=== PATIENT | male | born 1975 | race Caucasian/White ===

== ENCOUNTER → 2017-10-10 20:00 | Outpatient (CLI) | payer BC, SELFPAY | PROVIDERS: Family Provider Nurse Practitioner; PCP Nurse Practitioner; Visit Provider Nurse Practitioner Acute Care | DX: G47.33 Obstructive sleep apnea (adult) (pediatric) (principal); R06.83 Snoring | CPT/HCPCS: 95811 ==

== ENCOUNTER → 2017-11-22 09:47 | Outpatient (CLI) | payer BC, SELFPAY ==
[2017-11-22 11:47] LABS: AST(SGOT) 54 U/L (15-37); Alanine Aminotransfer ALT/SGPT 99 U/L (16-61); Albumin, Serum 3.9 g/dL (3.2-5.0); Alkaline Phosphatase 90 U/L (45-117); Bilirubin, Direct 0.14 mg/dL (0.00-0.30); Cholesterol 147 mg/dL (200); High Density Lipoprotein 35 mg/dL; Protein, Total 6.9 g/dL (6.4-8.2); Triglycerides 174 mg/dL; Very Low Density Lipoprotein 35 mg/dL (5-40)
== END ==
PROVIDERS: Family Provider Nurse Practitioner; PCP Nurse Practitioner; Visit Provider Internal Medicine Cardiovascular Disease
DX: E78.5 Hyperlipidemia, unspecified (principal); I25.10 Atherosclerotic heart disease of native coronary artery without angina pectoris
CPT/HCPCS: 36415; 80061; 80076

== ENCOUNTER → 2018-05-02 07:05 | Outpatient (CLI) | payer BC, SELFPAY ==
--- NOTE | 2018-05-02 07:07 | MRI_ITS ---
STUDY: MRI LEFT SHOULDER REASON FOR EXAM: Male, 43 years old. Left shoulder pain. TECHNIQUE: Standardized fat and water weighted pulse sequences were obtained in all 3 orthogonal planes. COMPARISON: None. FINDINGS: There is focal full-thickness incomplete tearing of the supraspinatus tendon anteriorly. There is intermediate grade partial articular surface tearing of the infraspinatus tendon. Normal subscapularis tendon. Normal teres minor tendon. Normal supraspinatus muscle. Normal infraspinatus muscle. Normal subscapularis muscle. Normal teres minor muscle. Normal glenohumeral articulation. Normal humeral head and visualized proximal humerus. Normal biceps labral complex. There is poor visualization of the intracapsular portion of the biceps tendon, possibly torn. There is tearing of the anterior and posterior superior glenoid labrum. Normal capsulo- ligamentous complex. Normal rotator interval. There is mild acromioclavicular arthrosis and mild stenosis of the subacromial space. There is no subacromial-subdeltoid bursal fluid. Normal visualized coracohumeral and coracoacromial ligaments. Normal quadrilateral space. Normal axillary space. Normal deltoid muscle. Normal trapezius muscle. MRI/Upper Ext Joint Only(Routine) IMPRESSION: Focal full-thickness incomplete tearing of the supraspinatus tendon. Intermediate grade partial articular surface tearing of the infraspinatus tendon. Tearing of the anterior and posterior superior glenoid labrum. Tearing of the intracapsular portion of the biceps tendon. Electronically Signed: Nolberto Knapp, at 11:57 EST Tel , Service support ,
--- OUTSIDE RECORDS SUMMARY | 2018-08-05 08:22 | XMS RPT_ITS ---
:1975 Author Organization [place] Care Team Providers Name Role Phone Neto Hoffman Attending Unavailable Neto Hoffman Referring Unavailable Erin Mason DUMP MOTORMAN-C Primary Care Unavailable Neto Hoffman Attending Unavailable Mason, Erin DUMP MOTORMAN-C Referring Unavailable Tania Mckenna DUMP MOTORMAN-C Attending Unavailable Mason, Erin DUMP MOTORMAN-C Primary Care Unavailable Nolberto Dubois Attending Unavailable Mason, Erin DUMP MOTORMAN-C Referring Unavailable Nolberto Dubois Attending Unavailable Nolberto Dubois Referring Unavailable Mason, Erin DUMP MOTORMAN-C Primary Care Unavailable Mason, Erin Attending Unavailable Neto Hoffman Attending Unavailable Nolberto Dubois Attending Unavailable Mason, Erin DUMP MOTORMAN-C Referring Unavailable Mason, Erin Attending Unavailable Mason, Erin Attending Unavailable PROBLEMS PROBLEMS DATE TYPE CONDITION / CODE ATTENDING STATUS SOURCE 06/02/2018 Unknown M75.42 - Impingement Neto Hoffman Active [facility] syndrome of left [facility] shoulder / Hospital M75.42(ICD-10) Repository 04/15/2018 Unknown M75.102 - Unspecified Neto Hoffman Active [facility] rotator cuff tear or Community rupture of left Hospital shoulder, not Repository specified as traumatic / M75.102(ICD-10) 04/15/2018 Unknown M25.512 - Pain in Neto Hoffman Active [facility] left shoulder / Community M25.512(ICD-10) Hospital Repository 04/15/2018 Unknown M67.912 - Unspecified Neto Hoffman Active [facility] disorder of [place] Community and tendon, left Hospital shoulder / Repository M67.912(ICD-10) 11/22/2017 Unknown I25.10 - Nolberto Dubois Active [facility] Atherosclerotic heart Community disease of [facility] coronary artery Repository without angina pectoris / I25.10(ICD-10) 11/22/2017 Unknown E78.5 - Nolberto Dubois Active [place] Hyperlipidemia, Community unspecified / Hospital E78.5(ICD-10) Repository PROCEDURES PROCEDURES No Procedure Records FoundRESULTS RESULTS ORTHOPEDIC VISIT Observed: 06/03/2018 Status: F Source: [facility] REPORT 8:06 AM [facility] REPOSITORY [facility] Orthopaedics AND Sports Medicine [address] [place] [id number] OFFICE VISIT Date of Service: 06/02/18 MR#: [id number] Acct: [id number] Name: HARRIET RIDDLE Rep #: [id number] : 1975 Provider: PA Neto Wayt Age/Sex: 43/M Location: [facility] Status: Signed Intake Intake Visit Reasons: LEFT SHOULDER Is patient in pain?: Yes Pain scale (1-10): 4 Allergies atorvastatin Adverse Reaction (Severe, Verified 05/22/18 12:21) muscle and joint pain kenolog Allergy (Intermediate, Uncoded 04/15/18 14:18) Rash Medications Albuterol Aerosols [Ventolin Aerosols] 2.5 mg INHALATION Q6H PRN PRN 10/04/14 [History Confirmed 11/20/17] traZODone [Desyrel] 50 mg PO QHS 10/04/14 [History Confirmed 11/20/17] canagliflozin 150 mg-metformin 1,000 mg tablet 1 tab PO BID 05/29/17 [History Confirmed 11/20/17] omega-3 fatty acids 1,000 mg capsule 1,000 mg PO QDAY 05/29/17 [History Confirmed 11/20/17] tramadol 50 mg tablet 50 mg PO Q6H 05/29/17 [History Confirmed 11/20/17] clopidogrel 75 mg tablet 75 mg PO QDAY 30 Days #30 tab 11/20/17 [Rx Confirmed 11/20/17] ezetimibe 10 mg tablet 10 mg PO QDAY #30 tab 11/20/17 [Rx Confirmed 11/20/17] furosemide 40 mg tablet 40 mg PO QDAY #30 tab 11/20/17 [Rx Confirmed 11/20/17] isosorbide mononitrate ER 30 mg tablet,extended release 24 hr 30 mg PO DAILY #30 tab 11/20/17 [Rx Confirmed 11/20/17] acetaminophen 80 mg chewable tablet PO 12/18/17 [History Confirmed 12/25/17] clopidogrel 75 mg tablet 75 mg PO QDAY 12/18/17 [History Confirmed 12/25/17] ezetimibe 10 mg tablet 10 mg PO QDAY 12/18/17 [History Confirmed 12/25/17] furosemide 40 mg tablet 40 mg PO QDAY 12/18/17 [History Confirmed 12/25/17] isosorbide mononitrate ER 30 mg tablet,extended release 24 hr 30 mg PO QAM 12/18/17 [History Confirmed 12/25/17] tramadol 50 mg tablet 50 mg PO Q6H #60 tab 12/25/17 [Rx Confirmed 12/25/17] trazodone 50 mg tablet 100 mg PO QDAY #60 tab 12/25/17 [Rx Confirmed 12/25/17] albuterol sulfate HFA 90 mcg/actuation aerosol inhaler 2 puff INHALATION Q4H PRN 30 Days #8 g 02/11/18 [Rx Confirmed 02/11/18] canagliflozin 150 mg-metformin 1,000 mg tablet 1 tab PO BID #60 tab 03/24/18 [Rx Confirmed 03/24/18] PFSH Medical History Atherosclerosis of coronary artery of three affiliated heart without angina pectoris (Acute) Abnormal liver enzymes (Chronic) Obesity (BMI 30.0-34.9) (Chronic) Type 2 diabetes mellitus without complications (Chronic) COPD (chronic obstructive pulmonary disease) (Chronic) Hypertension (Chronic) Hyperlipidemia (Chronic) Obstructive sleep apnea (Chronic) Abnormal liver enzymes (Acute) Anxiety disorder (Acute) Asthma (Acute) Central sleep apnea (Acute) Diverticulitis (Acute) Fatty liver (Acute) Fusion of lumbar spine (Acute) Hyperlipidemia associated with type 2 diabetes mellitus (Acute) Lipoma (Acute) Recurrent UTI (urinary tract infection) (Acute) Surgical History History of coronary artery stent placement (Acute 10/27/14) History of tonsillectomy (Acute) History of tonsillectomy (Chronic) Family History Sister Diabetes Grandfather CAD (coronary artery disease) Other Asthma CVA (cerebral vascular accident) Cancer Chronic inflammatory demyelinating polyneuropathy Family history of high cholesterol Heart disease Hypertension Leukemia Osteoporosis Thyroid disorder Social History Smoking Status: Never smoker HPI LEFT SHOULDER: Details: HARRIET RIDDLE is a 43 year old M here today for MRI f/u of the left shoulder. He continues to have pain with abduction and flexion and anything overhead. Denies numbness, tingling or other associated symptoms. He states that he has a general achiness most of the time. Ortho Exam Left Shoulder Contralateral Normal: Yes Testing: Yes Hawkin's, Yes Neer's, Yes Speed's, Yes TTP Biceps, No TTP AC Joint, Yes AROM-Forward Elevation 0-180, Yes AROM-External Rotation at side 0-60, No translation, No Apprehension Test, No empty can Internal Rotation: T12 SHOULDER: Patient has no evident abnormalities on inspection of the shoulder. He has no localized or generalized swelling of the shoulder. There are no other skin changes noted. Patient does have full range of motion at the same time takes the left foot he has a little discomfort but again he can get full range of motion. Strength is minimally disc increased at this time. He has no translation or evidence of subluxation Office Procedures Kenalog 40 mg/mL suspension for injection (triamcinolone acetonide) 80 mg Intrabursal ONCE Injections Yes Subacromial Injection Left Office Meds Nico Performing Provider: NEIL Duncan Administered by: NEIL Duncan on 06/02/18 15:09 Dose Route Admin Location Lot Number Expiration Date [place] [employer] Pcb Designer 80 mg Intrabursal left [id number] 07/18/19 [id number] [facility] joint QUIBB Assessment AND Plan Problems 1. Impingement syndrome, shoulder, left M75.42 2. Disorder of left rotator cuff M67.912 Plan Today in office we did go over his MRI which did show couple things that could be contributing to his pain and discomfort. He does have a lot of anterior shoulder pain and tenderness over the biceps which does correlate with a partial tear intracapsular. There is suggestion of a full-thickness but incomplete tear of the supraspinatus as well as labral tears. I did review the actual images with the surgeon in our office looking specifically at the findings suggested. It was felt that these findings although noted appeared relatively minor. We did discuss that he has no instability he has never had any subluxation or dislocations of the shoulder and therefore at his age not a priority to repair the labrum. After discussion of all these findings and with his range of motion patient would like to go ahead with an injection into the left subacromial space. I did explain that this may not improve the biceps component at the same time would like him to return to physical therapy to receive ultrasound on the anterior shoulder and continue with exercises. If there is no improvement at this time we did discuss that surgery is an option but could be more for a biceps tenotomy and shoulder arthroscopy cleanouts more than repair. Patient will return to the office for 6 weeks or sooner if he has increased or worsening pains. All of patient's questions were answered at this time. This note was generated with [employer] software. It may contain incorrect words, spelling, and punctuation that were not noted in checking the note before signing. Orders Orders: Medications Discontinued: Kenalog (triamcinolone acetonide) Disco80 mg (2 mL) Intrabursal ONCE 2 mL 0RF NS M75.42 ntinued Reason: Office Medication has bee n Documented as given Plan Detail Follow Up 6 Weeks Coding Level of Care Code Off vis,est,level 3 Diagnoses Impingement syndrome, shoulder, left M75.42 Disorder of left rotator cuff M67.912 Additional Codes lactation coordinator.sub ([id number]) 06/03/18 0806 <Electronically signed by Neto TREJO> Date Neto TREJO Cosigner Signature: Date (if applicable) CC: UPPER EXT JOINT Observed: 05/02/2018 Status: F Source: [place] ONLY(ROUTINE) 7:07 AM [facility] REPOSITORY [facility] Imaging Services [address] [place] [address] Upper Ext Joint Only(Routine) MR#: [id number] Acct: [id number] Name: HARRIET RIDDLE Rep #: [id number] : 1975 M 43 From: Nolberto Knapp MD PCP: Erin Mason NP Status: REG CLI Study: Upper Ext Joint Only(Routine) Date of Exam: 05/02/18 Exam# [id number] Ordering Dr: Neto Hoffman ADDENDUM by Franco Grant MD on 05/26/18 at 1131 ADDENDUM COMPARISON: Shoulder radiographs dated April 29, 2017. Electronically Signed: Franco Grant MD at 11:31 EST , Service support , 05/26/18 1131 Date cc: DELFINO Mason; NEIL Hoffman * Signed ADDENDUM by Franco Grant MD on 05/26/18 at 1131 MRI/Upper Ext Joint Only(Routine) 05/26/18 1136 Date cc: DELFINO Mason; NEIL Hoffman * Signed STUDY: MRI LEFT SHOULDER REASON FOR EXAM: Male, 43 years old. Left shoulder pain. TECHNIQUE: Standardized fat and water weighted pulse sequences were obtained in all 3 orthogonal planes. COMPARISON: None. FINDINGS: There is focal full-thickness incomplete tearing of the supraspinatus tendon anteriorly. There is intermediate grade partial articular surface tearing of the infraspinatus tendon. Normal subscapularis tendon. Normal teres minor tendon. Normal supraspinatus muscle. Normal infraspinatus muscle. Normal subscapularis muscle. Normal teres minor muscle. Normal glenohumeral articulation. Normal humeral head and visualized proximal humerus. Normal biceps labral complex. There is poor visualization of the intracapsular portion of the biceps tendon, possibly torn. There is tearing of the anterior and posterior superior glenoid labrum. Normal capsulo- ligamentous complex. Normal rotator interval. There is mild acromioclavicular arthrosis and mild stenosis of the subacromial space. There is no subacromial-subdeltoid bursal fluid. Normal visualized coracohumeral and coracoacromial ligaments. Normal quadrilateral space. Normal axillary space. Normal deltoid muscle. Normal trapezius muscle. MRI/Upper Ext Joint Only(Routine) IMPRESSION: Focal full-thickness incomplete tearing of the supraspinatus tendon. Intermediate grade partial articular surface tearing of the infraspinatus tendon. Tearing of the anterior and posterior superior glenoid labrum. Tearing of the intracapsular portion of the biceps tendon. Electronically Signed: Nolberto Knapp, at 11:57 EST Tel , Service support , CC: DELFINO Mason; NEIL Hoffman Financial Systems Analyst: Signed ORTHOPEDIC VISIT Observed: 04/06/2018 Status: F Source: [place] REPORT 2:52 PM [facility] REPOSITORY [facility] Orthopa[facility] AND Sports Medicine [address] [place] [address] OFFICE VISIT Date of Service: 04/06/18 MR#: [id number] Acct: [id number] Name: HARRIET RIDDLE Rep #: [id number] : 1975 Provider: NEIL Hoffman Age/Sex: 43/M Location: [facility] Status: Signed Intake Intake Visit Reasons: LEFT SHOULDER Is patient in pain?: Yes Pain scale (1-10): 3 Allergies atorvastatin Adverse Reaction (Severe, Verified 04/06/18 13:37) muscle and joint pain kenolog Allergy (Intermediate, Uncoded 12/18/17 16:23) Rash Medications acetaminophen 80 mg chewable tablet PO 12/18/17 [History Confirmed 12/25/17] clopidogrel 75 mg tablet 75 mg PO QDAY 12/18/17 [History Confirmed 12/25/17] ezetimibe 10 mg tablet 10 mg PO QDAY 12/18/17 [History Confirmed 12/25/17] furosemide 40 mg tablet 40 mg PO QDAY 12/18/17 [History Confirmed 12/25/17] isosorbide mononitrate ER 30 mg tablet,extended release 24 hr 30 mg PO QAM 12/18/17 [History Confirmed 12/25/17] tramadol 50 mg tablet 50 mg PO Q6H #60 tab 12/25/17 [Rx Confirmed 12/25/17] trazodone 50 mg tablet 100 mg PO QDAY #60 tab 12/25/17 [Rx Confirmed 12/25/17] canagliflozin 150 mg-metformin 1,000 mg tablet 1 tab PO BID #60 tab 03/24/18 [Rx Confirmed 03/24/18] [facility] Medical History Abnormal liver enzymes (Acute) Anxiety disorder (Acute) Asthma (Acute) Central sleep apnea (Acute) Diverticulitis (Acute) Fatty liver (Acute) Fusion of lumbar spine (Acute) Hyperlipidemia associated with type 2 diabetes mellitus (Acute) Lipoma (Acute) Recurrent UTI (urinary tract infection) (Acute) Surgical History History of tonsillectomy (Acute) Family History Other Asthma CVA (cerebral vascular accident) Cancer Chronic inflammatory demyelinating polyneuropathy Diabetes Family history of high cholesterol Heart disease Hypertension Leukemia Osteoporosis Thyroid disorder Social History Smoking Status: Never smoker HPI LEFT SHOULDER: Details: HARRIET RIDDLE is a 43 year old M here today for left shoulder pain. He states that he has had left shoulder pain for many months with no known injury. Patient is left hand dominant. 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 He complains of pain into his anterior shoulder. He also has pain in his trap and posterior shoulder. He has decreased shoulder range of motion and weakness. Patient has completed 6 weeks of physical therapy which was temporary helpful. Patient denies any MRI or injections. He had xrays which are here for review. ROS Const Reports system reviewed and no additional complaints, except as docu Eyes Reports system reviewed and no additional complaints, except as docu ENT Reports system reviewed and no additional complaints, except as docu Card Reports system reviewed and no additional complaints, except as docu Resp Reports system reviewed and no additional complaints, except as docu GI Reports system reviewed and no additional complaints, except as docu Reports system reviewed and no additional complaints, except as docu Musc Reports joint pain, Reports muscle weakness, Reports limited joint movement Skin/Breast Reports system reviewed and no additional complaints, except as docu Neuro Yes system reviewed and no additional complaints, except as docu Psych Reports system reviewed and no additional complaints, except as docu Endo Reports system reviewed and no additional complaints, except as docu Ortho Exam Left Shoulder Testing: Yes Hawkin's, Yes Neer's, Yes Speed's, Yes TTP Biceps, No AROM-Forward Elevation 0-180 (170), Yes PROM-Forward Elevation 0-180, Yes AROM-External Rotation at side 0-60, No Apprehension Test, No translation, Yes empty can Internal Rotation: T12 SHOULDER: Today in the office patient essentially has full range of motion. For flexion he is about 170 and he probably can get to 180 with some strain. Abduction causes a little more discomfort earlier in his ROM but he can get to around 170 but the last 10 degrees is more of a struggle. he has normal external rotation with some decreased internal rotation. he has evident impingment signs with some weakness noted as well. He does have positive O'briens test today. Assessment AND Plan Problems 1. Acute pain of left shoulder M25.512 2. Disorder of left rotator cuff M67.912 3. Impingement syndrome, shoulder, left M75.42 Plan Patient has had pains and problems with the left shoulder for about a year now. We reviewed his x-rays from almost a year ago which did not show any bony abnormalities. Today in the office there are no abnormalities noted on inspection of the shoulder. He actually has pretty decent range of motion that is almost full range of motion and can actually get him full range of motion passively. He does have some decreased strength in the shoulder as well as very evident impingement signs. He has been doing physical therapy which he states does help but only very temporary. So at this time he has failed anti-inflammatories, ice as well as physical therapy and therefore we are going to proceed with an MRI of the left shoulder. I think more than likely he has tendinitis may be with some partial-thickness tearing as well as biceps involvement. We will look to make sure there is no SLAP lesion or a larger tear. There is no full-thickness tear then we will likely proceed with injection of the subacromial space as well as continued physical therapy. I did recommend that he talk to the physical therapist about ultrasound on the biceps tendon anterior shoulder. Patient will follow-up in the office after the MRI to go over the results. He can ice and take anti-inflammatory in the meantime. Orders Orders: Coding Level of Care Code Off vis,new,level 3 Diagnoses Acute pain of left shoulder M25.512 Chronicity: acute Disorder of left rotator cuff M67.912 Impingement syndrome, shoulder, left M75.42 04/06/18 0212 <Electronically signed by Neto TREJO> Date Neto Guzman Signature: Date (if applicable) CC: OFFICE VISIT Observed: 03/25/2018 Status: F Source: [place] 11:52 AM [facility] REPOSITORY [facility] [address] [place] [address] OFFICE VISIT Date of Service: 03/24/18 MR#: [id number] Acct: [id number] Name: AAKASHFRIEDA Inna Rep #: [id number] : 1975 Provider: DELFINO Mason Age/Sex: 43/M Location: [facility] Status: Signed Intake Vital Signs03/24/18 Height 5 ft 9 in 03/24/18 Weight: 277 lb Intake Visit Reasons: RX REFILL, Still having L shoulder problems Accompanied by: Is patient in pain?: Yes Allergies atorvastatin Adverse Reaction (Severe, Verified 12/18/17 16:23) muscle and joint pain kenolog Allergy (Intermediate, Uncoded 12/18/17 16:23) Rash Medications acetaminophen 80 mg chewable tablet PO 12/18/17 [History Confirmed 12/25/17] clopidogrel 75 mg tablet 75 mg PO QDAY 12/18/17 [History Confirmed 12/25/17] ezetimibe 10 mg tablet 10 mg PO QDAY 12/18/17 [History Confirmed 12/25/17] furosemide 40 mg tablet 40 mg PO QDAY 12/18/17 [History Confirmed 12/25/17] isosorbide mononitrate ER 30 mg tablet,extended release 24 hr 30 mg PO QAM 12/18/17 [History Confirmed 12/25/17] tramadol 50 mg tablet 50 mg PO Q6H #60 tab 12/25/17 [Rx Confirmed 12/25/17] trazodone 50 mg tablet 100 mg PO QDAY #60 tab 12/25/17 [Rx Confirmed 12/25/17] canagliflozin 150 mg-metformin 1,000 mg tablet 1 tab PO BID #60 tab 03/24/18 [Rx Confirmed 03/24/18] PFSH Medical History Abnormal liver enzymes (Acute) Anxiety disorder (Acute) Asthma (Acute) Central sleep apnea (Acute) Diverticulitis (Acute) Fatty liver (Acute) Fusion of lumbar spine (Acute) Hyperlipidemia associated with type 2 diabetes mellitus (Acute) Lipoma (Acute) Recurrent UTI (urinary tract infection) (Acute) Surgical History History of tonsillectomy (Acute) Family History Other Asthma CVA (cerebral vascular accident) Cancer Chronic inflammatory demyelinating polyneuropathy Diabetes Family history of high cholesterol Heart disease Hypertension Leukemia Osteoporosis Thyroid disorder Social History Smoking Status: Never smoker HPI HPI (General) HPI HPI: FRIEDA RIDDLE, is a 43 M who presents to the office today for refill of his Invokamet also has been going to PT and they want a MRI of the shoulder and states has no strength in the L arm after 8 weeks of therapy. Unable to lay on the L side only his back or R side sometimes gets tingling down the L arm and has no strength in the L arm . The PT thinks its the trapezius muscles because when he worked on then he got relief ,but only temporarily. STill not watching what he eats and eats fast foods but not as much .Still suggested packing and exercising. Will have him evaluated by ortho for the shoulder pain ROS Musc Musculoskeletal: Positive for joint pain (L shoulder pain) Exam Const Constitutional: Yes cooperative, Yes healthy appearing Orientation: Yes alert, awake and oriented x3 HENMT Head: Yes normocephalic Ear: Yes hearing grossly normal bilaterally Neck Neck: normal visual inspection Thyroid: thyroid normal Eyes General: Yes appearance normal, both eyes and all related structures Chest Chest palpation AND inspection: Yes normal inspection of the chest Resp Effort AND Inspection: Yes normal respiratory effort Auscultation: Yes clear to auscultation bilaterally Cardio Palpitation: Yes normal PMI Rate: Yes regular rate Rhythm: Yes regular rhythm GI Inspection: Yes normal to inspection Auscultation: Yes normal bowel sounds Musc Cervical Spine: Yes cervical ROM normal Thoracic/Lumbar Spine: Yes thoracic and lumbar spine normal to inspection Skin General: no rashes or lesions noted Lesions: Yes no lesions Extrem General: Yes normal to inspection Neuro General: Yes alert and oriented x3 Psych Appearance: Positive grossly normal Mood: Positive congruent mood Affect: Positive normal affect Results POC A1C POC A1C 6.3 % Last Edit by BRAYAN Mccauley on 03/24/18 16:59 Assessment AND Plan Problems 1. Uncontrolled type 2 diabetes mellitus with hyperglycemia E11.65 2. Acute pain of left shoulder M25.512 Patient Instructions Will refer to Dr Urbano for the shoulder pain. Stop the PT continue medcations as prescribed Orders Orders: Medications New: Coding Level of Care Code Off vis,est,level 3 Diagnoses Uncontrolled type 2 diabetes mellitus with hyperglycemia E11.65 Glycemic state: with hyperglycemia Acute pain of left shoulder M25.512 Chronicity: acute 03/25/18 1152 <Electronically signed by Erin SCHMIDT> Date Erin SCHMIDT CC: OFFICE VISIT Observed: 02/12/2018 Status: F Source: [place] 12:54 PM [facility] REPOSITORY [facility] [address] [place] [address] OFFICE VISIT Date of Service: 02/11/18 MR#: [id number] Acct: [id number] Name: HARRIET RIDDLE Rep #: [id number] : 1975 Provider: DELFINO Mason Age/Sex: 42/M Location: [facility] Status: Signed Intake Vital Signs02/11/18 Height 5 ft 9.5 in 02/11/18 Weight: 270 lb Intake Visit Reasons: cold sore, needs inhaler (albuterol) Allergies No Known Allergies Allergy (Verified 05/29/17 15:56) Medications Albuterol Aerosols [Ventolin Aerosols] 2.5 mg INHALATION Q6H PRN PRN 10/04/14 [History Confirmed 11/20/17] traZODone [Desyrel] 50 mg PO QHS 10/04/14 [History Confirmed 11/20/17] canagliflozin 150 mg-metformin 1,000 mg tablet 1 tab PO BID 05/29/17 [History Confirmed 11/20/17] omega-3 fatty acids 1,000 mg capsule 1,000 mg PO QDAY 05/29/17 [History Confirmed 11/20/17] tramadol 50 mg tablet 50 mg PO Q6H 05/29/17 [History Confirmed 11/20/17] clopidogrel 75 mg tablet 75 mg PO QDAY 30 Days #30 tab 11/20/17 [Rx Confirmed 11/20/17] ezetimibe 10 mg tablet 10 mg PO QDAY #30 tab 11/20/17 [Rx Confirmed 11/20/17] furosemide 40 mg tablet 40 mg PO QDAY #30 tab 11/20/17 [Rx Confirmed 11/20/17] isosorbide mononitrate ER 30 mg tablet,extended release 24 hr 30 mg PO DAILY #30 tab 11/20/17 [Rx Confirmed 11/20/17] albuterol sulfate HFA 90 mcg/actuation aerosol inhaler 2 puff INHALATION Q4H PRN 30 Days #8 g 02/11/18 [Rx Confirmed 02/11/18] azithromycin 250 mg tablet 250 mg PO QDAY 5 Days #6 tab 02/11/18 [Rx Confirmed 02/11/18] PFSH Medical History Atherosclerosis of coronary artery of three affiliated heart without angina pectoris (Acute) Abnormal liver enzymes (Chronic) Obesity (BMI 30.0-34.9) (Chronic) Type 2 diabetes mellitus without complications (Chronic) COPD (chronic obstructive pulmonary disease) (Chronic) Hypertension (Chronic) Hyperlipidemia (Chronic) Obstructive sleep apnea (Chronic) Surgical History History of coronary artery stent placement (Acute 10/27/14) History of tonsillectomy (Chronic) Family History Sister Diabetes Grandfather CAD (coronary artery disease) Social History Smoking Status: Former smoker HPI HPI (General) HPI HPI: HARRIET RIDDLE, is a 42 M who presents to the office today for tightness with cough and SOB .Wants his inhaler refilled . Has been using quite a bit lately more than 2 x a week Gave him a trial of Symbicort 80 to see if helps and he felt immediate relief. ROS Const Constitutional: Positive for fever(s) Eyes Eyes: Positive for discharge ENT ENT: Positive for dizziness/vertigo, nasal congestion, sinus pain, facial pain, sinus pressure and hoarseness Resp Respiratory: Positive for cough (yellow) Cough: Yes productive, shortness of breath and wheezing Aller/Imm Allergy/Immunologic: Positive for wheezing Exam Const Constitutional: Yes cooperative, Yes healthy appearing Orientation: Yes alert, awake and oriented x3 HENMT Head: Yes normocephalic Ear: Yes hearing grossly normal bilaterally Neck Neck: normal visual inspection Thyroid: thyroid normal Eyes General: Yes appearance normal, both eyes and all related structures Chest Chest palpation AND inspection: Yes normal inspection of the chest Resp Effort AND Inspection: Yes decreased respiratory effort Auscultation: Yes diminished lung sounds and clear to auscultation bilaterally Cardio Palpitation: Yes normal PMI Rate: Yes regular rate Rhythm: Yes regular rhythm GI Inspection: Yes normal to inspection Auscultation: Yes normal bowel sounds Musc Cervical Spine: Yes cervical ROM normal Thoracic/Lumbar Spine: Yes thoracic and lumbar spine normal to inspection Skin General: no rashes or lesions noted Lesions: Yes no lesions Extrem General: Yes normal to inspection Neuro General: Yes alert and oriented x3 Psych Appearance: Positive grossly normal Mood: Positive congruent mood Affect: Positive normal affect Assessment AND Plan Problems 1. Moderate persistent asthmatic bronchitis without complication J45.40 2. Recurrent acute serous otitis media of right ear H65.04 Patient Instructions Take the antibiotics till gone with food or after eating push the fluids .Continue using the Ventolin inhaler as needed and may try the steroid inhaler once a day in the AM .2 puffs once a day rinse the mouth out well with water Medications New: albuterol sulfate HFA 90 mcg/actuation (V2 puffs Inhalation Q4H 1 month PRN 8 graJ45.909 entolin HFA) ms 12RF asthma Coding Level of Care Code Off vis,est,level 3 Diagnoses Moderate persistent asthmatic bronchitis without complication J45.40 Asthma complication type: uncomplicated Asthma persistence: persistent Asthma severity: moderate Recurrent acute serous otitis media of right ear H65.04 Chronicity: acute Otitis media type: serous Recurrence: recurrent 02/12/18 1254 <Electronically signed by Erin SCHMIDT> Date Erin SCHMIDT CC: OFFICE VISIT Observed: 12/26/2017 Status: F Source: [facility] 2:23 PM [facility] REPOSITORY After Hours Family [facility] [address] [place] [address] OFFICE VISIT Date of Service: 12/25/17 MR#: [id number] Acct: [id number] Name: FRIEDA RIDDLE Rep #: [id number] : 1975 Provider: DELFINO Mason Age/Sex: 42/M Location: [facility] Status: Signed Intake Vital Signs12/25/17 Height 5 ft 9 in 12/25/17 Weight: 272 lb 12/25/17 Body Mass Index (BMI) 40.1 12/25/17 Blood Pressure Location Rt popliteal 12/25/17 Blood Pressure Position Sitting 12/25/17 Respiratory Rate 18 Intake Visit Reasons: BACK AND SHOULDERS Chief Complaint: back and sholder pain and would like ears looked at Accompanied by: self Is patient in pain?: Yes Allergies atorvastatin Adverse Reaction (Severe, Verified 12/18/17 16:23) muscle and joint pain kenolog Allergy (Intermediate, Uncoded 12/18/17 16:23) Rash Medications acetaminophen 80 mg chewable tablet PO 12/18/17 [History Confirmed 12/25/17] canagliflozin 150 mg-metformin 1,000 mg tablet 1 tab PO BID 12/18/17 [History Confirmed 12/25/17] clopidogrel 75 mg tablet 75 mg PO QDAY 12/18/17 [History Confirmed 12/25/17] ezetimibe 10 mg tablet 10 mg PO QDAY 12/18/17 [History Confirmed 12/25/17] furosemide 40 mg tablet 40 mg PO QDAY 12/18/17 [History Confirmed 12/25/17] isosorbide mononitrate ER 30 mg tablet,extended release 24 hr 30 mg PO QAM 12/18/17 [History Confirmed 12/25/17] tramadol 50 mg tablet 50 mg PO Q6H #60 tab 12/25/17 [Rx Confirmed 12/25/17] trazodone 50 mg tablet 100 mg PO QDAY #60 tab 12/25/17 [Rx Confirmed 12/25/17] PFSH Medical History Abnormal liver enzymes (Acute) Anxiety disorder (Acute) Asthma (Acute) Central sleep apnea (Acute) Diverticulitis (Acute) Fatty liver (Acute) Fusion of lumbar spine (Acute) Hyperlipidemia associated with type 2 diabetes mellitus (Acute) Lipoma (Acute) Recurrent UTI (urinary tract infection) (Acute) Surgical History History of tonsillectomy (Acute) Family History Other Asthma CVA (cerebral vascular accident) Cancer Chronic inflammatory demyelinating polyneuropathy Diabetes Family history of high cholesterol Heart disease Hypertension Leukemia Osteoporosis Thyroid disorder Social History Smoking Status: Never smoker HPI HPI (General) HPI Chief Complaint: back and sholder pain and would like ears looked at HPI: FRIEDA RIDDLE, is a 42 M who presents to the office today for continued pain in the L shoulder at the AC joint worse with certain movements like lifting straight out to the side and swinging arm backwards. hurts to lay on the opposite side in bed and feels better to lay on the affected side with minimal pain .Reaching behind self with extended arm is very painful no palpable pain on exam no redness or swelling noted ROS ENT ENT: Positive for neck pain and ear pain Musc Musculoskeletal: Positive for joint pain (L shoulder pain), back pain, limited range of motion, muscle weakness and neck pain Exam Const Constitutional: Yes cooperative Orientation: Yes oriented x3 and alert HENMT TM-Right: normal TM-Left: normal Neck Neck: normal visual inspection Eyes General: Yes appearance normal, both eyes and all related structures Chest Chest palpation AND inspection: Yes normal inspection of the chest Resp Effort AND Inspection: Yes normal respiratory effort Auscultation: Yes clear to auscultation bilaterally Cardio Palpitation: Yes normal PMI Rate: Yes regular rate Rhythm: Yes regular rhythm GI Palpation: Yes soft and no hepatosplenomegaly Musc Thoracic/Lumbar Spine: Yes thoracic and lumbar spine normal to inspection, lumbar spinal tenderness and paraspinal tenderness Skin General: no rashes or lesions noted Extrem General: Yes normal to inspection and other (l arm limited PROM and ROM especilly trying to reach behind with his arm) Neuro General: Yes oriented x3 and alert Psych Appearance: Positive grossly normal Affect: Positive normal affect Assessment AND Plan Problems 1. Left arm pain M79.602 2. Left shoulder pain M25.512 Plan refer for for PT continue the use of ibuprofen 600 mg or 800 mg every 6-8 hrs as needed Use the tramadol for the severe pain Patient Instructions I will get the results of the x-rays done in last March Will refer to [facility] for therapy of the L shoulder Try using ibuprofen 200 mg 3 every 6 hr or 4 every 8 hr OR Aleve 220 take 2 2 x a day take the Meds as prescribed the tramadol for pain and the trazodone for sleep Medications New: Discontinued: 12/26/17 1423 <Electronically signed by Erin SCHMIDT> Date Erin SCHMIDT CC: OFFICE VISIT Observed: 12/18/2017 Status: F Source: [facility] 5:11 PM [facility] REPOSITORY [facility] [address] [place] [address] OFFICE VISIT Date of Service: 12/18/17 MR#: [id number] Acct: [id number] Name: FRIEDA RIDDLE Rep #: [id number] : 1975 Provider: DELFINO Mason Age/Sex: 42/M Location: [facility] Status: Signed Intake Vital Signs12/18/17 Height 5 ft 9 in 12/18/17 Weight: 271 lb Intake Visit Reasons: EAR INFECTION, blood pouring out of ear last night Chief Complaint: ear ache for 1 week then last night blood pouring out of L ear Accompanied by: Self Is patient in pain?: Yes Allergies atorvastatin Adverse Reaction (Severe, Verified 12/18/17 16:23) muscle and joint pain kenolog Allergy (Intermediate, Uncoded 12/18/17 16:23) Rash Medications acetaminophen 80 mg chewable tablet PO 12/18/17 [History Confirmed 12/18/17] amoxicillin 875 mg tablet 875 mg PO BID #20 tab 12/18/17 [Rx Confirmed 12/18/17] canagliflozin 150 mg-metformin 1,000 mg tablet 1 tab PO BID 12/18/17 [History Confirmed 12/18/17] clopidogrel 75 mg tablet 75 mg PO QDAY 12/18/17 [History Confirmed 12/18/17] ezetimibe 10 mg tablet 10 mg PO QDAY 12/18/17 [History Confirmed 12/18/17] furosemide 40 mg tablet 40 mg PO QDAY 12/18/17 [History Confirmed 12/18/17] isosorbide mononitrate ER 30 mg tablet,extended release 24 hr 30 mg PO QAM 12/18/17 [History Confirmed 12/18/17] trazodone 50 mg tablet 100 mg PO QDAY tab 12/18/17 [History Confirmed 12/18/17] [facility] Medical History Abnormal liver enzymes (Acute) Anxiety disorder (Acute) Asthma (Acute) Central sleep apnea (Acute) Diverticulitis (Acute) Fatty liver (Acute) Fusion of lumbar spine (Acute) Hyperlipidemia associated with type 2 diabetes mellitus (Acute) Lipoma (Acute) Recurrent UTI (urinary tract infection) (Acute) Surgical History History of tonsillectomy (Acute) Family History Other Asthma CVA (cerebral vascular accident) Cancer Chronic inflammatory demyelinating polyneuropathy Diabetes Family history of high cholesterol Heart disease Hypertension Leukemia Osteoporosis Thyroid disorder Social History Smoking Status: Never smoker HPI HPI (General) HPI Chief Complaint: ear ache for 1 week then last night blood pouring out of L ear HPI: * FRIEDA RIDDLE, is a 42 M who presents to the office today for blood pouring out of the L ear ROS Const Constitutional: No anorexia, body ache, chills, excessive sweating, fatigue, fever(s), frequent falls, headache(s), decreased energy, malaise, night sweats, snoring, weakness, weight change, sleep problems, abnormal sleep pattern, change in appetite or other Eyes Eyes: No blurry vision, change in vision, double vision, discharge, dry eyes, bulging eyes, floaters, visual disturbances, eye pain, light sensitivity, spots in vision, tunnel vision or other ENT ENT: Positive for ear discharge (bloody L ear); no headache(s), difficulty swallowing, neck pain or abnormal hearing Resp Respiratory: No snoring, cough, change in phlegm color, chest congestion, excessive phlegm production, hemoptysis, pain on inspiration, shortness of breath, pain with cough, stridor, wheezing or other Cardio Cardiology: No excessive sweating, chest pain at rest, chest pain with exertion, leg pain with exertion, shortness of breath, dyspnea on exertion, generalized swelling, irregular heart rhythm, lightheadedness, orthopnea, radiating jaw, neck or arm pain, fast heart rate, slow heart rate, palpitations or other Gastro GI: No other, No abdominal pain, No belching, No bloating, No change in bowel habits, No change in stool character, No coffee ground emesis, No constipation, No cramping, No diarrhea, No heartburn, No Difficulty Swallowing, No feeling full early, No excessive flatus, No incontinent of stools, No Vomiting blood/hematemesis, No Blood in stool, No loose stools, No Black,tarry stools, No nausea/dyspepsia, No pain with swallowing, No vomiting, No hemorrhoids, No rectal pain Musc Musculoskeletal: No abnormal walking, joint pain, back pain, deformity, joint swelling, limited range of motion, loss of height, muscle cramps, muscle weakness, decreased muscle mass, body aches, neck pain, numbness, radiating pain into limb, stiffness, tingling or other Skin Skin: No acne, hair loss, change in hair, nail changes, boil, change in skin color, dry skin, redness, excessive hair growth, yellowing of the skin, lesions, itching, rash, skin pain, skin ulcer, sores, skin swelling, wounds or other Breast Breast: No other Neuro Neurology: No frequent falls, headache(s), weakness, visual disturbances, abnormal walking, numbness, tingling, abnormal hearing, abnormal movements, abnormal speech, behavioral changes, confusion, unsteady gait/balance, dizziness, lack of coordination, loss of vision, memory loss, restless legs, fainting, tremor(s) or other Psych Psychiatric: No abnormal sleep pattern, No change in appetite, No behavioral changes, No confusion, No memory loss, No lack of enjoyment, No anxiety, No depression, No difficulty concentrating, No hopelessness, No irritability, No mood swings, No panic attacks, No paranoia, No Thoughts of harming yourself/Others, No hallucinations, No other Endo Endo: No excessive sweating, No fatigue Aller/Imm Allergy/Immunologic: No wheezing or itchy eyes Exam Const Constitutional: Yes cooperative Orientation: Yes alert, awake and oriented x3 HENMT Head: Yes normocephalic Ear: Yes hearing grossly normal bilaterally TM-Right: red TM-Left: red, ruptured (dried blood in the canal bright red) Pinna-Right: within normal limits Pinna-Left: within normal limits Face: Yes normal facial exam Nose: Yes external nose normal Mouth: Yes oral mucosae normal Teeth and Gingiva: Yes dentition normal Throat: Yes posterior oropharynx normal Neck Neck: normal visual inspection Eyes General: Yes appearance normal, both eyes and all related structures Chest Chest palpation AND inspection: Yes normal inspection of the chest Resp Effort AND Inspection: No stridor Auscultation: Yes clear to auscultation bilaterally Cardio Palpitation: Yes normal PMI Rate: Yes regular rate Rhythm: Yes regular rhythm GI Inspection: Yes normal to inspection Auscultation: Yes normal bowel sounds Rectal Exam: No hemorrhoids Musc Cervical Spine: Yes cervical ROM normal Thoracic/Lumbar Spine: Yes thoracic and lumbar spine normal to inspection Skin General: no rashes or lesions noted Lesions: Yes no lesions Extrem General: Yes normal to inspection Neuro General: Yes alert and oriented x3 Motor: No weakness Psych Appearance: Positive grossly normal Mood: Positive congruent mood Affect: Positive normal affect Assessment AND Plan Problems 1. Left otitis media with spontaneous rupture of eardrum H66.92; H72.92 2. Right otitis media H66.91 Patient Instructions Take the antibiotics till gone no water in the L ear especially when showering follow up if not improving in 7 days Medications New: 12/18/17 1711 <Electronically signed by Erin SCHMIDT> Date Erin SCHMIDT CC: LIVER PROFILE Collected: 11/22/2017 Status: F Source: [facility] 9:52 AM [facility] REPOSITORY TYPE CODE TESTS RESULT OUT OF RANGE REFERENCE UNITS LAB L501.1500 6.4-8.2 g/dL Normal T PROT 6.9 LAB L501.1800 3.2-5.0 g/dL Normal ALB 3.9 LAB L501.1950 2.2-4.2 g/dL Normal GLOB 3.0 LAB L501.4100 15-37 U/L High AST 54 LAB L501.4305 45-117 U/L Normal ALK P 90 LAB L501.4405 16-61 U/L High ALT 99 LAB L501.4600 0.20-1.00 mg/dL Normal T BILI 0.80 LAB L501.4700 0.00-0.30 mg/dL Normal D BILI 0.14 Performed By: #### L500.3400, L500.4100 #### [facility] [address] [place], [address] LIPID PROFILE Collected: 11/22/2017 Status: F Source: [facility] 9:52 AM [facility] REPOSITORY TYPE CODE TESTS RESULT OUT OF RANGE REFERENCE UNITS LAB L501.4900 200 mg/dL Normal CHOL 147 Result Comment: <200 mg/dL Desirable 200-240 mg/dL Borderline >240 mg/dL High Risk LAB L501.5000 mg/dL Normal TRIG 174 Result Comment: The drugs N-Acetylcysteine and Metamizole may falsely depress this assay. Serum Triglycerides Reference Interval Normal <150 mg/dL Borderline high 150 - 199 mg/dL High 200 - 499 mg/dL Very High > or = 500 mg/dL LAB L501.6400 mg/dL Low HDL 35 Result Comment: The drugs N-Acetylcysteine and Metamizole may falsely depress this assay. Reference Range HDL <40 mg/dL Low HDL Cholesterol HDL >or= 60 mg/dL High HDL Cholesterol LAB L501.6500 0-130 mg/dL Normal LDL 77 LAB L501.6600 5-40 mg/dL Normal VLDL 35 Performed By: #### L500.3400, L500.4100 #### [facility] [address] [place], [address] CARDIOLOGY VISIT Observed: 11/20/2017 Status: F Source: [facility] REPORT 3:58 PM [facility] REPOSITORY [facility] [address] [place] [address] OFFICE VISIT Date of Service: 11/20/17 MR#: [id number] Acct: [id number] Name: HARRIET RIDDLE Rep #: [id number] : 1975 Provider: Nolberto Dubois MD Age/Sex: 42/M [place] [facility] Status: Signed HPI HPI Chief Complaint: Routine f/u Details: Mr. Riddle is a very pleasant 42-year-old morbidly obese nondiabetic gentleman who I saw in consultation as a referral from Dr. Abdias Madrid in the hospital on 10/06/14. Patient had been admitted for shortness of breath of unclear etiology which had been going on for approximately 1 month's time. Patient has known obstructive sleep apnea and is compliant with his BiPAP machine. Patient had been on Cardizem and lisinopril, and complained of worsening lower extremity edema as well as a dry hacking cough. His cardiac workup included a 2-D echo with Doppler which demonstrated an of 65%, no significant valvular disease, but were unable to assess his RVSP. He had undergone a CTA of his chest at [facility] which was negative for pulmonary embolism. He underwent a treadmill/echocardiogram in which he got stage III, had a hypertensive blood pressure response to exercise, but had no evidence of ischemia. The patient returned for follow up, and had been compliant with his medications. He was switched to Imdur and HCTZ, and his lower extremity edema has completely resolved. However, he still complained of substernal chest pressure with profound exertion, as well as dyspnea on exertion although this appears to be improved as well. Because of his exertional chest pressure, he underwent a left heart catheterization on 10/19/14. This demonstrated a significant distal RCA lesion. He received a 3.5X 24 Promus stent to the distal RCA with an excellent result. He is now here for follow-up. He has completed cardiac rehab without difficulty. Reports that his shortness of breath has completely resolved, he denies any exertional symptoms patient has completed cardiac rehab is doing fairly well. Prior to our previous visit, he developed bilateral shoulder myalgias, and his Lipitor was held by his PCP. These have completely resolved. He is currently on Zetia for cholesterol management. His blood pressure is much improved. Patient is now here in follow-up, and is tolerating his BiPAP rather well. He continues on his diabetic therapy and has absolutely no edema. 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 He denies any symptoms of chest pressure, angina, shortness of breath, dyspnea on exertion, presyncope or syncope. Patient recently underwent a repeat sleep study as he has had challenges with tiredness in the morning with his existing CPAP system. He is awaiting the results In our office today his blood pressure is 100/60 and his pulse is 76 and regular. His physical exam demonstrates a very thick neck,small oropharyngeal airway clear lungs bilaterally, regular rate and rhythm, normal S1/S2, no edema. Lipids as of 09/30 showed HDL of 34 and LDL of 118. Repeat lipids are pending. Intake Vital Signs11/20/17 Height 5 ft 9.5 in 11/20/17 Weight: 264 lb 11/20/17 Body Mass Index (BMI) 38.4 11/20/17 Blood Pressure 100/60 Intake Visit Reasons: 6 M FU Allergies No Known Allergies Allergy (Verified 05/29/17 15:56) Medications Albuterol Aerosols [Ventolin Aerosols] 2.5 mg INHALATION Q6H PRN PRN 10/04/14 [History Confirmed 11/20/17] traZODone [Desyrel] 50 mg PO QHS 10/04/14 [History Confirmed 11/20/17] canagliflozin 150 mg-metformin 1,000 mg tablet 1 tab PO BID 05/29/17 [History Confirmed 11/20/17] omega-3 fatty acids 1,000 mg capsule 1,000 mg PO QDAY 05/29/17 [History Confirmed 11/20/17] tramadol 50 mg tablet 50 mg PO Q6H 05/29/17 [History Confirmed 11/20/17] clopidogrel 75 mg tablet 75 mg PO QDAY 30 Days #30 tab 11/20/17 [Rx Confirmed 11/20/17] ezetimibe 10 mg tablet 10 mg PO QDAY #30 tab 11/20/17 [Rx Confirmed 11/20/17] furosemide 40 mg tablet 40 mg PO QDAY #30 tab 11/20/17 [Rx Confirmed 11/20/17] isosorbide mononitrate ER 30 mg tablet,extended release 24 hr 30 mg PO DAILY #30 tab 11/20/17 [Rx Confirmed 11/20/17] [facility] Medical History Atherosclerosis of coronary artery of three affiliated heart without angina pectoris (Acute) Abnormal liver enzymes (Chronic) Obesity (BMI 30.0-34.9) (Chronic) Type 2 diabetes mellitus without complications (Chronic) COPD (chronic obstructive pulmonary disease) (Chronic) Hypertension (Chronic) Hyperlipidemia (Chronic) Obstructive sleep apnea (Chronic) Surgical History History of coronary artery stent placement (Acute 10/27/14) History of tonsillectomy (Chronic) Family History Sister Diabetes Grandfather CAD (coronary artery disease) Social History Smoking Status: Former smoker ROS Const Const: Negative for fatigue, weakness, body ache, fever(s), headache(s), chills, frequent falls, night sweats, daytime sleepiness, difficulty sleeping, excessive sweating, weight gain, weight loss, increased appetite, poor appetite, anorexia or other Eyes Eyes: Negative for blind spots, loss of peripheral vision, transient loss of vision, blurry vision, change in vision, double vision, floaters, tunnel vision or other ENT ENT: Negative for headache(s), dizziness, hearing loss, tinnitus, Nosebleed/epistaxis, balance problems, post nasal drip, lip swelling, tongue swelling, bleeding gums, hoarseness, neck pain, dry mouth or other Cardio Chest Pain: No Palpitations: No Edema: None Muscle aches with walking: None Resp Respiratory: Positive for other (Had another sleep study Dr. Madrid); negative for SOB with activity, SOB at rest, SOB orthopnea\SOB lying down, Coughing up blood/hemoptysis, chest congestion, pain on inspiration, snoring, stridor, wheezing, crackles or paroxysmal nocturnal dyspnea GI GI: Negative nausea, vomiting, heartburn, constipation, belching, bloating, cramping, vomiting blood/hematemesis, bright, red blood in stools, black,tarry stools, loose stools, Difficulty Swallowing or other : Negative for hematuria, frequent nighttime urination/ nocturia, erectile dysfunction or abnormal vaginal bleeding Musc Musc: Negative for balance problems, muscle aches/ myalgia, muscle weakness or joint pain Skin Skin: Negative redness, non-healing lesions, rash, unusual bruising, skin ulcer, wounds, jaundice or other Neuro Neuro: Negative for weakness, headache(s), frequent falls, blurry vision, double vision, dizziness, lightheadedness, near syncope, syncope, orthostatic symptoms, confusion, memory loss, restless legs, vertigo, seizures, lack of coordination or other Max Hematologic/Lymphatic: Negative for easy bleeding, easy bruising, enlarged lymph nodes or other Endo Endo: Negative for fatigue, excessive sweating, cold intolerance, heat intolerance, flushing, increased thirst/drinking, increased hunger, hair loss, hair growth or other Psych Psych: Negative for anxiety, depression, thoughts of harming anyone, thoughts of harming yourself, visual hallucinations, panic attacks or audible hallucinations Allergy Allergy/Immunology: Negative for lip swelling, Negative for tongue swelling, Negative for rash, Negative for throat swelling, Negative for hives Cardiology Exam Const Appearance: cooperative, healthy appearing and no acute distress Nutritional Appearance: well nourished Orientation: alert, oriented x3 and oriented to person Head Head: normal to inspection, atraumatic and normocephalic Nose: external nose normal Face and Sinus: face symmetric Mouth: oral mucosae normal Eyes General: appearance normal, both eyes and all related structures Eyelids: eyelids normal Conjunctivae: conjunctivae normal Pupils: PERRL and normal by confrontation EOM: EOM intact bilaterally Neck Neck: normal visual inspection and full ROM Carotids: normal carotid upstroke Chest Chest inspection: normal inspection of the chest Auscultation: Bilateral: Clear to Auscultation Cardio Palpation: normal PMI Rate: regular rate Rhythm: regular rhythm Heart sounds: S1 normal and S2 normal GI GI: normal to inspection, no hepatosplenomegaly and bowel sounds present Neuro General: alert, oriented x3, awake, CN's II-XI intact bilaterally and moves all extremities Skin Skin: no rashes or lesions noted Extremities Pulses: Normal: Right Femoral Pulse, Left Femoral Pulse, Right Dorsalis Pedis Pulse, Left Dorsalis Pedis Pulse, Right Posterior Tibial Pulse, Left Posterior Tibial Pulse, Right Radial Pulse, Left Radial Pulse Lower Extremity Edema: None: Bilateral Psych Psychological: normal affect Assessment AND Plan 1. Atherosclerosis of coronary artery of three affiliated heart without angina pectoris I25.10 Plan 1. Coronary artery disease: No exertional anginal symptoms at this time. No indication for any additional testing I recommend he continue his current anti-hypertensive medications, Plavix, Lasix, and Imdur. I have encouraged him to begin exercising to facilitate weight loss as well as good cardiac health. Patient has agreed to do so. Orders Orders: 2. Hyperlipidemia E78.5 Plan 2. Hyperlipidemia: We will repeat his lipid profile. He is intolerant to statins. Continue Zetia going forward as well as omega-3 fatty acids. 3. Return office in 6 months. This note was generated using a voice recognition system and there may be incorrect words, spelling or punctuation that were not noted when reviewing the office note prior to saving. Orders Orders: Plan Detail Other Medications Refilled: Follow Up +6M (Silvino) Coding Level of Care Code Off vis,est,level 3 Diagnoses Atherosclerosis of coronary artery of three affiliated heart without angina pectoris I25.10 Hyperlipidemia E78.5 Coding Level of Care Code Off vis,est,level 3 Diagnoses Atherosclerosis of coronary artery of three affiliated heart without angina pectoris I25.10 Hyperlipidemia E78.5 11/20/17 1558 <Electronically signed by Nolberto Dubois MD> Date Nolberto Dubois MD Cosigner Signature: Date (if applicable) CC: DELFINO Mason ALLERGIES ALLERGIES DATE TYPE / CODE NAME / CODE REACTION SEVERITY SOURCE 05/22/2018 Drug atorvastatin/ muscle and SV Sathish Allergy/[id number](S [id number](RX joint pain [facility] NOMED CT) NORM) Hospital Repository 04/15/2018 Miscellaneous kenolog Rash [place] Sathish Allergy/651732902(S [facility] NOMED CT) Hospital Repository 05/29/2017 Drug No Known Unknown [facility]ath[id number][id number] Repository ENCOUNTERS ENCOUNTERS ADMIT/DISCHARGE ACCOUNT ADMITTING ENCOUNTER LOCATION SOURCE NUMBER CLASS 06/02/2018/ [id number] Ambulatory BMSBuilding:B Sathish 9 7 [facility] Repository 05/28/2018 [id number] Ambulatory BMSBuilding:B Sath[place] 2 MS.[facility] Repository 05/02/2018 [id number] [place] 1 [facility] Hospital ing:MRI Repository 04/06/2018/ [id number] Ambulatory BMSBuilding:B Sath[place] 8 7 [facility] Repository 03/24/2018 [id number] Ambulatory AHFBuilding:A Sathish 0 [facility] [place] [place] Repository 12/25/2017 [id number] Ambulatory AHFBuilding:A Sathish 1 [facility] [place] [place] Repository 12/18/2017 [id number] Ambulatory AHFBuilding:A Sathish 8 HF [facility] Repository 11/22/2017 [id number] Ambulatory Sathish Sathish 1 [facility] ing:LAB Repository 11/20/2017/ [id number] Ambulatory BMSBuilding:B [place] [address] [facility] Repository 10/10/2017 [id number] Ambulatory [place] 7 [facility] ing: Repository PAYERS PAYERS ENCOUNTER GUARANTOR PAYER SUBSCRIBER SOURCE 06/02/2018 CHRISTOPHER S Primary CHRISTOPHER S [place] [id number] PINE Insurance:ANTHEMPolic DRAKEDOB: [facility] Number: [id number] Hospital [address]Tsz: (330 [id number] Repository [phone] () e Date:1597-48-31[address], [place] [address]QK: 06/02/2018 Secondary NOT GIVENUNK Sathish Insurance:SELF PAY [facility] Number: Effective Repository Date:2018-06-01 05/28/2018 CHRISTOPHER S Primary CHRISTOPHER [place] [id number] PINE Insurance:ANTHEMPolic DRAKEDOB: [facility] Number: [id number] Hospital [address]Sjd: (330 [id number] Repository [phone] () e Date:3429-26-15QT [address] [address]EG: 05/28/2018 Secondary NOT GIVENUNK [place] Insurance:SELF PAY [facility] Number: Effective Repository Date:2017-11-20 05/02/2018 CHRISTOPHER S Primary CHRISTOPHER S [place] [id number] PINE Insurance:ANTHEMPolic DRAKEDOB: [facility] Number: [id number] Hospital [address]Tgq: (330 [id number] Repository [phone] () e Date:0122-31-73SZ [address], [place] [address]NO: 05/02/2018 Secondary NOT GIVENUNK [place] Insurance:SELF PAY [facility] Number: Effective Repository Date:2018-04-27 04/06/2018 CHRISTOPHER S Primary CHRISTOPHER S [place] [id number] PINE Insurance:ANTHEMPolic [place]KEDOB: [place] Number: [id number] Hospital [address]Kwm: (330 [id number] Repository [phone] () e Date:6166-95-30PH [address] [place] [address]VT: 04/06/2018 Secondary NOT GIVENUNK [place] Insurance:SELF PAY [facility] Number: Effective Repository Date:2018-04-06 11/22/2017 CHRISTOPHER Primary CHRISTOPHER [place] [id number] [place] Insurance:ANTHEMPolic [place]KEDOB: [place] Number: [id number] Hospital [address]Mte: (330) [id number] Repository [phone] () e Date:[id number] [address]JY: 11/22/2017 Secondary NOT GIVENUNK [place] Insurance:SELF PAY [facility] Number: Effective Repository Date:2017-11-22 11/20/2017 CHRISTOPHER Primary CHRISTOPHER [place] [id number] [place] Insurance:ANTHEMPolic DRAKEDOB: [place] Number: [id number] Hospital [address]Eow: (330) [id number] Repository [phone] () e Date:[id number] [address]RE: 11/20/2017 Secondary NOT GIVENUNK Sathish Insurance:SELF PAY [facility] Number: Effective Repository Date:2017-11-20 10/10/2017 CHRISTOPHER Primary CHRISTOPHER [place] [id number] [place] Insurance:ANTHEMPolic DRAKEDOB: [place] Number: [id number] Hospital [address]Sxy: (330) [id number] Repository [phone] () e Date:6205-86-13[address], [place] [address]BU: 10/10/2017 Secondary NOT GIVENUNK Sathish Insurance:SELF PAY [facility] Number: Effective Repository Date:2017-09-17
== END ==
PROVIDERS: Family Provider Nurse Practitioner; PCP Nurse Practitioner; Referring Provider Physician Assistant; Visit Provider Physician Assistant
DX: M75.102 Unspecified rotator cuff tear or rupture of left shoulder, not specified as traumatic (principal)
CPT/HCPCS: 73221

== ENCOUNTER → 2018-06-16 08:09 | Outpatient (CLI) | payer BC, SELFPAY ==
[2018-03-24 16:36] VITALS: BMI 40.8
[2018-06-16 08:57] LABS: AST(SGOT) 51 U/L (15-37); Alanine Aminotransfer ALT/SGPT 91 U/L (16-61); Albumin, Serum 3.9 g/dL (3.2-5.0); Alkaline Phosphatase 89 U/L (45-117); Bilirubin, Direct 0.28 mg/dL (0.00-0.30); Cholesterol 149 mg/dL (200); High Density Lipoprotein 37 mg/dL; Protein, Total 6.9 g/dL (6.4-8.2); Triglycerides 176 mg/dL; Very Low Density Lipoprotein 35 mg/dL (5-40)
== END ==
PROVIDERS: Family Provider Nurse Practitioner; PCP Nurse Practitioner; Referring Provider Internal Medicine Cardiovascular Disease; Visit Provider Internal Medicine Cardiovascular Disease
DX: E78.5 Hyperlipidemia, unspecified (principal)
CPT/HCPCS: 36415; 80061; 80076

== ENCOUNTER 2018-08-04 16:15 | Outpatient (RCR) | payer BC, SELFPAY ==
[2018-07-09 14:58] VITALS: BMI 39.2
[2018-07-29 16:02] VITALS: BMI 38.9
== END 2018-08-16 23:59 ==
LOC: DC 16:15
PROVIDERS: Family Provider Nurse Practitioner; PCP Nurse Practitioner; Visit Provider Internal Medicine Cardiovascular Disease
DX: E11.65 Type 2 diabetes mellitus with hyperglycemia (principal); E78.5 Hyperlipidemia, unspecified; Z95.5 Presence of coronary angioplasty implant and graft; Z71.3 Dietary counseling and surveillance
CPT/HCPCS: 97802; G0108

== ENCOUNTER 2018-08-25 15:58 | Outpatient (RCR) | payer BC, SELFPAY ==
[2018-07-29 16:02] VITALS: BMI 38.9
== END 2018-09-15 23:59 ==
LOC: DC 15:58
PROVIDERS: Family Provider Nurse Practitioner; PCP Nurse Practitioner; Visit Provider Internal Medicine Cardiovascular Disease
DX: E11.65 Type 2 diabetes mellitus with hyperglycemia (principal); Z95.5 Presence of coronary angioplasty implant and graft; Z71.3 Dietary counseling and surveillance
CPT/HCPCS: 97803

== ENCOUNTER → 2018-10-02 | Outpatient (CLI) | payer BC, SELFPAY ==
[2018-07-29 16:02] VITALS: BMI 38.9
[2018-10-02 17:33] LABS: Hematocrit 45.7 % (40-54); Hemoglobin 15.4 g/dl (13.0-16.5); Mean Corp Hgb Conc 33.7 g/gl (32-36); Mean Corpuscular Hgb 30.2 pg (27.0-32.0); Mean Corpuscular Volume 89.6 fL (80-94); Platelet Count 172 K/mm3 (150-450); RBC Distribution Width CV 12.9 % (11.6-14.6); RBC Distribution Width SD 41.3 fl (35.1-43.9); White Blood Count 6.5 K/mm3 (4.4-11.0)
[2018-10-02 17:43] LABS: Scan Indicated on CBC? Y/N NO
[2018-10-02 17:53] LABS: AST(SGOT) 32 U/L (15-37); Alanine Aminotransfer ALT/SGPT 60 U/L (16-61); Albumin, Serum 3.9 g/dL (3.2-5.0); Alkaline Phosphatase 81 U/L (45-117); Bilirubin, Direct 0.26 mg/dL (0.00-0.30); Globulin 3.2 g/dL (2.2-4.2); Protein, Total 7.1 g/dL (6.4-8.2)
== END | disposition home or self-care (01) ==
LOC: LAB 17:08
PROVIDERS: Family Provider Nurse Practitioner; PCP Nurse Practitioner; Referring Provider Internal Medicine Gastroenterology; Visit Provider Internal Medicine Gastroenterology
DX: R74.8 Abnormal levels of other serum enzymes (principal)
CPT/HCPCS: 36415; 80076; 85027

== ENCOUNTER 2018-10-06 17:12 | Outpatient (RCR) | payer BC, SELFPAY ==
[2018-07-29 16:02] VITALS: BMI 38.9
== END 2018-10-06 23:59 | disposition home or self-care (01) ==
LOC: DC 17:12
PROVIDERS: Family Provider Nurse Practitioner; PCP Nurse Practitioner; Visit Provider Internal Medicine Cardiovascular Disease
DX: E11.65 Type 2 diabetes mellitus with hyperglycemia (principal); Z95.5 Presence of coronary angioplasty implant and graft; Z71.3 Dietary counseling and surveillance
CPT/HCPCS: 97803

== ENCOUNTER → 2019-01-12 | Outpatient (CLI) | payer BC, SELFPAY ==
[2018-07-29 16:02] VITALS: BMI 38.9
[2019-01-12 07:44] LABS: AST(SGOT) 31 U/L (15-37); Alanine Aminotransfer ALT/SGPT 57 U/L (16-61); Albumin, Serum 3.8 g/dL (3.2-5.0); Alkaline Phosphatase 87 U/L (45-117); Bilirubin, Direct 0.21 mg/dL (0.00-0.30); Cholesterol 155 mg/dL (200); Globulin 3.3 g/dL (2.2-4.2); High Density Lipoprotein 35 mg/dL; Protein, Total 7.1 g/dL (6.4-8.2); Triglycerides 290 mg/dL; Very Low Density Lipoprotein 58 mg/dL (5-40)
== END | disposition home or self-care (01) ==
PROVIDERS: Family Provider Nurse Practitioner; PCP Nurse Practitioner; Referring Provider Nurse Practitioner Family; Visit Provider Nurse Practitioner Family
DX: E78.5 Hyperlipidemia, unspecified (principal)
CPT/HCPCS: 36415; 80061; 80076

== ENCOUNTER → 2019-02-03 | Outpatient (CLI) | payer BC, SELFPAY ==
[2019-01-12 15:43] VITALS: BMI 37.5
[2019-01-23 12:26] VITALS: BMI 37.3
--- NOTE | 2019-02-03 14:46 | ECHOCS_ITS ---
Reason For Study: CAD/ASHD Procedure This was a 2D Doppler, Color Flow transthoracic echocardiogram. The study was technically difficult. Due to body habitus. Contrast injection was performed. Exam performed in department. Left Ventricle Mild concentric left ventricular hypertrophy. The estimated ejection fraction is 65 %. Normal diastology for age. No regional wall motion abnormalities noted. Right Ventricle Normal size and thickness. Normal systolic function. Atria Normal left atrium. Normal right atrium. Normal atrial septum. Mitral Valve The mitral valve is structurally normal. No prolapse or stenosis seen. Tricuspid Valve Normal tricuspid valve. Trivial tricuspid valve insufficiency. Right ventricular systolic pressure estimated to be 21 mmHg. Aortic Valve Normal aortic valve. Trisinus/trileaflet aortic valve. Pulmonic Valve The pulmonic valve is not well visualized. Great Vessels Normal aortic root. Normal arch. Normal inferior vena cava. Inferior vena cava collapse with sniff. Pericardium/Pleural No pericardial effusion. Medication 22 gauge I.V. with prn adaptor inserted into right arm. Diluted definity 5.0ml given slow IV push to enhance endocardial definition. MMode/2D Measurements & Calculations LVIDd: 4.6 cm IVSd: 1.4 cm Ao root diam: 3.6 cm LVIDs: 3.3 cm LVPWd: 1.3 cm RVDd: 3.5 cm FS: 27.8 % LAV(MOD-bp): 50.0 ml LA A4 area: 17.5 cm2 LA dimension(2D): 3.9 cm LAV(MOD-bp) Indexed: 21.3 ml/m2 LAV(MOD-sp2): 50.6 ml LAV(MOD-sp4): 51.2 ml Time Measurements MV dec time: 0.19 sec Doppler Measurements & Calculations MV E max dino: 98.2 cm/sec Lat Peak E' Dino: 11.6 cm/sec Med Peak E' Dino: 7.6 cm/sec MV A max dino: 88.0 cm/sec E/E' lat: 8.4 E/E' med: 12.9 MV E/A: 1.1 Ao V2 max: 138.4 cm/sec LV V1 max: 132.6 cm/sec PA V2 max: 104.3 cm/sec Ao max P.7 mmHg LV V1 max P.0 mmHg TR max dino: 202.6 cm/sec TR max P.4 mmHg Interpretation Summary Mild concentric left ventricular hypertrophy. The estimated ejection fraction is 65 %. Normal diastology for age. Trivial tricuspid valve insufficiency. Right ventricular systolic pressure estimated to be 21 mmHg. Compared to echo report dated 12/23/2014, no appreciable changes noted. The study was technically difficult. Contrast injection was performed. Ordering Physician: Nolberto Dubois Referring Physician: Erin Mason Performed By: Josephine Casarez RDCS, RVT
== END | disposition home or self-care (01) ==
PROVIDERS: Family Provider Nurse Practitioner; PCP Nurse Practitioner; Referring Provider Internal Medicine Cardiovascular Disease; Visit Provider Internal Medicine Cardiovascular Disease
DX: I25.10 Atherosclerotic heart disease of native coronary artery without angina pectoris (principal); I10 Essential (primary) hypertension; E78.5 Hyperlipidemia, unspecified; G47.33 Obstructive sleep apnea (adult) (pediatric); Z95.5 Presence of coronary angioplasty implant and graft
CPT/HCPCS: 93306; Q9957; A4216; C8929

== ENCOUNTER → 2019-02-10 | Outpatient (CLI) | payer BC, SELFPAY ==
[2019-01-12 15:43] VITALS: BMI 37.5
[2019-01-23 12:26] VITALS: BMI 37.3
--- NOTE | 2019-02-10 12:33 | STEWCON_ITS ---
Reason For Study: CAD; BARKER Stress Results Protocol: Abdias Protocol Maximum Predicted HR: 175 bpm Target HR: 149 bpm % Maximum Predicted HR: 86 % DurationHeart Rate Stage (mm:ss) (bpm) BP Comment Baseline 81 136/82No Chest Pain; 4ML Diluted Definity Given Abdias Protocol Stage I 3:00 109 146/86No Chest Pain Abdias Protocol Stage II 3:00 127 168/74No Chest Pain; Mild Dyspnea Abdias Protocol Stage III 3:00 150 190/80No Chest Pain; Mild to Moderate Dyspnea Recovery 97 126/70No Chest Pain Stress Duration: 9:00 mm:ss Maximum Stress HR: 150 bpm METS: 10 Baseline Echocardiogram Findings The estimated ejection fraction is 65 %. Stress Echo Wall motion Data Resting WM Intermediate WM Stress WM Resting Wall Motion Wall Motion Stress No regional wall motion No regional wall motion abnormalities noted. abnormalities noted. EKG Data The baseline ECG displays normal sinus rhythm. The patient exercised according to the regular Abdias protocol for a total duration of 9:00. The maximum heart rate attained was 155 beats per minute. This was 88% of maximum predicted heart rate. The patient exercised into stage 4 of the Abdias protocol. During stress, there were no ST or T wave changes noted to suggest ischemia. No arrhythmias noted. No clinical angina was noted. Interpretation Summary The estimated ejection fraction is 65 %. Normal, adequate, treadmill echocardiogram. Negative for ischemia by EKG and echocardiographic criteria. No anginal symptoms noted. No arrhythmias noted. Test terminated due to dyspnea and attainment of target HR. Below average exercise capacity for age. Hypertensive BP response to exercise. Final LVEF of 65%. Decreased sensitivity due to poor echo windows requiring Definity agent. No complications. The study was technically difficult. Contrast injection was performed. Ordering Physician: Nolberto Dubois Referring Physician: Erin Mason Performed By: Nelly Driver RDCS
== END | disposition home or self-care (01) ==
LOC: CVS 12:32
PROVIDERS: Family Provider Nurse Practitioner; PCP Nurse Practitioner; Referring Provider Internal Medicine Cardiovascular Disease; Visit Provider Internal Medicine Cardiovascular Disease
DX: Z01.810 Encounter for preprocedural cardiovascular examination (principal); I25.10 Atherosclerotic heart disease of native coronary artery without angina pectoris; E78.5 Hyperlipidemia, unspecified; Z95.5 Presence of coronary angioplasty implant and graft
CPT/HCPCS: 93017; 93350; Q9957; A4216; C8928

== ENCOUNTER → 2019-04-27 18:27 | Outpatient (CLI) | payer BC, SELFPAY ==
[2019-04-27 17:21] VITALS: BMI 38.5
--- NOTE | 2019-04-27 18:35 | RAD_ITS ---
STUDY: X-RAY - ABDOMEN/PELVIS REASON FOR EXAM: Male, 44 years old. Pain TECHNIQUE: AP supine and upright views of the abdomen and pelvis. COMPARISON: None. FINDINGS: Normal visualized lung bases. Constipation pattern is present. Nonobstructive bowel gas pattern. There is no demonstrated free abdominal air. The visualized liver, spleen and kidneys are grossly normal in size and morphology. Normal soft tissue structures. Normal visualized osseous structures. RAD/Abd Inc Decub and/or Erect IMPRESSION: Constipation pattern is present. Nonobstructive bowel gas pattern. Electronically Signed: Bradford Herrera MD at 19:50 EST Tel , Service support ,
[2019-04-27 21:51] LABS: ALB/GLOB Ratio 1.3 RATIO (0.9-2.4); AST(SGOT) 18 U/L (15-37); Alanine Aminotransfer ALT/SGPT 41 U/L (16-61); Albumin, Serum 4.3 g/dL (3.2-5.0); Alkaline Phosphatase 99 U/L (45-117); Anion Gap 6 (5-15); BUN 17 mg/dL (7-18); Calcium,Total 8.6 mg/dL (8.5-10.1); Chloride 104 mmol/L (98-107); Creatinine, Serum 1.13 mg/dL (0.70-1.30); EST Glomerular Filtration Rate 74 mL/min (>60); Est Glom Filt Rate - Afr Amer 90 mL/min (>60); Globulin 3.4 g/dL (2.2-4.2); Glucose 99 mg/dL (74-106); Potassium 3.9 mmol/L (3.5-5.1); Protein, Total 7.7 g/dL (6.4-8.2); Sodium Level 138 mmol/L (136-145)
[2019-04-27 22:24] LABS: Absolute Lymphocyte Count 2.12 X10^3/uL (0.83-4.51); Absolute Neutrophil Count 4.1 X10^3/uL (2.0-7.7); Basophil# 0.02 X10^3/uL; Basophil% 0.3 % (0-1); Eosinophil# 0.23 X10^3/uL; Eosinophils% 3.1 % (0-5); Hemoglobin 16.2 g/dL (13.0-16.5); Lymphocyte # 2.12 X10^3/ul (4.0); Lymphocyte % 28.7 % (19-41); Mean Corp Hgb Conc 33.1 g/dL (32-36); Mean Corpuscular Hgb 30.5 pg (27.0-32.0); Mean Corpuscular Volume 92.1 fL (80-94); Mean Platelet Vol. 11.5 fl (6.2-12.0); Monocyte# 0.92 X10^3/uL; Monocyte% 12.5 % (0-10); NRBC Flagged by Analyzer 0 % (0-5); Neutrophil # 4.07 X10^3/uL (2.7-7.7); Neutrophil % 55.1 % (47-70); Platelet Count 194 K/mm3 (150-450); RBC Distribution Width CV 12.3 % (11.6-14.6); RBC Distribution Width SD 41.6 fl (35.1-43.9); Red Blood Count 5.32 M/mm3 (4.6-6.2); White Blood Count 7.4 K/mm3 (4.4-11.0)
[2019-04-27 22:46] LABS: Hemoglobin A1c 6.2 % (4.2-6.3)
== END ==
PROVIDERS: Family Provider Nurse Practitioner; PCP Nurse Practitioner; Referring Provider Nurse Practitioner; Visit Provider Nurse Practitioner
DX: R10.9 Unspecified abdominal pain (principal); E11.65 Type 2 diabetes mellitus with hyperglycemia
CPT/HCPCS: 74019; 80053; 83036; 85025; 87086

== ENCOUNTER → 2019-07-17 | Outpatient (CLI) | payer BC, SELFPAY ==
[2019-06-18 19:38] VITALS: BMI 39.0
[2019-07-17 10:04] LABS: AST(SGOT) 31 U/L (15-37); Alanine Aminotransfer ALT/SGPT 51 U/L (16-61); Albumin, Serum 3.9 g/dL (3.2-5.0); Alkaline Phosphatase 78 U/L (45-117); Bilirubin, Direct 0.33 mg/dL (0.00-0.30); Cholesterol 104 mg/dL (200); High Density Lipoprotein 30 mg/dL; Protein, Total 6.9 g/dL (6.4-8.2); Triglycerides 199 mg/dL; Very Low Density Lipoprotein 40 mg/dL (5-40)
== END | disposition home or self-care (01) ==
LOC: LAB 08:33
PROVIDERS: PCP Nurse Practitioner; Referring Provider Internal Medicine Cardiovascular Disease; Visit Provider Internal Medicine Cardiovascular Disease
DX: E78.00 Pure hypercholesterolemia, unspecified (principal)
CPT/HCPCS: 36415; 80061; 80076

== ENCOUNTER → 2020-02-08 | Outpatient (CLI) | payer BC, SELFPAY ==
[2019-09-10 16:29] VITALS: BMI 39.0
[2020-02-08 07:34] LABS: AST(SGOT) 38 U/L (15-37); Alanine Aminotransfer ALT/SGPT 53 U/L (16-61); Albumin, Serum 3.7 g/dL (3.2-5.0); Alkaline Phosphatase 92 U/L (45-117); Bilirubin, Direct 0.29 mg/dL (0.00-0.30); Cholesterol 128 mg/dL (200); Globulin 3.1 g/dL (2.2-4.2); High Density Lipoprotein 33 mg/dL; Protein, Total 6.8 g/dL (6.4-8.2); Triglycerides 228 mg/dL; Very Low Density Lipoprotein 46 mg/dL (5-40)
== END | disposition home or self-care (01) ==
LOC: LAB 06:23
PROVIDERS: Internal Medicine Cardiovascular Disease; PCP Nurse Practitioner; Referring Provider Nurse Practitioner Family; Visit Provider Nurse Practitioner Family
DX: E78.00 Pure hypercholesterolemia, unspecified (principal); E78.5 Hyperlipidemia, unspecified
CPT/HCPCS: 36415; 80061; 80076

== ENCOUNTER → 2020-07-07 06:22 | Outpatient (CLI) | payer BC, SELFPAY ==
[2020-03-14 17:59] VITALS: BMI 38.7
[2020-07-07 07:32] LABS: Hematocrit 48.6 % (40-54); Hemoglobin 16.1 g/dL (13.0-16.5); Mean Corp Hgb Conc 33.1 g/dL (32-36); Mean Corpuscular Hgb 29.5 pg (27.0-32.0); Mean Corpuscular Volume 89.2 fL (80-94); Mean Platelet Vol. 11.8 fl (6.2-12.0); Platelet Count 151 K/mm3 (150-450); RBC Distribution Width CV 12.8 % (11.6-14.6); RBC Distribution Width SD 41.3 fl (35.1-43.9); Red Blood Count 5.45 M/mm3 (4.6-6.2); White Blood Count 5.2 K/mm3 (4.4-11.0)
[2020-07-07 08:08] LABS: AST(SGOT) 38 U/L (15-37); Alanine Aminotransfer ALT/SGPT 63 U/L (16-61); Albumin, Serum 3.7 g/dL (3.2-5.0); Alkaline Phosphatase 106 U/L (45-117); Bilirubin, Direct 0.24 mg/dL (0.00-0.30); Cholesterol 102 mg/dL (200); Globulin 3.1 g/dL (2.2-4.2); High Density Lipoprotein 34 mg/dL; Protein, Total 6.8 g/dL (6.4-8.2); Triglycerides 156 mg/dL; Very Low Density Lipoprotein 31 mg/dL (5-40)
== END ==
PROVIDERS: Nurse Practitioner Family; PCP Nurse Practitioner
DX: E78.00 Pure hypercholesterolemia, unspecified (principal); E78.5 Hyperlipidemia, unspecified; R74.8 Abnormal levels of other serum enzymes
CPT/HCPCS: 36415; 80061; 80076; 85027

== ENCOUNTER → 2021-04-16 06:00 | Outpatient (CLI) | payer BC, SELFPAY ==
[2021-04-16 07:30] LABS: AST(SGOT) 36 U/L (15-37); Alanine Aminotransfer ALT/SGPT 64 U/L (16-61); Albumin, Serum 3.4 g/dL (3.2-5.0); Alkaline Phosphatase 116 U/L (45-117); Bilirubin, Direct 0.23 mg/dL (0.00-0.30); Cholesterol 118 mg/dL (200); Globulin 3.5 g/dL (2.2-4.2); High Density Lipoprotein 27 mg/dL; Protein, Total 6.9 g/dL (6.4-8.2); Triglycerides 602 mg/dL
== END ==
PROVIDERS: PCP Nurse Practitioner
DX: R74.8 Abnormal levels of other serum enzymes (principal)
CPT/HCPCS: 36415; 80061; 80076

== ENCOUNTER → 2021-10-08 | Outpatient (CLI) | payer BC, SELFPAY ==
[2021-10-08 07:35] LABS: AST(SGOT) 44 U/L (15-37); Alanine Aminotransfer ALT/SGPT 71 U/L (16-61); Albumin, Serum 3.4 g/dL (3.2-5.0); Alkaline Phosphatase 92 U/L (45-117); Bilirubin, Direct 0.23 mg/dL (0.00-0.30); Cholesterol 65 mg/dL (200); Globulin 2.7 g/dL (2.2-4.2); High Density Lipoprotein 19 mg/dL; Protein, Total 6.1 g/dL (6.4-8.2); Triglycerides 127 mg/dL; Very Low Density Lipoprotein 25 mg/dL (5-40)
== END | disposition home or self-care (01) ==
LOC: LAB 05:50
PROVIDERS: Nurse Practitioner Family; PCP Nurse Practitioner
DX: E78.5 Hyperlipidemia, unspecified (principal); R74.8 Abnormal levels of other serum enzymes
CPT/HCPCS: 36415; 80061; 80076

== ENCOUNTER → 2022-02-27 | Outpatient (CLI) | payer BC, SELFPAY ==
[2022-02-27 22:04] LABS: Absolute Lymphocyte Count 1.66 X10^3/uL (0.83-4.51); Absolute Neutrophil Count 3.2 X10^3/uL (2.0-7.7); Basophil# 0.02 X10^3/uL; Basophil% 0.4 % (0-1); Eosinophil# 0.18 X10^3/uL; Eosinophils% 3.2 % (0-5); Hemoglobin 15.8 g/dL (13.0-16.5); Lymphocyte # 1.66 X10^3/ul (0.83-4.51); Lymphocyte % 29.9 % (19-41); Mean Corp Hgb Conc 34.3 g/dL (32-36); Mean Corpuscular Hgb 31.2 pg (27.0-32.0); Mean Corpuscular Volume 90.7 fL (80-94); Mean Platelet Vol. 12.2 fl (6.2-12.0); Monocyte# 0.48 X10^3/uL; Monocyte% 8.6 % (0-10); NRBC Flagged by Analyzer 0 % (0-5); Neutrophil % 57.5 % (47-70); Platelet Count 139 K/mm3 (150-450); RBC Distribution Width CV 13.1 % (11.6-14.6); RBC Distribution Width SD 43.5 fl (35.1-43.9); Red Blood Count 5.07 M/mm3 (4.6-6.2); White Blood Count 5.6 K/mm3 (4.4-11.0)
[2022-02-27 22:39] LABS: ALB/GLOB Ratio 1.2 RATIO (0.9-2.4); AST(SGOT) 55 U/L (15-37); Alanine Aminotransfer ALT/SGPT 95 U/L (16-61); Albumin, Serum 3.8 g/dL (3.2-5.0); Alkaline Phosphatase 151 U/L (45-117); Anion Gap 8 (5-15); BUN 14 mg/dL (7-18); BUN/Creat Ratio 15.1 RATIO (10-20); Calcium,Total 9.1 mg/dL (8.5-10.1); Chloride 105 mmol/L (98-107); Cholesterol 102 mg/dL (200); Creatinine, Serum 0.93 mg/dL (0.70-1.30); EST Glomerular Filtration Rate 92 mL/min (>60); Est Glom Filt Rate - Afr Amer 111 mL/min (>60); Globulin 3.3 g/dL (2.2-4.2); Glucose 264 mg/dL (74-106); High Density Lipoprotein 27 mg/dL; PSA,Total - Annual Screen 0.25 ng/mL (0.00-4.00); Potassium 3.7 mmol/L (3.5-5.1); Protein, Total 7.1 g/dL (6.4-8.2); Sodium Level 137 mmol/L (136-145); Triglycerides 409 mg/dL
== END | disposition home or self-care (01) ==
PROVIDERS: PCP Nurse Practitioner; Visit Provider Nurse Practitioner
DX: I10 Essential (primary) hypertension (principal); E11.9 Type 2 diabetes mellitus without complications; E78.2 Mixed hyperlipidemia; R35.0 Frequency of micturition
CPT/HCPCS: 80053; 80061; 83036; 84153; 85025; G0103

== ENCOUNTER 2022-04-19 09:25 | Day surgery (SDC) | payer BC, SELFPAY ==
[2022-04-19] VITALS (8 sets, daily range): BP systolic 96–137; BP diastolic 61–89; PULSE 82–100; RESP 14–18; TEMP 36.7–37; O2SAT 91–96; BMI 40.9
--- NOTE | 2022-04-19 | MASS_PTH ---
PATIENT: HARRIET FINN [place] [facility] [place][id number] AGE/SX: 47/M ROOM: RE04/19/[address]: Dr. Haresh Jeronimo MD : 1975 BED: DIS: 04/19/2022 SPEC #: [id number] RECD: 04/19/22 12:55 STATUS: GASPER REHuber #: [id number] GEOVANNY: 04/19/22 00:[address]: Haresh Jeronimo DEPT: SURGICAL PATHOLOGY RECD BY: Monroe Cortez ENTERED: 04/22/22 10:02 SP TYPE: Mass OTHR DR: Erin Mason, DELFINO-Maricruz Tissues: Temporal region Procedures: Surgery Specimen Level III HEADER OPERATION: Excision temporal mass PRE-OP DIAGNOSIS: Right temporal subcutaneous mass TISSUE SUBMITTED: Right temporal subcutaneous mass MICROSCOPIC DIAGNOSIS Right temporal subcutaneous mass, excision: Mature adipose tissue consistent with lipoma. RENETTA:ryan 04/23/2022 MICROSCOPIC DESCRIPTION Slides are reviewed. GROSS DESCRIPTION Received in fixative is one container labeled with the patient's name and designated right temporal subcutaneous mass. The specimen consists of an ellipse of light hawk excised skin measuring 3.7 x 1.1 cm. Attached to this is yellow, fatty tissue measuring 2.6 x 2 x 1.2 cm. Serial sections reveal homogenous yellow cut surfaces without areas of cyst formation, necrosis or hemorrhage. Watch Technician sections are submitted in one cassette. / AM:ryan 04/22/2022 TC:1 [facility]: [id number]
[2022-04-19] MEDS: Lactated Ringers 1,000 ML 15 ML IV (10:09)
--- NOTE | 2022-04-19 10:44 | PCM.HP.BLA ---
History and Physical Date of Admission: 04/19/22 Visit Reasons:?R HEAD BENIGN LIPOMATOUS NEOPLASM Chief Complaint: Bump right temperol area Commercial Service Technician Required: No Is patient in pain?: No Allergies amoxicillin [From Augmentin] Adverse Reaction (Intermediate, Verified 03/19/22 14:35) Diarrheaclavulanic acid [From Augmentin] Adverse Reaction (Intermediate, Verified 03/19/22 14:35) Diarrhea Medications omega-3 fatty acids 1,000 mg capsule (Fish Oil Concentrate) 1,000 mg PO QDAY 05/29/17 [History Confirmed 03/19/22] milk thistle 150 mg capsule 150 mg PO BID 01/12/19 [History Confirmed 03/19/22] aspirin 81 mg tablet,delayed release (Adult Aspirin Regimen) 81 mg PO DAILY #30 tabs 08/21/20 [Rx Confirmed 03/19/22] trazodone 50 mg tablet 50 mg PO QDAY PRN insomnia #90 tabs 03/02/21 [Rx Confirmed 03/19/22] albuterol sulfate 2.5 mg/3 mL (0.083 %) solution for nebulization 2.5 mg (3 mL) inhalation Q6H #75 mL 08/02/21 [Rx Confirmed 03/19/22] promethazine 12.5 mg tablet 12.5 mg PO TID PRN nausea and vomiting #45 tabs 08/02/21 [Rx Confirmed 03/19/22] albuterol sulfate 90 mcg/actuation aerosol inhaler (Ventolin HFA) 2 puff inhalation Q4H PRN asthma 3 months #18 grams 11/06/21 [Rx Confirmed 03/19/22] ascorbic acid (vitamin C) 1,000 mg tablet 1 g PO BID 02/20/22 [History Confirmed 03/19/22] atorvastatin 10 mg tablet (Lipitor) 10 mg PO DAILY #90 tabs 02/20/22 [Rx Confirmed 03/19/22] dapagliflozin 10 mg-metformin ER 1,000 mg tablet,extended release 24hr (Xigduo XR) 1 tab PO DAILY #90 ea 02/20/22 [Rx Confirmed 03/19/22] ezetimibe 10 mg tablet (Zetia) 10 mg PO QDAY #90 tabs 02/20/22 [Rx Confirmed 03/19/22] isosorbide mononitrate 30 mg tablet,extended release 24 hr 30 mg PO DAILY #90 tabs 02/20/22 [Rx Confirmed 03/19/22] losartan 25 mg tablet 25 mg PO DAILY #90 tabs 02/20/22 [Rx Confirmed 03/19/22] vitamin E mixed 200 unit tablet 200 unit PO DAILY 02/20/22 [History Confirmed 03/19/22] meloxicam 15 mg tablet 15 mg PO DAILY shoulder pain #90 tabs 02/27/22 [Rx Confirmed 03/19/22] pantoprazole 40 mg tablet,delayed release 40 mg PO DAILY #90 tabs 02/27/22 [Rx Confirmed 03/19/22] tamsulosin 0.4 mg capsule 0.4 mg PO DAILY #90 caps 02/27/22 [Rx Confirmed 03/19/22] tramadol 50 mg tablet 50 mg PO BID PRN pain in L shoulder (6-10) #60 tabs 02/27/22 [Rx Confirmed 03/19/22] PFSH Medical History?(Updated 03/19/22 @ 14:[address] Haresh Jeronimo MD) Abnormal liver enzymes Anxiety disorder Asthma Atherosclerosis of coronary artery of swinomish heart without angina pectoris Central sleep apnea COPD (chronic obstructive pulmonary disease) Diverticulitis Essential hypertension Fatty liver Fusion of lumbar spine Hyperlipidemia Hyperlipidemia associated with type 2 diabetes mellitus Lipoma Obesity (BMI 30.0-34.9) Obstructive sleep apnea Recurrent UTI (urinary tract infection) Type 2 diabetes mellitus without complications Surgical History? History of coronary artery stent placement (10/27/14) History of tonsillectomy History of tonsillectomy Family History? Sister DiabetesGrandfather CAD (coronary artery disease)Other Asthma CVA (cerebral vascular accident) Cancer Chronic inflammatory demyelinating polyneuropathy Family history of high cholesterol Heart disease Hypertension Leukemia Osteoporosis Thyroid disorder Social History? Smoking Status:? Never smoker HPI HPI HPI: 47-year-old gentleman is being referred by BRAYAN Mccauley for surgical consultation regarding right temporal subcutaneous mass.? Written copy of my surgical consult recommendations will return to her.? The patient thinks maybe about 5 years ago he had his second excision of this area.? Claims it was done in an outpatient surgery center with him awake.? Claims jessi was placed into his head.? It now is rapidly recurring and becoming exophytic.? He was told initially that this was a benign lesion.? He does not have an operative note or pathology immediately available.? He has had a history of coronary stent but is only on low-dose aspirin currently.? He denies acute cardiorespiratory symptoms.? 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 ROS General General: No weight change, appetite, fatigue, colon cancer, breast cancer or weakness HEENT HEENT: No difficulty swallowing, eye injury, eye surgery, swollen glands or hoarseness Endo Endocrine: Yes diabetes mellitus; No thyroid disease, thyroid cancer, Hair loss, heat intolerance or cold intolerance Skin Skin: No rash or changing moles Breast Breast: No left breast lump, right breast lump, nipple discharge, breast pain, abnormal mammogram, abnormal US or breast enlargement Musc Musculoskeletal: Yes back problems; No arthritis, rheumatoid arthritis, gout or joint pain Cardio Cardiovascular: Yes heart disease, high blood pressure and heart stent; No murmur, pacemaker, atrial fibrillation, heart attack, palpitations, shortness of breat with exertion or chest pain Psych Psychiatric: No depression, anxiety or hearing voices Resp Respiratory: No shortness of breath, No sleep apnea, No cough, No COPD, Yes asthma, No emphysema and No wheezing Gastro Gastrointestinal: No abdominal pain, No nausea or vomiting, No diarrhea, No constipation, No blood in stool, No acid reflux, Yes hemorrhoids, No ulcers, No gallbladder problem and No black,tarry stools Max Hematologic: Yes blood thinners, No blood disorders, No bleeding, No anemia and No blood clots Additional Details: Aspirin Neuro Neurologic: No system reviewed and no additional complaints, except as documented, No as per HPI, No abnormal gait, No abnormal hearing, No abnormal movements, No abnormal speech, No behavioral changes, No burning sensations, No confusion, No convulsions, No disequilibrium, No dizziness, No localized weakness, No frequent falls, No headache(s), No lack of coordination, No loss of vision, No memory loss, No numbness, No other visual disturbances, No radicular pain, No restless legs, No sensory deficit, No syncope, No tingling, No tremor(s), No weakness and No other Exam Const General: cooperative, comfortable and no acute distress Nutritional Appearance: obese morbidly obese Orientation: alert HENMT Other: Right superior scientology exophytic 2.4 x 2 cm rubbery fixed mass.? No erythema.? Hair loss overlying Eyes General: appearance normal, both eyes and all related structures Neck Neck: normal visual inspection Chest Chest palpation & inspection: normal inspection of the chest Resp Effort & Inspection: normal respiratory effort Auscultation: clear to auscultation bilaterally Cardio Rate: regular rate Rhythm: regular rhythm GI Inspection: normal to inspection Other: Unable to detect internal organs Musc Cervical Spine: normal cervical lordosis Skin General: no rashes or lesions noted Neuro General: patient alert, patient awake and patient oriented x3 Extrem General: no calf tenderness Psych Appearance: grossly normal Assessment and Plan Assessment and Plan (1) Subcutaneous mass: ?Status:?Acute ?Plan: Third time recurrent subcutaneous mass right scientology area.? I recommend to the patient that we obtain his most recent operative note and pathology report. Pending those results have tentatively recommended to him a monitored anesthesia care wide excision of this area with ellipse of skin as well as extensive subdermal dissection which could require intervention on the temporal artery or deeper fascia.? I have described the technique, benefit, risk, alternatives.? No guarantees of success have been offered.? He has had an opportunity to ask and have questions answered.? We will schedule procedure at his discretion. Copy: Erin Mason NP-C Haresh Jeronimo M.D., F.A.C.S. The patient has been made aware that his hemoglobin A1c is elevated. I have requested primary care follow-up. Otherwise history and physical is unchanged. Haresh Jeronimo M.D., F.A.C.S.
--- NOTE | 2022-04-19 11:06 | DCINST_ITS ---
Discharge Instructions Diet Discharge Diet: No restrictions Activity Discharge Activity: May Drive (In 1 day) and May Shower (In 1 day) Dressing / Incision Call your doctor if your incision/area has: Continuous Slow Oozing, Increased Pain/ Swelling and Foul Smelling Discharge Call your doctor if you observe: Fever of 101 or Higher Additional Dressing/Incision Instructions:: You may remove your dressing is verbally instructed Follow Up Care Please Follow Up With: Haresh Jeronimo MD When: Call [phone] for office follow-up appointment April 25, 2022 Test Results: Test results from this visit will be discussed in further detail at your follow- up appointment, if applicable. Discharge Plan Admission Primary Reason for Your Visit: Subcutaneous mass right pentecostalism Attending Provider: Haresh Jeronimo Primary Care Provider: Erin Mason NP Discharge Orders/Prescriptions Prescriptions: Continued omega-3 fatty acids [Fish Oil Concentrate] 1,000 mg capsule 1,000 mg PO QDAY milk thistle 150 mg capsule 150 mg PO BID ascorbic acid (vitamin C) 1,000 mg tablet 1 g PO BID vitamin E mixed 200 unit tablet 200 unit PO DAILY atorvastatin [Lipitor] 10 mg tablet 10 mg PO DAILY Qty: 90 3RF Xigduo XR 10-1,000 mg tablet, IR - ER, biphasic 24hr 1 tab PO DAILY Qty: 90 3RF ezetimibe [Zetia] 10 mg tablet 10 mg PO QDAY Qty: 90 3RF isosorbide mononitrate 30 mg tablet extended release 24 hr 30 mg PO DAILY Qty: 90 3RF trazodone 50 mg tablet 50 mg PO QDAY PRN (Reason: insomnia) Qty: 90 3RF promethazine 12.5 mg tablet 12.5 mg PO TID PRN (Reason: nausea and vomiting) Qty: 45 1RF albuterol sulfate 2.5 mg /3 mL (0.083 %) solution for nebulization 2.5 mg inhalation Q6H Qty: 75 12RF albuterol sulfate [Ventolin HFA] 90 mcg/actuation HFA aerosol inhaler 2 puff Inhalation Q4H PRN (Reason: asthma) 90 Days Qty: 18 3RF meloxicam 15 mg tablet 15 mg PO DAILY Qty: 90 3RF Rx Instructions: for shoulder pain pantoprazole 40 mg tablet,delayed release (DR/EC) 40 mg PO DAILY Qty: 90 3RF tramadol 50 mg tablet 50 mg PO BID PRN (Reason: pain in L shoulder (6-10)) Qty: 60 5RF tamsulosin 0.4 mg capsule 0.4 mg PO DAILY Qty: 90 3RF psyllium Packet 1 packet PO PRN PRN (Reason: Constipation) Rx Instructions: mix into at least 8 oz of water or juice before administering One-A-Day Men's 50 Plus 400-20-370 mcg Tablet 1 tab PO DAILY aspirin [Adult Aspirin Regimen] 81 mg tablet,delayed release (DR/EC) 81 mg PO DAILY Qty: 30 11RF losartan 50 mg tablet 50 mg PO DAILY Qty: 90 3RF Referrals / Follow Up: Erin Mason NP, RADIATION OFFICER-C [Primary Care Provider] - Disposition Disposition (needs filled in before D/C Order can be placed): Home, Self Care
[2022-04-19 11:11] LABS: Bedside Glucose 250 mg/dL (74-106)
[2022-04-19] MEDS: Bupivacaine Mpf 0.5% 30 ML VIAL (11:40)
[2022-04-19] MEDS: Lidocaine 1% (30 ml sdv) 30 ML Vial (11:40)
--- NOTE | 2022-04-19 12:11 | PCM.OPRPT ---
Report of Operation Date of Procedure: 04/19/22 Pre-Operative Diagnosis: Recurrent right scientology subcutaneous mass Post-Operative Diagnosis: Same Surgery/Procedure Performed:: Excision recurrent right scientology subcutaneous mass including deep fascia and ligation of temporal artery Description of Surgical Findings:: Timeout informed consent was obtained. 47-year-old gentleman was taken to the operating placed supine on the table the right face was sterilely prepped and draped attempt was made to proceed under monitored anesthesia care but the patient demonstrated signs of sleep apnea obstructive apnea and became uncontrolled with him reaching and contaminated the field. An IV had to be replaced. He then underwent LMA general anesthesia in the right temporal forehead area was reprepped and draped with chlorhexidine. 1% lidocaine mixed 50-50 with 0.5% Marcaine was used as a local anesthetic. Throughout the procedure a total of 20 cc was used. Local was instilled. A elliptical excision of skin was performed to remove the previous incision. This measured three-point 0.5 x 2 cm. I then performed a subcutaneous dissection medially and laterally to create skin flaps to incorporate the entire subcutaneous portion. Dissection performed the and this mass was adherent to the fascia the scientology artery was identified was ligated proximally with 3-0 Vicryl fascia was partially taken with the specimen electrocautery was used for hemostasis were indicated specimen was completely excised. Subdermal flaps were raised bluntly. Skin edges were then approximated with deep dermal sutures of 3-0 Vicryl trying to close the space as well. Then interrupted 5-0 chromic was used for subdermal approximation and finally simple sutures of 5-0 nylon. Telfa OpSite dressing applied. The specimen was submitted in formalin for analysis. He tolerated the procedure well no apparent complication was taken to the recovery area in satisfied condition Specimen is subcutaneous mass. Blood loss minimal. Drains none. Haresh Jeronimo M.D., F.A.C.S. Surgeon: Haresh Jeronimo Type of Anesthesia: General and Local Anesthesiologist: Maxime Jarvis
[2022-04-19 13:05] LABS: Bedside Glucose 240 mg/dL (74-106)
== END 2022-04-19 13:54 | disposition home or self-care (01) ==
LOC: SDC 09:26 → AC 09:27
PROVIDERS: PCP Nurse Practitioner; Referring Provider Surgery; Visit Provider Surgery
PROC: (CPT 21014; principal; 2022-04-19 10:50)
DX: R22.9 Localized swelling, mass and lump, unspecified (principal); J44.9 Chronic obstructive pulmonary disease, unspecified; Z68.41 Body mass index [BMI] 40.0-44.9, adult; E11.9 Type 2 diabetes mellitus without complications; I25.10 Atherosclerotic heart disease of native coronary artery without angina pectoris; I10 Essential (primary) hypertension; E78.5 Hyperlipidemia, unspecified; G47.33 Obstructive sleep apnea (adult) (pediatric); E66.9 Obesity, unspecified; Z79.82 Long term (current) use of aspirin; Z79.899 Other long term (current) drug therapy; Z95.5 Presence of coronary angioplasty implant and graft
CPT/HCPCS: 21014; 00300; 82962; 88304; 88305; J7120; J2405

== ENCOUNTER → 2022-05-27 | Outpatient (CLI) | payer BC, SELFPAY | END | disposition home or self-care (01) | PROVIDERS: PCP Nurse Practitioner; Referring Provider Nurse Practitioner Acute Care; Visit Provider Nurse Practitioner Acute Care | DX: G47.33 Obstructive sleep apnea (adult) (pediatric) (principal) | CPT/HCPCS: 95811 ==

== ENCOUNTER 2022-09-16 18:00 | Outpatient (RCR) | payer BC, SELFPAY ==
--- NOTE | 2022-08-12 19:07 | HP.PTEVAL_ITS ---
Patient's Visit Information HARRIET FINN is a 47 year old M referred to Physical Therapy by Erin Mason NP-C with a diagnosis of LOW BACK PAIN AND AND LEFT SHOULDER PAIN. Date of Evaluation: 08/12/22 Physical Therapist: Martín Sweeney, PT, Cert MDT, OCS - Visit Plan Frequency: 2x /Week Duration: 4 Weeks Plan: PT INTERVETIONS TRY LUMBAR TRACTION PER PATIENT REQUEST MARCUS EX'S ,PROGRESS DLS ,POSTURAL EX'S ,RTC/SCAPULAR STRENGTHENING FOR LEFT SHOULDER ,MANUAL THERAPY AND MODALTIES NEEDED - Subjective This 47 y/o male presents to physical therapy with low back pain and and left shoulder pain. Patient main issue is lumbar pain less than shoulder pain. Patient has had back pain many years and 2016 x-rays showed fused L5 , and MRI showed protruding disc L4-5 . No recent diagnostics. Symptoms progressively worse with constant pitching ~ [address] SALEH recommended PT. Location LS region. Occasional symptoms right leg anterior to foot. Aggravating factors bending ,lifting , sitting, extended walking and standing . Alleviating factors ice. Patient was proved with tramadol doesn't help. Coughing/sneezing -. Bowel/bladder -. Pain does not affects sleeping. Patient had prior PT which include lumbar traction. Patient weighs 280# . .Left shoulder pain global. Patient had MRI showed bicep tear and RTC tear 2018. Patient pain affects ability to lifting and raise arm OH . These symptoms affects job demand and housework's . Patient pain affects QOL and function. VOCATION: [employer]. SOCIAL: - Pain Bilateral Back Pain Intensity (Out of 10): 5 Pain Intensity Range: 10 Left Shoulder Pain Intensity (Out of 10): 2 Pain Intensity Range: 10 - Objective POSTURE: mild forward posture. PALAPTION: tender Bicep long ,bicipital groove. GAIT : mild foreword posture. AROM: shoulder flexion 130 degrees ,abduction 110 degrees ,ER 90 degrees IR L2. MMT: RTC 4/5 ,supraspinatus 4-/5 mild pain , anterior /lateral deltoid 4-/5 mild pain. quads/hams/hip 4/5 ,ankle 5/5. LUMBAR ROM: min loss ,extension min loss pain ,side glides min loss pain. CAPSULAR RESTRICTION: mild/mod tight. FLEXABLITY: mod hamstrings - Special Tests L/S Slump test left side: Negative L/S Slump test right side: Negative L/S Left Straight Leg Raise: Positive L/S Right Straight Leg Raise: Positive Lumbar Standing: Flexion - Mechanical Response: No effect Lumbar Standing: Flexion - Symptoms During Testing: Increases Lumbar Standing: Flexion - Symptoms After Testing: No worse Lumbar Standing: Extension - Mechanical Response: No effect Lumbar Standing: Extension - Symptoms During Testing: Increases Lumbar Standing: Extension - Symptoms After Testing: No worse Lumbar Standing: Right Side Glides - Mechanical Response: No effect Lumbar Standing: Right Side [place] - Symptoms During Testing: No effect Lumbar Standing: Right Side [place] - Symptoms After Testing: No effect Lumbar Standing: Left Side [place] - Mechanical Response: No effect Lumbar Standing: Left Side [place] - Symptoms During Testing: No effect Lumbar Standing: Left Side [place] - Symptoms After Testing: No effect L Shoulder Lift Off Test - Subscapular Tear: Negative L Shoulder Empty Can - SS: Positive L Shoulder Belly Press - SupScap: Negative L Shoulder Neer - Impingement: Positive L Shoulder Pearson Eleazar - Impingement: Positive L Shoulder Speeds Test - Labrum/Biceps: Positive - Balance/Special Test Scores Oswestry Low Back Score: 23 - Goals Goal 1:: Patient to be I with HEP BACK AND SHOULDER Goal Time Frame: 4-6 Weeks Goal 2:: Patient to demonstrate 50% improvement with less pain and improved function Goal Time Frame: 4-6 Weeks Goal 3:: Patient improve lumbar ROM for function of recovery for ADLS Goal Time Frame: 4-6 Weeks Goal 4:: Patient improve AROM shoulder flexion and abduction by 10 degrees to improve function with OH activities Goal Time Frame: 4-6 Weeks Goal 5:: Patient to improve back oswestry score by by 5 points to improve QOL Goal Time Frame: 4-6 Weeks - Rehabilitation Potential Physical Therapy Diagnosis: This patient has h/o protruding disc annular tear and ,L5-S1 sacralization along with bicep long head with pain in lumbar with motion testing NW and positioning ,and pain with RTC testing along with decrease ROM thus benefit from skilled PT Rehabilitation Potential: Good - Anticipated Interventions Patient/Client Instruction: Educate patient on: Condition, Plan of Care For the Purpose of:: To decrease pain, To increase ROM, To improve muscle performance and motor function, To improve ability to perform ADL's, To increase tolerance to activity/condition/position, To improve ability of physical actions for home/community/work/leisure, To improve health of tissue, To decrease soft tissue restriction, To increase flexibility/ROM, To reduce risk of recurrence, To improve tolerance to ADL's Therapeutic Exercise to Include: Strength training, Body mechanics, Postural training, Flexibilty training, Passive ROM, Active ROM, Dynamic Lumbar Stabilization, Marcus Exercises For the Purpose of:: To decrease pain, To increase ROM, To improve muscle performance and motor function, To improve ability to perform ADL's, To increase tolerance to activity/condition/position, To improve ability of physical actions for home/community/work/leisure, To improve health of tissue, To decrease soft tissue restriction, To increase flexibility/ROM, To improve safety, To prevent re-injury Manual Therapy Techniques to Include: Mobilization, Passive ROM Comment: G-H JOINT ,LUMBAR For the Purpose of:: To decrease pain, To increase ROM, To improve muscle performance and motor function, To improve ability to perform ADL's, To increase tolerance to activity/condition/position, To improve health of tissue, To decrease soft tissue restriction TENS: Yes IF ES: Yes Cryotherapy (ice pack, ice massage): Yes Thermo therapy (hot pack): Yes Ultrasound (thermal/non thermal): Yes Pelvic traction supine: Yes - 100-130 # X15 For the Purpose of:: To decrease pain, To increase ROM, To improve nutrient delivery to tissue, To increase oxygenation perfusion, To improve health of tissue, To decrease soft tissue restriction, To increase flexibility/ROM Thank you for the opportunity to evaluate your patient. For Medicare and Medicare HMO plans, please review the plan of care and approve it. It will need to be FAXED BACK to us at [phone] for Medicare purposes. For Medicare only, by signing this I certify the plan of care. Please let me know if there are questions or concerns regarding this plan of care. Physician Signature: Date:
--- NOTE | 2023-01-13 18:38 | HP.PT.NRP ---
Patient Information Patient Information: HARRIET FINN was seen in my office for initial evaluation on 08/12/22. The following Plan of Care was established for this patient: POC Established Initial Frequency: 2x /Week Initial Duration: 4 Weeks Anticipated Interventions Patient/Client Instruction: Educate patient on: Condition and Plan of Care For the Purpose of:: To decrease pain, To increase ROM, To improve muscle performance and motor function, To improve ability to perform ADL's, To increase tolerance to activity/condition/position, To improve ability of physical actions for home/community/work/leisure, To improve health of tissue, To decrease soft tissue restriction, To increase flexibility/ROM, To reduce risk of recurrence and To improve tolerance to ADL's Therapeutic Exercise to Include: Strength training, Body mechanics, Postural training, Flexibilty training, Passive ROM, Active ROM, Dynamic Lumbar Stabilization and Muna Exercises For the Purpose of:: To decrease pain, To increase ROM, To improve muscle performance and motor function, To improve ability to perform ADL's, To increase tolerance to activity/condition/position, To improve ability of physical actions for home/community/work/leisure, To improve health of tissue, To decrease soft tissue restriction, To increase flexibility/ROM, To improve safety and To prevent re-injury Manual Therapy Techniques to Include: Mobilization and Passive ROM Comment: G-H JOINT ,LUMBAR For the Purpose of:: To decrease pain, To increase ROM, To improve muscle performance and motor function, To improve ability to perform ADL's, To increase tolerance to activity/condition/position, To improve health of tissue and To decrease soft tissue restriction TENS: Yes IF ES: Yes Cryotherapy (ice pack, ice massage): Yes Thermo therapy (hot pack): Yes Ultrasound (thermal/non thermal): Yes Pelvic traction supine: Yes (100-130 # X15) For the Purpose of:: To decrease pain, To increase ROM, To improve nutrient delivery to tissue, To increase oxygenation perfusion, To improve health of tissue, To decrease soft tissue restriction and To increase flexibility/ROM Last Seen Last Seen: This patient was last seen in our office . Pertinent comments regarding their Physical therapy will appear below: Patient was seen for PT for lumbar pain mainly for lumbar traction At this point I will be discontinuing this patient from physical therapy. I would be happy to see this patient again in the future if found appropriate by the physician. Thank you! Martín Androsik, PT, Cert MDT, OCS Balance/Gait/Functional tests Balance/Special Test Scores Oswestry Low Back Score: 23
== END 2022-09-16 19:00 | disposition home or self-care (01) ==
LOC: PT 18:00
PROVIDERS: PCP Nurse Practitioner; Referring Provider Nurse Practitioner; Visit Provider Nurse Practitioner
DX: M25.512 Pain in left shoulder (principal)
CPT/HCPCS: 97012; 97110; 97162

== ENCOUNTER → 2022-09-28 | Outpatient (CLI) | payer BC, SELFPAY ==
--- NOTE | 2022-09-28 07:31 | MRI_ITS ---
HISTORY: low back pain TECHNIQUE: Multiplanar and multisequence MR images of the lumbar spine were obtained without intravenous contrast. 107 images. COMPARISON: XR 09/18/2022. MRI 09/25/2015. FINDINGS: VERTEBRAE: Vertebral body heights maintained. Mild degenerative endplate changes of L3-4, L4-5, and L5-S1. No other significant bone marrow signal abnormality. ALIGNMENT: No anterior or posterior subluxation. CONUS: Normal morphology and position of the conus medullaris at L1. INTERVERTEBRAL DISCS: T12-L1, L1-2, L2-3: No disc signal abnormality. No significant posterior disc protrusion, central canal stenosis, or foraminal narrowing. L3-4: Mild degenerative loss of T2 signal in the intervertebral disc without significant posterior disc protrusion, central canal stenosis, or foraminal narrowing. L4-5: Mild posterior disc protrusion eccentric to the left with abutment of the left L5 nerve root and mild facet arthropathy resulting in minimal narrowing of the thecal sac. Mild bilateral foraminal narrowing, new from prior. L5-S1: Rudimentary disc with transitional lumbosacral anatomy. No disc signal abnormality. No significant posterior disc protrusion, central canal stenosis, or foraminal narrowing. SOFT TISSUES: Posterior subcutaneous changes edema. MRI/Spine Lumbar (Routine) IMPRESSION: Left paracentral disc protrusion at L4-5 resulting in left nerve root abutment. Mild bilateral foraminal narrowing of L4-5. Electronically Signed: Lexus Dias MD at 9:31 EDT ,
== END | disposition home or self-care (01) ==
LOC: MRI 07:22
PROVIDERS: PCP Nurse Practitioner; Referring Provider Orthopaedic Surgery; Visit Provider Orthopaedic Surgery
DX: M51.26 Other intervertebral disc displacement, lumbar region (principal)
CPT/HCPCS: 72148

== ENCOUNTER → 2022-10-22 | Outpatient (CLI) | payer BC, SELFPAY ==
[2022-10-22 08:50] LABS: AST(SGOT) 53 U/L (15-37); Alanine Aminotransfer ALT/SGPT 77 U/L (16-61); Albumin, Serum 3.7 g/dL (3.2-5.0); Alkaline Phosphatase 109 U/L (45-117); Bilirubin, Direct 0.16 mg/dL (0.00-0.30); Cholesterol 122 mg/dL (200); Globulin 2.9 g/dL (2.2-4.2); High Density Lipoprotein 28 mg/dL; Protein, Total 6.6 g/dL (6.4-8.2); Triglycerides 593 mg/dL
== END | disposition home or self-care (01) ==
LOC: LAB 05:49
PROVIDERS: PCP Nurse Practitioner; Referring Provider Nurse Practitioner Family; Visit Provider Nurse Practitioner Family
DX: E78.2 Mixed hyperlipidemia (principal)
CPT/HCPCS: 36415; 80061; 80076

== ENCOUNTER → 2022-11-28 | Outpatient (CLI) | payer BC, SELFPAY ==
[2022-11-28 08:23] LABS: AST(SGOT) 40 U/L (15-37); Alanine Aminotransfer ALT/SGPT 58 U/L (16-61); Albumin, Serum 3.6 g/dL (3.2-5.0); Alkaline Phosphatase 87 U/L (45-117); Bilirubin, Direct 0.32 mg/dL (0.00-0.30); Cholesterol 85 mg/dL (200); Globulin 3.2 g/dL (2.2-4.2); High Density Lipoprotein 27 mg/dL; Protein, Total 6.8 g/dL (6.4-8.2); Triglycerides 238 mg/dL; Very Low Density Lipoprotein 48 mg/dL (5-40)
== END | disposition home or self-care (01) ==
PROVIDERS: PCP Nurse Practitioner; Referring Provider Nurse Practitioner Family; Visit Provider Nurse Practitioner Family
DX: E78.2 Mixed hyperlipidemia (principal)
CPT/HCPCS: 36415; 80061; 80076

== ENCOUNTER → 2023-02-20 | Outpatient (CLI) | payer BC, SELFPAY ==
[2023-02-20 07:08] LABS: Absolute Neutrophil Count 2.9 X10^3/uL (2.0-7.7); Basophil# 0.03 X10^3/uL; Basophil% 0.6 % (0-1); Eosinophil# 0.17 X10^3/uL; Eosinophils% 3.4 % (0-5); Hematocrit 46.7 % (40-54); Hemoglobin 15.4 g/dL (13.0-16.5); Lymphocyte % 28.2 % (19-41); Mean Corpuscular Hgb 30.2 pg (27.0-32.0); Mean Corpuscular Volume 91.6 fL (80-94); Monocyte# 0.42 X10^3/uL; Monocyte% 8.5 % (0-10); NRBC Flagged by Analyzer 0 % (0-5); Neutrophil # 2.93 X10^3/uL (2.7-7.7); Neutrophil % 58.9 % (47-70); Platelet Count 181 K/mm3 (150-450); RBC Distribution Width SD 43.8 fl (35.1-43.9)
[2023-02-20 07:45] LABS: ALB/GLOB Ratio 1.2 RATIO (0.9-2.4); AST(SGOT) 36 U/L (15-37); Alanine Aminotransfer ALT/SGPT 78 U/L (16-61); Albumin, Serum 3.5 g/dL (3.2-5.0); Alkaline Phosphatase 93 U/L (45-117); Anion Gap 6 (5-15); BUN 15 mg/dL (7-18); BUN/Creat Ratio 20.2 RATIO (10-20); Bilirubin, Direct 0.38 mg/dL (0.00-0.30); Chloride 105 mmol/L (98-107); Cholesterol 72 mg/dL (200); Creatinine, Serum 0.74 mg/dL (0.70-1.30); EST Glomerular Filtration Rate 118 mL/min (>60); Est Glom Filt Rate - Afr Amer 143 mL/min (>60); Globulin 2.9 g/dL (2.2-4.2); Glucose 164 mg/dL (74-106); High Density Lipoprotein 24 mg/dL; Potassium 3.8 mmol/L (3.5-5.1); Protein, Total 6.4 g/dL (6.4-8.2); Sodium Level 136 mmol/L (136-145); Thyroid Stim Hormone (TSH) 2.47 uIU/mL (0.358-3.74); Triglycerides 247 mg/dL; Very Low Density Lipoprotein 49 mg/dL (5-40)
[2023-02-20 09:29] LABS: Hemoglobin A1c 6.5 % (3.8-5.6)
== END | disposition home or self-care (01) ==
LOC: LAB 05:52
PROVIDERS: PCP Nurse Practitioner; Referring Provider Nurse Practitioner; Visit Provider Nurse Practitioner
DX: E11.65 Type 2 diabetes mellitus with hyperglycemia (principal); E78.1 Pure hyperglyceridemia; E66.9 Obesity, unspecified; I10 Essential (primary) hypertension; I25.10 Atherosclerotic heart disease of native coronary artery without angina pectoris; R74.8 Abnormal levels of other serum enzymes; E78.2 Mixed hyperlipidemia; G47.33 Obstructive sleep apnea (adult) (pediatric)
CPT/HCPCS: 36415; 80053; 80061; 82248; 83036; 84443; 85025

== ENCOUNTER 2023-02-26 17:42 | Outpatient (CLI) | payer BC, SELFPAY ==
--- NOTE | 2023-02-26 17:47 | CT_ITS ---
STUDY: LOW DOSE CT LUNG CANCER SCREENING REASON FOR EXAM: Male, 48 years old. 30 pack years quit 2011 RADIATION DOSAGE (If Supplied By Facility): CTDIvol = ( 4.02 ) mGy, DLP = ( 143.46 ) mGycm TECHNIQUE: No contrast was administered. Low dose technique was utilized (average mAS-38 and kVp 120). 1.25 mm axial source images with a slice interval of 1.25-mm were reconstructed in lung windows. 2.5 mm axial source images with a slice interval of 2.5-mm were reconstructed in lung windows. 5.0 mm axial source images with a slice interval of 5.0-mm were reconstructed in soft tissue windows. COMPARISON: Prior study dated: Chest radiograph 03/17/2015. No prior CT . NODULES: Total lung nodules (excluding granulomas): 0 Emphysema: None Endobronchial lesion: None Aorta: Normal caliber. CORONARY ARTERIES: Coronary artery calcification is seen. Heart: Normal size heart. No pericardial effusion. Pulmonary artery: Normal caliber. Mediastinal nodes: No lymphadenopathy. Multiple calcified mediastinal and hilar lymph nodes. Other chest and abdominal findings: Calcified granulomata are present. No pneumothorax or pleural effusion. The visualized upper abdomen shows no gross acute abnormality. No acute osseous abnormality. CT/Low Dose CT Lung Screening IMPRESSION: Lung-RADS category 1 - Continue annual screening with LDCT in 12 months. IMPORTANT NOTES FOR USE: ACR Lung-RADS Version 1.1 Assessment Categories Release Date: 2018 Category: Coded 0-4 bases on nodule(s) with highest degree of suspicion. Negative screen is defined as categories 1 and 2; a positive screen is defined as categories 3 and 4. Category 3 and 4A nodules that are unchanged on interval CT should be coded as category 2, and individuals returned to screening in 12 months. Category 4X: Category 3 or 4 nodules with additional imaging findings that increase the suspicion of lung cancer, such as spiculation, GGN that doubles in size in 1 year, enlarged lymph notes, etc. Category Modifiers: S (significant finding unrelated to lung cancer) Electronically Signed: Jamal Shetty MD at 20:24 EDT ,
== END 2023-02-26 23:59 | disposition home or self-care (01) ==
PROVIDERS: PCP Nurse Practitioner; Visit Provider Nurse Practitioner Acute Care
DX: Z12.2 Encounter for screening for malignant neoplasm of respiratory organs (principal); F17.210 Nicotine dependence, cigarettes, uncomplicated
CPT/HCPCS: 71271

== ENCOUNTER → 2023-03-12 | Outpatient (CLI) | payer BC, SELFPAY | END | disposition home or self-care (01) | LOC: SL 12:49 | PROVIDERS: PCP Nurse Practitioner; Visit Provider Internal Medicine Critical Care Medicine | DX: Z00.00 Encounter for general adult medical examination without abnormal findings (principal) ==

== ENCOUNTER → 2023-05-02 | Outpatient (CLI) | payer BC, SELFPAY ==
--- NOTE | 2023-05-02 05:59 | ECHOCS_ITS ---
Reason For Study: CHEST PAIN Procedure This was a 2D Doppler, Color Flow transthoracic echocardiogram. The study was technically difficult. Exam performed in department. Left Ventricle Normal LV size. Left ventricular systolic function is normal. The estimated ejection fraction is 65 %. Stage 1 diastolic dysfunction. No regional wall motion abnormalities noted. Right Ventricle Normal RV size. Normal systolic function. Atria Normal left atrium. Normal right atrium. Mitral Valve Normal mitral valve. Tricuspid Valve Normal tricuspid valve. Aortic Valve Normal aortic valve. Pulmonic Valve Normal pulmonic valve. Great Vessels Normal aortic root. The pulmonary artery is normal size. Normal inferior vena cava. Pericardium/Pleural No pericardial effusion. Medication Diluted definity 4.5ml given slow IV push to enhance endocardial definition. MMode/2D Measurements & Calculations LVIDd: 5.1 cm IVSd: 0.93 cm Ao root diam: 3.3 cm LVIDs: 3.2 cm LVPWd: 0.90 cm FS: 36.8 % LAV(MOD-bp): 29.1 ml LVAd ap4: 28.3 cm2 SV(MOD-sp4): 49.4 ml LAV(MOD-bp) Indexed: 12.5 ml/m2 LVLd ap4: 8.2 cm LAV(MOD-sp2): 26.9 ml EDV(MOD-sp4): 79.1 ml LAV(MOD-sp4): 31.9 ml EDV(sp4-el): 82.6 ml LVAs ap4: 15.8 cm2 LVLs ap4: 7.0 cm ESV(MOD-sp4): 29.7 ml ESV(sp4-el): 30.2 ml EF(MOD-sp4): 62.4 % EF(sp4-el): 63.4 % SV(sp4-el): 52.4 ml LA A4 area: 13.9 cm2 LA dimension(2D): 3.2 cm RA A4 area: 10.9 cm2 Time Measurements MV dec time: 0.15 sec Doppler Measurements & Calculations MV E max dino: 82.1 cm/sec Lat Peak E' Dino: 10.0 cm/sec Med Peak E' Dino: 7.6 cm/sec MV A max dino: 84.9 cm/sec E/E' lat: 8.2 E/E' med: 10.8 MV E/A: 0.97 Ao V2 max: 116.4 cm/sec LV V1 max: 104.5 cm/sec PA V2 max: 85.2 cm/sec Ao max P.4 mmHg LV V1 max P.4 mmHg ECHO/Echo Complete W/ Contrast Interpretation Summary Normal LV size. Left ventricular systolic function is normal. The estimated ejection fraction is 65 %. Stage 1 diastolic dysfunction. Contrast injection was performed. Ordering Physician: Pankaj Matthews/Roly Arizmendi Referring Physician: ARACELI SANCHEZ Performed By: Nelly Driver RDCS
--- NOTE | 2023-05-05 09:49 | STRESSREP ---
Stress Test Report Exercise myocardial perfusion stress test. 48-year-old man with a history of chest pain Stress protocol: Resting EKG demonstrates normal sinus rhythm with a rate of 85 bpm resting blood pressure is 136/90 mmHg. The patient exercised according to the regular Abdias protocol for a total duration of 8 minutes attaining a maximum heart rate of 157 bpm which was 92% of maximum predicted heart rate; the maximum workload was 10.1 metabolic equivalents. At rest there were no ST or T wave changes noted to suggest ischemia and at peak exercise upsloping ST changes only were noted which did not meet the criteria for ischemia. Mild shortness of breath was noted. No clinical angina was noted the test was terminated due to the target heart rate being achieved/fatigue. The peak blood pressure was 180/78 mmHg. Rate-pressure product was 28,200. Myocardial perfusion protocol. 14.9 mCi of technetium 99m sestamibi was injected at rest. The patient exercised according to regular Abdias protocol for total duration of 8 minutes and at peak exercise 44.7 mCi of technetium 99m sestamibi was injected stress images were obtained stress and rest images were reconstructed in comparing the short axis vertical long and horizontal long axis. Gated images were also obtained. Perfusion SPECT analysis: Review of the stress images demonstrate normal uptake of tracer noted in all areas of the myocardium. The resting images similarly demonstrate normal uptake of tracer noted in all areas of the myocardium. No areas of reversibility are noted to suggest ischemia no previous infarct was noted. Gated SPECT analysis: The gated ejection fraction is 59%. Conclusion: Normal exercise myocardial perfusion stress test at a high workload Preserved ejection fraction.
== END | disposition home or self-care (01) ==
PROVIDERS: PCP Nurse Practitioner; Referring Provider Nurse Practitioner Family; Visit Provider Nurse Practitioner Family
DX: R07.9 Chest pain, unspecified (principal); I25.10 Atherosclerotic heart disease of native coronary artery without angina pectoris; Z95.5 Presence of coronary angioplasty implant and graft; R00.0 Tachycardia, unspecified
CPT/HCPCS: 78452; 93017; 93306; A9500; Q9957; A4216; C8929

== ENCOUNTER → 2023-09-15 | Outpatient (CLI) | payer OTHER, SELFPAY | END | disposition home or self-care (01) | LOC: SL 11:35 | PROVIDERS: PCP Nurse Practitioner; Visit Provider Nurse Practitioner Acute Care | DX: Z00.00 Encounter for general adult medical examination without abnormal findings (principal) ==

== ENCOUNTER → 2023-12-09 | Outpatient (CLI) | payer OTHER, SELFPAY ==
[2023-12-09 07:07] LABS: Hemoglobin 15.6 g/dL (13.0-16.5); Mean Corp Hgb Conc 33.2 g/dL (32-36); Mean Corpuscular Hgb 29.3 pg (27.0-32.0); Mean Corpuscular Volume 88.3 fL (80-94); Mean Platelet Vol. 11.2 fl (6.2-12.0); Platelet Count 170 K/mm3 (150-450); RBC Distribution Width CV 13.2 % (11.6-14.6); RBC Distribution Width SD 42.3 fl (35.1-43.9); Red Blood Count 5.32 M/mm3 (4.6-6.2); White Blood Count 5.8 K/mm3 (4.4-11.0)
[2023-12-09 07:35] LABS: ALB/GLOB Ratio 1.1 RATIO (0.9-2.4); AST(SGOT) 29 U/L (15-37); Alanine Aminotransfer ALT/SGPT 42 U/L (16-61); Albumin, Serum 3.6 g/dL (3.2-5.0); Alkaline Phosphatase 76 U/L (45-117); Anion Gap 5 (5-15); BUN 15 mg/dL (7-18); BUN/Creat Ratio 17.4 RATIO (10-20); Calcium,Total 8.6 mg/dL (8.5-10.1); Chloride 106 mmol/L (98-107); Cholesterol 91 mg/dL (200); Creatinine, Serum 0.86 mg/dL (0.70-1.30); EST Glomerular Filtration Rate 100 mL/min (>60); Est Glom Filt Rate - Afr Amer 121 mL/min (>60); Globulin 3.2 g/dL (2.2-4.2); Glucose 121 mg/dL (74-106); High Density Lipoprotein 32 mg/dL; Potassium 3.9 mmol/L (3.5-5.1); Protein, Total 6.8 g/dL (6.4-8.2); Sodium Level 136 mmol/L (136-145); Triglycerides 223 mg/dL; Very Low Density Lipoprotein 45 mg/dL (5-40)
== END | disposition home or self-care (01) ==
LOC: LAB 06:26
PROVIDERS: PCP Nurse Practitioner; Visit Provider Internal Medicine Gastroenterology
DX: R74.8 Abnormal levels of other serum enzymes (principal); E78.5 Hyperlipidemia, unspecified
CPT/HCPCS: 36415; 80053; 80061; 85027

== ENCOUNTER 2024-04-07 10:15 | Day surgery (SDC) | payer OTHER, SELFPAY ==
--- NOTE | 2024-03-31 06:21 | EKG12_ITS ---
Test Reason : PREOP Blood Pressure : */* mmHG Vent. Rate : 92 BPM Atrial Rate : 92 BPM P-R Int : 138 ms QRS Dur : 86 ms QT Int : 378 ms P-R-T Axes : 22 71 22 degrees QTcB Int : 467 ms Normal sinus rhythm Normal ECG Confirmed by SIRI LEÓN, BARRINGTON ([id number]), assistant editor KENDELL DAI ([id number]) on 03/31/2024 2:11:24 PM Referred By: Umang Delgado Confirmed By: BARRINGTON HORNER MD
[2024-03-31 06:33] LABS: Hematocrit 47.6 % (40-54); Hemoglobin 15.7 g/dL (13.0-16.5); Mean Corpuscular Hgb 29.5 pg (27.0-32.0); Mean Corpuscular Volume 89.3 fL (80-94); Mean Platelet Vol. 11.1 fl (6.2-12.0); Platelet Count 164 K/mm3 (150-450); RBC Distribution Width SD 41.9 fl (35.1-43.9); Red Blood Count 5.33 M/mm3 (4.6-6.2); White Blood Count 4.8 K/mm3 (4.4-11.0)
[2024-03-31 07:16] LABS: Anion Gap 5 (5-15); BUN 9 mg/dL (7-18); BUN/Creat Ratio 11.6 RATIO (10-20); Calcium,Total 8.3 mg/dL (8.5-10.1); Chloride 107 mmol/L (98-107); Creatinine, Serum 0.77 mg/dL (0.70-1.30); EST Glomerular Filtration Rate 113 mL/min (>60); Est Glom Filt Rate - Afr Amer 136 mL/min (>60); Glucose 132 mg/dL (74-106); Sodium Level 138 mmol/L (136-145)
[2024-03-31 08:47] LABS: Hemoglobin A1c 6.4 % (3.8-5.6)
[2024-04-07] VITALS (10 sets, daily range): BP systolic 113–145; BP diastolic 78–101; PULSE 83–99; RESP 12–18; TEMP 36–36.8; O2SAT 94–98; BMI 37.6
[2024-04-07 11:27] LABS: Bedside Glucose 129 mg/dL (74-106)
[2024-04-07] MEDS: Ipratropium/Albuterol Sulfate 3 ML AMPUL.NEB INHALATION (11:31)
--- NOTE | 2024-04-07 11:47 | PRE.ANES_ITS ---
ASA Classification* ASA Classification ASA Classification: 3 Assessment & Plan Anesthesia* Anesthesia Assessment Anesthesia Assessment: Discussed sedation and/or anesthesia options, risks, benefits, and alternatives with patient/parents/legal guardian/POA. Questions invited. The patient/parents/legal guardian/POA seems to understand and agrees to proceed with anesthesia plan. Reviewed the physical assessment, medical history, allergy history and patient home medications list prior to surgery/procedure/anesthetic and documented any changes. Performed airway and anesthesia risk assessments. Anesthesia Type Anesthesia Type: General (NO Block due to Dyspnea, CPAP, BMI) Anesthesia Focused Assessment* Temperature: 98 F Pulse Rate: 83 Blood Pressure: 142/101 Respiratory Rate: 16 Pulse Ox: 98 Airway Assessment Mouth opens: >3 cm Mallampati Score: II Focused Labs Anesthesia Preop lab: CBC WBC 4.8 K/mm3 (4.4-11.0) 03/31/24 06:03 RBC 5.33 M/mm3 (4.6-6.2) 03/31/24 06:03 Hgb 15.7 g/dL (13.0-16.5) 03/31/24 06:03 Hct 47.6 % (40-54) 03/31/24 06:03 Plt Count 164 K/mm3 (150-450) 03/31/24 06:03 CHEMISTRY Potassium 4.0 mmol/L (3.5-5.1) 03/31/24 06:03 Sodium 138 mmol/L (136-145) 03/31/24 06:03 Magnesium 1.7 mg/dL (1.8-2.4) L 10/04/14 13:15 BUN 9 mg/dL (7-18) 03/31/24 06:03 Creatinine 0.77 mg/dL (0.70-1.30) 03/31/24 06:03 Glucose 132 mg/dL (74-106) H 03/31/24 06:03 POC Glucose 129 mg/dL (74-106) H 04/07/24 10:52 TSH 2.47 uIU/mL (0.358-3.74) 02/20/23 06:04 COAG Pre-Assessment Diagnosis/Proposed Procedure Planned Operative Procedure(s): LEFT SHOULDER ARTHROSCOPY SUBCROMIAL DECOMPRESSION DEBRIDEMENT PARALABRAL CYST AND LABRUM REPAIR Anesthesia History 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 When Was Last Pacemaker Check QUESTION #4 FULL TEXT: You/Your Family Experience fever (hyperthermia) with Anesthesia Last Oral Intake Last Oral intake: Last Oral Intake NPO since 18:30 04/07/24 10:36 Meds taken in AM with sips of No 04/07/24 10:36 water? Meds patient instructed to take am of surgery PONV PONV - network operations analyst: PONV - network operations analyst Female No 03/24/24 08:40 HX of Motion Sickness No 03/24/24 08:40 HX of N/V After Surgery No 03/24/24 08:40 Non-Smoker Yes 03/24/24 08:40 Duration of Surgery greater Yes 03/24/24 08:40 than 60 minutes Number of Risk Factors 2 03/24/24 08:40 PONV Score Moderate Risk 03/24/24 08:40 Height & Weight Height & Weight: Anesthesia: Height & Weight Height 5 ft 10 in 04/07/24 10:36 Weight: 119 kg 04/07/24 10:36 Body Mass Index (BMI) 37.6 04/07/24 10:36 Respiratory Assessment Respiratory Assessment - network operations analyst: Respiratory Tract Infection Hx - network operations analyst Hx Respiratory Tract Infection No 03/24/24 08:40 STOP Sleep Apnea STOP Sleep Apnea - network operations analyst: STOP Sleep Apnea - network operations analyst Hx Hypertension Yes: CONTROLLED WITH MEDS 03/24/24 08:40 Hx Sleep Apnea Yes: VPAP 03/24/24 08:40 CPAP No 03/24/24 08:40 BIPAP No 03/24/24 08:40 Do you snore loudly (louder than talking or can be heard Do you often feel tired/ fatigued/ sleepy during daytime? Has anyone observed you stop breathing during sleep? STOP Results Positive 03/24/24 08:40 QUESTION #5 FULL TEXT : Do you snore loudly (louder than talking or can be heard through closed doors)? Tobacco Use History Tobacco Use History - network operations analyst: Tobacco Use History - network operations analyst Tobacco Use Smoking Status Former smoker 03/24/24 08:40 Hx Tobacco Use No 03/24/24 08:40 Years Smoking Packs Smoked per Day Smoking Cessation Date was No - quit smoking greater 03/24/24 08:40 within the last 15 years than 15 years ago Hx Smoking Cessation Date 05/19/17 03/24/24 08:40 Hx Smoking Cessation No 03/24/24 08:40 Counseling Hematologic Medial History Hematologic Hx - network operations analyst: Hematologic Medical Hx - manager trust Hx of Blood Transfusion No 03/24/24 08:40 Hx of Transfusion in last 3 No 03/24/24 08:40 Months Date of Last Transfusion (if within last 3 months) Ever experience any problems No 03/24/24 08:40 with transfusion(s)? Specify any problems Hx of Preganancy in last 3 N/A 03/24/24 08:40 Months Nurse Filling Out Transfusion DSCHRIBER 03/24/24 08:40 & Questions: Date: 03/24/24 03/24/24 08:40 Time: 08:43 03/24/24 08:40 Patient unable to answer at this time (ie. confused, unrespo /Reproduction History /Reproductive History - network operations analyst: /Reproductive Hx- network operations analyst Hx Now No 03/24/24 08:40 Gestational Age (in weeks): EDC: Hx Hx Para Hx Section SAB No 03/24/24 08:40 Active Medications Active Medications: Current Medications Generic Name Dose Route Start Last Admin Trade Name Freq PRN Reason Stop Dose Admin Cefazolin Sodium 2 gm/ N/A 20 mls @ 400 mls/hr 04/07/24 12:15 IV 04/07/24 12:17 PREOP ONE PFSH Medical History Central sleep apnea Loss of hearing Arthritis Dietary restriction Gastric reflux Paralabral cyst of left shoulder Injury of superior glenoid labrum of left shoulder joint Impingement of left shoulder Hypertriglyceridemia Wears glasses Alcohol use Diabetes High cholesterol Back pain Former smoker Asthma Shortness of breath on exertion History of edema History of echocardiogram History of stress test Cardiology follow-up encounter Essential hypertension Diverticulitis Fatty liver Atherosclerosis of coronary artery of [place] heart without angina pectoris Abnormal liver enzymes Obesity (BMI 30.0-34.9) Type 2 diabetes mellitus without complications COPD (chronic obstructive pulmonary disease) Obstructive sleep apnea Hyperlipidemia Home Medications ?Medication ?Instructions ?Recorded ?Last Taken ?Type milk thistle 150 mg capsule 150 mg PO BID 01/12/19 Unknown History ascorbic acid (vitamin C) 1,000 mg 1 g PO BID 02/20/22 Unknown History tablet vitamin E mixed 200 unit tablet 200 unit PO DAILY 02/20/22 Unknown History albuterol sulfate 90 mcg/actuation 2 puff inhalation Q4H PRN asthma 3 10/22/22 Unknown Rx aerosol inhaler (Ventolin HFA) months #18 grams pantoprazole 40 mg tablet,delayed 40 mg PO DAILY #90 tabs 02/21/23 Unknown Rx release aspirin 81 mg tablet,delayed 81 mg PO DAILY #30 tabs 07/21/23 Unknown Rx release (Adult Aspirin Regimen) isosorbide mononitrate 30 mg 30 mg PO DAILY #90 tabs 07/31/23 Unknown Rx tablet,extended release 24 hr atorvastatin 10 mg tablet (Lipitor) 10 mg PO DAILY #90 tabs 08/12/23 Unknown Rx ezetimibe 10 mg tablet (Zetia) 10 mg PO QDAY #90 tabs 08/12/23 Unknown Rx losartan 50 mg tablet 50 mg PO DAILY #90 tabs 08/12/23 Unknown Rx dapagliflozin propaned 10 1 tab PO DAILY 10/20/23 Unknown History mg-metformin ER 1,000 mg tablet,ext rel 24hr (Xigduo XR) icosapent ethyl 1 gram capsule 2 g (2 x 1 gram) PO BID 90 days 10/20/23 Unknown Rx #360 caps metoprolol succinate 25 mg 25 mg PO DAILY #90 tabs 11/26/23 Unknown Rx tablet,extended release 24 hr albuterol sulfate 2.5 mg/3 mL 2.5 mg inhalation Q6H PRN 03/24/24 Unknown History (0.083 %) solution for nebulization shortness of breath or wheezing famotidine 40 mg tablet 40 mg PO DAILY PRN GERD 03/24/24 Unknown History tamsulosin 0.4 mg capsule 0.4 mg PO QHS 03/24/24 Unknown History tirzepatide 12.5 mg/0.5 mL 12.5 mg subcut BARRETT 03/24/24 Unknown History subcutaneous pen injector (Mounjaro) fluticasone 500 mcg-salmeterol 50 1 inh inhalation BID #60 ea 04/01/24 Unknown Rx mcg/dose blistr powdr for inhalation (Wixela Inhub) Allergy/AdvReac Type Severity Reaction Status Date / Time triamcinolone (From Kenalog) Allergy Intermediate Rash Verified 04/07/24 10:34 amoxicillin (From Augmentin) AdvReac Intermediate Diarrhea Verified 04/07/24 10:34 clavulanic acid (From AdvReac Intermediate Diarrhea Verified 04/07/24 10:34 Augmentin) Family History Sister Diabetes Grandfather CAD (coronary artery disease) Other Asthma CVA (cerebral vascular accident) Cancer Chronic inflammatory demyelinating polyneuropathy Family history of high cholesterol Heart disease Hypertension Leukemia Osteoporosis Thyroid disorder Surgical History History of lumbar fusion H/O radiofrequency ablation (RFA) of nerve of lumbar spine Hx of excision of mass Hx of hand surgery History of tonsillectomy History of coronary artery stent placement (10/27/14) Social History Smoking Status: Former smoker pack-years: 20 Tobacco: How many years used: 15 Electronic Cigarette Use: not used how long ago did patient quit smokin second hand exposure: No alcohol intake: current alcohol intake frequency: a few times a month substance use type: does not use caffeine: Yes Type: coffee Number of servings: 2 and other Review of Systems (Anesthesia) ROS Narrative System reviewed and no additional complaints, except as documented.
--- NOTE | 2024-04-07 11:58 | HP.PCM_ITS ---
HPI - General HPI Narrative HARRIET FINN, is a 49 M who presents for left shoulder arthroscopy, subacromial decompression, debridement, decompression paralabral cyst and labral repair. no changes to h and p. shoulder marked. post op instructions, rab and narcotic counselling. no further questions, ok to proceed. MR#: [id number] Acct: [id number] Name: HARRIET FINN SCOT Rep #: [id number] : 1975 Provider: Dr. Umang Delgado MD Age/Sex: 49/M Location: [facility] [place] Status: Signed Intake Vital Signs 02/08/2415:55 02/19/2409:35 Height 5 ft 10 in 5 ft 10 in Intake Visit Reasons: LEFT SHOULDER Chief Complaint: Left shoulder Accompanied by: Self Is patient in pain?: No Allergies triamcinolone (From Kenalog) Allergy (Intermediate, Verified 02/23/24 15:17) Rashamoxicillin (From Augmentin) Adverse Reaction (Intermediate, Verified 02/23/24 15:17) Diarrheaclavulanic acid (From Augmentin) Adverse Reaction (Intermediate, Verified 02/23/24 15:17) Diarrhea Medications ?Medication ?Instructions ?Recorded ?Confirmed ?Type milk thistle 150 mg capsule 150 mg PO BID 01/12/19 02/23/24 History promethazine 12.5 mg tablet 12.5 mg PO TID PRN nausea and 08/02/21 02/23/24 Rx vomiting #45 tabs ascorbic acid (vitamin C) 1,000 mg 1 g PO BID 02/20/22 02/23/24 History tablet vitamin E mixed 200 unit tablet 200 unit PO DAILY 02/20/22 02/23/24 History albuterol sulfate 90 mcg/actuation 2 puff inhalation Q4H PRN asthma 3 10/22/22 02/23/24 Rx aerosol inhaler (Ventolin HFA) months #18 grams albuterol sulfate 2.5 mg/3 mL 2.5 mg (3 mL) inhalation Q6H #75 mL 02/21/23 02/23/24 Rx (0.083 %) solution for nebulization pantoprazole 40 mg tablet,delayed 40 mg PO DAILY #90 tabs 02/21/23 02/23/24 Rx release tamsulosin 0.4 mg capsule 0.4 mg PO DAILY #90 caps 02/21/23 02/23/24 Rx celecoxib 200 mg capsule (Celebrex) 200 mg PO BID PRN 04/02/23 02/23/24 History benzonatate 200 mg capsule 200 mg PO TID PRN cough #45 caps 05/14/23 02/23/24 Rx aspirin 81 mg tablet,delayed 81 mg PO DAILY #30 tabs 07/21/23 02/23/24 Rx release (Adult Aspirin Regimen) isosorbide mononitrate 30 mg 30 mg PO DAILY #90 tabs 07/31/23 02/23/24 Rx tablet,extended release 24 hr atorvastatin 10 mg tablet (Lipitor) 10 mg PO DAILY #90 tabs 08/12/23 02/23/24 Rx ezetimibe 10 mg tablet (Zetia) 10 mg PO QDAY #90 tabs 08/12/23 02/23/24 Rx losartan 50 mg tablet 50 mg PO DAILY #90 tabs 08/12/23 02/23/24 Rx dapagliflozin propaned 10 1 tab PO DAILY 10/20/23 02/23/24 History mg-metformin ER 1,000 mg tablet,ext rel 24hr (Xigduo XR) famotidine 40 mg tablet 40 mg PO DAILY #30 tabs 10/20/23 02/23/24 Rx icosapent ethyl 1 gram capsule 2 g (2 x 1 gram) PO BID 90 days 10/20/23 02/23/24 Rx #360 caps hydroxyzine HCl 10 mg tablet 10 mg PO TID-QID PRN itching #360 10/29/23 02/23/24 Rx tabs metoprolol succinate 25 mg 25 mg PO DAILY #90 tabs 11/26/23 02/23/24 Rx tablet,extended release 24 hr cefdinir 300 mg capsule 300 mg PO BID #20 caps 02/09/24 02/23/24 Rx tirzepatide 12.5 mg/0.5 mL 12.5 mg (0.5 mL) subcut QWEEK 90 02/09/24 02/23/24 Rx subcutaneous pen injector days #6.5 mL (Christel) [facility] Medical History Paralabral cyst of left shoulder Injury of superior glenoid labrum of left shoulder joint Impingement of left shoulder Hypertriglyceridemia Wears glasses Alcohol use Diabetes High cholesterol Back pain Former smoker CPAP (continuous positive airway pressure) dependence Asthma Shortness of breath on exertion Leg cramps History of edema History of echocardiogram History of stress test Cardiology follow-up encounter Essential hypertension Diverticulitis Fusion of lumbar spine Fatty liver Hyperlipidemia associated with type 2 diabetes mellitus Atherosclerosis of coronary artery of [place] heart without angina pectoris Abnormal liver enzymes Obesity (BMI 30.0-34.9) Type 2 diabetes mellitus without complications COPD (chronic obstructive pulmonary disease) Obstructive sleep apnea Hyperlipidemia Surgical History H/O radiofrequency ablation (RFA) of nerve of lumbar spine Hx of excision of mass Hx of hand surgery History of tonsillectomy History of coronary artery stent placement (10/27/14) Family History Sister DiabetesGrandfather CAD (coronary artery disease)Other Asthma CVA (cerebral vascular accident) Cancer Chronic inflammatory demyelinating polyneuropathy Family history of high cholesterol Heart disease Hypertension Leukemia Osteoporosis Thyroid disorder Social History Smoking Status: Former smoker pack-years: 20 Tobacco: How many years used: 15 Electronic Cigarette Use: not used how long ago did patient quit smokin second hand exposure: No alcohol intake: current alcohol intake frequency: a few times a month substance use type: does not use caffeine: Yes Type: coffee Number of servings: 2 and other HPI LEFT SHOULDER Details: This documentation accurately reflects the service provided and the decisions made by me, Dr. Umang Delgado MD 02/23/24 2494. Part of today?s visit was documented by [ ], acting as scribe. HARRIET FINN is a 49 year old M here today for Follow-up left shoulder MRI results. comes and goes. worse with labor and driving. hurts across the back and side, into the trapezius. Supplemental Info MRI report from February 02, 2024 MRI shoulder without contrast left Impression posterior/inferior glenoid labral tearing with associated paralabral cyst formation. Intact rotator cuff tendons. I independently reviewed the imaging. Concur with radiologist report. Coding Level of Care Code Off vis,est,level 4 Diagnoses Acute pain of left shoulder M25.512 Chronicity: acute Paralabral cyst of left shoulder S43.432A Impingement of left shoulder M25.812 Assessment and Plan Assessment and Plan (1) Left shoulder pain: Status: Acute Qualifiers: Chronicity: acute Qualified Code(s): M25.512 - Pain in left shoulder Plan: 49-year-old male with ongoing left shoulder pain worse with lifting failed conservative management including cortisone injection. MRI shows a small posterior labral tear with paralabral cyst no rotator cuff tears but does have signs and symptoms consistent with impingement syndrome and responded well to a cortisone injection initially. Discussed the diagnosis prognosis different treatment options available to the patient. I think more the pain is coming from irritation of the rotator cuff tendons and bursitis rather than the labral tear and the patient does not have any signs symptoms or history of instability or dislocations of the shoulder. That being said he could still continue on with conservative management. Surgery be in the form of left shoulder arthroscopy, subacromial decompression, debridement, decompression paralabral cyst and labral repair to try to prevent recurrence. Explained the risks associated with this patient wants to go ahead hemoglobin A1c has been persistently under 7 but he does see a special effects makeup artist as well we will get clearance from that provider and proceed with surgery he understands no further questions or concerns. Diabetes and heart problems can increase the chance of complication such as infection or other risks associate with surgery. Pros and cons risks and benefits were discussed with the patient including but not limited to infection, pain, stiffness, bleeding, damage to surrounding structures, neurovascular injury, recurrence or retear, failure or wear of hardware or fixation, instability, fracture, deep vein thrombosis and pulmonary embolism, anesthetic risks, , patient dissatisfaction, need for further surgery and other risks. Patient understood and wished to proceed with surgery, and signed the informed consent documentation. (2) Paralabral cyst of left shoulder: Status: Acute (3) Impingement of left shoulder: Status: Acute Ortho Exam General General: Yes no acute distress Neurologic: Yes alert and Yes oriented x3 Psychologic: Yes reasonable and appropriate Left Shoulder Skin/Wound: Yes CDI, No ecchymosis, No erythema and No swelling Testing: Yes Hawkin's, Yes Neer's, Yes Speed's, Yes TTP Biceps, No TTP AC Joint, Yes Yergason's, No translation, Yes empty can, Yes Sully, No cross arm, No scapular winging and Yes belly press normal SHOULDER: normal motor and sens to axillary N, MRU and AIN/PIN. Hand warm well perfused normal radial pulse A/passive FE 165, ER 45, IR belt line, strength fe 4+, ER 5. PFSH Medical History Central sleep apnea Loss of hearing Arthritis Dietary restriction Gastric reflux Paralabral cyst of left shoulder Injury of superior glenoid labrum of left shoulder joint Impingement of left shoulder Hypertriglyceridemia Wears glasses Alcohol use Diabetes High cholesterol Back pain Former smoker Asthma Shortness of breath on exertion History of edema History of echocardiogram History of stress test Cardiology follow-up encounter Essential hypertension Diverticulitis Fatty liver Atherosclerosis of coronary artery of [place] heart without angina pectoris Abnormal liver enzymes Obesity (BMI 30.0-34.9) Type 2 diabetes mellitus without complications COPD (chronic obstructive pulmonary disease) Obstructive sleep apnea Hyperlipidemia Home Medications ?Medication ?Instructions ?Recorded ?Last Taken ?Type milk thistle 150 mg capsule 150 mg PO BID 01/12/19 Unknown History ascorbic acid (vitamin C) 1,000 mg 1 g PO BID 02/20/22 Unknown History tablet vitamin E mixed 200 unit tablet 200 unit PO DAILY 02/20/22 Unknown History albuterol sulfate 90 mcg/actuation 2 puff inhalation Q4H PRN asthma 3 10/22/22 Unknown Rx aerosol inhaler (Ventolin HFA) months #18 grams pantoprazole 40 mg tablet,delayed 40 mg PO DAILY #90 tabs 02/21/23 Unknown Rx release aspirin 81 mg tablet,delayed 81 mg PO DAILY #30 tabs 07/21/23 Unknown Rx release (Adult Aspirin Regimen) isosorbide mononitrate 30 mg 30 mg PO DAILY #90 tabs 07/31/23 Unknown Rx tablet,extended release 24 hr atorvastatin 10 mg tablet (Lipitor) 10 mg PO DAILY #90 tabs 08/12/23 Unknown Rx ezetimibe 10 mg tablet (Zetia) 10 mg PO QDAY #90 tabs 08/12/23 Unknown Rx losartan 50 mg tablet 50 mg PO DAILY #90 tabs 08/12/23 Unknown Rx dapagliflozin propaned 10 1 tab PO DAILY 10/20/23 Unknown History mg-metformin ER 1,000 mg tablet,ext rel 24hr (Xigduo XR) icosapent ethyl 1 gram capsule 2 g (2 x 1 gram) PO BID 90 days 10/20/23 Unknown Rx #360 caps metoprolol succinate 25 mg 25 mg PO DAILY #90 tabs 11/26/23 Unknown Rx tablet,extended release 24 hr albuterol sulfate 2.5 mg/3 mL 2.5 mg inhalation Q6H PRN 03/24/24 Unknown History (0.083 %) solution for nebulization shortness of breath or wheezing famotidine 40 mg tablet 40 mg PO DAILY PRN GERD 03/24/24 Unknown History tamsulosin 0.4 mg capsule 0.4 mg PO QHS 03/24/24 Unknown History tirzepatide 12.5 mg/0.5 mL 12.5 mg subcut BARRETT 03/24/24 Unknown History subcutaneous pen injector (Nickyro) fluticasone 500 mcg-salmeterol 50 1 inh inhalation BID #60 ea 04/01/24 Unknown Rx mcg/dose blistr powdr for inhalation (Radhaxela Inhub) Allergy/AdvReac Type Severity Reaction Status Date / Time triamcinolone (From Kenalog) Allergy Intermediate Rash Verified 04/07/24 10:34 amoxicillin (From Augmentin) AdvReac Intermediate Diarrhea Verified 04/07/24 10:34 clavulanic acid (From AdvReac Intermediate Diarrhea Verified 04/07/24 10:34 Augmentin) Family History Sister Diabetes Grandfather CAD (coronary artery disease) Other Asthma CVA (cerebral vascular accident) Cancer Chronic inflammatory demyelinating polyneuropathy Family history of high cholesterol Heart disease Hypertension Leukemia Osteoporosis Thyroid disorder Surgical History History of lumbar fusion H/O radiofrequency ablation (RFA) of nerve of lumbar spine Hx of excision of mass Hx of hand surgery History of tonsillectomy History of coronary artery stent placement (10/27/14) Social History Smoking Status: Former smoker pack-years: 20 Tobacco: How many years used: 15 Electronic Cigarette Use: not used how long ago did patient quit smokin second hand exposure: No alcohol intake: current alcohol intake frequency: a few times a month substance use type: does not use caffeine: Yes Type: coffee Number of servings: 2 and other Vital Signs Vital Signs Vital Signs: 04/07/24 10:36 04/07/24 10:36 04/07/24 11:48 Temperature 98 F 98 F Temperature Source Temporal Pulse Rate 83 83 Respiratory Rate 16 16 Respiratory Pattern Normal Blood Pressure 142/101 H 142/101 H Blood Pressure Mean 114 Blood Pressure Source Monitor Blood Pressure Position Semi-Fowlers Blood Pressure Location Left Forearm Pulse Ox 98 98 Oxygen Delivery Method Room Air Weight Weight: 262 lb 5.601 oz Body Mass Index (BMI) 37.6 Results Lab / Micro Data 03/31/24 06:03 03/31/24 06:03 Labs: Laboratory Results - last 24 hr 04/07/24 10:52: POC Glucose 129 H
[2024-04-07] MEDS: Cefazolin 2 GM in Syringe IV (12:27)
[2024-04-07] MEDS: Epinephrine (1 mg/ml) 1 MG/ML VIAL (13:01)
[2024-04-07] MEDS: Bupivacaine 0.25% 30 ML Vial (13:50)
--- NOTE | 2024-04-07 13:51 | PCM.OPRPT ---
Problems Associated Problem List Diagnoses (1) Impingement syndrome, shoulder, left: (2) Paralabral cyst of left shoulder: Operative Report (Standard) Operative Information Surgery/Procedure Performed: Left shoulder arthroscopy, subacromial decompression, decompression paralabral cyst posterior labral repair Surgeon: Umang Delgado Date of Procedure: 04/07/24 Procedure Start Time: 12:45 Procedure Stop Time: 13:49 Pre-Operative Diagnosis: Left shoulder impingement syndrome and paralabral cyst Post-Operative Diagnosis: Same Select all DRAINS/GRAFTS/IMPLANTS that apply: Implanted device Implanted device details: Arthrex 2.9 mm push lock anchors Type of Anesthesia: General and Local Estimated Blood Loss: 30 Specimen collected: No Description of surgery: Patient brought to the operating room theater. Placed supine on the table. General anesthesia induced. 2 g Ancef administered prior to the start of the procedure. Patient transferred left lateral decubitus beanbag positioner. Axillary roll placed. All bony prominences padded. SCDs on the legs. Upper extremity placed in traction 10 pounds of inline traction with the arm in 45 degrees of abduction. Upper extremity prepped and draped in the usual sterile fashion with chlorhexidine-based prep solution allowing over 3 minutes drying time prior to draping. Preoperative timeout performed to confirm the site patient and the surgery. Began by inserting the arthroscope into the intra-articular portion of the shoulder through a standard posterior arthroscopy portal. Placed cannulas anteriorly, 2 cannulad, through the rotator interval just posterior to the biceps tendon. Examined the full intra-articular extent of the shoulder. Biceps root as well as undersurface the rotator cuff tendons including the subscapularis appeared normal. There was some minor fraying of the anterior labrum, no tearing anteriorly gently debrided that. Minor grade 1 changes on the humeral head and glenoid in terms of the cartilage. Posterior labrum had a degenerative and frayed appearing tear from 6:00 to 10:00. I also placed a cannula posteriorly. Viewing from anteriorly I then elevated the labrum and gentle debridement to decompress the cyst and form a bed for healing. Fully elevated this so that this was tension-free repair. I then used the crescent shaped suture lasso nitinol wire passing device passed that shuttled labral tape in a simple suture configuration. I then drilled for the Arthrex 2.9 mm push lock and inserted 3 anchors, placed at the 11:00 930 and 830 positions. This achieved a solid stable repair. I then inserted the arthroscope into the subacromial space. There is quite a bit of inflammatory bursitis. I performed a complete bursectomy. The superior aspect of the rotator cuff no tears probed. I also performed a subacromial decompression from 2 mm to flat margins using a high-speed kallie. Arthroscopy pictures taken and saved onto the system throughout the case. Case terminated Arthroscope withdrawn wounds thoroughly irrigated. 30 cc of core percent bupivacaine instilled in around the soft tissue portal sites. Subtenons tissue closed with 3-0 Monocryl sutures. Skin cleaned with wet dry dressing followed application of Steri-Strips Adaptic 4 x 4 gauze ABD dressing cloth tape and an abduction pillow sling. Patient woken up from a general anesthetic transferred off the operating table to Postanesthetic care unit in stable condition. All sponge needle instrument counts were correct no complications. Plan to the patient discharged home according to day surgery criteria follow-up in the office in 2 days time. cpt [id number],?[id number], [id number] Surgical Findings: posterior labrum tear and cyst, bursitis Palliative Care Coordinator well service derrick worker: Yes Children'S Aide: davis Tasks completed by hospital aides and assistants teacher: Retracting and Other Additional ophthalmology assistant?: No Complications Complications: No Admit VTE Documentation VTE Present on Admission: No VTE Mechan Device Prophylaxis: SCD's VTE Pharm Prophylaxis ordered?: No Reason prophylaxis not ordered: Treatment Not Indicated Procedures Musculoskeletal 20xxx-29xxx: Other Procedure See Report
--- NOTE | 2024-04-07 14:02 | EX.PCM.DISCH ---
Discharge Instructions Diet Discharge Diet: No restrictions Activity Ice area for (Minutes): 10 Lifting Restrictions: pendulums ok, ok for elbow wrist and hand rom Dressing / Incision Call your doctor if your incision/area has: Continuous Slow Oozing, Sudden Increased Bleeding, Increased Pain/ Swelling, Increased Redness, Foul Smelling Discharge and Swelling at the incision site Call your doctor if you observe: Fever of 101 or Higher, Coldness, Increased Pain and Numbness or Tingling Remove Dressing in: leave in place till F/U Cleanse incision/area with: Do not get Incision Wet Follow Up Care Please Follow Up With: Umang Delgado MD When: 2 days Test Results: Test results from this visit will be discussed in further detail at your follow-up appointment, if applicable. Discharge Plan Admission Attending Provider: Umang Delgado Primary Care Provider: Erin Mason [employer] Consulting Providers: Edu Cross Instructions Print Language: Danish Discharge Orders/Prescriptions Prescriptions: New oxycodone-acetaminophen [Endocet] 5-325 mg tablet 1 tab PO Q4H MDD 6 PRN (Reason: pain) 5 Days Qty: 30 0RF No Action milk thistle 150 mg capsule 150 mg PO BID ascorbic acid (vitamin C) 1,000 mg tablet 1 g PO BID vitamin E mixed 200 unit tablet 200 unit PO DAILY albuterol sulfate [Ventolin HFA] 90 mcg/actuation HFA aerosol inhaler 2 puff Inhalation Q4H PRN (Reason: asthma) 90 Days Qty: 18 3RF pantoprazole 40 mg tablet,delayed release (DR/EC) 40 mg PO DAILY Qty: 90 2RF isosorbide mononitrate 30 mg tablet extended release 24 hr 30 mg PO DAILY Qty: 90 3RF icosapent ethyl 1 gram capsule 2 g PO BID 90 Days Qty: 360 3RF dapaglifloz propaned-metformin [Xigduo XR] 10-1,000 mg tablet, IR - ER, biphasic 24hr 1 tab PO DAILY albuterol sulfate 2.5 mg /3 mL (0.083 %) solution for nebulization 2.5 mg inhalation Q6H PRN (Reason: shortness of breath or wheezing) famotidine 40 mg tablet 40 mg PO DAILY PRN (Reason: GERD) tamsulosin 0.4 mg capsule 0.4 mg PO QHS Mounjaro 12.5 mg/0.5 mL pen injector 12.5 mg subcut BARRETT aspirin [Adult Aspirin Regimen] 81 mg tablet,delayed release (DR/EC) 81 mg PO DAILY Qty: 30 11RF atorvastatin [Lipitor] 10 mg tablet 10 mg PO DAILY Qty: 90 3RF ezetimibe [Zetia] 10 mg tablet 10 mg PO QDAY Qty: 90 3RF losartan 50 mg tablet 50 mg PO DAILY Qty: 90 3RF metoprolol succinate 25 mg tablet extended release 24 hr 25 mg PO DAILY Qty: 90 3RF fluticasone propion-salmeterol [Wixela Inhub] 500-50 mcg/dose blister with device 1 inh inhalation BID Qty: 60 3RF Referrals / Follow Up: Umang Deglado MD [Med Staff - Active Staff] - Erin Mason NP, [employer] [Primary Care Provider] - Disposition Disposition (needs filled in before D/C Order can be placed): Home, Self Care
--- NOTE | 2024-04-07 14:09 | PCM.POST.ANE ---
Anesthesia: Postop Eval I Current Vital Signs Temperature: 97 F Pulse Rate: 92 Blood Pressure: 142/95 Respiratory Rate: 18 Pulse Ox: 97 Oxygen Delivery Method: Room Air Assessment Airway patent: Yes Spontaneous unlabored respirations: Yes Mental status: Awake and Calm nausea: No Vomiting: No Anesthesia Complication: No Fluid Hydration Crystalloid volume administer (ml): 900 Total IV fluid infused: 900 Progress Note Anesthesia document: Postop Eval 1 completed: Yes
[2024-04-07 15:38] LABS: Bedside Glucose 142 mg/dL (74-106)
[2024-04-07] MEDS: Ondansetron 4 MG/2 ML Vial IV (15:58)
[2024-04-07] MEDS: HYDROcodone Bitartrate/Apap 5/325 Tablet PO (15:58)
--- NOTE | 2024-04-07 16:13 | PCM.POSTANE2 ---
Anesthesia Postop Eval I Sum Postop Eval Completion status Anesthesia document: Postop Eval 1 completed: Yes Anesthesia Postop Eval I Summary Anesthesia Postop Eval I Summary: Anesthesia Postop Eval I: Assessment Summary Airway patent Yes 04/07/24 14:11 Spontaneous unlabored Yes 04/07/24 14:11 respirations Mental status Awake,Calm 04/07/24 14:11 nausea No 04/07/24 14:11 Vomiting No 04/07/24 14:11 Anesthesia Postop Eval I: Fluid Summary Crystalloid volume administer 900 04/07/24 14:11 (ml) Colloids volume administered ( ml) Blood Product volume administered (ml) Total IV fluid infused 900 04/07/24 14:11 Anesthesia Postop Eval I: Summary Notes Anesthesia Complication No 04/07/24 14:11 Anesthesia Complication Comment: Post-operative progress note Anesthesia: Postop Eval II Evaluation Mental status: Awake and Calm Pain Level: 4 nausea: No Vomiting: No Complications Anesthesia Complication: No
== END 2024-04-07 17:05 | disposition home or self-care (01) ==
LOC: SDC 10:16 → ACINP 10:22
PROVIDERS: Anesthesiology; PCP Nurse Practitioner; Referring Provider Orthopaedic Surgery Sports Medicine; Visit Provider Orthopaedic Surgery Sports Medicine
PROC: (CPT 29805; principal; 2024-04-07 11:55)
DX: S43.432A Superior glenoid labrum lesion of left shoulder, initial encounter (principal); J44.9 Chronic obstructive pulmonary disease, unspecified; E11.9 Type 2 diabetes mellitus without complications; M75.42 Impingement syndrome of left shoulder; I25.10 Atherosclerotic heart disease of native coronary artery without angina pectoris; I10 Essential (primary) hypertension; E78.00 Pure hypercholesterolemia, unspecified; G47.33 Obstructive sleep apnea (adult) (pediatric); E66.9 Obesity, unspecified; Z79.84 Long term (current) use of oral hypoglycemic drugs; Z79.85 Long-term (current) use of injectable non-insulin antidiabetic drugs; Z79.82 Long term (current) use of aspirin; Z79.51 Long term (current) use of inhaled steroids; Z79.899 Other long term (current) drug therapy; Z87.891 Personal history of nicotine dependence; Z68.37 Body mass index [BMI] 37.0-37.9, adult
CPT/HCPCS: 29806; 29826; 01630; 36415; 80048; 82962; 83036; 85027; 93005; 94640; J7120; J2405

== ENCOUNTER 2024-06-24 16:30 | Outpatient (RCR) | payer BC, OTHER, SELFPAY ==
--- NOTE | 2024-04-20 12:07 | HP.PTEVAL_ITS ---
Patient's Visit Information Visit Information Visit Information: HARRIET FINN is a 49 year old M referred to Physical Therapy by Dr. Umang Delgado MD with a diagnosis of S/P. Date of Evaluation: 04/20/24 Physical Therapist: HERMANN Chahal Visit Plan Frequency: 2x /Week Duration: 3 Months Plan: Message sent to Dr Delgado about protocol. 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 His shoulder has been messed up for awhile but finally decided to get something done about it. Pt had sub acromial decompression, Para labral cyst posterior labral repair on 04-07-24. Constant achy pain. He tries to recline his bed or sleep in the recliner but not getting great sleep. 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 As of right now he is thinking May 19 to go back to work. He has no N&T. Pain L shoulder pain: Pain Intensity (Out of 10): 4 Objective Objective: L shoulder PROM flexion 90 degrees, ER 32 degrees Reviewed HEP: pendulums Balance/Special Test Scores Quick DASH Score: 52.2725 Goals Goal 1:: I HEP Goal Time Frame: 8-12 Weeks Goal 2:: Increase L shoulder AROM to WFL elevation, ER, IR Goal Time Frame: 8-12 Weeks Goal 3:: Be able to use his L arm with all activities without pain Goal Time Frame: 8-12 Weeks Goal 4:: Increase L shoulder strength to be within 1-2 of the R. Goal Time Frame: 8-12 Weeks Rehabilitation Potential Rehabilitation Potential: Good Anticipated Interventions Patient/Client Instruction: Educate patient on: Condition and Plan of Care For the Purpose of:: To decrease pain, To decrease swelling/inflammation, To increase ROM, To improve nutrient delivery to tissue, To increase oxygenation perfusion, To improve muscle performance and motor function, To improve ability to perform ADL's, To increase tolerance to activity/condition/position, To improve performance and independence with ADL's, To decrease level of supervision to perform tasks, To improve ability of physical actions for home/community/work/leisure, To improve health of tissue, To decrease soft tissue restriction and To increase flexibility/ROM Therapeutic Exercise to Include: Strength training, Endurance training, Postural training, Flexibilty training, Passive ROM, Active ROM and Scapular Strength/Stabilization For the Purpose of:: To decrease pain, To decrease swelling/inflammation, To increase ROM, To improve nutrient delivery to tissue, To improve muscle performance and motor function, To improve ability to perform ADL's, To increase tolerance to activity/condition/position, To improve performance and independence with ADL's, To decrease level of supervision to perform tasks, To improve ability of physical actions for home/community/work/leisure, To improve gait and locomotor functions, To improve health of tissue, To decrease soft tiss ue restriction and To increase flexibility/ROM Manual Therapy Techniques to Include: Passive ROM For the Purpose of:: To increase ROM, To improve health of tissue and To increase flexibility/ROM Cryotherapy (ice pack, ice massage): Yes Thermo therapy (hot pack): Yes For the Purpose of:: To decrease pain, To decrease swelling/inflammation, To increase ROM and To improve nutrient delivery to tissue Text: Thank you for the opportunity to evaluate your patient. For Medicare and Medicare HMO plans, please review the plan of care and approve it. It will need to be FAXED BACK to us at [phone] for Medicare purposes. For Medicare only, by signing this I certify the plan of care. Please let me know if there are questions or concerns regarding this plan of care. Physician Signature: Date:
--- NOTE | 2024-09-08 10:06 | HP.PTDCNRP_ITS ---
Patient Information Patient Information: HARRIET FINN was seen in my office for initial evaluation on 04/20/24. The following Plan of Care was established for this patient: POC Established Initial Frequency: 2x /Week Initial Duration: 3 Months Anticipated Interventions Patient/Client Instruction: Educate patient on: Condition and Plan of Care For the Purpose of:: To decrease pain, To decrease swelling/inflammation, To increase ROM, To improve nutrient delivery to tissue, To increase oxygenation perfusion, To improve muscle performance and motor function, To improve ability to perform ADL's, To increase tolerance to activity/condition/position, To improve performance and independence with ADL's, To decrease level of supervision to perform tasks, To improve ability of physical actions for home/community/work/leisure, To improve health of tissue, To decrease soft tissue restriction and To increase flexibility/ROM Therapeutic Exercise to Include: Strength training, Endurance training, Postural training, Flexibilty training, Passive ROM, Active ROM and Scapular Strength/Stabilization For the Purpose of:: To decrease pain, To decrease swelling/inflammation, To increase ROM, To improve nutrient delivery to tissue, To improve muscle performance and motor function, To improve ability to perform ADL's, To increase tolerance to activity/condition/position, To improve performance and independence with ADL's, To decrease level of supervision to perform tasks, To improve ability of physical actions for home/community/work/leisure, To improve gait and locomotor functions, To improve health of tissue, To decrease soft tissue restriction and To increase flexibility/ROM Manual Therapy Techniques to Include: Passive ROM For the Purpose of:: To increase ROM, To improve health of tissue and To increase flexibility/ROM Cryotherapy (ice pack, ice massage): Yes Thermo therapy (hot pack): Yes For the Purpose of:: To decrease pain, To decrease swelling/inflammation, To increase ROM and To improve nutrient delivery to tissue Last Seen Last Seen: This patient was last seen in our office 06/24/24. Pertinent comments regarding their Physical therapy will appear below: EMILIA PT as pt did not schedule any additional visits At this point I will be discontinuing this patient from physical therapy. I wo uld be happy to see this patient again in the future if found appropriate by the physician. Thank you! Lulu Sarah, MPT Balance/Gait/Functional tests Balance/Special Test Scores Quick DASH Score: 52.0939
== END 2024-06-24 19:00 | disposition home or self-care (01) ==
LOC: PT 16:30
PROVIDERS: PCP Nurse Practitioner; Referring Provider Orthopaedic Surgery Sports Medicine; Visit Provider Orthopaedic Surgery Sports Medicine
DX: S43.432D Superior glenoid labrum lesion of left shoulder, subsequent encounter (principal); M75.42 Impingement syndrome of left shoulder
CPT/HCPCS: 97110; 97161

== ENCOUNTER → 2024-06-24 | Outpatient (CLI) | payer BC, SELFPAY ==
[2024-06-24 09:29] LABS: ALB/GLOB Ratio 1.2 RATIO (0.9-2.4); AST(SGOT) 30 U/L (15-37); Alanine Aminotransfer ALT/SGPT 62 U/L (16-61); Albumin, Serum 3.8 g/dL (3.2-5.0); Alkaline Phosphatase 79 U/L (45-117); Anion Gap 7 (5-15); BUN 12 mg/dL (7-18); BUN/Creat Ratio 16.5 RATIO (10-20); Calcium,Total 8.8 mg/dL (8.5-10.1); Chloride 106 mmol/L (98-107); Cholesterol 104 mg/dL (200); Creatinine, Serum 0.73 mg/dL (0.70-1.30); EST Glomerular Filtration Rate 121 mL/min (>60); Est Glom Filt Rate - Afr Amer 146 mL/min (>60); Globulin 3.1 g/dL (2.2-4.2); Glucose 125 mg/dL (74-106); High Density Lipoprotein 40 mg/dL; Potassium 3.8 mmol/L (3.5-5.1); Protein, Total 6.9 g/dL (6.4-8.2); Sodium Level 139 mmol/L (136-145); Triglycerides 151 mg/dL; Very Low Density Lipoprotein 30 mg/dL (5-40)
== END | disposition home or self-care (01) ==
LOC: LAB 07:42
PROVIDERS: PCP Nurse Practitioner
DX: R74.8 Abnormal levels of other serum enzymes (principal); E78.5 Hyperlipidemia, unspecified; K76.0 Fatty (change of) liver, not elsewhere classified
CPT/HCPCS: 36415; 80053; 80061

== ENCOUNTER → 2024-08-16 | Outpatient (CLI) | payer BC, SELFPAY | END | disposition home or self-care (01) | LOC: PSN 06:29 | PROVIDERS: PCP Nurse Practitioner; Referring Provider Nurse Practitioner Family; Visit Provider Nurse Practitioner Family | DX: R06.02 Shortness of breath (principal); F17.210 Nicotine dependence, cigarettes, uncomplicated | CPT/HCPCS: 94060; 94726; 94729 ==

== ENCOUNTER → 2024-09-01 | Outpatient (CLI) | payer BC, SELFPAY ==
--- NOTE | 2024-09-01 06:12 | ECHOCS_ITS ---
Reason For Study Reason For Study: DYSPNE/sob Procedure This was a 2D Doppler, Color Flow transthoracic echocardiogram. The study was technically difficult. Exam performed in department. Left Ventricle Normal size and thickness. The LV systolic function is normal. EF is 65 %. Diastolic function is indeterminate. Right Ventricle Normal right ventricle. Atria The left and right atria are normal. Mitral Valve Trivial mitral valve insufficiency. Tricuspid Valve Trivial tricuspid valve insufficiency. Unable to estimate RV systolic pressure due to insufficient tricuspid regurgitant envelope. Aortic Valve Trisinus/trileaflet aortic valve. Pulmonic Valve The pulmonic valve is not well visualized. Pericardium/Pleural No pericardial effusion. Medication Diluted definity 3ml given slow IV push to enhance endocardial definition. MMode/2D Measurements & Calculations LVIDd: 4.0 cm IVSd: 0.99 cm Ao root diam: 3.2 cm LVIDs: 2.8 cm LVPWd: 1.1 cm RVDd: 3.0 cm FS: 30.2 % LAV(MOD-bp): 23.4 ml LVAd ap4: 33.7 cm2 SV(MOD-sp4): 68.2 ml LAV(MOD-bp) Indexed: 10.0 ml/m2 LVLd ap4: 8.4 cm SI(MOD-sp4): 29.1 ml/m2 LAV(MOD-sp2): 25.7 ml EDV(MOD-sp4): 110.6 ml LAV(MOD-sp4): 20.4 ml EDV(sp4-el): 115.1 ml LVAs ap4: 18.7 cm2 LVLs ap4: 6.9 cm ESV(MOD-sp4): 42.4 ml ESV(sp4-el): 43.2 ml EF(MOD-sp4): 61.7 % EF(sp4-el): 62.5 % SV(sp4-el): 71.9 ml LA A4 area: 11.4 cm2 LA dimension(2D): 3.3 cm RA A4 area: 11.5 cm2 TAPSE: 2.1 cm Time Measurements MV dec time: 0.25 sec Doppler Measurements & Calculations MV E max dino: 70.7 cm/sec Lat Peak E' Dino: 8.9 cm/sec Med Peak E' Dino: 7.2 cm/sec MV A max dino: 84.3 cm/sec E/E' lat: 8.0 E/E' med: 9.9 MV E/A: 0.84 Ao V2 max: 121.6 cm/sec LV V1 max: 109.9 cm/sec PA V2 max: 90.6 cm/sec Ao max P.9 mmHg LV V1 max P.8 mmHg ECHO/Echo Complete W/ Contrast Interpretation Summary The LV systolic function is normal. EF is 65 %. Diastolic function is indeterminate. Ordering Physician: Pankaj Matthews Referring Physician: ARACELI SANCHEZ Performed By: Nelly Driver RDCS
--- NOTE | 2024-09-01 17:25 | STRESSREP ---
Stress Test Report Date: 09/01/2024 Procedure: Exercise tolerance test/imaging study Indications: Coronary artery disease Consent: Per the patient Procedure: The patient exercised on a Abdias protocol for 6 minutes and 45 seconds achieving a peak heart rate of 150 bpm (88% predicted maximal heart rate) with a peak blood pressure 164/7 mmHg and a peak MET capacity of 9.3 METs. The baseline ECG demonstrated sinus rhythm. The peak exercise ECG showed no ischemic changes. There were no cardiac dysrhythmias pretest, during exercise, or recovery. The functional capacity was considered average. There was no complaint of chest discomfort during exercise or recovery. The examination was discontinued secondary to target heart rate being achieved. The patient was injected with 14.5 mCi of technetium 99m Cardiolite and subsequently rest SPECT Cardiolite nuclear imaging was obtained in the horizontal long, vertical long, and short axis views. Post-exercise, the patient was injected with 44.4 mCi of technetium 99m Cardiolite and subsequently stress SPECT Cardiolite nuclear imaging was obtained in the horizontal long, vertical long, and short axis views. A gated Cardiolite study at peak stress was obtained. Rest and stress SPECT Cardiolite nuclear imaging status post realignment, normalization, and attenuation correction, demonstrates the appearance of relative uniform tracer uptake and myocardial perfusion appearing within normal limits. There is end systolic thickening and brightening. The gated Cardiolite study demonstrates myocardial thickening and inward wall motion. The reported LVEF is 71%. Impression: 1. Technically adequate (percent predicted maximal heart rate greater than 85%) exercise tolerance test 2. Peak exercise ECG with no ischemic changes 3. There were no cardiac dysrhythmias pretest, during exercise, or recovery 4. Rest and stress SPECT Cardiolite nuclear imaging demonstrate relative uniform tracer uptake and myocardial perfusion appearing within normal limits. 5. The gated Cardiolite study reports an LVEF of 71%. This note was generated with [employer] software. It may contain incorrect words, spelling, and punctuation that were not noted in checking the note before signing.
== END | disposition home or self-care (01) ==
LOC: CVS 06:10
PROVIDERS: PCP Nurse Practitioner; Referring Provider Nurse Practitioner Family; Visit Provider Nurse Practitioner Family
DX: R06.09 Other forms of dyspnea (principal); E11.9 Type 2 diabetes mellitus without complications; I25.10 Atherosclerotic heart disease of native coronary artery without angina pectoris; I10 Essential (primary) hypertension; E78.2 Mixed hyperlipidemia; G47.33 Obstructive sleep apnea (adult) (pediatric)
CPT/HCPCS: 78452; 93017; 93306; A9500; Q9957; A4216; C8929

== ENCOUNTER → 2024-10-14 | Outpatient (CLI) | payer BC, SELFPAY ==
[2024-10-14 08:07] VITALS: PULSE 100; PULSE 102; PULSE 106; PULSE 110; PULSE 113; PULSE 95; PULSE 98; O2SAT 95; O2SAT 96; O2SAT 97
--- NOTE | 2024-10-18 13:18 | PCM.PSN.6M ---
PSN 6 Minute Walk Test 6 Minute Walk Test 6 Minute Walk Test: 6 Minute Walk Test PSN:6-Minute Walk Test Start: 10/14/24 08:04 Freq: Status: Active Protocol: RESP.6MINW Document 10/14/24 08:07 YAMILET (Rec: 10/14/24 08:17 [email or web address] [id number]) 6 Minute Walk Test Date Performed 10/14/24 Time Performed 08:00 Height 5 ft 9 in Weight: 254 lb Weight in Pounds 254.[address]: Sindy Samayoa Assistive device None used: Pre-test Oxygen Delivery Room Air Method Pulse Ox (%) 96 Pulse Rate (60-100 95 beats/min) Dyspnea Ileana Scale ( 0 0-10) Exertion Ileana Scale 6 (6-20) 1st minute Oxygen Delivery Room Air Method Pulse Ox (%) 96 Pulse Rate (60-100 100 beats/min) 2nd minute Oxygen Delivery Room Air Method Pulse Ox (%) 95 Pulse Rate (60-100 102 H beats/min) 3rd minute Oxygen Delivery Room Air Method Pulse Ox (%) 95 Pulse Rate (60-100 106 H beats/min) 4th minute Oxygen Delivery Room Air Method Pulse Ox (%) 95 Pulse Rate (60-100 113 H beats/min) 5th minute Oxygen Delivery Room Air Method Pulse Ox (%) 95 Pulse Rate (60-100 110 H beats/min) 6th minute Oxygen Delivery Room Air Method Pulse Ox (%) 95 Pulse Rate (60-100 110 H beats/min) Dyspnea Ileana Scale ( 2 0-10) Exertion Ileana Scale 12 (6-20) Post-test Oxygen Delivery Room Air Method Pulse Ox (%) 97 Pulse Rate (60-100 98 beats/min) Full Laps Walked 17 Partial Lap, Number 32 of Tiles Walked Total Distance 1035 Walked (ft) Interpretation Interpretation: The patient ambulated 1035 feet over the course of 6 minutes beginning on room air without assistive devices. Pretesting oxygen saturation was noted to be 96% on room air. With ambulation, the varghese oxygen saturation was 95%. There was no significant exertional oxygen desaturation. Recommendations Recommendations: There is no indication for the use of supplemental oxygen at this time.
== END | disposition home or self-care (01) ==
PROVIDERS: PCP Nurse Practitioner; Referring Provider Nurse Practitioner Family; Visit Provider Nurse Practitioner Family
DX: R06.02 Shortness of breath (principal); F17.210 Nicotine dependence, cigarettes, uncomplicated
CPT/HCPCS: 94618

== ENCOUNTER → 2025-03-08 | Outpatient (CLI) | payer BC, SELFPAY ==
--- OUTSIDE RECORDS SUMMARY | 2025-03-08 06:07 | XMS RPT_ITS | CCD ---
Author Organization [facility] Care Team Providers Care Carpenter Maintenance Name Role Phone Sri RN, Alexandra A Unavailable Unavailable Sri RN, Alexandra A Unavailable Unavailable DeFinisAlbert Y Unavailable Unavailable DeFinis, Harumi Y Unavailable Unavailable Mason 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 PILOT CAN ROUTER, 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 PILOT CAN ROUTER-C Araceli Primary Care Provider Marlon 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 PILOT CAN ROUTER, 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 PILOT CAN ROUTER-C Araceli Referring Provider Dr. Jon Watson Attending Provider [phone] Marlon 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 PILOT CAN ROUTER, 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 PILOT CAN ROUTER-C Araceli Primary Care Provider Marlon 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 PILOT CAN ROUTER, 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 PILOT CAN ROUTER-C Araceli Referring Provider Dr. Jon Watson Attending Provider Dr. Haresh Jeronimo Attending Provider Dr. Haresh Jeronimo Referring Provider [phone] Haresh Jeronimo Other Provider Marlon 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 PILOT CAN ROUTER, 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 PILOT CAN ROUTER-C Araceli Primary Care Provider Mason 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 PILOT CAN ROUTER, 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 PILOT CAN ROUTER-C Araceli Referring Provider Byron 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 PILOT CAN ROUTER, 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 PILOT CAN ROUTER-C Truman H Attending Provider NEIL Van Attending Provider [phone] Roly Arizmendi Attending Provider Dr. Gael Dubois Attending Provider Mason 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 PILOT CAN ROUTER, 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 PILOT CAN ROUTER-C Araceli Primary Care Provider Marlon 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 PILOT CAN ROUTER, 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 PILOT CAN ROUTER-C Araceli Referring Provider Dr. Abdias aMdrid Attending Provider Marlon 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 PILOT CAN ROUTER, 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 PILOT CAN ROUTER-C Araceli Primary Care Provider Marlon 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 PILOT CAN ROUTER, 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 PILOT CAN ROUTER-C Araceli Referring Provider [phone] Dr. Abdias Madrid Attending Provider Roof 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 PILOT CAN ROUTER, 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 PILOT CAN ROUTER-C Truman H Attending Provider Dr. Roly Arizmendi Attending Provider Roof 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 PILOT CAN ROUTER, 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 PILOT CAN ROUTER-C Truman H Referring Provider Roof 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 PILOT CAN ROUTER, 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 PILOT CAN ROUTER-C Truman H Other Provider Mason 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 PILOT CAN ROUTER, 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 PILOT CAN ROUTER-C Araceli Primary Care Provider Marlon 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 PILOT CAN ROUTER, 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 PILOT CAN ROUTER-C Araceli Referring Provider [phone] Ella 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 PILOT CAN ROUTER, 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 PILOT CAN ROUTER-C Aby Attending Provider [phone] MD Umang Braxton Attending Provider Mason INCIDENT ANALYST.LACQUER MIXER, Araceli L Primary Care Provide r ABY JARAMILLO Referring Unavailable PROVIDER, UNKNOWN Attending Unavailable PROVIDER, UNKNOWN Admitting Unavailable SIGNS, HILARY Referring Unavailable MASON, ARACELI Primary Care Unavailable Mason 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 PILOT CAN ROUTER-C, Araceli Primary Care Provider [phone] Marlon 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 PILOT CAN ROUTER-C, Araceli Referring Provider Umang Braxton MD Attending Provider [phone] COSTA MONROY Attending Provider [phone] COSTA MORNOY Referring Provider [phone] Umang Braxton MD Referring Provider [phone] Mason 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 PILOT CAN ROUTER-C, Araceli Attending Provider Sindy Segovia Attending Provider Sindy Segovia Referring Provider MASON, ARACELI L Primary Care Unavailable SOUMYA CARVAJAL Referring Unavailable MASON, ARACELI L Primary Care Unavailable TRUMAN BATES Attending Unavailable TRUMAN BATES Admitting Unavailable Mason 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 PILOT CAN ROUTER-C, Araceli Primary Care Provider Umang Braxton MD Attending Provider Mason 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 PILOT CAN ROUTER-C, Araceli Referring Provider Roof 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 PILOT CAN ROUTER-C, Truman H Attending Provider Roof 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 PILOT CAN ROUTER-C, Truman H Referring Provider Scout LEÓN, Dr. Kelly Attending Provider Mason 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 PILOT CAN ROUTER-C, Araceli Primary Care Provider Umang Braxton MD Attending Provider Danita 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 PILOT CAN ROUTER-C, Sindy Olivier Other Provider Dr. Daniele Blount DO Attending Provider Mason 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 PILOT CAN ROUTER-C, Araceli Primary Care Provider Danita 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 PILOT CAN ROUTER-C, Sindy Olivier Attending Provider Dr. Daniele Blount DO Attending Provider [phone] Mason 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 PILOT CAN ROUTER-C, Araceli Attending Provider Mason 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 PILOT CAN ROUTER-C, Araceli Referring Provider ZITA BOWERS Referring Unavailable MASON, ARACELI L Primary Care Unavailable COSTA MONROY Referring Unavailable MASON, ARACELI L Primary Care Unavailable NATHALIE JEREZ Referring Unavailab le MASON, ARACELI L Primary Care Unavailable UMANG BRAXTON Referring Unavailable MASON, ARACELI L Primary Care Unavailable Leticia Butterfield Attending Unavailable Marlon 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 PILOT CAN ROUTER, Araceli Primary Care Unavailable Umang Braxton Attending Unavailable Mason 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 PILOT CAN ROUTER, Araceli Primary Care Unavailable Mason 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 PILOT CAN ROUTER, Araceli Referring Unavailable Mason 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 PILOT CAN ROUTER, Araceli Primary Care Unavailable Mason 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 PILOT CAN ROUTER, Araceli Referring Unavailable Sindy Samayoa Attending Unavailable Umang Braxton Referring Unavailable Mason 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 PILOT CAN ROUTER, Araceli Primary Care Unavailable Roly Arizmendi Attending Unavailable Umang Braxton Referring Unavailable Umang Braxton Attending Unavailable Mason 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 PILOT CAN ROUTER, Araceli Primary Care Unavailable Edu Cross Unavailable Umang Braxton Attending Unavailable Mason 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 PILOT CAN ROUTER, Araceli Primary Care Unavailable Mason 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 PILOT CAN ROUTER, Araceli Referring Unavailable Daniele Blount Attending Unavailable Sindy Samayoa Referring Unavailable Mason 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 PILOT CAN ROUTER, Araceli Primary Care Unavailable Daniele Blount Attending Unavailable Sindy Samayoa Consulting Unavailable Marlon 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 PILOT CAN ROUTER, Araceli Primary Care Unavailable Sindy Samayoa Referring Unavailable Sindy Samayoa Attending Unavailable Sindy Samayoa Referring Unavailable Marlon 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 PILOT CAN ROUTER, Araceli Primary Care Unavailable Umang Braxton Referring Unavailable Umang Braxton Attending Unavailable Mason 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 PILOT CAN ROUTER, Araceli Primary Care Unavailable Edu Cross Consulting Unavailable Umang Braxton Consulting Unavailable Umang Braxton Attending Unavailable Mason 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 PILOT CAN ROUTER, Araceli Primary Care Unavailable Mason 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 PILOT CAN ROUTER, Araceli Referring Unavailable Sindy Samayoa Attending Unavailable Sindy Samayoa Referring Unavailable Mason 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 PILOT CAN ROUTER, Araceli Primary Care Unavailable Mason 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 PILOT CAN ROUTER, Araceli Primary Care Unavailable Jaramillo 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 PILOT CAN ROUTER, Aby Referring Unavailable Jaramillo 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 PILOT CAN ROUTER, Aby Attending Unavailable Mason 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 PILOT CAN ROUTER, Araceli Primary Care Unavailable Mason 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 PILOT CAN ROUTER, Araceli Referring Unavailable Mason 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 PILOT CAN ROUTER, Araceli Attending Unavailable Mason 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 PILOT CAN ROUTER, Araceli Primary Care Unavailable Mason 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 PILOT CAN ROUTER, Araceli Referring Unavailable Jaramillo 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 PILOT CAN ROUTER, Aby Attending Unavailable Mason 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 PILOT CAN ROUTER, Araceli Referring Unavailable Mason 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 PILOT CAN ROUTER, Araceli Primary Care Unavailable Sindy Samayoa Attending Unavailable Mason 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 PILOT CAN ROUTER, Araceli Primary Care Unavailable Mason 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 PILOT CAN ROUTER, Araceli Referring Unavailable Roof 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 PILOT CAN ROUTER, Truman Sims Attending Unavailable Umang Braxton Attending Unavailable Mason 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 PILOT CAN ROUTER, Araceli Primary Care Unavailable Mason 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 PILOT CAN ROUTER, Araceli Referring Unavailable Umang Braxton Attending Unavailable Umang Braxton Referring Unavailable Mason 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 PILOT CAN ROUTER, Araceli Primary Care Unavailable Mason 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 PILOT CAN ROUTER, Araceli Primary Care Unavailable FRIDA DUNBAR Referring Unavailable FRIDA DUNBAR Attending Unavailable Roof 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 PILOT CAN ROUTER, Truman H Referring Unavailable Roof 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 PILOT CAN ROUTER, Truman Sims Attending Unavailable Mason 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 PILOT CAN ROUTER, Araceli Primary Care Unavailable Allergies Allergy Classification Reported Allergen(s) Allergy Type Date of Onset Reaction(s) Facility (4 sources) atorvastatin Drug Allergy 10-18-2014 myalgia [facility] Work Phone: (12 sources) Amoxicillin Drug Allergy 02-20-2022 Diarrhea [facility] (12 sources) Clavulanate Drug Allergy 02-20-2022 Diarrhea [facility] (9 sources) Triamcinolone Drug Allergy 03-03-2023 Rash [facility] (1 source) Amoxicillin Drug Allergy 12-06-2024 [facility] Repository (1 source) Clavulanate Drug Allergy 12-06-2024 [facility] Repository (1 source) Triamcinolone Drug Allergy 12-06-2024 [facility] Repository Medications Current Medications Medication Drug Class(es) Dates Sig (Normalized) Sig (Original) acetaminophen 500 mg / HYDROcodone bitartrate 5 mg oral tablet (9 sources) Opioid Agonist Start: 01-09-2010 hydrocodone bit/acetaminophen( VICODIN 5 MG-500 MG TAB) Take 1-2 tablet's) every six(6) hours as needed for pain. 40 0 01/09/2010 Active albuterol 0.83 mg/ml inhalation solution (20 sources) beta2-Adrenergic Agonist Start: 02-21-2023 End: 03-24-2024 take 2.5 mg by inhalation every six hours as needed for wheezing Albuterol Sulfate 2.5 mg /3 mL (0.083 %) solution for nebulization Active 2.5 mg INHALATION EVERY 6 HOURS as needed for shortness of breath or wheezing March 24, 2024 1:00am Start: 08-02-2021 take 2.5 mg by inhal ation every six hours Albuterol Sulfate Active 2.5 MG INHALATION EVERY 6 HOURS 75 August 02, 2021 4:00pm Start: 08-02-2021 End: 02-21-2023 take 2.5 mg by inhalation every six hours Albuterol Sulfate Discontinued 2.5 MG INHALATION EVERY 6 HOURS 75 August 01, 2021 11:00pm February 21, 2023 3:22pm Start: 08-02-2021 End: 02-21-2023 take 2.5 mg by inhalation every six hours Albuterol Sulfate Discontinued 2.5 MG INHALATION EVERY 6 HOURS 75 August 02, 2021 12:00am February 21, 2023 4:22pm Start: 08-02-2021 take 2.5 mg by inhal ation every six hours Albuterol Sulfate Active 2.5 MG INHALATION EVERY 6 HOURS 75 August 01, 2021 11:00pm Start: 08-02-2021 take 2.5 mg by inhal ation every six hours Albuterol Sulfate Active 2.5 MG INHALATION EVERY 6 HOURS 75 August 02, 2021 12:00am Start: 03-02-2021 take 1 puff(s) by in halation every four hours Albuterol Sulfate (Ventolin Hfa) 90 mcg/actuation HFA aerosol inhaler Active 2 PUFF INHALATION Q4H 18 March 02, 2021 3:54pm Start: 01-23-2019 End: 10-22-2022 Albuterol Sulfate (Ventolin Hfa) 90 mcg/actuation HFA aerosol inhaler Discontinued 2 NMA INHALATION Q4H as needed for asthma November 06, 2021 5:54pm October 22, 2022 5:41pm Unspecified asthma, uncomplicated Start: 01-23-2019 End: 10-22-2022 take 1 puff(s) by inhalation every four hours Albuterol Sulfate (Ventolin Hfa) 90 mcg/actuation HFA aerosol inhaler Discontinued 2 PUFF INHALATION Q4H 18 November 06, 2021 5:54pm October 22, 2022 5:41pm Start: 02-11-2018 End: 01-23-2019 take 1 puff(s) by inhalation every four hours Albuterol Sulfate (Ventolin Hfa) 90 mcg/actuation HFA aerosol inhaler Discontinued 2 PUFF INHALATION Q4H 01 15February 11, 2018 6:43pm January 23, 2019 12:44pm Start: 02-11-2018 End: 01-23-2019 Albuterol Sulfate (Ventolin Hfa) 90 mcg/actuation HFA aerosol inhaler Discontinued 2 NMA INHALATION Q4H as needed for asthma 01 16 12February 11, 2018 12:00am March 07, 2019 12:00am January 23, 2019 12:44pm Unspecified asthma, uncomplicated Start: 02-11-2018 End: 01-23-2019 take 1 puff(s) by inhalation every four hours Albuterol Sulfate (Ventolin Hfa) 90 mcg/actuation HFA aerosol inhaler Discontinued 2 PUFF INHALATION Q4H 01 15February 11, 2018 12:00am January 23, 2019 12:44pm Start: 10-04-2014 End: 06-15-2018 take 2.5 mg by inhalation every six hours as needed for wheezing Albuterol Sulfate 2.5 MG/3 ML solution for nebulization Discontinued 2.5 mg INHALATION EVERY 6 HOURS NEEDED as needed for Sob &/Or Wheezing October 04, 2014 12:00am June 15, 2018 6:42pm Start: 11-30-2009 take 1 puff(s) by in halation once daily as needed for wheezing ALBUTEROL SULFATE HFA 90 MCG/ACTUATION AEROSOL INHALER Inhale one(1) - two(2) puffs four(4) times a day as needed for wheezing and shortness of breath. 1 0 11/30/2009 Active Albuterol-Budesonide (Airsup ra) 90-80 mcg/actuation HFA aerosol inhaler (8 sources) Start: 08-24-2024 Albuterol-[place] sonide (Airsupra) 90-80 mcg/actuation HFA aerosol inhaler Active 2 NMA INHALATION ONCE 10.7 12 August 24, 2024 3:24pm as a single dose; may repeat up to 6 doses per day (12 inhalations) Start: 08-24-2024 Albuterol-[place] sonide (Airsupra) 90-80 mcg/actuation HFA aerosol inhaler Active 2 NMA INHALATION ONCE 10.7 August 24, 2024 3:24pm as a single dose; may repeat up to 6 doses per day (12 inhalations) Start: 08-24-2024 End: 08-24-2024 Albuterol-Budesonide (Airsup ra) 90-80 mcg/actuation HFA aerosol inhaler Discontinued 2 NMA INHALATION ONCE August 24, 2024 12:00am August 24, 2024 3:27pm as a single dose; may repeat up to 6 doses per day (12 inhalations) ascorbic acid 1000 mg oral tablet (12 sources) Vitamin C Start: 02-20-2022 take 1 g by mouth twice daily Ascorbic Acid (Vitamin C) 1,000 mg tablet Active 1 g PO TWICE A DAY February 20, 2022 12:00am Start: 02-20-2022 take 1 g by mouth twice daily Ascorbic Acid (Vitamin C) Active 1 GM PO TWICE A DAY February 19, 2022 11:00pm Start: 02-20-2022 take 1 g by mouth twice daily Ascorbic Acid (Vitamin C) Active 1 GM PO TWICE A DAY February 20, 2022 12:00am atorvastatin 10 mg oral tablet (20 sources) HMG-CoA Reductase Inhibitor Start: 01-12-2019 End: 08-24-2024 atorvastatin (LIPITOR) 10 mg tablet 03/02/2021 Active Start: 10-11-2014 End: 05-06-2016 take 1 tablet by mouth once daily ATORVASTATIN CALCIUM 80 MG TABS One tablet by mouth daily ATORVASTATIN CALCIUM [id number] Chelly Elena PA-C 24 hr dapagliflozin 10 mg / metFORMIN hydrochloride 1000 mg extended release oral tablet (20 sources) Biguanide, Sodium-Glucose Cotransporter 2 Inhibitor Start: 10-20-2023 End: 08-24-2024 Dapaglifloz Propaned-Metformin (Xigduo Xr) 10-1,000 mg tablet, IR - ER, biphasic 24hr Active 1 {tbl} PO DAILY 90 3 August 24, 2024 3:25pm Start: 03-06-2021 XIGDUO XR 10-1 ,000 mg XR tab 03/06/2021 Active Start: 03-14-2020 End: 07-31-2023 Dapaglifloz Propaned-Metform in (Xigduo Xr) 10-1,000 mg tablet, IR - ER, biphasic 24hr Discontinued 1 {tbl} PO DAILY 90 May 27, 2023 9:28pm July 31, 2023 7:54pm ezetimibe 10 mg oral tablet (20 sources) Dietary Cholesterol Absorption Inhibitor Start: 05-29-2017 End: 08-24-2024 ezetimibe (ZETIA) 10 mg tablet 03/02/2021 Active Start: 05-06-2016 take 1 tablet by usman once daily ZETIA 10 MG TABS One tablet by mouth daily EZETIMIBE [id number] Nolberto Dubois MD Fluticasone Propionate 110 mcg/actuation HFA aerosol inhaler (2 sources) Start: 10-26-2024 Fluticasone Pr opionate 110 mcg/actuation HFA aerosol inhaler Active 2 NMA INHALATION TWICE A DAY 04 22October 26, 2024 12:00am Start: 10-26-2024 Fluticasone Pr opionate 110 mcg/actuation HFA aerosol inhaler Active 2 NMA INHALATION TWICE A DAY October 26, 2024 12:00am hydrocortisone acetate 10 mg/ml / pramoxine hydrochloride 10 mg/ml rectal cream (9 sources) Corticosteroid Start: 02-12-2021 Pramoxine-Hydrocortisone (ANALPRAM-HC) 1-1 % rectal cream apply anally THREE TIMES DAILY fort 7 (SEVEN) days 02/12/2021 Active icosapent ethyl 1000 mg oral capsule (20 sources) Start: 08-01-2023 take 2 capsules by mouth every twelve hours icosapent ethyl (VASCEPA) 1 gram capsule Take 2 capsules by mouth every 12 hours. 08/01/2023 Active Start: 10-22-2022 End: 10-26-2024 take 2 capsules by mouth twice daily Icosapent Ethyl 1 gram capsule Active 2 g PO TWICE A DAY 360 90 3 October 26, 2024 5:59pm Start: 10-22-2022 take 2 g by mouth twice daily Icosapent Ethyl Active 2 GM PO TWICE A DAY 360 90 October 22, 2022 12:00am 24 hr isosorbide mononitrate 30 mg extended release oral tablet (20 sources) Nitrate Vasodilator Start: 03-02-2021 isosorbide mononitrate ER (IMDUR) 30 mg 24 hr tablet 03/02/2021 Active Start: 10-11-2014 take 1 tablet by usman once daily IMDUR 30 MG [id number] One tablet by mouth daily ISOSORBIDE MONONITRATE Nolberto Dubois MD Start: 10-06-2014 End: 08-24-2024 take 1 tablet by mouth once daily, then take 1 tablet by mouth every twenty-four hours Isosorbide Mononitrate 30 mg tablet extended release 24 hr Discontinued 30 mg PO DAILY 90 February 06, 2021 5:02pm March 02, 2021 4:03pm meloxicam 15 mg oral tablet (20 sources) Nonsteroidal Anti-inflammatory Drug Start: 08-16-2020 End: 09-13-2022 meloxicam (MOBIC) 15 mg tablet 03/02/2021 Active 24 hr metoprolol succinate 50 mg extended release oral tablet (20 sources) beta-Adrenergic Neli Start: 08-01-2023 take 1 tablet by mouth every hour metoprolol succinate ER (TOPROL XL) 50 mg 24 hr tablet Take 1 tablet by mouth every afternoon. 08/01/2023 Active Start: 04-02-2023 End: 11-01-2024 take 1 tablet by mouth once daily Metoprolol Succinate 25 mg tablet extended release 24 hr Active 25 mg PO DAILY 90 3 November 01, 2024 9:35am Milk Thistle (20 sources) Start: 01-12-2019 take 150 mg by mouth twice daily Milk Thistle Active 150 MG PO TWICE A DAY January 12, 2019 3:54pm Start: 01-12-2019 Milk Thistle 1 50 mg cap Take 150 mg by mouth. 01/12/2019 Active Start: 01-12-2019 Milk Thistle 1 50 mg cap Take 150 mg by mouth. 0 01/12/2019 Active Start: 01-12-2019 take 1 capsule by mo uth twice daily Milk Thistle 150 mg capsule Active 150 mg PO TWICE A DAY January 12, 2019 12:00am Start: 01-12-2019 take 150 mg by mouth twice ginna ly Milk Thistle Active 150 MG PO TWICE A DAY January 11, 2019 11:00pm Start: 01-12-2019 take 150 mg by mouth twice ginna ly Milk Thistle Active 150 MG PO TWICE A DAY January 12, 2019 12:00am MOUNJARO 10 mg/0.5 mL pen injector (9 sources) Start: 09-15-2023 inject 10 mg by subcutaneous injection every week MOUNJARO 10 mg/0.5 mL pen injector INJECT 10 MG SUBCUTANEOUSLY EVERY WEEK FOR 30 DAYS 09/15/2023 Active Start: 09-15-2023 inject 10 mg by subc utaneous injection every week MOUNJARO 10 mg/0.5 mL pen injector INJECT 10 MG SUBCUTANEOUSLY EVERY WEEK FOR 30 DAYS 0 09/15/2023 Active Itssvfvp-Sft-Nhmbk-Vit K-Lycop (One-A-Day Men's 50 Plus) 400-20-370 mcg Tablet (1 source) Start: 04-15-2022 take 50-400 tablets by mouth once daily Czamjibm-Sks-[place]-Vit K-Lycop (One-A-Day Men's 50 Plus) 400-20-370 mcg Tablet Active 1 TABLET PO DAILY April 15, 2022 12:00am mupirocin 0.02 mg/mg topical ointment (20 sources) RNA Synthetase Inhibitor Antibacterial Start: 02-09-2021 mupirocin (BACTROBAN) 2 % ointment APPLY THREE TIMES DAILY NEEDED for ingrown toenail. 02/09/2021 Active Start: 07-14-2020 End: 01-29-2021 Mupirocin Calcium 2 % cream Discontinued 1 NMA TOPICAL THREE TIMES A DAY as needed for ingrown toenail 02 05July 14, 2020 6:47pm January 29, 2021 3:02pm Start: 09-10-2019 End: 01-29-2021 Mupirocin Calcium 2 % cream Discontinued 1 NMA TOPICAL THREE TIMES A DAY as needed February 09, 2020 10:37am July 14, 2020 6:48pm omega 2-wdo-qzg-fish oil (FI SH OIL) 300-1,000 mg cpDR (9 sources) Start: 11-11-2016 omega 3-dha-ep a-fish oil (FISH OIL) 300-1,000 mg cpDR Take by mouth. 11/11/2016 Active Start: 11-11-2016 omega 3-dha-ep a-fish oil (FISH OIL) 300-1,000 mg cpDR Take by mouth. 0 11/11/2016 Active Russell-3 Fatty Acids (Fish Oil Concentrate) 1,000 mg capsule (13 sources) Start: 05-29-2017 take 1 capsule by mouth once daily Russell-3 Fatty Acids (Fish Oil Concentrate) 1,000 mg capsule Active 1000 MG PO daily May 29, 2017 1:48pm Start: 05-29-2017 End: 02-21-2023 take 1 capsule by mouth once daily Russell-3 Fatty Acids (Fish Oil Concentrate) 1,000 mg capsule Discontinued 1000 mg PO daily May 29, 2017 1:00am February 21, 2023 4:17pm Start: 05-29-2017 End: 02-21-2023 take 1 capsule by mouth once daily Russell-3 Fatty Acids (Fish Oil Concentrate) 1,000 mg capsule Discontinued 1000 MG PO daily May 29, 2017 12:00am February 21, 2023 3:17pm Start: 05-29-2017 End: 02-21-2023 take 1 capsule by mouth once daily Russell-3 Fatty Acids (Fish Oil Concentrate) 1,000 mg capsule Discontinued 1000 MG PO daily May 29, 2017 1:00am February 21, 2023 4:17pm Start: 05-29-2017 take 1 capsule by mo uth once daily Russell-3 Fatty Acids (Fish Oil Concentrate) 1,000 mg capsule Active 1000 MG PO daily May 29, 2017 12:00am Start: 05-29-2017 take 1 capsule by mo uth once daily Russell-3 Fatty Acids (Fish Oil Concentrate) 1,000 mg capsule Active 1000 MG PO daily May 29, 2017 1:00am omeprazole 40 mg delayed release oral capsule (2 sources) Proton Pump Inhibitor Start: 10-26-2024 Omeprazole 40 mg capsule,delayed release(DR/EC) Active 40 mg PO October 26, 2024 12:00am pantoprazole 40 mg delayed release oral tablet (20 sources) Proton Pump Inhibitor Start: 08-16-2020 End: 10-26-[address] (PROTONIX) 40 mg tablet 03/02/2021 Active Start: 08-16-2020 End: 03-02-2021 Pantoprazole 40 mg tablet,de layed release (DR/EC) Discontinued NMA PO August 16, 2020 12:00am March 02, 2021 3:59pm polymyxin b [id number] unt/ml / trimethoprim 1 mg/ml ophthalmic solution (9 sources) Dihydrofolate Reductase Inhibitor Antibacterial, Polymyxin-class Antibacterial Start: 07-05-2009 polymyxin b sulfate/tmp(POLYTRIM 0.1 %-10,000 UNIT/ML EYE DROPS) Indications: Conjunctivitis Instill 2 drops to affected every 4 hours until symptoms clear +2 days. 5ml 0 07/05/2009 Active predniSONE 10 mg oral tablet (20 sources) Start: 10-14-2023 End: 10-23-2023 predniSONE (DELTASONE) 10 mg tablet Take 4 tabs daily for 3 days, then 2 tabs daily for 3 days, then 1 tab daily for 3 days with food. 21 tablet 0 10/14/2023 10/23/2023 Active Start: 06-24-2023 End: 07-31-2023 take 2 tablets by mouth once daily Prednisone 20 mg tablet Discontinued 40 mg PO DAILY July 10, 2023 4:51pm July 31, 2023 7:55pm Start: 06-24-2023 End: 07-31-2023 take 40 mg by mouth once daily Prednisone Discontinued 40 MG PO DAILY July 10, 2023 4:51pm July 31, 2023 7:55pm End: 10-11-2014 take 1 tablet by mouth once daily PREDNISONE 50 MG TABS One tablet by mouth daily PREDNISONE [id number] Mayuri Harley, RN psyllium husk (METAMUCIL ORA L) (9 sources) psyllium husk (M ETAMUCIL ORAL) Take by mouth. Active psyllium husk (M ETAMUCIL ORAL) Take by mouth. 0 Active tamsulosin hydrochloride 0.4 mg oral capsule (20 sources) alpha-Adrenergic Neli Start: 02-27-2022 End: 08-24-2024 take 1 capsule by mouth once tamsulosin (FLOMAX) 0.4 mg Take 1 capsule by mouth every afternoon. 08/02/2023 Active Tirzepatide (1 source) Start: 08-05-2023 Tirzepatide Active 7.5 MG SC EVERY WEEK 6.5 90 August 05, 2023 12:00am Tirzepatide (Mounjaro) 15 mg/0.5 mL pen injector (4 sources) Start: 08-24-2024 Tirzepatide (Mounjaro) 15 mg/0.5 mL pen injector Active 15 mg SC EVERY WEEK 6.5 90 August 24, 2024 12:00am Start: 08-24-2024 Tirzepatide (M ounjaro) 15 mg/0.5 mL pen injector Active 15 mg SC EVERY WEEK 6.5 90 August 24, 2024 12:00am traMADol hydrochloride 50 mg oral tablet (20 sources) Opioid Agonist Start: 09-13-2019 End: 07-16-2022 traMADol (ULTRAM) 50 mg tablet 03/02/2021 Active Start: 05-29-2017 End: 09-10-2019 take 1 tablet by mouth every six hours Tramadol 50 mg tablet Discontinued 50 mg PO EVERY 6 HOURS 60 5 December 25, 2017 5:19pm June 15, 2018 6:43pm Start: 11-11-2016 take 1 tablet by usman once daily as needed TRAMADOL HCL 50 MG TABS One tablet by mouth daily as needed TRAMADOL HCL [id number] Mitzy Barton traZODone hydrochloride 50 mg oral tablet (20 sources) Serotonin Reuptake Inhibitor Start: 03-02-2021 End: 10-22-2022 traZODone (DESYREL) 50 mg tablet 03/02/2021 Active Start: 09-10-2019 End: 03-02-2021 take 2 tablets by mouth once daily as needed Trazodone 50 mg tablet Discontinued 100 mg PO daily as needed February 09, 2020 10:38am March 02, 2021 4:02pm Start: 09-10-2019 End: 03-02-2021 take 100 mg by mouth once daily Trazodone Discontinued 100 MG PO daily February 09, 2020 10:38am March 02, 2021 4:02pm Start: 01-12-2019 End: 09-10-2019 take 1 tablet by mouth once daily as needed Trazodone 50 mg tablet Discontinued 50 mg PO daily as needed January 12, 2019 3:50pm September 10, 2019 3:47pm Start: 12-18-2017 End: 01-12-2019 take 2 tablets by mouth once daily Trazodone 50 mg tablet Discontinued 100 mg PO daily 60 5 December 31, 2018 12:08pm January 12, 2019 3:50pm Start: 12-18-2017 End: 01-12-2019 take 100 mg by mouth once daily Trazodone Discontinued 100 MG PO daily 60 December 31, 2018 12:08pm January 12, 2019 3:50pm Start: 11-01-2014 End: 05-06-2016 take 1 tablet by mouth once daily TRAZODONE HCL 100 MG TABS One tablet by mouth daily TRAZODONE HCL [id number] Nolberto Dubois MD Start: 10-11-2014 take 1 tablet by usman th once daily at bedtime TRAZODONE HCL TABS One tablet by mouth daily at bedtime TRAZODONE HCL TABS [id number] Mayuri Harley RN Start: 10-11-2014 End: 11-01-2014 take 1 tablet by mouth once daily at bedtime TRAZODONE HCL TABS One tablet by mouth daily at bedtime TRAZODONE HCL TABS [id number] Mayuri Harley RN Start: 10-04-2014 End: 06-15-2018 take 1 tablet by mouth at bedtime Trazodone 50 MG tablet Discontinued 50 mg PO AT BEDTIME October 04, 2014 12:00am June 15, 2018 6:43pm TRAZODONE HCL TA BS q hs TRAZODONE HCL TABS [id number] Abdias aMdrid Vitamin E Mixed (7 sources) Start: 02-20-2022 take 200 [IU] by usman th once daily Vitamin E Mixed Active 200 UNIT PO DAILY February 19, 2022 11:00pm Start: 02-20-2022 take 200 [IU] by mouth once da cindy Vitamin E Mixed Active 200 UNIT PO DAILY February 20, 2022 12:00am Vitamin E Mixed 200 unit tab let (5 sources) Start: 02-20-2022 Vitamin E Mixe d 200 unit tablet Active 200 U PO DAILY February 20, 2022 12:00am Completed/Discontinued Medications Medication Drug Class(es) Dates Sig (Normalized) Sig (Original) acetaminophen 80 mg chewable tablet (13 sources) Start: 12-18-2017 End: 06-16-2018 Acetaminophen 80 mg tablet,chewable Discontinued PO 0 December 18, 2017 12:00am June 16, 2018 4:28pm Start: 12-18-2017 End: 06-16-2018 Acetaminophen Discontinued P O December 18, 2017 12:00am June 16, 2018 4:28pm acetaminophen 325 mg / oxyCODONE hydrochloride 5 mg oral tablet (10 sources) Opioid Agonist Start: 04-14-2024 End: 04-17-2024 Oxycodone-Acetaminophen 5-32 5 mg tablet Discontinued 1 {tbl} PO ONCE as needed for pain 10 3 0 April 14, 2024 April 16, 2024 1:00am April 17, 2024 1:15am Impingement syndrome of left shoulder Impingement syndrome of left shoulder Start: 04-07-2024 End: 04-26-2024 Oxycodone-Acetaminophen (End ocet) 5-325 mg tablet Discontinued 1 {tbl} PO Q4H as needed for pain 30 5 0 April 07, 2024 April 26, 2024 10:52am Paralabral cyst of left shoulder Superior glenoid labrum lesion of left shoulder, initial encounter 120 actuat albuterol 0.1 mg/actuat / ipratropium bromide 0.02 mg/actuat metered dose inhaler (8 sources) Anticholinergic, beta2-Adrenergic Agonist End: 10-11-2014 COMBIVENT RESPIMAT AERS 90 mcg; 2 unite puff every 4 H as needed IPRATROPIUM-ALBUTEROL AERS [id number] Madisyn David Albuterol Sulfate 2.5 mg /3 mL (0.083 %) solution for nebulization (5 sources) Start: 08-02-2021 End: 02-21-2023 take 2.5 mg by inhalation every six hours Albuterol Sulfate 2.5 mg /3 mL (0.083 %) solution for nebulization Discontinued 2.5 mg INHALATION EVERY 6 HOURS 75 12 August 02, 2021 12:00am February 21, 2023 4:22pm Start: 08-02-2021 End: 02-21-2023 take 2.5 mg by inhalation every six hours Albuterol Sulfate 2.5 mg /3 mL (0.083 %) solution for nebulization Discontinued 2.5 mg INHALATION EVERY 6 HOURS 75 August 02, 2021 12:00am February 21, 2023 4:22pm amoxicillin 875 mg oral tablet (13 sources) Penicillin-class Antibacterial Start: 12-18-2017 End: 12-25-2017 take 1 tablet by mouth twice daily Amoxicillin 875 mg tablet Discontinued 875 mg PO TWICE A DAY December 18, 2017 12:00am December 25, 2017 5:13pm amoxicillin 875 mg / clavulanate 125 mg oral tablet (20 sources) Penicillin-class Antibacterial Start: 01-29-2021 End: 02-20-2021 Amoxicillin-Pot Clavulanate 875-125 mg tablet Discontinued 1 {tbl} PO TWICE A DAY January 29, 2021 12:00am February 20, 2021 3:12pm Start: 01-29-2021 End: 02-20-2021 take 1 tablet by mouth twice daily Amoxicillin-Pot Clavulanate Discontinued 1 TABLET PO TWICE A DAY January 29, 2021 12:00am February 20, 2021 3:12pm Start: 07-14-2020 End: 08-10-2020 Amoxicillin-Pot Clavulanate 875-125 mg tablet Discontinued 1 {tbl} PO TWICE A DAY July 14, 2020 1:00am August 10, 2020 4:13pm Start: 07-14-2020 End: 08-10-2020 take 1 tablet by mouth twice daily Amoxicillin-Pot Clavulanate Discontinued 1 TABLET PO TWICE A DAY July 14, 2020 1:00am August 10, 2020 4:13pm Start: 01-23-2019 End: 04-27-2019 Amoxicillin-Pot Clavulanate 875-125 mg tablet Discontinued 1 {tbl} PO TWICE A DAY January 23, 2019 12:00am April 27, 2019 6:22pm Start: 01-23-2019 End: 04-27-2019 take 1 tablet by mouth twice daily Amoxicillin-Pot Clavulanate Discontinued 1 TABLET PO TWICE A DAY January 23, 2019 12:00am April 27, 2019 6:22pm Start: 07-09-2018 End: 01-12-2019 Amoxicillin-Pot Clavulanate 875-125 mg tablet Discontinued 1 {tbl} PO TWICE A DAY July 09, 2018 1:00am January 12, 2019 3:49pm Start: 07-09-2018 End: 01-12-2019 take 1 tablet by mouth twice daily Amoxicillin-Pot Clavulanate Discontinued 1 TABLET PO TWICE A DAY July 09, 2018 1:00am January 12, 2019 3:49pm aspirin 81 mg delayed release oral tablet (20 sources) Platelet Aggregation Inhibitor, Nonsteroidal Anti-inflammatory Drug Start: 06-16-2018 End: 07-21-2023 take 1 tablet by mouth once daily Aspirin (Adult Aspirin Regimen) 81 mg tablet,delayed release (DR/EC) Discontinued 81 mg PO DAILY 17 04August 21, 2020 4:28pm July 21, 2023 1:13pm Start: 10-19-2014 take 1 tablet by usman th once daily ASPIRIN 81 MG TABS One tablet by mouth daily ASPIRIN [id number] Mayuri Harley RN Start: 10-19-2014 take 1 tablet by usman th once daily ASPIRIN EC 81 MG TBEC One tablet by mouth daily ASPIRIN [id number] Nolberto Dubois MD azithromycin 250 mg oral tablet (20 sources) Macrolide Antimicrobial Start: 10-26-2024 End: 10-31-2024 take 2 tablets by mouth once daily, then take 1 tablet by mouth once daily at mealtime Azithromycin 250 mg tablet Discontinued 250 mg PO daily 6 5 0 October 26, 2024 6:03pm October 30, 2024 12:00am October 31, 2024 12:08am 2 po qd for 1 day then 1 po qd for 4 days with food or after eating Start: 07-08-2024 End: 07-13-2024 take 2 tablets by mouth once daily, then take 1 tablet by mouth once daily at mealtime Azithromycin 250 mg tablet Discontinued 250 mg PO daily 6 5 0 July 08, 2024 1:00am July 12, 2024 1:00am July 13, 2024 1:12am 2 po qd for 1 day then 1 po qd for 4 days with food or after eating Start: 08-03-2019 End: 08-08-2019 take 2 tablets by mouth once daily as needed for cough, then take 1 tablet by mouth once daily at mealtime as needed for cough Azithromycin 250 mg tablet Discontinued 250 mg PO daily as needed for cough 6 5 0 August 03, 2019 12:00am August 07, 2019 12:00am August 08, 2019 12:07am 2 po qd for 1 day then 1 po qd for 4 days with food or after eating Start: 06-18-2019 End: 06-23-2019 take 2 tablets by mouth once daily, then take 1 tablet by mouth once daily at mealtime Azithromycin 250 mg tablet Discontinued 250 mg PO daily 6 5 0 June 18, 2019 1:00am June 22, 2019 1:00am June 23, 2019 1:07am 2 po qd for 1 day then 1 po qd for 4 days with food or after eating Start: 02-11-2018 End: 02-16-2018 take 2 tablets by mouth once daily, then take 1 tablet by mouth once daily at mealtime Azithromycin 250 mg tablet Discontinued 250 mg PO daily 6 5 0 February 11, 2018 12:00am February 15, 2018 12:00am February 16, 2018 12:10am 2 po qd for 1 day then 1 po qd for 4 days with food or after eating benzonatate 200 mg oral capsule (11 sources) Non-narcotic Antitussive Start: 07-08-2024 End: 08-24-2024 take 1 capsule by mouth three times daily as needed for cough Benzonatate 200 mg capsule Discontinued 200 mg PO THREE TIMES A DAY as needed for cough 60 1 July 08, 2024 1:00am August 24, 2024 3:21pm Start: 05-14-2023 End: 03-24-2024 take 1 capsule by mouth three times daily as needed for cough Benzonatate 200 mg capsule Discontinued 200 mg PO THREE TIMES A DAY as needed for cough 45 3 May 14, 2023 1:00am March 24, 2024 9:31am canagliflozin 300 mg oral tablet (4 sources) Sodium-Glucose Cotransporter 2 Inhibitor Start: 05-06-2016 take 1 tablet by mouth once daily INVOKANA 300 MG TABS One tablet by mouth daily CANAGLIFLOZIN [id number] Nolberto Dubois MD canagliflozin 150 mg / metFORMIN hydrochloride 1000 mg oral tablet (20 sources) Biguanide, Sodium-Glucose Cotransporter 2 Inhibitor Start: 05-29-2017 End: 11-18-2019 take 150-1000 mg by mouth twice daily Canagliflozin-Metf ormin (Invokamet) 150-1,000 mg tablet Discontinued 1 {tbl} PO TWICE A DAY 180 June 18, 2019 8:42pm November 18, 2019 1:26pm Start: 05-06-2016 take 1 tablet by usman th twice daily INVOKAMET 150-1000 MG TABS One tablet by mouth twice daily CANAGLIFLOZIN-METFORMIN HCL [id number] Mitzy Barton cefdinir 300 mg oral capsule (20 sources) Cephalosporin Antibacterial Start: 02-09-2024 End: 03-24-2024 take 1 capsule by mouth twice daily Cefdinir 300 mg capsule Discontinued 300 mg PO TWICE A DAY February 09, 2024 4:01pm March 24, 2024 9:31am Start: 05-14-2023 End: 07-10-2023 take 1 capsule by mouth twice daily Cefdinir 300 mg capsule Discontinued 300 mg PO TWICE A DAY May 14, 2023 1:00am July 10, 2023 4:51pm Start: 07-22-2022 End: 09-04-2022 take 1 capsule by mouth twice daily Cefdinir 300 mg capsule Discontinued 300 mg PO TWICE A DAY July 22, 2022 1:00am September 04, 2022 3:53pm Start: 08-02-2021 End: 11-06-2021 take 1 capsule by mouth twice daily Cefdinir 300 mg capsule Discontinued 300 mg PO TWICE A DAY August 02, 2021 12:00am November 06, 2021 5:50pm cefuroxime 500 mg oral tablet (6 sources) Cephalosporin Antibacterial Start: 06-24-2023 End: 07-10-2023 take 1 tablet by mouth twice daily Cefuroxime Axetil 500 mg tablet Discontinued 500 mg PO TWICE A DAY 20 0 June 24, 2023 1:00am July 10, 2023 4:51pm celecoxib 200 mg oral capsule (20 sources) Nonsteroidal Anti-inflammatory Drug Start: 09-13-2022 End: 03-24-2024 take 1 capsule by mouth twice daily Celecoxib (Celebrex) 200 mg capsule Discontinued 200 mg PO TWICE A DAY 180 3 December 24, 2022 4:57pm April 02, 2023 4:26pm clopidogrel 75 mg oral tablet (20 sources) P2Y12 Platelet Inhibitor Start: 05-29-2017 End: 02-09-2020 take 1 tablet by mouth once daily Clopidogrel 75 mg tablet Discontinued 75 mg PO daily 30 November 27, 2018 4:45pm January 12, 2019 3:52pm Start: 10-19-2014 take 1 tablet by usman th once daily PLAVIX 75 MG TABS One tablet by mouth daily CLOPIDOGREL BISULFATE [id number] Nolberto Dubois MD Codeine / guaiFENesin (6 sources) Opioid Agonist Start: 07-10-2023 End: 12-15-2023 take 1 mL by mouth every four to six hours as needed for cough Codeine-Guaifenesin 10-100 mg/5 mL liquid Discontinued 10 mL PO EVERY 4-6 HOURS as needed for cough 200 1 July 10, 2023 1:00am December 15, 2023 3:16pm Start: 07-10-2023 End: 12-15-2023 take 1 mL by mouth every four to six hours as needed for cough Codeine-Guaifenesin 10-100 mg/5 mL liquid Discontinued 10 mL PO EVERY 4-6 HOURS as needed for cough 200 July 10, 2023 1:00am December 15, 2023 3:16pm Start: 07-10-2023 take 1 mL by mouth e very four to six hours Codeine-Guaifenesin Active 10 ML PO EVERY 4-6 HOURS July 10, 2023 1:00am dapagliflozin 10 mg oral tablet (19 sources) Sodium-Glucose Cotransporter 2 Inhibitor Start: 07-31-2023 End: 10-20-2023 take 1 tablet by mouth once daily Dapagliflozin Propanediol (Farxiga) 10 mg tablet Discontinued 10 mg PO DAILY 90 3 July 31, 2023 12:00am October 20, 2023 5:50pm Start: 11-18-2019 End: 03-14-2020 take 1 tablet by mouth once daily Dapagliflozin Propanediol (Farxiga) 10 mg tablet Discontinued 10 mg PO DAILY 90 3 November 18, 2019 12:00am March 14, 2020 6:09pm dexamethasone 6 mg oral tablet (20 sources) Corticosteroid Start: 08-02-2021 End: 08-12-2021 take 1 tablet by mouth three times daily Dexamethasone 6 mg tablet Discontinued 6 mg PO THREE TIMES A DAY 30 10 0 August 02, 2021 12:00am August 11, 2021 12:00am August 12, 2021 12:04am Start: 06-25-2018 End: 07-16-2018 Dexamethasone Sodium Phospha te 4 mg/mL solution Discontinued 0 ID .COMPLEX 30 21 0 June 25, 2018 1:00am July 15, 2018 1:00am July 16, 2018 1:08am Bicipital tendinitis, unspecified shoulder INTRADERM. 3 times per week (6-8 treatments) 24 hr dilTIAZem hydrochloride 180 mg extended release oral capsule (20 sources) Calcium Channel Neli Start: 10-04-2014 End: 10-06-2014 take 1 capsule by mouth once daily Diltiazem Hcl 180 MG Capsule.Er Discontinued 180 mg PO DAILY October 04, 2014 12:00am October 06, 2014 2:55pm End: 10-11-2014 doxycycline hyclate 100 mg oral capsule (6 sources) Tetracycline-class Drug Start: 07-10-2023 End: 07-31-2023 take 1 capsule by mouth twice daily Doxycycline Hyclate 100 mg capsule Discontinued 100 mg PO TWICE A DAY 20 0 July 10, 2023 1:00am July 31, 2023 7:54pm Dulaglutide (20 sources) GLP-1 Receptor Agonist Start: 07-16-2022 End: 11-29-2022 Dulaglutide (Trulicity) 3 mg/0.5 mL pen injector Discontinued 3 mg SC EVERY WEEK 2 July 16, 2022 1:00am November 29, 2022 3:23pm Start: 07-16-2022 End: 11-29-2022 Dulaglutide (Trulicity) 3 mg /0.5 mL pen injector Discontinued 3 mg SC EVERY WEEK 2 July 16, 2022 1:00am November 29, 2022 3:23pm Start: 07-16-2022 End: 11-29-2022 Dulaglutide (Trulicity) 3 mg /0.5 mL pen injector Discontinued 3 MG SC EVERY WEEK 2 July 16, 2022 12:00am November 29, 2022 2:23pm Start: 07-16-2022 End: 11-29-2022 Dulaglutide (Trulicity) 3 mg /0.5 mL pen injector Discontinued 3 MG SC EVERY WEEK 2 July 16, 2022 1:00am November 29, 2022 3:23pm Start: 05-02-2022 End: 07-16-2022 Dulaglutide (Trulicity) 1.5 mg/0.5 mL pen injector Discontinued 1.5 mg SC EVERY WEEK 2 May 15, 2022 5:25pm July 16, 2022 5:02pm famotidine 40 mg oral tablet (12 sources) Histamine-2 Receptor Antagonist Start: 10-20-2023 End: 07-08-2024 take 1 tablet by mouth once daily as needed for gastroesophageal reflux disease Famotidine 40 mg tablet Discontinued 40 mg PO DAILY as needed for GERD March 24, 2024 1:00am July 08, 2024 8:21pm Start: 10-10-2023 End: 10-17-2023 take 1 tablet by mouth twice daily famotidine (PEPCID) 20 mg tablet Indications: Contact dermatitis due to food in contact with skin, unspecified contact dermatitis type Take 1 tablet by mouth two times a day for 7 days. 14 tablet 0 10/10/2023 10/17/2023 Active fenofibrate 48 mg oral tablet (17 sources) Peroxisome Proliferator Receptor alpha Agonist Start: 10-04-2014 End: 05-29-2017 take 1 tablet by mouth at bedtime Fenofibrate Nanocrystallized 48 MG tablet Discontinued 48 mg PO AT BEDTIME October 04, 2014 12:00am May 29, 2017 1:49pm Fish Oils (3 sources) Start: 11-11-2016 take 1 tablet by mouth once daily FISH OIL CAPS One tablet by mouth daily OMEGA-3 FATTY ACIDS CAPS [id number] Mitzy Barton Fluticasone Propion-Salmetero l (10 sources) Corticosteroid, beta2-Adrenergic Agonist Start: 06-07-2024 End: 08-24-2024 Fluticasone Propion-Salmeterol (Wixela Inhub) 500-50 mcg/dose blister with device Discontinued 1 NMA INHALATION TWICE A DAY 60 3 June 07, 2024 3:04pm August 24, 2024 3:21pm Start: 06-07-2024 End: 08-24-2024 Fluticasone Propion-Salmeter ol (Wixela Inhub) 500-50 mcg/dose blister with device Discontinued 1 NMA INHALATION TWICE A DAY 60 June 07, 2024 3:04pm August 24, 2024 3:21pm Start: 06-07-2024 Fluticasone Pr opion-Salmeterol (Wixela Inhub) 500-50 mcg/dose blister with device Active 1 NMA INHALATION TWICE A DAY 60 June 07, 2024 3:04pm Start: 04-01-2024 End: 06-07-2024 Fluticasone Propion-Salmeter ol (Wixela Inhub) 500-50 mcg/dose blister with device Discontinued 1 NMA INHALATION TWICE A DAY 60 April 01, 2024 1:00am June 07, 2024 3:05pm Start: 04-01-2024 End: 06-07-2024 Fluticasone Propion-Salmeter ol (Wixela Inhub) 500-50 mcg/dose blister with device Discontinued 1 NMA INHALATION TWICE A DAY 60 April 01, 2024 1:00am June 07, 2024 3:05pm 30 actuat fluticasone furoate 0.2 mg/actuat / vilanterol 0.025 mg/actuat dry powder inhaler (5 sources) Corticosteroid, beta2-Adrenergic Agonist Start: 03-30-2024 End: 04-01-2024 Fluticasone Furoate-Vilanterol (Breo Ellipta) 200-25 mcg/dose blister with device Discontinued 1 NMA INHALATION daily 60 March 30, 2024 1:00am April 01, 2024 4:53pm Cough Acute cough after inhalation, rinse mouth with water and spit out; do not swallow furosemide 40 mg oral tablet (20 sources) Loop Diuretic Start: 05-29-2017 End: 02-27-2022 Furosemide 40 mg tablet Discontinued 0 .ROUTE .COMPLEX 30 September 08, 2020 2:09pm February 27, 2022 6:33pm On Hold: Ordered TAKE 1 TABLET DAILY NEEDED for edema Start: 02-28-2015 take 2 tablets by mo uth once daily LASIX 40 MG TABS Two tablets by mouth daily FUROSEMIDE [id number] Alexandra Fierro RN Start: 02-17-2015 take 1 tablet by usman th once daily LASIX 20 MG TABS One tablet by mouth daily FUROSEMIDE [id number] Mayuri Harley RN Start: 02-17-2015 End: 02-28-2015 take 1 tablet by mouth once daily LASIX 40 MG TABS One tablet by mouth daily FUROSEMIDE [id number] Chelly Elena PA-C Start: 09-29-2014 End: 10-11-2014 take 1 tablet by mouth once daily LASIX 20 MG TABS One tablet by mouth daily FUROSEMIDE [id number] Mayuri Harley RN take 1 tablet by usman twice daily furosemide (LASIX) 40 mg tablet Take 40 mg by mouth twice daily. Active gabapentin 300 mg oral capsule (5 sources) Anti-epileptic Agent Start: 05-17-2024 End: 08-24-2024 Gabapentin 300 mg capsule Discontinued mg PO May 17, 2024 1:00am August 24, 2024 3:21pm hydroCHLOROthiazide 25 mg oral tablet (20 sources) Thiazide Diuretic Start: 10-06-2014 End: 05-29-2017 take 1 tablet by mouth once daily Hydrochlorothiazide 25 MG tablet Discontinued 25 mg PO DAILY October 06, 2014 12:00am May 29, 2017 1:49pm hydroCHLOROthiazide 25 mg / lisinopril 20 mg oral tablet (13 sources) Thiazide Diuretic, Angiotensin Converting Enzyme Inhibitor Start: 10-04-2014 End: 10-06-2014 take 1 tablet by mouth once daily Lisinopril/Hydrochloro thiazide (Zestoretic 20/25 Tablet) 1 TABLET tablet Discontinued 1 {tbl} PO DAILY October 04, 2014 12:00am October 06, 2014 2:55pm hydrOXYzine hydrochloride 10 mg oral tablet (10 sources) Antihistamine Start: 10-20-2023 End: 03-24-2024 take 1 tablet by mouth three to four times daily as needed Hydroxyzine Hcl 10 mg tablet Discontinued 10 mg PO 3 to 4 times per day as needed for itching 360 3 October 29, 2023 2:33pm March 24, 2024 9:33am ipratropium bromide 0.042 mg/actuat metered dose nasal spray (20 sources) Anticholinergic Start: 10-19-2014 End: 05-29-2017 Ipratropium [place] 1 SPRAY spray,non-aerosol Discontinued 2 NMA NASAL TWICE A DAY October 19, 2014 12:00am May 29, 2017 1:49pm Start: 10-19-2014 End: 05-29-2017 Ipratropium [place] Disconti nued 2 SPRAY NASAL TWICE A DAY October 19, 2014 12:00am May 29, 2017 1:49pm Start: 10-18-2014 End: 11-01-2014 IPRATROPIUM BROMIDE 0.02 % S OLN (Atrovent) Via nebulizer as directed IPRATROPIUM BROMIDE [id number] Nolberto Dubois MD LISINOPRIL TABS (8 sources) Angiotensin Converting Enzyme Inhibitor End: 10-11-2014 losartan potassium 50 mg oral tablet (20 sources) Angiotensin 2 Receptor Neli Start: 03-29-2022 End: 08-24-2024 take 1 tablet by mouth once daily Losartan 50 mg tablet Discontinued 50 mg PO DAILY 90 3 June 28, 2024 11:18am July 08, 2024 8:23pm Start: 06-19-2018 End: 03-29-2022 losartan (COZAAR) 25 mg tabl et 03/02/2021 Active Start: 05-29-2017 End: 11-13-2017 take 1 tablet by mouth once daily Losartan 25 mg tablet Discontinued 25 mg PO daily 30 14 11 May 29, 2017 5:07pm November 12, 2017 12:00am November 13, 2017 12:06am Start: 12-02-2014 take 1 tablet by usman th once daily COZAAR 50 MG TABS One tablet by mouth daily LOSARTAN POTASSIUM [id number] Mauyri Harley RN Start: 12-02-2014 take 1 tablet by usman th once daily LOSARTAN POTASSIUM 25 MG TABS One tablet by mouth daily LOSARTAN POTASSIUM [id number] Nolberto Dubois MD metFORMIN hydrochloride 1000 mg oral tablet (13 sources) Biguanide Start: 07-31-2023 End: 10-20-2023 take 1 tablet by mouth twice daily Metformin 1,000 mg tablet Discontinued 1000 mg PO TWICE A DAY 180 3 July 31, 2023 12:00am October 20, 2023 5:50pm Start: 05-06-2016 End: 11-11-2016 take 1 tablet by mouth twice daily METFORMIN HCL 1000 MG TABS One tablet by mouth twice daily METFORMIN HCL [id number] Nolberto Dubois MD methylPREDNISolone (3 sources) Corticosteroid Start: 10-10-2023 End: 10-14-2023 methylPREDNISolone (MEDROL, BABS,) 4 mg Dose-Pack Indications: Contact dermatitis due to food in contact with skin, unspecified contact dermatitis type Follow dosing instructions, take with food. 21 tablet 0 10/10/2023 10/14/2023 Discontinued (Course of therapy completed) Start: 10-10-2023 End: 10-16-2023 methylPREDNISolone (MEDROL, BABS,) 4 mg Dose-Pack Indications: Contact dermatitis due to food in contact with skin, unspecified contact dermatitis type Follow dosing instructions, take with food. 21 tablet 0 10/10/2023 10/16/2023 Active Start: 08-16-2020 End: 08-16-2020 Depo-Medrol (methylprednisol one acetate) 40 mg/mL suspension for injection Discontinued 40 MG INTRAARTIC ONCE 1 August 16, 2020 12:51pm August 16, 2020 1:53pm metroNIDAZOLE 250 mg oral tablet (13 sources) Nitroimidazole Antimicrobial Start: 04-27-2019 End: 05-07-2019 take 1 tablet by mouth three times daily Metronidazole 250 mg tablet Discontinued 250 mg PO THREE TIMES A DAY 30 10 0 April 27, 2019 1:00am May 06, 2019 1:00am May 07, 2019 1:09am Yw[place]ko-Owx-Quldc- Vit K-Lycop (One-A-Day Men's 50 Plus(Vit K)) 400-20-370 mcg Tablet (10 sources) Start: 04-15-2022 End: 09-04-2022 Raewkijw-Xea-Evnyr -Vit K-Lycop (One-A-Day Men's 50 Plus(Vit K)) 400-20-370 mcg Tablet Discontinued 1 {tbl} PO DAILY April 15, 2022 1:00am September 04, 2022 3:54pm Start: 04-15-2022 End: 09-04-2022 take 1 tablet by mouth once daily Pnwpfnib-Scd-Vboyd-Vit K-Lycop (One-A-Da y Men's 50 Plus(Vit K)) 400-20-370 mcg Tablet Discontinued 1 TABLET PO DAILY April 15, 2022 12:00am September 04, 2022 2:54pm Start: 04-15-2022 End: 09-04-2022 take 1 tablet by mouth once daily Tzgdwswj-Moz-Ydqve-Vit K-Lycop (One-A- y Men's 50 Plus(Vit K)) 400-20-370 mcg Tablet Discontinued 1 TABLET PO DAILY April 15, 2022 1:00am September 04, 2022 3:54pm promethazine hydrochloride 12.5 mg oral tablet (13 sources) Phenothiazine Start: 08-02-2021 End: 03-24-2024 take 1 tablet by mouth three times daily as needed for nausea and vomiting Promethazine 12.5 mg tablet Discontinued 12.5 mg PO THREE TIMES A DAY as needed for nausea and vomiting 45 1 August 02, 2021 12:00am March 24, 2024 9:35am Psyllium (6 sources) Start: 04-15-2022 End: 09-04-2022 Psyllium Discontinued 1 PACKET PO NEEDED April 15, 2022 12:00am September 04, 2022 2:54pm mix into at least 8 oz of water or juice before administering Start: 04-15-2022 End: 09-04-2022 Psyllium Discontinued 1 PACK ET PO NEEDED April 15, 2022 1:00am September 04, 2022 3:54pm mix into at least 8 oz of water or juice before administering Start: 04-15-2022 Psyllium Activ e 1 PACKET PO NEEDED April 15, 2022 12:00am mix into at least 8 oz of water or juice before administering Psyllium Packet (5 sources) Start: 04-15-2022 End: 09-04-2022 Psyllium Packet Discontinued 1 NMA PO NEEDED as needed for Constipation April 15, 2022 1:00September 04, 2022 3:54pm mix into at least 8 oz of water or juice before administering sulfamethoxazole 800 mg / trimethoprim 160 mg oral tablet (20 sources) Dihydrofolate Reductase Inhibitor Antibacterial, Sulfonamide Antimicrobial Start: 11-06-2021 End: 11-16-2021 Sulfamethoxazole-Tri methoprim 800-160 mg tablet Discontinued 1 {tbl} PO TWICE A DAY 20 November 06, 2021 12:00am November 15, 2021 12:00am November 16, 2021 12:03am hematuria Start: 11-06-2021 End: 11-16-2021 take 1 tablet by mouth twice daily Sulfamethoxazole-Trimethoprim Discontinu ed 1 TABLET PO TWICE A DAY 20 November 06, 2021 12:00am November 16, 2021 12:03am Start: 03-14-2020 End: 03-24-2020 Sulfamethoxazole-Trimethopri m 800-160 mg tablet Discontinued 1 {tbl} PO TWICE A DAY 20 March 14, 2020 12:00am March 23, 2020 1:00am March 24, 2020 1:03am hematuria Start: 03-14-2020 End: 03-24-2020 take 1 tablet by mouth twice daily Sulfamethoxazole-Trimethoprim Discontinu ed 1 TABLET PO TWICE A DAY 07 03March 14, 2020 12:00am March 24, 2020 1:03am Start: 09-10-2019 End: 09-20-2019 Sulfamethoxazole-Trimethopri m 800-160 mg tablet Discontinued 1 {tbl} PO TWICE A DAY September 10, 2019 12:00am September 19, 2019 12:00am September 20, 2019 12:02am hematuria Start: 09-10-2019 End: 09-20-2019 take 1 tablet by mouth twice daily Sulfamethoxazole-Trimethoprim Discontinu ed 1 TABLET PO TWICE A DAY 07 03September 10, 2019 12:00am September 20, 2019 12:02am Tirzepatide (Mounjaro) 10 mg/0.5 mL pen injector (15 sources) Start: 05-27-2023 End: 02-09-2024 Tirzepatide (Mounjaro) 10 mg /0.5 mL pen injector Discontinued 10 mg SC EVERY WEEK 2.5 30 8 May 27, 2023 9:29pm February 09, 2024 4:00pm Start: 05-27-2023 End: 02-09-2024 Tirzepatide (Mounjaro) 10 mg /0.5 mL pen injector Discontinued 10 mg SC EVERY WEEK 2.5 May 27, 2023 9:29pm February 09, 2024 4:00pm Start: 05-27-2023 Tirzepatide (M ounjaro) 10 mg/0.5 mL pen injector Active 10 MG SC EVERY WEEK 2.5 May 27, 2023 9:29pm Start: 02-21-2023 End: 05-27-2023 Tirzepatide (Mounjaro) 10 mg /0.5 mL pen injector Discontinued 10 mg SC EVERY WEEK 2.5 15 01February 21, 2023 12:00am May 27, 2023 9:29pm Start: 02-21-2023 End: 05-27-2023 Tirzepatide (Mounjaro) 10 mg /0.5 mL pen injector Discontinued 10 mg SC EVERY WEEK 2.5 February 21, 2023 12:00am May 27, 2023 9:29pm Start: 02-21-2023 End: 05-27-2023 Tirzepatide (Mounjaro) 10 mg /0.5 mL pen injector Discontinued 10 MG SC EVERY WEEK 2.5 February 21, 2023 12:00am May 27, 2023 9:29pm Start: 02-21-2023 Tirzepatide (M ounjaro) 10 mg/0.5 mL pen injector Active 10 MG SC EVERY WEEK 2.5 February 20, 2023 11:00pm Start: 02-21-2023 Tirzepatide (M ounjaro) 10 mg/0.5 mL pen injector Active 10 MG SC EVERY WEEK 2.5 February 21, 2023 12:00am Tirzepatide (Mounjaro) 12.5 mg/0.5 mL pen injector (10 sources) Start: 03-24-2024 End: 08-24-2024 Tirzepatide (Mounjaro) 12.5 mg/0.5 mL pen injector Discontinued 12.5 mg SC March 24, 2024 1:00am August 24, 2024 3:24pm Start: 03-24-2024 Tirzepatide (M ounjaro) 12.5 mg/0.5 mL pen injector Active 12.5 mg SC BARRETT March 24, 2024 1:00am Start: 02-09-2024 End: 03-24-2024 Tirzepatide (Mounjaro) 12.5 mg/0.5 mL pen injector Discontinued 12.5 mg SC EVERY WEEK 6.5 90 February 09, 2024 12:00am March 24, 2024 9:38am Start: 02-09-2024 End: 03-24-2024 Tirzepatide (Mounjaro) 12.5 mg/0.5 mL pen injector Discontinued 12.5 mg SC EVERY WEEK 6.5 February 09, 2024 12:00am March 24, 2024 9:38am Tirzepatide (Mounjaro) 5 mg/ 0.5 mL pen injector (10 sources) Start: 11-27-2022 End: 12-24-2022 Tirzepatide (Mounjaro) 5 mg/ 0.5 mL pen injector Discontinued 5 mg SC EVERY WEEK 2.5 17 05November 27, 2022 12:00am December 24, 2022 4:54pm Start: 11-27-2022 End: 12-24-2022 Tirzepatide (Mounjaro) 5 mg/ 0.5 mL pen injector Discontinued 5 mg SC EVERY WEEK 2.5 November 27, 2022 12:00am December 24, 2022 4:54pm Start: 11-27-2022 End: 12-24-2022 Tirzepatide (Mounjaro) 5 mg/ 0.5 mL pen injector Discontinued 5 MG SC EVERY WEEK 2.5 November 26, 2022 11:00pm December 24, 2022 3:54pm Start: 11-27-2022 End: 12-24-2022 Tirzepatide (Mounjaro) 5 mg/ 0.5 mL pen injector Discontinued 5 MG SC EVERY WEEK 2.5 November 27, 2022 12:00am December 24, 2022 4:54pm Start: 11-27-2022 Tirzepatide (M ounjaro) 5 mg/0.5 mL pen injector Active 5 MG SC EVERY WEEK 2.5 30 November 27, 2022 12:00am Tirzepatide (Mounjaro) 7.5 mg/0.5 mL pen injector (18 sources) Start: 12-24-2022 End: 04-02-2023 Tirzepatide (Mounjaro) 7.5 mg/0.5 mL pen injector Discontinued 7.5 mg SC EVERY WEEK 4.5 60 1 December 24, 2022 4:56pm April 02, 2023 4:26pm Start: 12-24-2022 End: 04-02-2023 Tirzepatide (Mounjaro) 7.5 m g/0.5 mL pen injector Discontinued 7.5 mg SC EVERY WEEK 4.5 60 December 24, 2022 4:56pm April 02, 2023 4:26pm Start: 12-24-2022 End: 04-02-2023 Tirzepatide (Mounjaro) 7.5 m g/0.5 mL pen injector Discontinued 7.5 MG SC EVERY WEEK 4.5 60 December 24, 2022 4:56pm April 02, 2023 4:26pm Start: 12-24-2022 End: 04-02-2023 Tirzepatide (Mounjaro) 7.5 m g/0.5 mL pen injector Discontinued 7.5 MG SC EVERY WEEK 4.5 60 December 24, 2022 3:56pm April 02, 2023 3:26pm Start: 12-24-2022 Tirzepatide (M ounjaro) 7.5 mg/0.5 mL pen injector Active 7.5 MG SC EVERY WEEK 4.5 60 December 24, 2022 4:56pm Start: 12-24-2022 End: 12-24-2022 Tirzepatide (Mounjaro) 7.5 m g/0.5 mL pen injector Discontinued 7.5 mg SC EVERY WEEK December 24, 2022 12:00am December 24, 2022 5:00pm Start: 12-24-2022 End: 12-24-2022 Tirzepatide (Mounjaro) 7.5 m g/0.5 mL pen injector Discontinued 7.5 MG SC EVERY WEEK December 23, 2022 11:00pm December 24, 2022 4:00pm Start: 12-24-2022 End: 12-24-2022 Tirzepatide (Mounjaro) 7.5 m g/0.5 mL pen injector Discontinued 7.5 MG SC EVERY WEEK December 24, 2022 12:00am December 24, 2022 5:00pm Tirzepatide 7.5 mg/0.5 mL pe n injector (5 sources) Start: 08-05-2023 End: 10-20-2023 Tirzepatide 7.5 mg/0.5 mL pe n injector Discontinued 7.5 mg SC EVERY WEEK 6.5 90 3 August 05, 2023 12:00am October 20, 2023 5:48pm Start: 08-05-2023 End: 10-20-2023 Tirzepatide 7.5 mg/0.5 mL pe n injector Discontinued 7.5 mg SC EVERY WEEK 6.5 90 August 05, 2023 12:00am October 20, 2023 5:48pm tiZANidine 6 mg oral capsule (19 sources) Central alpha-2 Adrenergic Agonist Start: 12-24-2022 End: 10-20-2023 take 1 capsule by mouth every eight hours as needed Tizanidine 6 mg capsule Discontinued 6 mg PO Q8H as needed for muscle spasticity 180 6 December 24, 2022 12:00am October 20, 2023 5:48pm Start: 09-13-2022 End: 12-24-2022 Tizanidine 2 mg capsule Disc ontinued 0 PO THREE TIMES A DAY as needed for muscle spasticity 40 0 September 13, 2022 12:00am December 24, 2022 4:59pm 1-2 capsules orally three times a day PRN; Start with 1 capsule TID and can increase to 2 capsules as tolerated triamcinolone acetonide 40 mg/ml injectable suspension (1 source) Corticosteroid Start: 06-02-2018 End: 06-02-2018 Kenalog (triamcinolone acetonide) 40 mg/mL suspension for injection Discontinued 80 MG Intrabursal ONCE 2 June 02, 2018 3:00pm June 02, 2018 4:10pm vitamin e 180 mg oral capsule (13 sources) Start: 07-09-2018 End: 01-12-2019 Vitamin E Mixed 400 unit capsule Discontinued U PO 0 July 09, 2018 1:00am January 12, 2019 3:50pm Start: 07-09-2018 End: 01-12-2019 Vitamin E Mixed Discontinued UNIT PO July 09, 2018 1:00am January 12, 2019 3:50pm Problems Active Problems Problem Classification Problem Date Documented Da te Episodic/Chronic Abdominal pain (13 sources) Abdominal pain; Translations: [Unspecified abdominal pain] 04-27-2019 Episodic Allergic reactions (7 sources) Contact dermatitis due to food in contact with skin; Translations: [Unspecified contact dermatitis due to food in contact with skin] 10-10-2023 Episodic Asthma (15 sources) Asthmatic bronchitis; Translations: [Unspecified asthma, uncomplicated] 02-11-2018 Chronic Cardiac dysrhythmias (8 sources) Tachycardia; Translations: [Tachycardia, unspecified] 04-02-2023 Episodic Chronic obstructive pulmonary disease and bronchiectasis (13 sources) Chronic obstructive lung disease; Translations: [Chronic obstructive pulmonary disease, unspecified] 05-29-2017 Chronic Chronic obstructive pulmonary disease and bronchiectasis (6 sources) Bronchitis; Translations: [Bronchitis, not specified as acute or chronic] 05-14-2023 Episodic Coronary atherosclerosis and other heart disease (20 sources) Atherosclerotic heart disease of [place] coronary artery without angina pectoris; Translations: [Coronary atherosclerosis] Onset: 11-01-2014 11-01-2014 Chronic Comment on above: 10/27/2014: PCI-YEIMY-D istal RCA; Diabetes mellitus with complications (13 sources) Type II diabetes mellitus uncontrolled; Translations: [Uncontrolled type 2 diabetes mellitus] 08-10-2020 Chronic Diabetes mellitus without complication (17 sources) Type 2 diabetes mellitus without complication; Translations: [Type 2 diabetes mellitus without complications] Onset: 05-06-2016 05-06-2016 Chronic Disorders of lipid metabolism (20 sources) Hyperlipidemia; Translations: [Hyperlipidemia, unspecified] Onset: 10-11-2014 10-11-2014 Chronic Diverticulosis and diverticulitis (1 source) Diverticulosis of large intestine without perforation or abscess without bleeding; Translations: [Diverticulosis of large intestine without perforation or abscess without bleeding] Onset: 03-05-2025 Chronic Esophageal disorders (4 sources) Gastro-esophageal reflux disease with esophagitis; Translations: [Gastroesophageal reflux disease with esophagitis, unspecified whether hemorrhage] Onset: 09-07-2024 09-01-2024 Chronic Esophageal disorders (1 source) Esophageal disorders; Translations: [Gastroesophageal reflux disease with esophagitis, unspecified whether hemorrhage] Onset: 09-07-2024 Essential hypertension (20 sources) Hypertensive disorder; Translations: [Essential hypertension] Onset: 10-11-2014 10-11-2014 Chronic Comment on above: CONTROLLED WITH MED Fever of unknown origin (13 sources) Fever; Translations: [Fever, unspecified] 08-02-2021 Episodic Genitourinary symptoms and ill-defined conditions (12 sources) Increased frequency of urination; Translations: [Frequency of micturition] 02-27-2022 Episodic Hepatitis (1 source) Nonalcoholic steatohepatitis (TOMLINSON); Translations: [Nonalcoholic steatohepatitis (TOMLINSON)] Onset: 03-05-2025 Chronic Nausea and vomiting (13 sources) Vomiting; Translations: [Vomiting, unspecified] 08-02-2021 Episodic Nonspecific chest pain (10 sources) Tight chest; Translations: [Other chest pain] 03-30-2024 Episodic Other and unspecified benign neoplasm (12 sources) Lipoma (clinical); Translations: [Benign lipomatous neoplasm, unspecified] 03-01-2022 Episodic Other connective tissue disease (13 sources) Pain in left arm; Translations: [Pain in left arm] 04-15-2018 Episodic Other connective tissue disease (10 sources) Muscle spasm of cervical muscle of neck; Translations: [Other muscle spasm] 09-13-2022 Episodic Other connective tissue disease (16 sources) Impingement syndrome of shoulder region; Translations: [Impingement syndrome of left shoulder] 09-13-2022 Episodic Other connective tissue disease (1 source) Other muscle spasm; Translations: [Spasm of muscle] 09-13-2022 Episodic Other gastrointestinal disorders (13 sources) Constipation; Translations: [Constipation, unspecified] 04-27-2019 Episodic Other inflammatory condition of skin (13 sources) Perioral dermatitis; Translations: [Perioral dermatitis] 09-10-2019 Chronic Other inflammatory condition of skin (5 sources) Pruritus of skin; Translations: [Pruritus, unspecified] 10-20-2023 Episodic Other liver diseases (4 sources) Fatty (change of) liver, not elsewhere classified; Translations: [Fatty (change of) liver, not elsewhere classified] Onset: 07-26-2024 Chronic Other liver diseases (1 source) Steatosis of liver; Translations: [Fatty (change of) liver, not elsewhere classified] 09-01-2024 Chronic Other liver diseases (4 sources) Disease of liver; Translations: [Liver disease, unspecified] 08-25-2024 Chronic Other liver diseases (13 sources) Liver enzymes abnormal; Translations: [Abnormal levels of other serum enzymes] 05-29-2017 Episodic Other liver diseases (9 sources) Elevated levels of transaminase & lactic acid dehydrogenase; Translations: [Nonspecific elevation of levels of transaminase or lactic acid dehydrogenase (LDH)] 05-05-2009 Episodic Other lower respiratory disease (20 sources) Dyspnea; Translations: [Shortness of breath] Onset: 09-29-2014 09-29-2014 Episodic Other lower respiratory disease (13 sources) Pleuritic pain; Translations: [Pleurodynia] 05-29-2017 Episodic Other lower respiratory disease (6 sources) Dyspnea on exertion; Translations: [Other forms of dyspnea] 05-15-2023 Episodic Other lower respiratory disease (6 sources) Cough; Translations: [Cough] 06-24-2023 Episodic Other nervous system disorders (7 sources) Carpal tunnel syndrome; Translations: [Carpal tunnel syndrome, right upper limb] 07-29-2018 Chronic Other nervous system disorders (6 sources) Carpal tunnel syndrome of right wrist; Translations: [Carpal tunnel syndrome, right upper limb] 07-29-2018 Chronic Other nervous system disorders (13 sources) Numbness of finger; Translations: [Anesthesia of skin] 07-29-2018 Episodic Other non-traumatic joint disorders (13 sources) Pain in left knee; Translations: [Left knee pain] 08-10-2020 Episodic Other non-traumatic joint disorders (3 sources) Shoulder pain; Translations: [Pain in left shoulder] Episodic Other non-traumatic joint disorders (11 sources) Lumbar facet joint pain; Translations: [Pain of lumbar facet joint] 10-09-2022 Episodic Other non-traumatic joint disorders (6 sources) Disorder of shoulder; Translations: [Other specified joint disorders, left shoulder] 09-23-2023 Episodic Other non-traumatic joint disorders (1 source) Other specified joint disorders, left shoulder; Translations: [Other specified disorders of joint, shoulder region] 09-23-2023 Episodic Other nutritional; endocrine; and metabolic disorders (4 sources) Body mass index (BMI) 39.0-39.9, adult; Translations: [Body mass index (BMI) 39.0-39.9, adult] Onset: 10-11-2014 10-11-2014 Chronic Other nutritional; endocrine; and metabolic disorders (4 sources) Body mass index (BMI) 40.0-44.9, adult; Translations: [Body mass index (BMI) 40.0-44.9, adult] Onset: 02-28-2015 02-28-2015 Chronic Other nutritional; endocrine; and metabolic disorders (10 sources) Body mass index 30+ - obesity; Translations: [Obesity, unspecified] 05-02-2022 Chronic Other screening for suspected conditions (not mental disorders or infectious disease) (2 sources) Liver function tests abnormal; Translations: [Other specified abnormal findings of blood chemistry] Onset: 09-07-2024 09-01-2024 Episodic Other skin disorders (13 sources) Ingrowing great toenail; Translations: [Ingrowing nail] 07-14-2020 Episodic Other skin disorders (12 sources) Skin lesion; Translations: [Disorder of the skin and subcutaneous tissue, unspecified] 03-01-2022 Episodic Other skin disorders (11 sources) Mass of subcutaneous tissue; Translations: [Localized swelling, mass and lump, unspecified] 03-19-2022 Episodic Other skin disorders (1 source) Localized swelling, mass and lump, unspecified; Translations: [Localized superficial swelling, mass, or lump] Episodic Other upper respiratory infections (13 sources) Maxillary sinusitis; Translations: [Chronic maxillary sinusitis] 08-03-2019 Chronic Otitis media and related conditions (20 sources) Otitis media; Translations: [Otitis media, unspecified, left ear] 04-15-2018 Episodic Residual codes; unclassified (17 sources) Obstructive sleep apnea syndrome; Translations: [Obstructive sleep apnea (adult) (pediatric)] Onset: 10-11-2014 10-11-2014 Chronic Residual codes; unclassified (16 sources) Mixed sleep apnea; Translations: [Primary central sleep apnea] 05-15-2022 Chronic Comment on above: On ASV with residual AHI of 0.5 ASV Residual codes; unclassified (4 sources) Primary central sleep apnea; Translations: [Primary central sleep apnea] 03-03-2023 Chronic Residual codes; unclassified (17 sources) Edema of lower extremity; Translations: [Localized edema] Onset: 02-28-2015 02-28-2015 Episodic Skin and subcutaneous tissue infections (20 sources) Abscess of forearm; Translations: [Cutaneous abscess of limb, unspecified] 03-14-2020 Episodic Spondylosis; intervertebral disc disorders; other back problems (20 sources) Prolapsed lumbar intervertebral disc; Translations: [Other intervertebral disc displacement, lumbar region] 09-18-2022 Chronic Spondylosis; intervertebral disc disorders; other back problems (20 sources) Low back pain; Translations: [Low back pain] 09-18-2022 Episodic Substance-related disorders (20 sources) Cigarette smoker ; Translations: [Nicotine dependence, cigarettes, uncomplicated] Onset: 02-26-2024 05-15-2022 Chronic Comment on above: quit 2011 Unclassified (1 source) Acute cough; Translations: [Acute cough] Onset: 08-04-2024 Past or Other Problems Problem Classification Problem Date Documented Da te Episodic/Chronic Coronary atherosclerosis and other heart disease (7 sources) Coronary angioplasty status; Translations: [Presence of coronary angioplasty implant and graft] Onset: 10-27-2014 11-01-2014 Episodic Other connective tissue disease (2 sources) Impingement syndrome of left shoulder; Translations: [Other affections of shoulder region, not elsewhere classified] Onset: 09-22-2024 09-13-2022 Episodic Other liver diseases (5 sources) Abnormal levels of other serum enzymes; Translations: [Abnormal levels of other serum enzymes] Onset: 07-08-2024 Episodic Other lower respiratory disease (2 sources) Shortness of breath; Translations: [Shortness of breath] Onset: 10-30-2024 Episodic Other lower respiratory disease (1 source) Other forms of dyspnea; Translations: [Other forms of dyspnea] Onset: 09-08-2024 Episodic Other non-traumatic joint disorders (11 sources) Pain in left shoulder; Translations: [Left shoulder pain] Onset: 05-03-2024 04-15-2018 Episodic Other skin disorders (9 sources) Mass of skin; Translations: [Localized swelling, mass and lump, unspecified] Onset: 01-08-2010 01-08-2010 Episodic Residual codes; unclassified (4 sources) Family history of ischemic heart disease and other diseases of the circulatory system; Translations: [Family history of ischemic heart disease and other diseases of the circulatory system] 10-18-2014 Episodic Residual codes; unclassified (4 sources) Edema of face ; Translations: [Localized edema] Onset: 03-17-2015 03-17-2015 Episodic Sprains and strains (20 sources) Shoulder strain; Translations: [Strain of unspecified muscle, fascia and tendon at shoulder and upper arm level, left arm, initial encounter] Onset: 04-09-2024 09-10-2019 Episodic Comment on above: torn Results Test Name Value Interpretation Reference Range Facility MRI ABDOMEN WO/W IVCONon MRI ABDOMEN WO/W IVCON * * *Final Report * * * DATE OF EXAM: Dec 16 2024 3:45PM [facility] 0689 - MRI ABDOMEN WO/W IVCON / PROCEDURE REASON: cirrhosis, abnormal finding on GI tract imaging * * * * Physician Interpretation * * * * MRI OF THE ABDOMEN (LIVER) WITHOUT AND WITH IV CONTRAST HISTORY: Cirrhosis. Indeterminate left hepatic lobe lesion seen on prior right upper quadrant ultrasound. TECHNIQUE: Magnet: 1.5T scanner. Multiplanar MRI of the abdomen with multiple sequences, performed before and after intravenous contrast. Contrast: IV: 10 ml of Elucirem COMPARISON: Ultrasound with 11/15/2024, RESULT: Images degraded by motion artifact on multiple sequences. Liver: Mild steatosis. Normal liver morphology. No MR correlate for lesion seen on prior ultrasound. Pancreas: No mass or duct dilation. Adrenals: No mass. Kidneys: No solid or cystic mass. No hydronephrosis. GI tract: No dilation or wall thickening. Colonic diverticulosis. Lymph nodes: No abdominal lymphadenopathy. Mesentery/Peritoneum : No ascites. No mass. Vasculature: The celiac axis and SMA are patent. The portal vein and branches, splenic vein, SMV, and hepatic veins are patent. Bones/Soft Tissues: No significant finding. Lower thorax: Unremarkable. IMPRESSION: Hepatic steatosis. No MR correlate to lesion seen on prior ultrasound. Engine Cowling Installer: RICHARD Transcribe Date/Time: Dec 23 2024 3:52P Dictated by : KENNETH FLORES, DO This examination was interpreted and the report reviewed and electronically signed by: ANNA LÓPEZ MD on Dec 23 2024 4:14PM EST [id number] CN Normal [facility] Cardiology Visit Reporton Cardiology Visit Report [facility] [address] [place], [place] [address] OFFICE VISIT Date of Service: 12/06/24 MR#: [id number] Acct: [id number] Name: HARRIET RIDDLE Rep #: [id number] : 1975 Provider: BRAYAN johnson Age/Sex: 49/M Location: [facility] Status: Signed HPI HPI History of Present Illness Details: Mr. Riddle is a 49-year-old white male with a history of CAD, status post RCA PTCA/stent (2014), hyperlipidemia, ALEXIA/CPAP therapy, and morbidly obese. He underwent a left heart catheterization on 10/19/14. This demonstrated a significant distal RCA lesion. He received a 3.5X 24 Promus stent to the distal RCA with an excellent result. His remaining coronary arteries had minimal nonobstructive disease. He completed cardiac rehab without difficulty. He reported that his shortness of breath had completely resolved. He denies chest, arm, jaw, or neck discomfort. He denies palpitations. He denies bilateral lower extremity edema. He denies claudication. He denies shortness of breath with activity, shortness of breath at rest, orthopnea, or PND. He denies chronic cough. He denies significant, sudden weight gain. He denies lightheadedness, dizziness, near-syncope, or syncope. He denies blood in urine, blood in stool, or epistaxis. He denies fever with chills. He denies myalgia. He denies fatigue. His exercise level has remained stable. Intake Vital Signs 10/26/24 17:41 12/06/24 12:57 Height 5 ft 9 in 5 ft 9 in Weight: 246 lb 248 lb BMI 36.3 36.6 BP 100/70 124/78 H Blood Pressure Location Rt brachial Lt brachial Position Sitting Sitting Respiration 18 18 Pulse 99 87 Pulse Source Doppler Monitor Temp 97.5 F L Pulse Oximetry (%) 97 6 Oxygen Delivery Method room air Intake Visit Reasons: 1 Y FU Team Assembler Required: No Is patient in pain?: No Allergies triamcinolone (From Kenalog) Allergy (Intermediate, Verified 12/06/24 15:16) Rash amoxicillin (From Augmentin) Adverse Reaction (Intermediate, Verified 12/06/24 15:16) Diarrhea clavulanic acid (From Augmentin) Adverse Reaction (Intermediate, Verified 12/06/24 15:16) Diarrhea Medications ???Medication ???Instructions ???Recorded ???Confirmed ???Type milk thistle 150 mg capsule 150 mg PO BID 01/12/19 12/06/24 Hi story ascorbic acid (vitamin C) 1,000 mg 1 g PO BID 02/20/22 12/06/24 His tory tablet vitamin E mixed 200 unit tablet 200 unit PO DAILY 02/20/22 5 History albuterol sulfate 90 mcg/actuation 2 puff inhalation Q4H PRN asthma 3 10/22/22 12/06/24 Rx aerosol inhaler (Ventolin HFA) months #18 grams aspirin 81 mg tablet,delayed 81 mg PO DAILY #30 tabs 07/21/23 0 12/06/24 Rx release (Adult Aspirin Regimen) albuterol sulfate 2.5 mg/3 mL 2.5 mg inhalation Q6H PRN 03/24/24 12/06/24 History (0.083 %) solution for nebulization shortness of breath or wheezing albuterol 90 mcg-budesonide 80 2 inh inhalation ONCE #10.7 grams 08/24/24 12/06/24 Rx mcg/actuation HFA aerosol inhaler (Airsupra) atorvastatin 10 mg tablet (Lipitor) 10 mg PO DAILY #90 tabs 5 12/06/24 Rx dapagliflozin propaned 10 1 tab PO DAILY #90 ea 08/24/24 Rx mg-metformin ER 1,000 mg tablet,ext rel 24hr (Xigduo XR) ezetimibe 10 mg tablet (Zetia) 10 mg PO QDAY #90 tabs 08/24/24 Rx isosorbide mononitrate 30 mg 30 mg PO DAILY #90 tabs 08/24/24 0 12/06/24 Rx tablet,extended release 24 hr losartan 50 mg tablet 50 mg PO DAILY #90 tabs 08/24/24 0 12/06/24 Rx tirzepatide 15 mg/0.5 mL 15 mg (0.5 mL) subcut QWEEK 90 01/1012/06/24 Rx subcutaneous pen injector days #6.5 mL (Mounjaro) fluticasone propionate 110 2 puff inhalation BID #12 grams 12/06/24 Rx mcg/actuation HFA aerosol inhaler icosapent ethyl 1 gram capsule 2 g (2 x 1 gram) PO BID 90 days 12/06/24 Rx #360 caps omeprazole 40 mg capsule,delayed 40 mg PO 10/26/24 12/06/24 History release metoprolol succinate 25 mg 25 mg PO DAILY #90 tabs 11/01/24 0 12/06/24 Rx tablet,extended release 24 hr Ejection fraction %: 65 Have you fallen in the past year?: No Nurse's Note: medication list may not be accurate. 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 Normal [facility] US ABD RIGHT UPPER QUADRANTo n 11-15-2024 US ABD RIGHT UPPER QUADRANT * * *Final Report* * * DATE OF EXAM: Nov 15 2024 4:10PM U 1032 - US ABD RIGHT UPPER QUADRANT / PROCEDURE REASON: K75.81 * * * * Physician Interpretation * * * * EXAMINATION: RIGHT UPPER QUADRANT ULTRASOUND CLINICAL HISTORY: Cirrhosis TECHNIQUE: Sonography of the right upper quadrant was performed. Images were obtained and stored in a permanent archive. MQ: URUQ_2 COMPARISON: Ultrasound of 07/08/2018. Liver biopsy on 09/09/2024 consistent with cirrhosis RESULT: Pancreas: Normal sonographic appearance. Portions obscured: Portions of the head and distal tail are suboptimally seen due to overlying bowel gas Liver: Echotexture: Coarse and heterogeneous Echogenicity: Normal Surface contour: Smooth Lesions: Poorly defined hypoechoic solid nodule, left hepatic lobe, of 0.9 cm. Biliary: No intrahepatic biliary duct dilation. CBD: 0.3 cm at the hilum. Gallbladder: Normal caliber -Contents: No cholelithiasis -Wall: Normal -Other: No pericholecystic fluid. Right Kidney: No hydronephrosis. Ascites: None. IMPRESSION: Cirrhotic hepatic configuration. Hypoechoic solid focus in the left hepatic lobe was not seen on prior study. Recommend hepatic MR for complete evaluation Otherwise normal sonographic appearance of the right upper quadrant. ACTIONABLE RESULT: FOLLOW-UP Acuity: Actionable Findings: Liver Routing Code: LV_1 Recommendation: Unlisted Recommendation (see report) Time Frame: At the discretion of the clinical team. COMMUNICATION: Results will be communicated with the ordering provider via [employer] staff message or phone message by [facility] within 2 business days of report finalization. --END OF FINDING-- Engine Cowling Installer: RICHARD Transcribe Date/Time: Nov 16 2024 11:20A Dictated by : MARICARMEN PEREZ MD This examination was interpreted and the report reviewed and electronically signed by: MARICARMEN PEREZ MD on Nov 16 2024 11:26AM EST [id number] ACTIONABLE Invalid Interpretation Code [facility] Pulmonary Visit Reporton Pulmonary Visit Report [facility] Pulmonary Medicine of [address] [place] [address] OFFICE VISIT Date of Service: 10/26/24 MR#: [id number] Acct: [id number] Name: HARRIET RIDDLE Rep #: [id number] : 1975 Provider: Sindy Samayoa NP Age/Sex: 49/M [facility] Status: Signed Assessment and Plan Assessment and Plan (1) Complex sleep apnea syndrome: Status: Chronic Comment: ASV Plan: His apnea is well-controlled with use of ASV device. He is using and benefiting from his device. I recommend that he continue with his current settings. Contact the office for any new or worsening symptoms in the meantime. (2) Smoking greater than 20 pack years: Status: Chronic Comment: quit 2011 Plan: He remains appropriate for LDCT. Repeat due in February 2025, previously ordered, follow-up after testing. (3) Asthma: Status: Chronic Qualifiers: Asthma severity: mild Asthma persistence: persistent Asthma complication type: uncomplicated Qualified Code(s): J45.30 - Mild persistent asthma, uncomplicated Plan: Working diagnosis is mild persistent asthma. There is no evidence of COPD on his PFT and there is no requirement for supplemental oxygen on his 6-minute walk test. The patient has received significant benefit with using Airsupra inhaler. The concern is for overuse of Reggie. I have recommended a daily maintenance low-dose ICS therapy and have ordered accordingly in efforts for REGGIE to not be overused. This was discussed at length with patient today. The use of Flovent and potential side effects were reviewed with patient today. I have instructed him on good oral hygiene. The patient can still use albuterol on an as-needed basis but the goal would be for the frequency to be reduced. The patient has worsening respiratory symptoms he is to notify this practice. Medications: New fluticasone propionate 110 mcg/actuation 2 puffs inhalation BID 12 grams 5RF Plan Details Follow Up: March 2025 (LMR) HPI HPI Comments Details: Patient is a 49-year-old male who presents to the office today for follow-up of his obstructive sleep apnea complicated by history of nicotine abuse. He is ambulatory and currently on room air. He has not recently been seen in the ED or urgent care for any respiratory illness. He is prednisone for any breathing problems. He reports some shortness of breath with exertion. He denies any cough, sputum production or hemoptysis. He denies wheezing or palpitations. He reports occasional pain in his left side to the arm in the mornings especially. He had left shoulder surgery recently. He reports that after he awakens and takes his morning medications this pain improves. He also denies any fever, chills or body aches. Airsupra is being used and is helpful but the insurance did not cover this inhaler well. He has been using some albuterol that he has had leftover as well. He reports that he is using albuterol at least daily if not 2-3 times per day. Patient reports waking up feeling rested and refreshed with use of his ASV machine half the time. The patient has had difficulty with "stomach issues" at this time. He will nap daily with the machine if he is able. He is not having difficulty with nocturia. He does nap on occasion. He denies dry mouth he denies morning headache. He denies nocturia. If you recall, he does have a [id number]-[id number] smoking history, quitting completely in 2011. Interpretation from a LDCT completed at [facility] on February 26, 2024 is available. No suspicious nodules are noted. Multiple calcified lymph nodes are present in the bilateral hilar region and mediastinum. Moderate coronary calcification is noted along with atherosclerotic plaque present in the thoracic aorta. Test results personally reviewed with the patient: 6-minute walk test from October 14, 2024 shows no significant exertional oxygen desaturation and no indication for the use of supplemental oxygen at this time. PFT from August 16, 2020 shows grossly normal pulmonary function studies. Compliance report for the past 30 days shows 83% compliance with average use of 7 hours and 49 minutes per night. Current setting is air curve 10 ASV minimum pressure support 6 cmH2O, maximum pressure support 15 cmH2O with an EPAP of 10 cm water. Residual AHI 0.8 events per hour. Leaks do not appear to be an issue. Intake Vital Signs 08/04/24 12:40 08/24/24 15:13 10/26/24 08:24 Height 5 ft 10 in 5 ft 10 in 5 ft 9 in Weight: 245 lb BMI 36.1 BP 124/81 H Blood Pressure Location Lt brachial Position Sitting Respiration 20 H Pulse 88 Pulse Source Monitor Temp 97.0 F L Temperature Source Temporal Artery Pulse Oximetry (%) 95 Oxygen Delivery Method room air Intake Visit Reasons: 7 WK FU Team Assembler Required: No DME Vend (more content not included)... 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: REG CLI Location: PSN Date: Sex: M C PSN 6 Minute Walk Test 6 Minute Walk Test 6 Minute Walk Test: 6 Minute Walk Test PSN:6-Minute Walk Test Start: 10/14/24 08:04 Freq: Status: Active Protocol: RESP.6MINW Document 10/14/24 08:07 YAMILET (Rec: 10/14/24 08:17 [facility] [id number]) 6 Minute Walk Test Date Performed 10/14/24 Time Performed 08:00 Height 5 ft 9 in Weight: 254 lb Weight in Pounds 254.[address]: Sindy Samayoa Assistive device None used: Pre-test Oxygen Delivery Room Air Method Pulse Ox (%) 96 Pulse Rate (60-100 95 beats/min) Dyspnea Ileana Scale ( 0 0-10) Exertion Ileana Scale 6 (6-20) 1st minute Oxygen Delivery Room Air Method Pulse Ox (%) 96 Pulse Rate (60-100 100 beats/min) 2nd minute Oxygen Delivery Room Air Method Pulse Ox (%) 95 Pulse Rate (60-100 102 H beats/min) 3rd minute Oxygen Delivery Room Air Method Pulse Ox (%) 95 Pulse Rate (60-100 106 H beats/min) 4th minute Oxygen Delivery Room Air Method Pulse Ox (%) 95 Pulse Rate (60-100 113 H beats/min) 5th minute Oxygen Delivery Room Air Method Pulse Ox (%) 95 Pulse Rate (60-100 110 H beats/min) 6th minute Oxygen Delivery Room Air Method Pulse Ox (%) 95 Pulse Rate (60-100 110 H beats/min) Dyspnea Ileana Scale ( 2 0-10) Exertion Ileana Scale 12 (6-20) Post-test Oxygen Delivery Room Air Method Pulse Ox (%) 97 Pulse Rate (60-100 98 beats/min) Full Laps Walked 17 Partial Lap, Number 32 of Tiles Walked Total Distance 1035 Walked (ft) Interpretation Interpretation: The patient ambulated 1035 feet over the course of 6 minutes beginning on room air without assistive devices. Pretesting oxygen saturation was noted to be 96% on room air. With ambulation, the varghese oxygen saturation was 95%. There was no significant exertional oxygen desaturation. Recommendations Recommendations: There is no indication for the use of supplemental oxygen at this time. 10/18/24 1318 Date Daniele Blount DO CC: Date Dictated: 10/18/24 1318 Date Transcribed: 10/18/241317 Engine Cowling Installer: Dr. Daniele Blount DO Signed Normal [facility] CT BIOPSY LIVERon 09-09-2024 CT BIOPSY LIVER * * *Final Report* * * DATE OF EXAM: Sep 09 2024 10:06AM [facility] 2017 - CT BIOPSY LIVER / PROCEDURE REASON: abnormal liver enzymes * * * * Physician Interpretation * * * * HISTORY: abnormal liver enzymes liver biopsy TECHNIQUE: Pre-procedure Sign-in: Safety Checklist Performed: Yes. The team confirmed the correct patient, correct site, site marking, correct procedure, and correct position. Timeout Time: 9:30 Sign-out: Communication performed: Yes. 10 mL 1% lidocaine was infused for local anesthesia. CT Radiation dose: Integrated Dose-length product (DLP) for this visit = 1361 mGy*cm. CT Dose Reduction Employed: Automated exposure control(AEC) and iterative recon COMPARISON: None RESULT: 17-gauge guiding needle was placed into the posterior caudal aspect of the right lobe of the liver under guidance of CT fluoroscopy. 2 18-gauge tissue cores were taken through the guiding needle with a spring-loaded device. CT afterwards showed no associated hemorrhage. IMPRESSION: CT-guided random core liver biopsy as detailed. Engine Cowling Installer: RICHARD Transcribe Date/Time: Sep 09 2024 1:58P Dictated by : TRUMAN BATES MD This examination was interpreted and the report reviewed and electronically signed by: TRUMAN BATES MD on Sep 09 2024 1:59PM EST [id number] CN [facility] Pathology biopsy report Lux (Tiss)on 09-09-2024 AP DISCLAIMER [facility] Comment on above: Order Comment: Speci men Type: TISSUE SPECIMEN Ordering Facility: [facility] Address: [address] [place] [address] Result Comment: Simon Hess Test (LDT) Disclaimer: Performance characteristics of immunohistochemical, immunofluorescent, and chromogenic in-situ hybridization tests have been determined by the performing laboratory within [facility]'s [facility] ([facility], [facility], [facility], [facility], [facility], [facility], [facility], or [facility]) in a manner consistent with CLIA requirements. One or more of these tests may not have been cleared or approved by the FDA. [facility] is regulated under CLIA as qualified to perform high-complexity testing. These tests are used for clinical purposes. These should not be regarded as investigational or for research. Positive and negative controls stain appropriately. Performed By: #### 6 6121-5 #### [facility] CLIA [id number] [address] [place] [address] [place] CASE REPORT Normal [facility] Comment on above: Order Comment: Mahsa canas Type: TISSUE SPECIMEN Ordering Facility: [facility] Address: [address] [place] [address] Result Comment: [facility]urg [facility] Pathology Report Case: [id number] Authorizing Provider: Truman Bates MD Collected: 09/09/2024 10:15 AM Ordering Location: [facility] Radiology Received: 09/09/2024 10:39 AM Pathologist: Francesca Leon MD Specimen: Liver, Biopsy Performed By: #### 6 6121-5 #### [facility] CLIA [id number] [address] [place] [address] [place] CLINICAL HISTORY elevated lft's Normal [facility] Comment on above: Order Comment: Mahsa canas Type: TISSUE SPECIMEN Ordering Facility: [facility] Address: [address] [place] [address] Performed By: #### 6 6121-5 #### [facility] CLIA [id number] [address] [place] [address] [place] DIAGNOSIS COMMENT Normal [facility] Comment on above: Order Comment: Mahsa canas Type: TISSUE SPECIMEN Ordering Facility: [facility] Address: [address] [place] [address] Result Comment: Sect ions demonstrate multiple cores of hepatic parenchyma with a distorted lobular architecture due to bands of bridging fibrosis with rare regenerative nodule formation, 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 The trichrome stain also highlights foci of pericellular/perisinusoidal fibrosis. The portal tracts harbor their usual structures with rare portal tracts demonstrating a mild chronic inflammatory infiltrate composed predominantly of small mature lymphocytes. No significant interface activity, bile duct injury, or bile duct loss is seen. A rare portal-like area demonstrates a proliferation of ectatic bile ducts with bland nuclear features, consistent with a focal bile duct hamartoma. The hepatic lobules are notable for mild macrovesicular steatosis, occupying approximately 15-20% of the overall hepatic parenchymal volume with numerous ballooned hepatocytes and scattered Enid hyaline. Minimal lobular inflammation is seen. The PAS/D and iron stains are negative for alpha-1 antitrypsin inclusions and iron storage, respectively. Overall, the histologic features are those of steatohepatitis. 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 Steatohepatitis is a non-specific pattern of injury and may be seen in obesity, in diabetes mellitus in association with the metabolic syndrome, in hyperlipidemia, and with certain drugs/medications (including alcohol), among others. Clinical correlation is recommended. Fatty Liver Disease Scoring NAFLD Activity Score (MARÍA): Steatosis: 1 (5-33%) Lobular inflammation (foci per 20x field): 1 (<2) Hepatocyte balloonin (many) Total Score: 4/8. Stage: 3(bridging)/4 (cirrhosis) Other features: None Enid hyaline: Present Other forms of chronic liver disease: None Reference: Hellen DE, Erict EM, et al. Hepatology 41(6):1313-21, 2004. 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 at 1416 EDT Performed By: #### 6 6121-5 #### [facility] CLIA [id number] [address] [place] [address] FINAL PERFORMING LAB Normal [facility] Comment on above: Order Comment: Mahsa canas Type: TISSUE SPECIMEN Ordering Facility: [facility] Address: [address] [place] [address] Result Comment: Diag nostic interpretation performed at: [facility], [address] [place] [address] CLIA# [id number] Supervisor Color Making: Petros Hines MD Performed By: #### 6 6121-5 #### [facility] CLIA [id number] [address] [place] [address] GROSS DESCRIPTION Normal [facility] Comment on above: Order Comment: Mahsa [facility] Type: TISSUE SPECIMEN Ordering Facility: [facility] Address: [address] [place] [address] Result Comment: Yu manning, Biopsy Received in formalin are multiple segments of cylindrical tissue aggregating to 2.0 x 0.3 x 0.1 cm, red-brown and of a soft and friable consistency. Totally submitted in one cassette. Gross examination performed at [facility], [address] [place] [address] AMS September 09, 2024 2:56 PM Performed By: #### 6 6121-5 #### [facility] CLIA [id number] [address] [place] [address] [place] AFP SerPl-mCncon 09-07-2024 AFP [Mass/Vol] 2.53 ng/mL Normal <9.00 [facility] Comment on above: Order Comment: [facility] [place] Type: BLOOD SPECIMEN Ordering Facility: [facility] [place] Address: [address] [place] [address] Result Comment: The Alpha-Fetoprotein test was performed using the Eileen Unicel DxI immunoenzymatic assay. Results obtained with different assay methods or kits cannot be used interchangeably. Performed By: #### 1 834-1 #### [facility] CLIA [id number] [address] [place] [address] [place] CBC W Auto Differential pane l (Bld)on 09-07-2024 Basophils (Bld) [#/Vol] 10*3/uL Normal <0.11 [facility] Comment on above: Order Comment: Speci men Type: BLOOD SPECIMEN Ordering Facility: [facility] Address: [address] [place] [address] Performed By: #### 5 7021-8 #### [facility] CLIA [id number] [address] [place] Basophils/100 WBC (Bld) 0.3 % Normal [facility] Comment on above: Order Comment: Speci men Type: BLOOD SPECIMEN Ordering Facility: [facility] Address: [address] [place] [address] Performed By: #### 5 7021-8 #### [facility] CLIA [id number] [address] Differential cell count method Nom (Bld) Auto Normal [facility] Comment on above: Order Comment: Speci men Type: BLOOD SPECIMEN Ordering Facility: [facility] Address: [address] [place] [address] Performed By: #### 5 7021-8 #### [facility] CLIA [id number] [address] [place] [address] [place] Eosinophils (Bld) [#/Vol] 0.18 10*3/uL Normal <0.46 [facility] Comment on above: Order Comment: Speci men Type: BLOOD SPECIMEN Ordering Facility: [facility] Address: [address] [place] [address] Performed By: #### 5 7021-8 #### [facility] CLIA [id number] [address] Eosinophils/100 WBC (Bld) 3.0 % Normal [facility] Comment on above: Order Comment: Speci men Type: BLOOD SPECIMEN Ordering Facility: [facility] Address: [address] [place] [address] Performed By: #### 5 7021-8 #### [facility] CLIA [id number] [address] [place] Erythrocyte distribution width (RBC) [Ratio] 13.0 % Normal 11.5-15.0 [facility] Comment on above: Order Comment: Speci men Type: BLOOD SPECIMEN Ordering Facility: [facility] Address: [address] [place] [address] Performed By: #### 5 7021-8 #### [facility] CLIA [id number] [address] [place] Hematocrit (Bld) [Volume fraction] 47.1 % Normal 39.0-51.0 [facility] Comment on above: Order Comment: Speci men Type: BLOOD SPECIMEN Ordering Facility: [facility] Address: [address] [place] [address] Performed By: #### 5 7021-8 #### [facility] CLIA [id number] [address] Hemoglobin (Bld) [Mass/Vol] 15.7 g/dL Normal 13.0-17.0 [facility] Comment on above: Order Comment: Speci men Type: BLOOD SPECIMEN Ordering Facility: [facility] Address: [address] [place] [address] Performed By: #### 5 7021-8 #### [facility] CLIA [id number] [address] [place] Immature granulocytes (Bld) [#/Vol] 10*3/uL Normal <0.10 [facility] Comment on above: Order Comment: Speci men Type: BLOOD SPECIMEN Ordering Facility: [facility] Address: [address] [place] [address] Performed By: #### 5 7021-8 #### [facility] CLIA [id number] [address] [place] Immature granulocytes/100 WBC (Bld) 0.2 % Normal [facility] Comment on above: Order Comment: Speci men Type: BLOOD SPECIMEN Ordering Facility: [facility] Address: [address] [place] [address] Performed By: #### 5 7021-8 #### [facility] CLIA [id number] [address] [place] Lymphocytes (Bld) [#/Vol] 1.84 10*3/uL Normal 1.00-4.00 [facility] Comment on above: Order Comment: Speci men Type: BLOOD SPECIMEN Ordering Facility: [facility] Address: [address] [place] [address] Performed By: #### 5 7021-8 #### [facility] CLIA [id number] [address] Lymphocytes/100 WBC (Bld) 30.2 % Normal [facility] Comment on above: Order Comment: Speci men Type: BLOOD SPECIMEN Ordering Facility: [facility] Address: [address] [place] [address] Performed By: #### 5 7021-8 #### [facility] CLIA [id number] [address] MCH (RBC) [Entitic mass] 30.1 pg Normal 26.0-34.0 [facility] Comment on above: Order Comment: Speci men Type: BLOOD SPECIMEN Ordering Facility: [facility] Address: [address] [place] [address] Performed By: #### 5 7021-8 #### [facility] CLIA [id number] [address] MCHC (RBC) [Mass/Vol] 33.3 g/dL Normal 30.5-36.0 [facility] Comment on above: Order Comment: Speci men Type: BLOOD SPECIMEN Ordering Facility: [facility] Address: [address] [place] [address] Performed By: #### 5 7021-8 #### [facility] CLIA [id number] [address] MCV (RBC) [Entitic vol] 90.4 fL Normal 80.0-100.0 [facility] Comment on above: Order Comment: Speci men Type: BLOOD SPECIMEN Ordering Facility: [facility] Address: [address] [place] [address] Performed By: #### 5 7021-8 #### [facility] CLIA [id number] [address] [place] Monocytes (Bld) [#/Vol] 0.59 10*3/uL Normal <0.87 [facility] Comment on above: Order Comment: Speci men Type: BLOOD SPECIMEN Ordering Facility: [facility] Address: [address] [place] [address] Performed By: #### 5 7021-8 #### [facility] CLIA [id number] [address] [place] [address] [place] Monocytes/100 WBC (Bld) 9.7 % Normal [facility] Comment on above: Order Comment: Speci men Type: BLOOD SPECIMEN Ordering Facility: [facility] Address: [address] [place] [address] Performed By: #### 5 7021-8 #### [facility] CLIA [id number] [address] [place] Neutrophils (Bld) [#/Vol] 3.46 10*3/uL Normal 1.45-7.50 [facility] Comment on above: Order Comment: Speci men Type: BLOOD SPECIMEN Ordering Facility: [facility] Address: [address] [place] [address] Performed By: #### 5 7021-8 #### [facility] CLIA [id number] [address] [place] Neutrophils/100 WBC (Bld) 56.6 % Normal [facility] Comment on above: Order Comment: Speci men Type: BLOOD SPECIMEN Ordering Facility: [facility] Address: [address] [place] [address] Performed By: #### 5 7021-8 #### [facility] CLIA [id number] 1000 [place] [address] [place] Nucleated RBC (Bld) [#/Vol] 10*3/uL Normal <0.01 [facility] Comment on above: Order Comment: Speci men Type: BLOOD SPECIMEN Ordering Facility: [facility] Address: [address] [place] [address] Performed By: #### 5 7021-8 #### [facility] CLIA [id number] [address] [place] Nucleated RBC/100 WBC (Bld) [Ratio] 0.0 /100 WBC Normal [facility] Comment on above: Order Comment: Speci men Type: BLOOD SPECIMEN Ordering Facility: [facility] Address: [facility] [place] [address] Performed By: #### 5 7021-8 #### [facility] CLIA [id number] [address] Platelet mean volume (Bld) [Entitic vol] 10.9 fL Normal 9.0-12.7 [facility] Comment on above: Order Comment: Speci men Type: BLOOD SPECIMEN Ordering Facility: [facility] Address: [address] [place] [address] Performed By: #### 5 7021-8 #### [facility] CLIA [id number] [address] Platelets (Bld) [#/Vol] 153 10*3/uL Normal 150-400 [facility] Comment on above: Order Comment: Speci men Type: BLOOD SPECIMEN Ordering Facility: [facility] Address: [address] [place] [address] Performed By: #### 5 7021-8 #### [facility] CLIA [id number] [address] RBC (Bld) [#/Vol] 5.21 10*6/uL Normal 4.20-6.00 [facility] Comment on above: Order Comment: Speci men Type: BLOOD SPECIMEN Ordering Facility: [facility] Address: [address] [place] [address] Performed By: #### 5 7021-8 #### [facility] CLIA [id number] [address] WBC (Bld) [#/Vol] 6.10 10*3/uL Normal 3.70-11.00 [facility] Comment on above: Order Comment: Speci men Type: BLOOD SPECIMEN Ordering Facility: [facility] Address: [address] [place] [address] Performed By: #### 5 7021-8 #### [facility] CLIA [id number] [address] [place] Comprehensive metabolic 2000 panelon 09-07-2024 Albumin [Mass/Vol] 4.1 g/dL Normal 3.9-4.9 [facility] Comment on above: Order Comment: Speci men Type: BLOOD SPECIMEN Ordering Facility: [facility] Address: [address] [place] [address] Performed By: #### 2 4323-8 #### [facility] CLIA [id number] [address] [place] [address] [place] ALP [Catalytic activity/Vol] 74 U/L Normal 38-113 [facility] Comment on above: Order Comment: Speci men Type: BLOOD SPECIMEN Ordering Facility: [facility] Address: [address] [place] [address] Performed By: #### 2 4323-8 #### [facility] CLIA [id number] [address] ALT [Catalytic activity/Vol] 32 U/L Normal 10-54 [facility] Comment on above: Order Comment: Speci men Type: BLOOD SPECIMEN Ordering Facility: [facility] Address: [address] [place] [address] Performed By: #### 2 4323-8 #### [facility] CLIA [id number] [address] Anion gap [Moles/Vol] 10 mmol/L Normal 8-15 [facility] Comment on above: Order Comment: Mahsa canas Type: BLOOD SPECIMEN Ordering Facility: [facility] Address: [address] [place] [address] Performed By: #### 2 4323-8 #### [facility] CLIA [id number] [address] [place] [address] [place] AST [Catalytic activity/Vol] 25 U/L Normal 14-40 [facility] Comment on above: Order Comment: Speci [facility] Type: BLOOD SPECIMEN Ordering Facility: [facility] Address: [address] [place] [address] Performed By: #### 2 4323-8 #### [facility] CLIA [id number] [address] [place] [address] [place] Bilirubin [Mass/Vol] 1.1 mg/dL Normal 0.2-1.3 [facility] Comment on above: Order Comment: Speci men Type: BLOOD SPECIMEN Ordering Facility: [facility] Address: [address] [place] [address] Performed By: #### 2 4323-8 #### [facility] CLIA [id number] 1000 [place] [address] [place] Calcium [Mass/Vol] 9.1 mg/dL Normal 8.5-10.2 [facility] Comment on above: Order Comment: Speci men Type: BLOOD SPECIMEN Ordering Facility: [facility] Address: [address] [place] [address] Performed By: #### 2 4323-8 #### [facility] CLIA [id number] [address] [place] [address] [place] Chloride [Moles/Vol] 105 mmol/L Normal 98-107 [facility] Comment on above: Order Comment: Speci men Type: BLOOD SPECIMEN Ordering Facility: [facility] Address: [address] [place] [address] Performed By: #### 2 4323-8 #### [facility] CLIA [id number] [address] [place] [address] [place] CO2 [Moles/Vol] 26 mmol/L Normal 22-30 [facility] Comment on above: Order Comment: Speci men Type: BLOOD SPECIMEN Ordering Facility: [facility] Address: [address] [place] [address] Performed By: #### 2 4323-8 #### [facility] CLIA [id number] [address] [place] [address] [place] Creatinine [Mass/Vol] 0.78 mg/dL Normal 0.73-1.22 [facility] Comment on above: Order Comment: Speci men Type: BLOOD SPECIMEN Ordering Facility: [facility] Address: [address] [place] [address] Performed By: #### 2 4323-8 #### [facility] CLIA [id number] [address] [place] [address] [place] Creatinine and Glomerular filtration rate.predicted panel (S/P/Bld) 108 mL/min/1.73m??? Normal >=60 [facility] Comment on above: Order Comment: Mahsa canas Type: BLOOD SPECIMEN Ordering Facility: [facility] Address: [address] [place] [address] Result Comment: Amy mated Glomerular Filtration Rate (eGFR) is calculated using the 2020 CKD-EPI creatinine equation. This equation utilizes serum creatinine, sex, and age as parameters. The creatinine assay has traceable calibration to isotope dilution-mass spectrometry. Refer to KDIGO guidelines for clinical interpretation. In patients with unstable renal function, e.g. those with acute kidney injury, the eGFR may not accurately reflect actual GFR. Performed By: #### 2 4323-8 #### [facility] CLIA [id number] [address] [place] [address] [place] Glucose [Mass/Vol] 131 mg/dL High 74-99 [facility] Comment on above: Order Comment: Mahsa canas Type: BLOOD SPECIMEN Ordering Facility: [facility] Address: [address] [place] [address] Result Comment: The [place] Diabetes Association (ADA) provides guidance for cutoff values for fasting glucose and random glucose. The ADA defines fasting as no caloric intake for at least 8 hours. Fasting plasma glucose results between 100 to 125 mg/dL indicate increased risk for diabetes (prediabetes). Fasting plasma glucose results greater than or equal to 126 mg/dL meet the criteria for diagnosis of diabetes. In the absence of unequivocal hyperglycemia, results should be confirmed by repeat testing. In a patient with classic symptoms of hyperglycemia or hyperglycemic crisis, random plasma glucose results greater than or equal to 200 mg/dL meet the criteria for diagnosis of diabetes. Reference: Standards of Medical Care in Diabetes 2016, [place] [employer] Association. Diabetes Care. 2016.39(Suppl 1). Performed By: #### 2 4323-8 #### [facility] CLIA [id number] [address] [place] [address] [place] Potassium [Moles/Vol] 4.2 mmol/L Normal 3.7-5.1 [facility] Comment on above: Order Comment: Mahsa canas Type: BLOOD SPECIMEN Ordering Facility: [facility] Address: [address] [place] [address] Performed By: #### 2 4323-8 #### [facility] CLIA [id number] [address] [place] Protein [Mass/Vol] 6.7 g/dL Normal 6.3-8.0 [facility] Comment on above: Order Comment: Mahsa canas Type: BLOOD SPECIMEN Ordering Facility: [facility] Address: [address] [place] [address] Performed By: #### 2 4323-8 #### [facility] CLIA [id number] [address] [place] Sodium [Moles/Vol] 141 mmol/L Normal 136-144 [facility] Comment on above: Order Comment: Mahsa canas Type: BLOOD SPECIMEN Ordering Facility: [facility] Address: [address] [place] [address] Performed By: #### 2 4323-8 #### [facility] CLIA [id number] [address] [place] Urea nitrogen [Mass/Vol] 11 mg/dL Normal 9-24 [facility] Comment on above: Order Comment: Mahsa canas Type: BLOOD SPECIMEN Ordering Facility: [facility] Address: [address] [place] [address] Performed By: #### 2 4323-8 #### [facility] CLIA [id number] [address] [place] PT panel Coag (PPP)on 2024 INR Coag (PPP) [Relative time] 1.1 {INR} Normal 0.9-1.3 [facility] Comment on above: Order Comment: Mahsa canas Type: BLOOD SPECIMEN Ordering Facility: [facility] Address: [address] [place] [address] Result Comment: Elizabeth min K Antagonist (VKA) Therapeutic Range: INR 2 to 3 (Target INR of 2.5) Note: For patients treated with VKA drugs, such as warfarin, the [place] [employer] 2012 Guideline recommends a therapeutic INR range of 2 to 3 (target INR of 2.5). This recommendation includes high-risk patients with antiphospholipid syndrome with previous arterial or venous thromboembolism, current-generation mechanical or bioprosthetic aortic heart valve replacement. Note: Patients with mechanical aortic valve replacement and additional risk factors for thromboembolic events (atrial fibrillation, previous thromboembolism, LV dysfunction, hypercoagulable conditions) or an older generation mechanical AVR (i.e., ball in-Cage) or any mechanical MVR should have a INR therapeutic range of 2.5 to 3.5 (target INR of 3). Deja GH, et al. Chest 2012, 141:7S-47S Henna RA, et al. [facility] 2017, 70: 252-289 Performed By: #### 3 4528-0 #### [facility] CLIA [id number] [address] [place] [address] [place] PT Coag (PPP) [Time] 12.1 s Normal 9.7-13.0 [facility] Comment on above: Order Comment: Speci men Type: BLOOD SPECIMEN Ordering Facility: [facility] Address: [address] [place] [address] Performed By: #### 3 4528-0 #### [facility] CLIA [id number] [address] [place] Echo Complete W/ Contraston 09-01-2024 Echo Complete W/ Contrast [facility] [address] [place] [address] Echo Complete W/ Contrast 09/01/24 0842 MR#: [id number] Acct: [id number] Name: HARRIET RIDDLE [facility] Rep #: [id number] : 1975 49 From: Leticia Butterfield MD Attending Dr: Truman Matthews NP-C Status: REG CLI Ordering Dr: Truman Matthews 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 The study was technically difficult. Exam performed in department. Left Ventricle Normal size and thickness. The LV systolic function is normal. EF is 65 %. Diastolic function is indeterminate. Right Ventricle Normal right ventricle. Atria The left and right atria are normal. Mitral Valve Trivial mitral valve insufficiency. Tricuspid Valve Trivial tricuspid valve insufficiency. Unable to estimate RV systolic pressure due to insufficient tricuspid regurgitant envelope. Aortic Valve Trisinus/trileaflet aortic valve. Pulmonic Valve The pulmonic valve is not well visualized. Pericardium/Pleural No pericardial effusion. Medication Diluted definity 3ml given slow IV push to enhance endocardial definition. MMode/2D Measurements Calculations LVIDd: 4.0 cm IVSd: 0.99 cm Ao root diam: 3.2 cm LVIDs: 2.8 cm LVPWd: 1.1 cm RVDd: 3.0 cm FS: 30.2 % LAV(MOD-bp): 23.4 ml LVAd ap4: 33.7 cm2 SV(MOD-sp4): 68.2 ml LAV(MOD-bp) Indexed: 10.0 ml/m2 LVLd ap4: 8.4 cm SI(MOD-sp4): 29.1 ml/m2 LAV(MOD-sp2): 25.7 ml EDV(MOD-sp4): 110.6 ml LAV(MOD-sp4): 20.4 ml EDV(sp4-el): 115.1 ml LVAs ap4: 18.7 cm2 LVLs ap4: 6.9 cm ESV(MOD-sp4): 42.4 ml ESV(sp4-el): 43.2 ml EF(MOD-sp4): 61.7 % EF(sp4-el): 62.5 % SV(sp4-el): 71.9 ml LA A4 area: 11.4 cm2 LA dimension(2D): 3.3 cm RA A4 area: 11.5 cm2 TAPSE: 2.1 cm Time Measurements MV dec time: 0.25 sec Doppler Measurements Calculations MV E max harlan: 70.7 cm/sec Lat Peak E' Harlan: 8.9 cm/sec Med Peak E' Harlan: 7.2 cm/sec MV A max harlan: 84.3 cm/sec E/E' lat: 8.0 E/E' med: 9.9 MV E/A: 0.84 Ao V2 max: 121.6 cm/sec LV V1 max: 109.9 cm/sec PA V2 max: 90.6 cm/sec Ao max P.9 mmHg LV V1 max P.8 mmHg ECHO/Echo Complete W/ Contrast Interpretation Summary The LV systolic function is normal. EF is 65 %. Diastolic function is indeterminate. 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: Signed Normal [facility] Stress Reporton 09-01-2024 Stress Report [facility] [address] [place] [address] MR#: [id number] Acct: [id number] Name: HARRIET RIDDLE Rep #: [id number] : 1975 49 From: Leticia Butterfield MD Primary Care: BRAYAN Mccauley Status: REG CLI Referring Dr: Truman Matthews NP Sex: M C Stress Test Report Date: 09/01/2024 Procedure: Exercise tolerance test/imaging study Indications: Coronary artery disease Consent: Per the patient Procedure: The patient exercised on a Abdias protocol for 6 minutes and 45 seconds achieving a peak heart rate of 150 bpm (88% predicted maximal heart rate) with a peak blood pressure 164/7 mmHg and a peak MET capacity of 9.3 METs. The baseline ECG demonstrated sinus rhythm. The peak exercise ECG showed no ischemic changes. There were no cardiac dysrhythmias pretest, during exercise, or recovery. The functional capacity was considered average. There was no complaint of chest discomfort during exercise or recovery. The examination was discontinued secondary to target heart rate being achieved. The patient was injected with 14.5 mCi of technetium 99m Cardiolite and subsequently rest SPECT Cardiolite nuclear imaging was obtained in the horizontal long, vertical long, and short axis views. Post-exercise, the patient was injected with 44.4 mCi of technetium 99m Cardiolite and subsequently stress SPECT Cardiolite nuclear imaging was obtained in the horizontal long, vertical long, and short axis views. A gated Cardiolite study at peak stress was obtained. Rest and stress SPECT Cardiolite nuclear imaging status post realignment, normalization, and attenuation correction, demonstrates the appearance of relative uniform tracer uptake and myocardial perfusion appearing within normal limits. There is end systolic thickening and brightening. The gated Cardiolite study demonstrates myocardial thickening and inward wall motion. The reported LVEF is 71%. Impression: 1. Technically adequate (percent predicted maximal heart rate greater than 85%) exercise tolerance test 2. Peak exercise ECG with no ischemic changes 3. There were no cardiac dysrhythmias pretest, during exercise, or recovery 4. Rest and stress SPECT Cardiolite nuclear imaging demonstrate relative uniform tracer uptake and myocardial perfusion appearing within normal limits. 5. The gated Cardiolite study reports an LVEF of 71%. This note was generated with Corefinoation software. It may contain incorrect words, spelling, and punctuation that were not noted in checking the note before signing. 09/01/241726 Date Leticia Butterfield MD CC: BRAYAN Mason; BRAYNA Matthews Date Dictated: 09/01/241724 Date Transcribed: 09/01/241724 Engine Cowling Installer: MIGUEL [facility] 08-30-2024 [facility] Telephone (IRRFV) HARRIET RIDDLE ( ) 1975 M Date Time Provider Department 08/30/24 AUDREY DICKENS [facility] During your visit today, we recorded the following information about you: Audrey Dickens 08/30/2024 1:04 PM Signed Need order from Dr. Goodson's office [phone] Waiting for fax Allergies As of Date: 08/30/2024 (No Known Allergies) Date Reviewed: 10/14/2023 Reviewed by: Jeanna eTe LPN - Fully Assessed Reason for Visit: Liver biopsy [Other] Prescriptions as of 08/30/2024 - metoprolol succinate ER (TOPROL XL) 50 mg 24 hr tablet Take 1 tablet by mouth every afternoon. - tamsulosin (FLOMAX) 0.4 mg Take 1 capsule by mouth every afternoon. - MOUNJARO 10 mg/0.5 mL pen injector INJECT 10 MG SUBCUTANEOUSLY EVERY WEEK FOR 30 DAYS - icosapent ethyl (VASCEPA) 1 gram capsule Take 2 capsules by mouth every 12 hours. - atorvastatin (LIPITOR) 10 mg tablet - XIGDUO XR 10-1,000 mg XR tab - ezetimibe (ZETIA) 10 mg tablet - Pramoxine-Hydrocorti sone (ANALPRAM-HC) 1-1 % rectal cream apply anally THREE TIMES DAILY fort 7 (SEVEN) days - isosorbide mononitrate ER (IMDUR) 30 mg 24 hr tablet - losartan (COZAAR) 25 mg tablet - meloxicam (MOBIC) 15 mg tablet - Milk Thistle 150 mg cap Take 150 mg by mouth. - mupirocin (BACTROBAN) 2 % ointment APPLY THREE TIMES DAILY NEEDED for ingrown toenail. - omega 8-gdg-sxq-fish oil (FISH OIL) 300-1,000 mg cpDR Take by mouth. - pantoprazole DR (PROTONIX) 40 mg tablet - traMADol (ULTRAM) 50 mg tablet - traZODone (DESYREL) 50 mg tablet - psyllium husk (METAMUCIL ORAL) Take by mouth. - furosemide (LASIX) 40 mg tablet Take 40 mg by mouth twice daily. - hydrocodone bit/acetaminophen( CODIN 5 MG-500 MG TAB) Take 1-2 tablet's) every six(6) hours as needed for pain. - ALBUTEROL SULFATE HFA 90 MCG/ACTUATION AEROSOL INHALER Inhale one(1) - two(2) puffs four(4) times a day as needed for wheezing and shortness of breath. - polymyxin b sulfate/tmp(POLYTRIM 0.1 %-10,000 UNIT/ML EYE DROPS) Instill 2 drops to affected every 4 hours until symptoms clear +2 days. Problem List As Of Date 08/30/2024 Noted Resolved Unspecified Essential Hypertension [I10] Elev Transaminase/LDH [R74.01, R74.02] Localized Superficial Swelling, Mass, or Lump [*01/08/2010 Encounter Status:Closed by AUDREY DICKENS on 08/30/24 [facility] Pulmonary Visit Reporton Pulmonary Visit Report [facility] [place] [address] [place] [address] OFFICE VISIT Date of Service: 08/04/24 MR#: [id number] Acct: [id number] Name: HARRIET RIDDLE Rep #: [id number] : 1975 Provider: Sindy Samayoa NP Age/Sex: 49/M Location: [facility] Status: Signed Assessment and Plan Assessment and Plan (1) Complex sleep apnea syndrome: Status: Chronic Comment: On ASV with residual AHI of 0.5 Plan: His apnea is well-controlled with use of ASV device. He is using and benefiting from his device. No indication for titration study at this time. I recommend that he continue with his current settings. Continue to encourage weight loss. Contact the office for any new or worsening symptoms in the meantime. (2) Smoking greater than 20 pack years: Status: Chronic Comment: quit 2011 Plan: He remains appropriate for LDCT. Repeat due in February 2025, previously ordered. (3) Chest tightness: Status: Acute Plan: Exertional chest tightness is present that is associated with shortness of breath. The CT imaging from February 2024 does show moderate coronary artery calcification and atherosclerotic plaque present within thoracic aorta, I would like for Truman Matthews CNP to receive a copy of this report as it is from [facility]. I have recommended that he continue to follow with cardiology. (4) Shortness of breath: Status: Acute Plan: I have recommended a PFT and 6-minute walk test due to the patient's shortness of breath that is present with exertion and significant smoking history. The patient could have developed asthma. At this point I do not have evidence that suggests COPD is present as the last pulmonary function test was from 2014 which showed mild restriction and mild gas transfer abnormality. The most recent CT imaging did not state presence of emphysema or hyperinflation. The patient does have significant cardiovascular history so this could be contributing to his respiratory symptoms as well. Deconditioning and obesity may also be part of the differential for shortness of breath. For now continue with use of albuterol and ICS/LABA inhaled therapy. Pending pulmonary testing I may adjust his inhaled regimen. Orders: Orders PFT Complete - DLCO, Spirometry b/a bronchodilators, lung volumes 08/16/24 F17.210 - Nicotine dependence, cigarettes, uncomplicated, R06.02 - Shortness of breath Simple Pulmonary Exercise Test 09/09/24 F17.210 - Nicotine dependence, cigarettes, uncomplicated, R06.02 - Shortness of breath Plan Details Follow Up: 6 to 8 weeks (LMR) HPI HPI Comments Details: Patient is a 49-year-old male who presents to the office today for follow-up of his obstructive sleep apnea complicated by history of nicotine abuse. He is ambulatory and currently on room air. He has not recently been seen in the ED or urgent care for any respiratory illness. He is prednisone for any breathing problems. He reports that he has been experiencing shortness of breath and chest tightness with exertion. He indicates that over the wintertime he was more sedentary but now that the weather has improved he has noticed more of his respiratory symptoms. He denies any cough, sputum production or hemoptysis. He denies any wheezing, chest pain or palpitations. He also denies any fever, chills or body aches. The patient indicates that he has increased the use of his rescue inhaler in the past few weeks more than normal. He has not used his nebulizer in "a while ". He reports that he feels like an inhaled corticosteroid is more beneficial to him than albuterol. In the past he has used Symbicort inhaler and has this available at home for use. Patient reports waking up feeling rested and refreshed with use of his ASV machine. He is not having difficulty with nocturia. He does nap on occasion. He reports occasional dry mouth. He den ies morning headache. He denies nocturia. If you recall, he does have a 55-crfm-xedl smoking history, quitting completely in 2011. Interpretation from a LDCT completed at [facility] on February 26, 2024 is available. No suspicious nodules are noted. Multiple calcified lymph nodes are present in the bilateral hilar region and mediastinum. Moderate coronary calcification is noted along with atherosclerotic plaque present in the thoracic aorta. Test results personally reviewed with the patient: Compliance report for the past 30 days shows 100% compliance with average use of 8 hours and 18 minutes per night. Current setting is air curve 10 ASV minimum pressure support 6 cmH2O, maximum p ressure support 15 cmH2O with an EPAP of 10 cm water. Residual AHI 0.4 events per hour. Leaks do not appear to be an issue. Intake Vital Signs 03/30/24 07:57 04/07/24 10:36 08/04/24 12:40 Height 5 ft 10 in 5 ft 10 in 5 ft 10 in (more content not included)... Normal [facility] Progress Noteon 07-26-[address] [facility] Infectious Disease Patient: Aakash Anderson : 1975 Height: Ht Readings from Last 1 Encounters: 07/26/24 5' 9" (1.753 m) Weight: Wt Readings from Last 1 Encounters: 07/26/24 260 lb (118 kg) BMI: BMI Readings from Last 1 Encounters: 07/26/24 38.40 kg/m? Procedure: Patient referred by [facility] for open-access FibroScan study for diagnosis of Fatty Liver Patient identified x 2 and verified the following: age 18 or older-yes Fasting >3 hours-yes FibroScan study completed using Medium probe and 13 consecutive valid measurements obtained. Patient tolerated procedure well. Results: Median=28.6 kPa IQR/med=20 % AQJ=865 dB/m Marcie Alejandro RN, 07/26/2024 5:07 PM Diagnosis/Problems: Diagnosis Plan 1. Fatty liver Fibroscan 2. Elevated liver enzymes Fibroscan Normal [facility] Orthopedic Visit Reporton Orthopedic Visit Report [facility] [address] OFFICE VISIT Date of Service: 06/28/24 MR#: [id number] Acct: [id number] Name: HARRIET RIDDLE SCOT Rep #: [id number] : 1975 Provider: Dr. Umang tiwari MD Age/Sex: 49/M Location: [facility] Status: Signed Intake Vital Signs 04/07/24 10:36 Height 5 ft 10 in Intake Visit Reasons: LEFT SHOULDER Chief Complaint: Left shoulder Is patient in pain?: Yes (left shoulder) Pain scale (1-10): 4 Allergies triamcinolone (From Kenalog) Allergy (Intermediate, Verified 06/28/24 15:18) Rash amoxicillin (From Augmentin) Adverse Reaction (Intermediate, Verified 06/28/24 15:18) Diarrhea clavulanic acid (From Augmentin) Adverse Reaction (Intermediate, Verified 06/28/24 15:18) Diarrhea Medications ???Medication ???Instructions ???Recorded ???Confirmed ???Type milk thistle 150 mg capsule 150 mg PO BID 01/12/19 06/28/24 Hi story ascorbic acid (vitamin C) 1,000 mg 1 g PO BID 02/20/22 06/28/24 His tory tablet vitamin E mixed 200 unit tablet 200 unit PO DAILY 02/20/22 5 History albuterol sulfate 90 mcg/actuation 2 puff inhalation Q4H PRN asthma 3 10/22/22 06/28/24 Rx aerosol inhaler (Ventolin HFA) months #18 grams pantoprazole 40 mg tablet,delayed 40 mg PO DAILY #90 tabs 02/21/23 06/28/24 Rx release aspirin 81 mg tablet,delayed 81 mg PO DAILY #30 tabs 07/21/23 0 06/28/24 Rx release (Adult Aspirin Regimen) isosorbide mononitrate 30 mg 30 mg PO DAILY #90 tabs 07/31/23 0 06/28/24 Rx tablet,extended release 24 hr atorvastatin 10 mg tablet (Lipitor) 10 mg PO DAILY #90 tabs 4 06/28/24 Rx ezetimibe 10 mg tablet (Zetia) 10 mg PO QDAY #90 tabs 08/12/23 Rx dapagliflozin propaned 10 1 tab PO DAILY 10/20/23 06/28/24 H istory mg-metformin ER 1,000 mg tablet,ext rel 24hr (Xigduo XR) icosapent ethyl 1 gram capsule 2 g (2 x 1 gram) PO BID 90 days 06/28/24 Rx #360 caps metoprolol succinate 25 mg 25 mg PO DAILY #90 tabs 11/26/23 0 06/28/24 Rx tablet,extended release 24 hr albuterol sulfate 2.5 mg/3 mL 2.5 mg inhalation Q6H PRN 03/24/24 06/28/24 History (0.083 %) solution for nebulization shortness of breath or wheezing famotidine 40 mg tablet 40 mg PO DAILY PRN GERD 03/24/24 0 06/28/24 History tamsulosin 0.4 mg capsule 0.4 mg PO QHS 03/24/24 06/28/24 Hi story tirzepatide 12.5 mg/0.5 mL 12.5 mg subcut BARRETT 03/24/24 5 History subcutaneous pen injector (Eliseounjaro) gabapentin 300 mg capsule mg PO 05/17/24 06/28/24 History fluticasone 500 mcg-salmeterol 50 1 inh inhalation BID #60 ea 06/0706/28/24 Rx mcg/dose blistr powdr for inhalation (Wixela Inhub) losartan 50 mg tablet 50 mg PO DAILY #90 tabs 06/28/24 0 06/28/24 Rx PFSH Medical History Central sleep apnea Loss of hearing Arthritis Dietary restriction Gastric reflux Paralabral cyst of left shoulder Injury of superior glenoid labrum of left shoulder joint Impingement of left shoulder Hypertriglyceridemia Wears glasses Alcohol use Diabetes High cholesterol Back pain Former smoker Asthma Shortness of breath on exertion History of edema History of echocardiogram History of stress test Cardiology follow-up encounter Essential hypertension Diverticulitis Fatty liver Atherosclerosis of coronary artery of [place] heart without angina pectoris Abnormal liver enzymes Obesity (BMI 30.0-34.9) Type 2 diabetes mellitus without complications COPD (chronic obstructive pulmonary disease) Obstructive sleep apnea Hyperlipidemia Surgical History History of lumbar fusion H/O radiofrequency ablation (RFA) of nerve of lumbar spine Hx of excision of mass Hx of hand surgery History of tonsillectomy History of coronary artery stent placement (10/27/14) Family History Sister Diabetes Grandfather CAD (coronary artery disease) Other Asthma CVA (cerebral vascular accident) Cancer Chronic inflammatory demyelinating polyneuropathy Family history of high cholesterol Heart disease Hypertension Leukemia Osteoporosis Thyroid disorder Social History Smoking Status: Former smoker pack-years: 20 Tobacco: How many years used: 15 Electronic Cigarette Use: not used how long ago did patient quit smokin second hand exposure: No alcohol intake: current alcohol intake frequency: a few times a month substance use type: does not use caffeine: Yes Type: coffee Number of servings: 2 and other HPI LEFT SHOULDER Details: This documentation accurately reflects the servic (more content not included)... Normal [facility] Albumin to globulin ratioon 06-24-2024 Albumin/Globulin [Mass ratio] 1.2 {ratio} 0.9-2.4 [facility] Bilirubin, totalon Bilirubin [Mass/Vol] 1.60 mg/dL High 0.20-1.00 [facility] Comment on above: For patients on eltr ombopag therapy, use of Dimension [place] TBIL is not recommended. Blood urea nitrogen (BUN)/cr eatinine ratioon 06-24-2024 Urea nitrogen/Creatinine [Mass ratio] 16.5 mg/mg 10-20 [facility] Carbon dioxide measurementon 06-24-2024 CO2 [Moles/Vol] 26.0 mmol/L 21.0-32.0 [facility] Chloride measurementon 06-24 Chloride [Moles/Vol] 106 mmol/L 98-107 [facility] Comprehensive Metabolic Prof ilon 06-24-2024 Albumin [Mass/Vol] 3.8 g/dL Normal 3.2-5.0 [facility] Comment on above: Performed By: #### L 500.4050, L500.4100 ####[facility] [address] [place], [address] Albumin/Globulin [Mass ratio] 1.2 {ratio} Normal 0.9-2.4 [facility] Comment on above: Performed By: #### L 500.4050, L500.4100 ####[facility] [address] [place], [address] ALK P 79 U/L Normal 45-117 [facility] Comment on above: Performed By: #### L 500.4050, L500.4100 ####[facility] [address] [place], [address] ALT [Catalytic activity/Vol] 62 U/L High 16-61 [facility] Comment on above: Performed By: #### L 500.4050, L500.4100 ####[facility] [address] [place], [address] AST [Catalytic activity/Vol] 30 U/L Normal 15-37 [facility] Comment on above: Performed By: #### L 500.4050, L500.4100 ####[facility] [address] [place], [address] Bilirubin [Mass/Vol] 1.60 mg/dL High 0.20-1.00 [facility] Comment on above: Result Comment: For patients on eltrombopag therapy, use of Dimension [place] TBIL is not recommended. Performed By: #### L 500.4050, L500.4100 ####[facility] [address] [place], [address] BUN/CRE 16.5 RATIO Normal 10-20 [facility] Comment on above: Performed By: #### L 500.4050, L500.4100 ####[facility] [address] [place], [address] CA,Total 8.8 mg/dL Normal 8.5-10.1 [facility] Comment on above: Performed By: #### L 500.4050, L500.4100 ####[facility] [address] [place], [address] Chloride [Moles/Vol] 106 mmol/L Normal 98-107 [facility] Comment on above: Performed By: #### L 500.4050, L500.4100 ####[facility] [address] [place], [address] CO2 [Moles/Vol] 26.0 mmol/L Normal 21.0-32.0 [facility] Comment on above: Performed By: #### L 500.4050, L500.4100 ####[facility] [address] [place], [address] Creatinine [Mass/Vol] 0.73 mg/dL Normal 0.70-1.30 [facility] Comment on above: Result Comment: The validity of the calculated GFR GFRAA in patients over 70 years has not been determined. Clinical correlation is essential. Performed By: #### L 500.4050, L500.4100 ####[facility] [address] [place], [address] EST GFR - AA 146 mL/min Normal >60 [facility] Comment on above: Result Comment: Afri can Chilean GFR Calc Performed By: #### L 500.4050, L500.4100 ####[facility] [address] [place], [address] GAP 7 Normal 5-15 [facility] Comment on above: Performed By: #### L 500.4050, L500.4100 ####[facility] [address] [place], [address] GFR/1.73 sq M.predicted among non-blacks MDRD (S/P/Bld) [Vol rate/Area] 121 mL/min/{1.73_m2} Normal >60 [facility] Comment on above: Result Comment: Non- GFR Calc Performed By: #### L 500.4050, L500.4100 ####[facility] [address] [place], [address] Globulin (S) [Mass/Vol] 3.1 g/dL Normal 2.2-4.2 [facility] Comment on above: Performed By: #### L 500.4050, L500.4100 ####[facility] [address] [place], [address] Glucose [Mass/Vol] 125 mg/dL High 74-106 [facility] Comment on above: Result Comment: Fast ing Glucose result from 100 to 125 mg/dL suggests IMPAIRED HOMEOSTASIS per A.D.A. criteria. Performed By: #### L 500.4050, L500.4100 ####[facility] [address] [place], [address] Potassium [Moles/Vol] 3.8 mmol/L Normal 3.5-5.1 [facility] Comment on above: Performed By: #### L 500.4050, L500.4100 ####[facility] [address] [place], [address] Sodium [Moles/Vol] 139 mmol/L Normal 136-145 [facility] Comment on above: Performed By: #### L 500.4050, L500.4100 ####[facility] [address] [place], [address] T PROT 6.9 g/dL Normal 6.4-8.2 [facility] Comment on above: Performed By: #### L 500.4050, L500.4100 ####[facility] [address] [place], [address] Urea nitrogen [Mass/Vol] 12 mg/dL Normal 7-18 [facility] Comment on above: Performed By: #### L 500.4050, L500.4100 ####[facility] [address] [place], [address] Estimated glomerular filtrat ion rate (GFR) Americanon 06-24-2024 Estimated GFR (MDRD) Amer 146 mL/min >60 [facility] Comment on above: GFR Calc Glomerular filtration rate ( GFR) estimationon 06-24-2024 Estimated GFR (MDRD) Non-Af Amer 121 mL/min >60 [facility] Comment on above: Non- GFR Calc GFR/1.73 sq M.predicted among non-blacks MDRD (S/P/Bld) [Vol rate/Area] 121 mL/min/{1.73_m2} >60 [facility] Comment on above: Non- GFR Calc Glucose measurementon 2024 Glucose [Mass/Vol] 125 mg/dL High 74-106 [facility] Comment on above: Fasting Glucose resu lt from 100 to 125 mg/dL suggests IMPAIRED HOMEOSTASIS per A.D.A. criteria. High density lipoprotein (HD L) measurementon 06-24-2024 Cholesterol in HDL [Mass/Vol] 40 mg/dL >40 [facility] Comment on above: The drugs N-Acetylcy steine and Metamizole may falsely depress this assay. Reference Range HDL <40 mg/dL Low HDL Cholesterol HDL >or= 60 mg/dL High HDL Cholesterol Laboratory - Chemistry and C hemistry - challengeon 06-24-2024 AST [Catalytic activity/Vol] 30 U/L 15-37 [facility] Lipid Profileon 06-24-2024 Cholesterol [Mass/Vol] 104 mg/dL Normal 200 [facility] Comment on above: Result Comment: <200 mg/dL Desirable 200-240 mg/dL Borderline >240 mg/dL High Risk Performed By: #### L 500.4050, L500.4100 ####[facility] [address] [place], [address] Cholesterol in HDL [Mass/Vol] 40 mg/dL Normal [facility] Comment on above: Result Comment: The drugs N-Acetylcysteine and Metamizole may falsely depress this assay. Reference Range HDL <40 mg/dL Low HDL Cholesterol HDL >or= 60 mg/dL High HDL Cholesterol Performed By: #### L 500.4050, L500.4100 ####[facility] [address] [place], [address] Cholesterol in LDL [Mass/Vol] 34 mg/dL Normal 0-130 [facility] Comment on above: Performed By: #### L 500.4050, L500.4100 ####[facility] [address] [place], [address] Cholesterol in VLDL [Mass/Vol] 30 mg/dL Normal 5-40 [facility] Comment on above: Performed By: #### L 500.4050, L500.4100 ####[facility] [address] [place], [address] Triglyceride [Mass/Vol] 151 mg/dL Normal [facility] Comment on above: Result Comment: The drugs N-Acetylcysteine and Metamizole may falsely depress this assay. Serum Triglycerides Reference Interval Normal <150 mg/dL Borderline high 150 - 199 mg/dL High 200 - 499 mg/dL Very High > or = 500 mg/dL Performed By: #### L 500.4050, L500.4100 ####[facility] [address] [facility] [place], [address] Low density lipoprotein (LDL ) cholesterol measurementon 06-24-2024 Cholesterol in LDL [Mass/Vol] 34 mg/dL 0-130 [facility] Potassium measurementon 02-0 Potassium [Moles/Vol] 3.8 mmol/L 3.5-5.1 [facility] Serum anion gap measuremento n 06-24-2024 Anion gap [Moles/Vol] 7 mmol/L 5-15 [facility] Serum globulin measurementon 06-24-2024 Globulin (S) [Mass/Vol] 3.1 g/dL 2.2-4.2 [facility] Serum or plasma alanine jade otransferase (ALT) measurementon 06-24-2024 ALT [Catalytic activity/Vol] 62 U/L High 16-61 [facility] Serum or plasma albumin arpan urement (mass/volume)on 06-24-2024 Albumin [Mass/Vol] 3.8 g/dL 3.2-5.0 [facility] Serum or plasma alkaline yadira sphatase measurementon 06-24-2024 ALP [Catalytic activity/Vol] 79 U/L 45-117 [facility] Serum or plasma calcium arpan urement (mass/volume)on 06-24-2024 Calcium [Mass/Vol] 8.8 mg/dL 8.5-10.1 [facility] Serum or plasma cholesterol measurement (mass/volume)on 06-24-2024 Cholesterol [Mass/Vol] 104 mg/dL <200 [facility] Comment on above: <200 mg/dL Desirable 200-240 mg/dL Borderline >240 mg/dL High Risk Serum or plasma creatinine m easurement (mass/volume)on 06-24-2024 Creatinine [Mass/Vol] 0.73 mg/dL 0.70-1.30 [facility] Comment on above: The validity of the calculated GFR & GFRAA in patients over 70 years has not been determined. Clinical correlation is essential. Serum or plasma urea nitroge n measurement (mass/volume)on 06-24-2024 Urea nitrogen [Mass/Vol] 12 mg/dL 7-18 [facility] Sodium levelon 06-24-2024 Sodium [Moles/Vol] 139 mmol/L 136-145 [facility] Total proteinon 06-24-2024 Protein [Mass/Vol] 6.9 g/dL 6.4-8.2 [facility] Triglycerides measurementon 06-24-2024 Triglyceride [Mass/Vol] 151 mg/dL <199 [facility] Comment on above: The drugs N-Acetylcy steine and Metamizole may falsely depress this assay.Serum Triglycerides Reference Interval Normal <150 mg/dL Borderline high 150 - 199 mg/dL High 200 - 499 mg/dL Very High > or = 500 mg/dL Very low density lipoprotein (VLDL) cholesterol measurementon 06-24-2024 Very low density lipoprotein (VLDL) cholesterol measurement 30 mg/dL 5-40 [facility] VLDL Cholesterol 30 mg/dL 5-40 [facility] MRI LUMBAR SPINE WO IVCONon 06-09-2024 MRI LUMBAR SPINE WO IVCON * * *Final Report* * * DATE OF EXAM: Jun 09 2024 3:10PM WRM [id number] - MRI LUMBAR SPINE WO IVCON / PROCEDURE REASON: lumbar r69.0 * * * * Physician Interpretation * * * * EXAMINATION: MRI LUMBAR SPINE WO IVCON CLINICAL HISTORY: Chronic low back pain, right leg pain TECHNIQUE: Routine lumbosacral spine MR protocol without gadolinium. MQ: [id number] COMPARISON: None. RESULT: Counting reference: Lumbosacral junction. For the purposes of this report, L4-5 is considered the level of the iliac crest and there are 5 lumbar-type vertebrae. Anatomic variant: Transitional L5 vertebral body. Localizer images: No additional findings. Alignment: Alignment is anatomic. Bone marrow signal/fracture: Degenerative endplate changes without associated marrow edema. No focal marrow lesion. No evidence of prior fracture. Conus: The visualized spinal cord is normal in morphology and signal intensity. The cauda equina is unremarkable. Paraspinal soft tissues: Paraspinal muscular atrophy, the paraspinal soft tissues are otherwise unremarkable. Lower thoracic spine: Visualized lower thoracic canal and foramina are patent. L1-L2: Facet hypertrophy without canal or foraminal narrowing. L2-L3: Facet hypertrophy without canal or foraminal narrowing. L3-L4: Disc bulge and facet hypertrophy with mild narrowing of both subarticular recesses. L4-L5: Disc bulge with a superimposed left central foraminal disc protrusion as well as facet hypertrophy and ligamentum flavum thickening, resulting in diffuse mild spinal canal narrowing and mild right and moderate left neural foramen narrowing. L5-S1: Facet hypertrophy without canal or foraminal narrowing. Sacrum and iliac wings: The visualized sacrum and iliac wings are within normal limits. IMPRESSION: Degenerative changes most pronounced at L4-5. Anatomic Lumbar Variant: Transitional L5 vertebral body. L4-5 is considered the level of the iliac crest and there are 5 lumbar-type vertebrae. Engine Cowling Installer: RICHARD Transcribe Date/Time: Jun 11 2024 8:16A Dictated by : YENNI AVILA MD This examination was interpreted and the report reviewed and electronically signed by: YENNI AVILA MD on Jun 11 2024 8:20AM EST [id number] CN Normal [facility] Orthopedic Visit Reporton Orthopedic Visit Report [facility] [address] [place] [address] OFFICE VISIT Date of Service: 05/17/24 MR#: [id number] Acct: [id number] Name: HARRIET RIDDLE LORRAINE Rep #: [id number] : 1975 Provider: Dr. Umang tiwari MD Age/Sex: 49/M Location[place] [facility] Status: Signed Intake Vital Signs 04/07/24 10:36 Height 5 ft 10 in Intake Visit Reasons: LEFT SHOULDER Chief Complaint: Left shoulder Accompanied by: Self Is patient in pain?: Yes Allergies triamcinolone (From Kenalog) Allergy (Intermediate, Verified 05/17/24 10:31) Rash amoxicillin (From Augmentin) Adverse Reaction (Intermediate, Verified 05/17/24 10:31) Diarrhea clavulanic acid (From Augmentin) Adverse Reaction (Intermediate, Verified 05/17/24 10:31) Diarrhea Medications ???Medication ???Instructions ???Recorded ???Confirmed ???Type milk thistle 150 mg capsule 150 mg PO BID 01/12/19 05/17/24 History ascorbic acid (vitamin C) 1,000 mg 1 g PO BID 02/20/22 05/17/24 History tablet vitamin E mixed 200 unit tablet 200 unit PO DAILY 02/20/22 05/17/24 History albuterol sulfate 90 mcg/actuation 2 puff inhalation Q4H PRN asthma 3 10/22/22 05/17/24 Rx aerosol inhaler (Ventolin HFA) months #18 grams pantoprazole 40 mg tablet,delayed 40 mg PO DAILY #90 tabs 02/21/23 05/17/24 Rx release aspirin 81 mg tablet,delayed 81 mg PO DAILY #30 tabs 07/21/23 05/17/24 Rx release (Adult Aspirin Regimen) isosorbide mononitrate 30 mg 30 mg PO DAILY #90 tabs 07/31/23 05/17/24 Rx tablet,extended release 24 hr atorvastatin 10 mg tablet (Lipitor) 10 mg PO DAILY #90 tabs 08/12/23 05/17/24 Rx ezetimibe 10 mg tablet (Zetia) 10 mg PO QDAY #90 tabs 08/12/23 05/17/24 Rx losartan 50 mg tablet 50 mg PO DAILY #90 tabs 08/12/23 05/17/24 Rx dapagliflozin propaned 10 1 tab PO DAILY 10/20/23 05/17/24 History mg-metformin ER 1,000 mg tablet,ext rel 24hr (Xigduo XR) icosapent ethyl 1 gram capsule 2 g (2 x 1 gram) PO BID 90 days 10/20/23 05/17/24 Rx #360 caps metoprolol succinate 25 mg 25 mg PO DAILY #90 tabs 11/26/23 05/17/24 Rx tablet,extended release 24 hr albuterol sulfate 2.5 mg/3 mL 2.5 mg inhalation Q6H PRN 03/24/24 05/17/24 History (0.083 %) solution for nebulization shortness of breath or wheezing famotidine 40 mg tablet 40 mg PO DAILY PRN GERD 03/24/24 05/17/24 History tamsulosin 0.4 mg capsule 0.4 mg PO QHS 03/24/24 05/17/24 History tirzepatide 12.5 mg/0.5 mL 12.5 mg subcut BARRETT 03/24/24 05/17/24 History subcutaneous pen injector (Christel) fluticasone 500 mcg-salmeterol 50 1 inh inhalation BID #60 ea 04/01/24 05/17/24 Rx mcg/dose blistr powdr for inhalation (Radhaxela Inhub) gabapentin 300 mg capsule mg PO 05/17/24 05/17/24 History PFSH Medical History Central sleep apnea Loss of hearing Arthritis Dietary restriction Gastric reflux Paralabral cyst of left shoulder Injury of superior glenoid labrum of left shoulder joint Impingement of left shoulder Hypertriglyceridemia Wears glasses Alcohol use Diabetes High cholesterol Back pain Former smoker Asthma Shortness of breath on exertion History of edema History of echocardiogram History of stress test Cardiology follow-up encounter Essential hypertension Diverticulitis Fatty liver Atherosclerosis of coronary artery of [place] heart without angina pectoris Abnormal liver enzymes Obesity (BMI 30.0-34.9) Type 2 diabetes mellitus without complications COPD (chronic obstructive pulmonary disease) Obstructive sleep apnea Hyperlipidemia Surgical History History of lumbar fusion H/O radiofrequency ablation (RFA) of nerve of lumbar spine Hx of excision of mass Hx of hand surgery History of tonsillectomy History of coronary artery stent placement (10/27/14) Family History Sister Diabetes Grandfather CAD (coronary artery disease) Other Asthma CVA (cerebral vascular accident) Cancer Chronic inflammatory demyelinating polyneuropathy Family history of high cholesterol Heart disease Hypertension Leukemia Osteoporosis Thyroid disorder Social History Smoking Status: Former smoker pack-years: 20 Tobacco: How many years used: 15 Electronic Cigarette Use: not used how long ago did patient quit smokin second hand exposure: No alcohol intake: current alcohol intake frequency: a few times a month substance use type: does not use caffeine: Yes Type: coffee Number of servings: 2 and other HPI LEFT SHOULDER Details: This documentation accurately reflects the service provided and the decisions made by me, Dr. Umang Gomes (more content not included)... Normal [facility] Orthopedic Visit Reporton Orthopedic Visit Report [facility] [address] [place] [address] [address] [place] [address] OFFICE VISIT Date of Service: 04/26/24 MR#: [id number] Acct: [id number] Name: HARRIET RIDDLE Rep #: [id number] : 1975 Provider: Dr. Umang tiwari MD Age/Sex: 49/M Location[place] [facility] Status: Signed Intake Vital Signs 02/20/24 09:35 04/07/24 10:36 Height 5 ft 10 in 5 ft 10 in Intake Visit Reasons: left shoulder Chief Complaint: Left shoulder Accompanied by: Self Is patient in pain?: Yes Pain scale (1-10): 4 Allergies triamcinolone (From Kenalog) Allergy (Intermediate, Verified 04/26/24 09:52) Rash amoxicillin (From Augmentin) Adverse Reaction (Intermediate, Verified 04/26/24 09:52) Diarrhea clavulanic acid (From Augmentin) Adverse Reaction (Intermediate, Verified 04/26/24 09:52) Diarrhea Medications ???Medication ???Instructions ???Recorded ???Confirmed ???Type milk thistle 150 mg capsule 150 mg PO BID 01/12/19 04/26/24 History ascorbic acid (vitamin C) 1,000 mg 1 g PO BID 02/20/22 04/26/24 History tablet vitamin E mixed 200 unit tablet 200 unit PO DAILY 02/20/22 04/26/24 History albuterol sulfate 90 mcg/actuation 2 puff inhalation Q4H PRN asthma 3 10/22/22 04/26/24 Rx aerosol inhaler (Ventolin HFA) months #18 grams pantoprazole 40 mg tablet,delayed 40 mg PO DAILY #90 tabs 02/21/23 04/26/24 Rx release aspirin 81 mg tablet,delayed 81 mg PO DAILY #30 tabs 07/21/23 04/26/24 Rx release (Adult Aspirin Regimen) isosorbide mononitrate 30 mg 30 mg PO DAILY #90 tabs 07/31/23 04/26/24 Rx tablet,extended release 24 hr atorvastatin 10 mg tablet (Lipitor) 10 mg PO DAILY #90 tabs 08/12/23 04/26/24 Rx ezetimibe 10 mg tablet (Zetia) 10 mg PO QDAY #90 tabs 08/12/23 04/26/24 Rx losartan 50 mg tablet 50 mg PO DAILY #90 tabs 08/12/23 04/26/24 Rx dapagliflozin propaned 10 1 tab PO DAILY 10/20/23 04/26/24 History mg-metformin ER 1,000 mg tablet,ext rel 24hr (Xigduo XR) icosapent ethyl 1 gram capsule 2 g (2 x 1 gram) PO BID 90 days 10/20/23 04/26/24 Rx #360 caps metoprolol succinate 25 mg 25 mg PO DAILY #90 tabs 11/26/23 04/26/24 Rx tablet,extended release 24 hr albuterol sulfate 2.5 mg/3 mL 2.5 mg inhalation Q6H PRN 03/24/24 04/26/24 History (0.083 %) solution for nebulization shortness of breath or wheezing famotidine 40 mg tablet 40 mg PO DAILY PRN GERD 03/24/24 04/26/24 History tamsulosin 0.4 mg capsule 0.4 mg PO QHS 03/24/24 04/26/24 History tirzepatide 12.5 mg/0.5 mL 12.5 mg subcut BARRETT 03/24/24 04/26/24 History subcutaneous pen injector (Eliseounjon) fluticasone 500 mcg-salmeterol 50 1 inh inhalation BID #60 ea 04/01/24 04/26/24 Rx mcg/dose blistr powdr for inhalation (Suzanne Michaud) [facility] Medical History Central sleep apnea Loss of hearing Arthritis Dietary restriction Gastric reflux Paralabral cyst of left shoulder Injury of superior glenoid labrum of left shoulder joint Impingement of left shoulder Hypertriglyceridemia Wears glasses Alcohol use Diabetes High cholesterol Back pain Former smoker Asthma Shortness of breath on exertion History of edema History of echocardiogram History of stress test Cardiology follow-up encounter Essential hypertension Diverticulitis Fatty liver Atherosclerosis of coronary artery of [place] heart without angina pectoris Abnormal liver enzymes Obesity (BMI 30.0-34.9) Type 2 diabetes mellitus without complications COPD (chronic obstructive pulmonary disease) Obstructive sleep apnea Hyperlipidemia Surgical History History of lumbar fusion H/O radiofrequency ablation (RFA) of nerve of lumbar spine Hx of excision of mass Hx of hand surgery History of tonsillectomy History of coronary artery stent placement (10/27/14) Family History Sister Diabetes Grandfather CAD (coronary artery disease) Other Asthma CVA (cerebral vascular accident) Cancer Chronic inflammatory demyelinating polyneuropathy Family history of high cholesterol Heart disease Hypertension Leukemia Osteoporosis Thyroid disorder Social History Smoking Status: Former smoker pack-years: 20 Tobacco: How many years used: 15 Electronic Cigarette Use: not used how long ago did patient quit smokin second hand exposure: No alcohol intake: current alcohol intake frequency: a few times a month substance use type: does not use caffeine: Yes Type: coffee Number of servings: 2 and other HPI left shoulder Details: This documentation accurately reflects the service provided and the decisions made by me, Dr. Umang Braxton MD (more content not included)... Normal [facility] Inital Evaluation (1) - PTon 04-20-2024 Inital Evaluation (1) - PT [facility] Physical Therapy [facility] [address] [place] [address] / REHABILITATION SERVICES INITIAL EVALUATION MR#: [id number] Acct: [id number] Name: AAKASHHARRIET LORRAINE Rep #: [id number] : 1975 49 From: Lulu Sarah [facility] Referring Dr.: Dr. Umang Braxton MD Status: R EG RCR Insurance: [employer] SELF PAY INSURANCE Patient's Visit Information Visit Information Visit Information: HARRIET RIDDLE is a 49 year old M referred to Physical Therapy by Dr. Umang Braxton MD with a diagnosis of S/P. Date of Evaluation: 04/20/24 Physical Therapist: HERMANN Chahal Visit Plan Frequency: 2x /Week Duration: 3 Months Plan: Message sent to Dr Braxton about protocol. 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 His shoulder has been messed up for awhile but finally decided to get something done about it. Pt had sub acromial decompression, Para labral cyst posterior labral repair on 04-07-24. Constant achy pain. He tries to recline his bed or sleep in the recliner but not getting great sleep. 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 As of right now he is thinking May 19 to go back to work. He has no N T. Pain L shoulder pain: Pain Intensity (Out of 10): 4 Objective Objective: L shoulder PROM flexion 90 degrees, ER 32 degrees Reviewed HEP: pendulums Balance/Special Test Scores Quick DASH Score: 52.2725 Goals Goal 1:: I HEP Goal Time Frame: 8-12 Weeks Goal 2:: Increase L shoulder AROM to WFL elevation, ER, IR Goal Time Frame: 8-12 Weeks Goal 3:: Be able to use his L arm with all activities without pain Goal Time Frame: 8-12 Weeks Goal 4:: Increase L shoulder strength to be within 1-2 of the R. Goal Time Frame: 8-12 Weeks Rehabilitation Potential Rehabilitation Potential: Good Anticipated Interventions Patient/Client Instruction: Educate patient on: Condition and Plan of Care For the Purpose of:: To decrease pain, To decrease swelling/inflammatio n, To increase ROM, To improve nutrient delivery to tissue, To increase oxygenation perfusion, To improve muscle performance and motor function, To improve ability to perform ADL's, To increase tolerance to activity/condition/p osition, To improve performance and independence with ADL's, To decrease level of supervision to perform tasks, To improve ability of physical actions for home/community/work/ leisure, To improve health of tissue, To decrease soft tissue restriction and To increase flexibility/ROM Therapeutic Exercise to Include: Strength training, Endurance training, Postural training, Flexibilty training, Passive ROM, Active ROM and Scapular Strength/Stabilizati on For the Purpose of:: To decrease pain, To decrease swelling/inflammatio n, To increase ROM, To improve nutrient delivery to tissue, To improve muscle performance and motor function, To improve ability to perform ADL's, To increase tolerance to activity/condition/p osition, To improve performance and independence with ADL's, To decrease level of supervision to perform tasks, To improve ability of physical actions for home/community/work/ leisure, To improve gait and locomotor functions, To improve health of tissue, To decrease soft tissue restriction and To increase flexibility/ROM Manual Therapy Techniques to Include: Passive ROM For the Purpose of:: To increase ROM, To improve health of tissue and To increase flexibility/ROM Cryotherapy (ice pack, ice massage): Yes Thermo therapy (hot pack): Yes For the Purpose of:: To decrease pain, To decrease swelling/inflammatio n, To increase ROM and To improve nutrient delivery to tissue Text: Thank you for the opportunity to evaluate your patient. For Medicare and Medicare HMO plans, please review the plan of care and approve it. It will need to be FAXED BACK to us at [phone] for Medicare purposes. For Medicare only, by signing this I certify the plan of care. Please let me know if there are questions or concerns regarding this plan of care. Physician Signature: D ate: 04/20/24 1207 CC: BRAYAN Mason; Dr. Umang Braxton MD Signed Normal [facility] Inital Evaluation (1) - PT [facility] Physical Therapy [facility] [address] [place] [address]. [address] [place] [address] / REHABILITATION SERVICES INITIAL EVALUATION MR#: [id number] Acct: [id number] Name: HARRIET RIDDLE Rep #: [id number] : 1975 49 From: Lulu MCCRARY Referring Dr.: Dr. Umang Braxton MD Status: R EG RCR Insurance: CIGNA SELF PAY INSURANCE Patient's Visit Information Visit Information Visit Information: HARRIET RIDDLE is a 49 year old M referred to Physical Therapy by Dr. Umang Braxton MD with a diagnosis of S/P. Date of Evaluation: 04/20/24 Physical Therapist: HERMANN Chahal Visit Plan Frequency: 2x /Week Duration: 3 Months Plan: Message sent to Dr Braxton about protocol. 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 His shoulder has been messed up for awhile but finally decided to get something done about it. Pt had sub acromial decompression, Para labral cyst posterior labral repair on 04-07-24. Constant achy pain. He tries to recline his bed or sleep in the recliner but not getting great sleep. 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 As of right now he is thinking May 19 to go back to work. He has no N T. Pain L shoulder pain: Pain Intensity (Out of 10): 4 Objective Objective: L shoulder PROM flexion 90 degrees, ER 32 degrees Reviewed HEP: pendulums Balance/Special Test Scores Quick DASH Score: 52.2725 Goals Goal 1:: I HEP Goal Time Frame: 8-12 Weeks Goal 2:: Increase L shoulder AROM to WFL elevation, ER, IR Goal Time Frame: 8-12 Weeks Goal 3:: Be able to use his L arm with all activities without pain Goal Time Frame: 8-12 Weeks Goal 4:: Increase L shoulder strength to be within 1-2 of the R. Goal Time Frame: 8-12 Weeks Rehabilitation Potential Rehabilitation Potential: Good Anticipated Interventions Patient/Client Instruction: Educate patient on: Condition and Plan of Care For the Purpose of:: To decrease pain, To decrease swelling/inflammatio n, To increase ROM, To improve nutrient delivery to tissue, To increase oxygenation perfusion, To improve muscle performance and motor function, To improve ability to perform ADL's, To increase tolerance to activity/condition/p osition, To improve performance and independence with ADL's, To decrease level of supervision to perform tasks, To improve ability of physical actions for home/community/work/ leisure, To improve health of tissue, To decrease soft tissue restriction and To increase flexibility/ROM Therapeutic Exercise to Include: Strength training, Endurance training, Postural training, Flexibilty training, Passive ROM, Active ROM and Scapular Strength/Stabilizati on For the Purpose of:: To decrease pain, To decrease swelling/inflammatio n, To increase ROM, To improve nutrient delivery to tissue, To improve muscle performance and motor function, To improve ability to perform ADL's, To increase tolerance to activity/condition/p osition, To improve performance and independence with ADL's, To decrease level of supervision to perform tasks, To improve ability of physical actions for home/community/work/ leisure, To improve gait and locomotor functions, To improve health of tissue, To decrease soft tissue restriction and To increase flexibility/ROM Manual Therapy Techniques to Include: Passive ROM For the Purpose of:: To increase ROM, To improve health of tissue and To increase flexibility/ROM Cryotherapy (ice pack, ice massage): Yes Thermo therapy (hot pack): Yes For the Purpose of:: To decrease pain, To decrease swelling/inflammatio n, To increase ROM and To improve nutrient delivery to tissue Text: Thank you for the opportunity to evaluate your patient. For Medicare and Medicare HMO plans, please review the plan of care and approve it. It will need to be FAXED BACK to us at [phone] for Medicare purposes. For Medicare only, by signing this I certify the plan of care. Please let me know if there are questions or concerns regarding this plan of care. Physician Signature: D ate: 04/20/24 1207 CC: BRAYAN Mason; Dr. Umang Braxton MD Signed Normal [facility] Orthopedic Visit Reporton Orthopedic Visit Report [facility] [address] [place] [address] [address] [place] [address] OFFICE VISIT Date of Service: 04/09/24 MR#: [id number] Acct: [id number] Name: HARRIET RIDDLE Rep #: [id number] : 1975 Provider: Dr. Umang tiwari MD Age/Sex: 49/M Location[place] [facility] Status: Signed Intake Vital Signs 02/20/24 09:35 04/07/24 10:36 Height 5 ft 10 in 5 ft 10 in Intake Visit Reasons: left shoulder Chief Complaint: Left shoulder Is patient in pain?: Yes Allergies triamcinolone (From Kenalog) Allergy (Intermediate, Verified 04/09/24 09:50) Rash amoxicillin (From Augmentin) Adverse Reaction (Intermediate, Verified 04/09/24 09:50) Diarrhea clavulanic acid (From Augmentin) Adverse Reaction (Intermediate, Verified 04/09/24 09:50) Diarrhea Medications ???Medication ???Instructions ???Recorded ???Confirmed ???Type milk thistle 150 mg capsule 150 mg PO BID 01/12/19 04/09/24 History ascorbic acid (vitamin C) 1,000 mg 1 g PO BID 02/20/22 04/09/24 History tablet vitamin E mixed 200 unit tablet 200 unit PO DAILY 02/20/22 04/09/24 History albuterol sulfate 90 mcg/actuation 2 puff inhalation Q4H PRN asthma 3 10/22/22 04/09/24 Rx aerosol inhaler (Ventolin HFA) months #18 grams pantoprazole 40 mg tablet,delayed 40 mg PO DAILY #90 tabs 02/21/23 04/09/24 Rx release aspirin 81 mg tablet,delayed 81 mg PO DAILY #30 tabs 07/21/23 04/09/24 Rx release (Adult Aspirin Regimen) isosorbide mononitrate 30 mg 30 mg PO DAILY #90 tabs 07/31/23 04/09/24 Rx tablet,extended release 24 hr atorvastatin 10 mg tablet (Lipitor) 10 mg PO DAILY #90 tabs 08/12/23 04/09/24 Rx ezetimibe 10 mg tablet (Zetia) 10 mg PO QDAY #90 tabs 08/12/23 04/09/24 Rx losartan 50 mg tablet 50 mg PO DAILY #90 tabs 08/12/23 04/09/24 Rx dapagliflozin propaned 10 1 tab PO DAILY 10/20/23 04/09/24 History mg-metformin ER 1,000 mg tablet,ext rel 24hr (Xigduo XR) icosapent ethyl 1 gram capsule 2 g (2 x 1 gram) PO BID 90 days 10/20/23 04/09/24 Rx #360 caps metoprolol succinate 25 mg 25 mg PO DAILY #90 tabs 11/26/23 04/09/24 Rx tablet,extended release 24 hr albuterol sulfate 2.5 mg/3 mL 2.5 mg inhalation Q6H PRN 03/24/24 04/09/24 History (0.083 %) solution for nebulization shortness of breath or wheezing famotidine 40 mg tablet 40 mg PO DAILY PRN GERD 03/24/24 04/09/24 History tamsulosin 0.4 mg capsule 0.4 mg PO QHS 03/24/24 04/09/24 History tirzepatide 12.5 mg/0.5 mL 12.5 mg subcut BARRETT 03/24/24 04/09/24 History subcutaneous pen injector (Christel) fluticasone 500 mcg-salmeterol 50 1 inh inhalation BID #60 ea 04/01/24 04/09/24 Rx mcg/dose blistr powdr for inhalation (Wixela Inhub) oxycodone-acetaminop hen 5 mg-325 1 tab PO Q4H PRN pain 5 days #30 04/07/24 04/09/24 Rx mg tablet (Endocet) tabs PFSH Medical History Central sleep apnea Loss of hearing Arthritis Dietary restriction Gastric reflux Paralabral cyst of left shoulder Injury of superior glenoid labrum of left shoulder joint Impingement of left shoulder Hypertriglyceridemia Wears glasses Alcohol use Diabetes High cholesterol Back pain Former smoker Asthma Shortness of breath on exertion History of edema History of echocardiogram History of stress test Cardiology follow-up encounter Essential hypertension Diverticulitis Fatty liver Atherosclerosis of coronary artery of [place] heart without angina pectoris Abnormal liver enzymes Obesity (BMI 30.0-34.9) Type 2 diabetes mellitus without complications COPD (chronic obstructive pulmonary disease) Obstructive sleep apnea Hyperlipidemia Surgical History History of lumbar fusion H/O radiofrequency ablation (RFA) of nerve of lumbar spine Hx of excision of mass Hx of hand surgery History of tonsillectomy History of coronary artery stent placement (10/27/14) Family History Sister Diabetes Grandfather CAD (coronary artery disease) Other Asthma CVA (cerebral vascular accident) Cancer Chronic inflammatory demyelinating polyneuropathy Family history of high cholesterol Heart disease Hypertension Leukemia Osteoporosis Thyroid disorder Social History Smoking Status: Former smoker pack-years: 20 Tobacco: How many years used: 15 Electronic Cigarette Use: not used how long ago did patient quit smokin second hand exposure: No alcohol intake: current alcohol intake frequency: a few times a month substance use type: does not use caffeine: Yes Type: coffee Number of servings: 2 and other HPI left shoulder Details: This documentation accurately reflects the se (more content not included)... Normal [facility] Bedside Glucoseon 04-07-2024 FINGERSTICK GLU 142 mg/dL High 74-106 [facility] Comment on above: Result Comment: QUIRINO GEMENT OF PATIENT CARE PER NURSING PROTOCOL Performed By: #### L 501.080 #### [facility] Laboratory [address] [place], [place], [id number] FINGERSTICK GLU 129 mg/dL High 74-106 [facility] Comment on above: Result Comment: QUIRINO GEMENT OF PATIENT CARE PER NURSING PROTOCOL Performed By: #### L 501.080 ####[facility] [id number] [place], [place], [id number] Discharge Instructionon 11 0-2024 Discharge Instruction [facility] Medical Records Department [address] [place] [address] Instructions for Home/Discharge Instructions 04/07/24 1402 MR#: [id number] Acct: [id number] Name: HARRIET RIDDLE Rep #: [id number] : 1975 49 From: Umang Braxton MD PCP: Araceli Mason NP-C Status:REG [facility] Discharge Instructions Diet Discharge Diet: No restrictions Activity Ice area for (Minutes): 10 Lifting Restrictions: pendulums ok, ok for elbow wrist and hand rom Dressing / Incision Call your doctor if your incision/area has: Continuous Slow Oozing, Sudden Increased Bleeding, Increased Pain/ Swelling, Increased Redness, Foul Smelling Discharge and Swelling at the incision site Call your doctor if you observe: Fever of 101 or Higher, Coldness, Increased Pain and Numbness or Tingling Remove Dressing in: leave in place till F/U Cleanse incision/area with: Do not get Incision Wet Follow Up Care Please Follow Up With: Umang Braxton MD When: 2 days Test Results: Test results from this visit will be discussed in further detail at your follow-up appointment, if applicable. Discharge Plan Admission Attending Provider: Umang Braxton Primary Care Provider: Araceli Mason NP Consulting Providers: Edu Cross Instructions Print Language: Romanian Discharge Orders/Prescriptions Prescriptions: New oxycodone-acetaminop hen [Endocet] 5-325 mg tablet 1 tab PO Q4H MDD 6 PRN (Reason: pain) 5 Days Qty: 30 0RF No Action milk thistle 150 mg capsule 150 mg PO BID ascorbic acid (vitamin C) 1,000 mg tablet 1 g PO BID vitamin E mixed 200 unit tablet 200 unit PO DAILY albuterol sulfate [Ventolin HFA] 90 mcg/actuation HFA aerosol inhaler 2 puff Inhalation Q4H PRN (Reason: asthma) 90 Days Qty: 18 3RF pantoprazole 40 mg tablet,delayed release (DR/EC) 40 mg PO DAILY Qty: 90 2RF isosorbide mononitrate 30 mg tablet extended release 24 hr 30 mg PO DAILY Qty: 90 3RF icosapent ethyl 1 gram capsule 2 g PO BID 90 Days Qty: 360 3RF dapaglifloz propaned-metformin [Xigduo XR] 10-1,000 mg tablet, IR - ER, biphasic 24hr 1 tab PO DAILY albuterol sulfate 2.5 mg /3 mL (0.083 %) solution for nebulization 2.5 mg inhalation Q6H PRN (Reason: shortness of breath or wheezing) famotidine 40 mg tablet 40 mg PO DAILY PRN (Reason: GERD) tamsulosin 0.4 mg capsule 0.4 mg PO QHS Mounjaro 12.5 mg/0.5 mL pen injector 12.5 mg subcut BARRETT aspirin [Adult Aspirin Regimen] 81 mg tablet,delayed release (DR/EC) 81 mg PO DAILY Qty: 30 11RF atorvastatin [Lipitor] 10 mg tablet 10 mg PO DAILY Qty: 90 3RF ezetimibe [Zetia] 10 mg tablet 10 mg PO QDAY Qty: 90 3RF losartan 50 mg tablet 50 mg PO DAILY Qty: 90 3RF metoprolol succinate 25 mg tablet extended release 24 hr 25 mg PO DAILY Qty: 90 3RF fluticasone propion-salmeterol [Wixela Inhub] 500-50 mcg/dose blister with device 1 inh inhalation BID Qty: 60 3RF Referrals / Follow Up: Umang Braxton MD [Med Staff - Active Staff] - Araceli Mason NP, NP-C [Primary Care Provider] - Disposition Disposition (needs filled in before D/C Order can be placed): Home, Self Care 04/07/24 1404 Umang Braxton MD CC: BRAYAN Mason; Dr. Edu Cross MD Signed [facility] MR/POSTOP.Suki 04-07-2024 MR/POSTOP.[facility] Medical Records Department [address] [place] [address] Anesthesia Postop Eval I 04/07/24 1409 MR#: [id number] Acct: [id number] Name: AAKASHIANЕЛЕНА PETERS Rep #: [id number] : 1975 49 From: Jake Brown MD PCP: BRAYAN Mccauley Status:REG SDC Y Race: C Location: [place] [address] Anesthesia: Postop Eval I Current Vital Signs Temperature: 97 F Pulse Rate: 92 Blood Pressure: 142/95 Respiratory Rate: 18 Pulse Ox: 97 Oxygen Delivery Method: Room Air Assessment Airway patent: Yes Spontaneous unlabored respirations: Yes Mental status: Awake and Calm nausea: No Vomiting: No Anesthesia Complication: No Fluid Hydration Crystalloid volume administer (ml): 900 Total IV fluid infused: 900 Progress Note Anesthesia document: Postop Eval 1 completed: Yes 04/07/24 1413 Date Jake Brown MD Cosigner Signature: Date CC: Signed Normal [facility] MR/[id number] 04-07-2024 [facility] Medical Records Department [address] [place] [address] Anesthesia Postop Eval II 04/07/24 1613 MR#: [id number] Acct: [id number] Name: HARRIET RIDDLE [facility] Rep #: [id number] : 1975 49 From: Jake Brown MD PCP: BRAYAN Mccauley Status:REG [facility] [facility] Y Race: C Location: [place] [address] Anesthesia Postop Eval I Sum Postop Eval Completion status Anesthesia document: Postop Eval 1 completed: Yes Anesthesia Postop Eval I Summary Anesthesia Postop Eval I Summary: Anesthesia Postop Eval I: Assessment Summary Airway patent Yes 04/07/24 14:11 Spontaneous unlabored Yes 04/07/24 14:11 respirations Mental status Awake,Calm 04/07/24 14:11 nausea No 04/07/24 14:11 Vomiting No 04/07/24 14:11 Anesthesia Postop Eval I: Fluid Summary Crystalloid volume administer 900 04/07/24 14:11 (ml) Colloids volume administered ( ml) Blood Product volume administered (ml) Total IV fluid infused 900 04/07/24 14:11 Anesthesia Postop Eval I: Summary Notes Anesthesia Complication No 04/07/24 14:11 Anesthesia Complication Comment: Post-operative progress note Anesthesia: Postop Eval II Evaluation Mental status: Awake and Calm Pain Level: 4 nausea: No Vomiting: No Complications Anesthesia Complication: No 04/07/24 1613 Date Jake Brown MD Cosignелена Signature: Date CC: Signed Normal [facility] Operative Reporton 4 Operative Report [facility] Medical Records Department [address] [place] [address] Operative Report 04/07/24 1351 MR#: [id number] Acct: [id number] Name: HARRIET RIDDLE [facility] Rep #: [id number] : 1975 49 From: Umang Braxton MD PCP: BRAYAN Mccauley Status:[facility] Location: [place] [address] Problems Associated Problem List Diagnoses (1) Impingement syndrome, shoulder, left: (2) Paralabral cyst of left shoulder: Operative Report (Standard) Operative Information Surgery/Procedure Performed: Left shoulder arthroscopy, subacromial decompression, decompression paralabral cyst posterior labral repair Surgeon: Umang Braxton Date of Procedure: 04/07/24 Procedure Start Time: 12:45 Procedure Stop Time: 13:49 Pre-Operative Diagnosis: Left shoulder impingement syndrome and paralabral cyst Post-Operative Diagnosis: Same Select all DRAINS/GRAFTS/IMPLAN TS that apply: Implanted device Implanted device details: Arthrex 2.9 mm push lock anchors Type of Anesthesia: General and Local Estimated Blood Loss: 30 Specimen collected: No Description of surgery: Patient brought to the operating room theater. Placed supine on the table. General anesthesia induced. 2 g Ancef administered prior to the start of the procedure. Patient transferred left lateral decubitus beanbag positioner. Axillary roll placed. All bony prominences padded. SCDs on the legs. Upper extremity placed in traction 10 pounds of inline traction with the arm in 45 degrees of abduction. Upper extremity prepped and draped in the usual sterile fashion with chlorhexidine-based prep solution allowing over 3 minutes drying time prior to draping. Preoperative timeout performed to confirm the site patient and the surgery. Began by inserting the arthroscope into the intra-articular portion of the shoulder through a standard posterior arthroscopy portal. Placed cannulas anteriorly, 2 cannulad, through the rotator interval just posterior to the biceps tendon. Examined the full intra-articular extent of the shoulder. Biceps root as well as undersurface the rotator cuff tendons including the subscapularis appeared normal. There was some minor fraying of the anterior labrum, no tearing anteriorly gently debrided that. Minor grade 1 changes on the humeral head and glenoid in terms of the cartilage. Posterior labrum had a degenerative and frayed appearing tear from 6:00 to 10:00. I also placed a cannula posteriorly. Viewing from anteriorly I then elevated the labrum and gentle debridement to decompress the cyst and form a bed for healing. Fully elevated this so that this was tension-free repair. I then used the crescent shaped suture lasso nitinol wire passing device passed that shuttled labral tape in a simple suture configuration. I then drilled for the Arthrex 2.9 mm push lock and inserted 3 anchors, placed at the 11:00 930 and 830 positions. This achieved a solid stable repair. I then inserted the arthroscope into the subacromial space. There is quite a bit of inflammatory bursitis. I performed a complete bursectomy. The superior aspect of the rotator cuff no tears probed. I also performed a subacromial decompression from 2 mm to flat margins using a high-speed kallie. Arthroscopy pictures taken and saved onto the system throughout the case. Case terminated Arthroscope withdrawn wounds thoroughly irrigated. 30 cc of core percent bupivacaine instilled in around the soft tissue portal sites. Subtenons tissue closed with 3-0 Monocryl sutures. Skin cleaned with wet dry dressing followed application of Steri-Strips Adaptic 4 x 4 gauze ABD dressing cloth tape and an abduction pillow sling. Patient woken up from a general anesthetic transferred off the operating table to Postanesthetic care unit in stable condition. All sponge needle instrument counts were correct no complications. Plan to the patient discharged home according to day surgery criteria follow-up in the office in 2 days time. cpt [id number],???[id number], [id number] Surgical Findings: posterior labrum tear and cyst, bursitis Chemist Biological crumb packer: Yes Tower Hoist Operator: davis Tasks completed by medical assistant ob gyn: Retracting and Other Additional cataloging assistant?: No Complications Complications: No Admit VTE Documentation VTE Present on Admission: No VTE Mechan Device Prophylaxis: SCD's VTE Pharm Prophylaxis ordered?: No Reason prophylaxis not ordered: Treatment Not Indicated Procedures Musculoskeletal 20xxx-29xxx: Other Procedure See Report 04/07/24 1400 Cosigner Signature (if applicable): CC: 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 PILOT CAN ROUTER-C Araceli Mason; Dr. Edu Cross MD; Dr. Umang Braxton MD Signed Normal [facility] 12 Lead EKGon 03-31-2024 12 Lead EKG [facility] Cardiovascular Services [address] [place] [address] 12 Lead EKG 03/31/24 0631 MR#: [id number] Acct: [id number] Name: HARRIET RIDDLE Rep #: [id number] : 1975 49 From: Roly Arizmendi MD Attending Dr: Dr. Umang Braxton MD Status: [facility] Ordering Dr: Edu Cross MD Date: 03/31/24 Location: [facility] Sex: M C Admitted: Test Reason : PREOP Blood Pressure : */* mmHG Vent. Rate : 92 BPM Atrial Rate : 92 BPM P-R Int : 138 ms QRS Dur : 86 ms QT Int : 378 ms P-R-T Axes : 22 71 22 degrees QTcB Int : 467 ms Normal sinus rhythm Normal ECG Confirmed by ROLY ARIZMENDI MD ([id number]), city editor KENDELL DAI ([id number]) on 03/31/2024 2:11:24 PM Referred By: Umang Braxton Confirmed By: ROLY ARIZMENDI MD 03/31/24 1411 Date Roly Arizmendi MD CC: BRAYAN Mason; Dr. Edu Cross MD; Dr. Umang Braxton MD Signed Normal [facility] Basic Metabolic Profile (BMP )on 03-31-2024 BUN/CRE 11.6 RATIO Normal 10-20 [facility] Comment on above: Performed By: #### L 100.0500, L500.2500, L501.9985 ####[facility] [address] [place], [address] CA,Total 8.3 mg/dL Low 8.5-10.1 [facility] Comment on above: Performed By: #### L 100.0500, L500.2500, L501.9985 ####[facility] [address] [place], [address] Chloride [Moles/Vol] 107 mmol/L Normal 98-107 [facility] Comment on above: Performed By: #### L 100.0500, L500.2500, L501.9985 ####[facility] [address] [place], [address] CO2 [Moles/Vol] 26.0 mmol/L Normal 21.0-32.0 [facility] Comment on above: Performed By: #### L 100.0500, L500.2500, L501.9985 ####[facility] [address] [place], [address] Creatinine [Mass/Vol] 0.77 mg/dL Normal 0.70-1.30 [facility] Comment on above: Result Comment: The validity of the calculated GFR GFRAA in patients over 70 years has not been determined. Clinical correlation is essential. Performed By: #### L 100.0500, L500.2500, L501.9985 ####[facility] [address] [place], [address] EST GFR - AA 136 mL/min Normal >60 [facility] Comment on above: Result Comment: Afri can Chilean GFR Calc Performed By: #### L 100.0500, L500.2500, L501.9985 ####[facility] [address] [place], [address] GAP 5 Normal 5-15 [facility] Comment on above: Performed By: #### L 100.0500, L500.2500, L501.9985 ####[facility] [address] [place], [address] GFR/1.73 sq M.predicted among non-blacks MDRD (S/P/Bld) [Vol rate/Area] 113 mL/min/{1.73_m2} Normal >60 [facility] Comment on above: Result Comment: Non- GFR Calc Performed By: #### L 100.0500, L500.2500, L501.9985 ####[facility] [address] [place], [address] Glucose [Mass/Vol] 132 mg/dL High 74-106 [facility] Comment on above: Result Comment: Fast ing Glucose result greater than or equal to 126 mg/dL suggests DIABETES MELLITUS per A.D.A. criteria. Performed By: #### L 100.0500, L500.2500, L501.9985 ####[facility] [address] [place], [address] Potassium [Moles/Vol] 4.0 mmol/L Normal 3.5-5.1 [facility] Comment on above: Performed By: #### L 100.0500, L500.2500, L501.9985 ####[facility] [address] [place], [address] Sodium [Moles/Vol] 138 mmol/L Normal 136-145 [facility] Comment on above: Performed By: #### L 100.0500, L500.2500, L501.9985 ####[facility] [address] [place], [address] Urea nitrogen [Mass/Vol] 9 mg/dL Normal 7-18 [facility] Comment on above: Performed By: #### L 100.0500, L500.2500, L501.9985 ####[facility] [address] [place], [address] CBC-Complete Blood Cnt No Di ffon 03-31-2024 Erythrocyte distribution width (RBC) [Ratio] 13.0 % Normal 11.6-14.6 [facility] Comment on above: Performed By: #### L 100.0500, L500.2500, L501.9985 ####[facility] [address] [place], [address] Hematocrit (Bld) [Volume fraction] 47.6 % Normal 40-54 [facility] Comment on above: Performed By: #### L 100.0500, L500.2500, L501.9985 ####[facility] [address] [place], [address] Hemoglobin (Bld) [Mass/Vol] 15.7 g/dL Normal 13.0-16.5 [facility] Comment on above: Performed By: #### L 100.0500, L500.2500, L501.9985 ####[facility] [address] [place], [address] MCH (RBC) [Entitic mass] 29.5 pg Normal 27.0-32.0 [facility] Comment on above: Performed By: #### L 100.0500, L500.2500, L501.9985 ####[facility] [address] [place], [address] MCHC (RBC) [Mass/Vol] 33.0 g/dL Normal 32-36 [facility] Comment on above: Performed By: #### L 100.0500, L500.2500, L501.9985 ####[facility] [address] [place], [address] MCV (RBC) [Entitic vol] 89.3 fL Normal 80-94 [facility] Comment on above: Performed By: #### L 100.0500, L500.2500, L501.9985 ####[facility] [address] [place], [address] Platelet mean volume (Bld) [Entitic vol] 11.1 fL Normal 6.2-12.0 [facility] Comment on above: Performed By: #### L 100.0500, L500.2500, L501.9985 ####[facility] [address] [place], [address] Platelets (Bld) [#/Vol] 164 10*3/uL Normal 150-450 [facility] Comment on above: Performed By: #### L 100.0500, L500.2500, L501.9985 ####[facility] [address] [place], [address] RBC (Bld) [#/Vol] 5.33 10*6/uL Normal 4.6-6.2 [facility] Comment on above: Performed By: #### L 100.0500, L500.2500, L501.9985 ####[facility] [address] [place], [address] RDW SD 41.9 fl Normal 35.1-43.9 [facility] Comment on above: Performed By: #### L 100.0500, L500.2500, L501.9985 ####[facility] [address] [place], [address] WBC (Bld) [#/Vol] 4.8 10*3/uL Normal 4.4-11.0 [facility] Comment on above: Performed By: #### L 100.0500, L500.2500, L501.9985 ####[facility] [address] [place], [address] Hemoglobin A1con 03-31-2024 HbA1c (Bld) [Mass fraction] 6.4 % High 3.8-5.6 [facility] Comment on above: Result Comment: Norm al < 5.7 % Prediabetic 5.7 - 6.4 % Diabetic >or= 6.5 % Please note range changes. Performed By: #### L 100.0500, L500.2500, L501.9985 ####[facility] [address] [place], [address] Pulmonary Visit Reporton Pulmonary Visit Report [facility] [address] [place], [place] [address] OFFICE VISIT Date of Service: 03/30/24 MR#: [id number] Acct: [id number] Name: HARRIET RIDDLE [facility] Rep #: [id number] : 1975 Provider: BRAYAN Jaramillo Age/Sex: 49/M Location: [facility] Status: Signed Assessment and Plan Assessment and Plan (1) Complex sleep apnea syndrome: Status: Chronic Comment: On ASV with residual AHI of 0.5 Plan: Stable, he is using and benefiting from Pap therapy. No indication for titration study at this time. He is eligible for a new machine, which has been ordered today. Continue to encourage weight loss. Contact the office for any new or worsening symptoms in the meantime. Follow-up in March. (2) Smoking greater than 20 pack years: Status: Chronic Comment: quit 2011 Plan: He remains appropriate for LDCT. Repeat due in February 2025, ordered accordingly. (3) Chest tightness: Status: Acute Plan: New. NIOX procedure performed in the office today returned with elevated results. This indicates that the patient may benefit from systemic corticosteroid. For this reason, he is going to be placed on Breo. He was instructed to take 1 puff daily and to rinse his mouth out after each use. Follow-up in the office in 2 months to evaluate his response to therapy. He may benefit from pulmonary function test, I will leave this up to the follow-up to evaluate further. Orders: Orders Low Dose CT Lung Screening Today F17.200 - Nicotine dependence, unspecified, uncomplicated, F17.210 - Nicotine dependence, cigarettes, uncomplicated NIOX Today R05.1 - Acute cough Medications: New fluticasone furoate-vilanterol 200-25 mcg/dose (Breo Ellipta) after inhalation, rinse mouth with water and spit out; do not swallow 1 inh inhalation QDAY 60 ea 6RF R05.1 - Acute cough HPI HPI Comments Details: This patient presents to the office today for follow-up of his obstructive sleep apnea complicated by history of nicotine abuse. He is ambulatory and currently on room air. He has not recently been seen in the ED or urgent care for any respiratory illness. He is prednisone for any breathing problems. He reports that he has been experiencing shortness of breath and chest tightness. He denies any cough, sputum production or hemoptysis. He denies any wheezing, chest pain or palpitations. He also denies any fever, chills or body aches. Patient reports waking up feeling rested and refreshed with use of his ASV machine. He is not having difficulty with nocturia. He denies morning headaches. He denies difficulty with nosebleeds. He does report dry mouth. He is not requiring naps. He denies nocturia. If you recall, he does have a 69-whop-ksoa smoking history, quitting completely in 2011. Test results personally reviewed with the patient: Interpretation from a LDCT completed at [facility] on February 26, 2024 is available. No suspicious nodules are noted. Multiple calcified lymph nodes are present in the bilateral hilar region and mediastinum. Compliance report for the past 30 days shows 100% compliance with average use of 7 hours and 31 minutes per night. Current setting is air curve 10 ASV minimum pressure support 6 cmH2O, maximum pressure support 15 cmH2O with an EPAP of 10 cm water. Residual AHI 0.5 events per hour. Leaks do not appear to be an issue. Intake Vital Signs 09/11/23 07:53 02/20/24 09:35 03/30/24 07:57 Height 5 ft 10 in 5 ft 10 in 5 ft 10 in Weight: 262 lb BMI 37.5 BP 143/90 H Blood Pressure Location Lt brachial Position Sitting Respiration 20 H Pulse 90 Pulse Source Monitor Temp 97.4 F L Temperature Source Temporal Artery Pulse Oximetry (%) 93 Oxygen Delivery Method room air Intake Visit Reasons: 7 m fu Chief Complaint: Left shoulder Team Assembler Required: No DME Vendor: Mauri Accompanied by: Self Allergies triamcinolone (From Kenalog) Allergy (Intermediate, Verified 03/30/24 14:41) Rash amoxicillin (From Augmentin) Adverse Reaction (Intermediate, Verified 03/30/24 14:41) Diarrhea clavulanic acid (From Augmentin) Adverse Reaction (Intermediate, Verified 03/30/24 14:41) Diarrhea Medications ???Medication ???Instructions ???Recorded ???Confirmed ???Type milk thistle 150 mg capsule 150 mg PO BID 01/12/19 03/30/24 History ascorbic acid (vitamin C) 1,000 mg 1 g PO BID 02/20/22 03/30/24 History tablet vitamin E mixed 200 unit tablet 200 unit PO DAILY 02/20/22 03/30/24 History albuterol sulfate 90 mcg/actuation 2 puff inhalation Q4H PRN asthma 3 10/22/22 03/30/24 Rx aerosol inhaler (Ventolin HFA) months #18 grams pantoprazole 40 mg tablet,delayed 40 mg PO DAILY #90 tabs 02/21/23 03/30/24 Rx release aspirin 81 mg tablet,delayed 81 mg PO DAILY #30 (more content not included)... Normal [facility] CT CHEST LOW DOSE LUNG CANCE R SCREENINGon 03-01-2024 CT CHEST LOW DOSE LUNG CANCER SCREENING EXAMINATION: CT CHEST LOW DOSE LUNG CANCER SCREENING 02/26/2024 03:47 PM CLINICAL HISTORY: Patient counseled on risks/benefits of lung cancer screening, Clinical History: = No signs or symptoms of lung cancer, Purpose of Study: = Initial screening, Smoking Status: = Current smoker, Smoking Pack Years: = 30 ASSOCIATED DIAGNOSIS: Nicotine dependence, uncomplicated, unspecified nicotine product type ORDERING PROVIDER: ABY JARAMILLO TECHNOLOGISTS NOTE: COMPARISON: None TECHNIQUE: Contiguous axial images were obtained from above the lung apices through the level of the adrenal glands using a low dose technique. 2D sagittal and coronal reconstructions were obtained from the axial data. FINDINGS: Evaluation of the mediastinum, soft tissues and upper abdomen is limited by the low dose technique. Nodules: Calcified granulomas are present because of prior granulomatous disease. No suspicious nodule. Mediastinum: Unremarkable Lymph nodes: Multiple calcified lymph nodes are present in bilateral hilar region and mediastinum. Cardiovasculature: The heart is normal in size. Moderate coronary calcifications are noted. Atherosclerotic plaque is present within the thoracic aorta. Lungs: The lungs are well inflated without evidence for consolidation, effusion or pneumothorax. Visualized musculoskeletal structures: No acute fracture or destructive osseous lesion is identified. Included images of the upper abdomen: Unremarkable IMPRESSION: Moderate coronary artery calcifications. Multiple calcified lymph nodes and calcified granulomas suggestive of prior granulomatous disease. Lung-RADS Category 1: No lung nodules or definitely benign nodules. Continued annual screening in [address] CHEST LOW DOSE LUNG CANCER SCREENING (Code: [id number]). MACRO: (-I1-) Normal [facility] MR Shoulder - left WO contra ston 02-03-2024 IMPRESSION: Posterior/inferior glenoid labral tearing with associated paralabral cyst formation. Intact rotator cuff tendons. Engine Cowling Installer: RICHARD Transcribe Date/Time: Feb 03 2024 9:32A Dictated by : ZULEIKA MORALES MD This examination was interpreted and the report reviewed and electronically signed by: ZULEIKA MORALES MD on Feb 03 2024 9:37AM [facility] DIVISION OF RADIOLOGY * * *Final Report* * * DATE OF EXAM: Feb 02 2024 3:38PM [facility] 0239 - MRI SHOULDER WO IVCON LT / PROCEDURE REASON: M25.812 * * * * Physician Interpretation * * * * [facility]: Pain and limited range of motion. TECHNIQUE: Routine non-contrast MRI of the shoulder. COMPARISON: None RESULT: TENDONS: Rotator cuff tendons: -Supraspinatus: Intact tendon -Infraspinatus: Intact tendon -Subscapularis: Intact tendon -Teres Minor: Intact tendon Biceps (Long head) Tendon: Intact , with normal course MUSCLES: Rotator cuff muscles: -Supraspinatus: Preserved bulk and no fatty changes. -Infraspinatus: Preserved bulk and no fatty changes. -Subscapularis: Preserved bulk and no fatty changes. -Teres Minor: Preserved bulk and no fatty changes. Other muscles: Preserved signal and bulk in the deltoid. JOINTS: Glenohumeral Joint: -Labrum: There is posterior/inferior glenoid labral tearing with associated paralabral cyst formation. The superior labrum is degenerated. -Cartilage: Normal -Joint Fluid: No effusion . No synovitis. Acromioclavicular Joint: Mild hypertrophic degenerative changes BONES AND MARROW: No evidence of fracture or suspicious bone marrow replacing process OTHER: Subdeltoid/Subacromi al Bursa: Normal Localizer images: No additional findings. DIVISION OF RADIOLOGY Provider, [facility] - 02/03/2024 * * *Final Report* * * DATE OF EXAM: Feb 02 2024 3:38PM [facility] 0239 - MRI SHOULDER WO IVCON LT / PROCEDURE REASON: M25.812 * * * * Physician Interpretation * * * * EXAMINATION: MRI SHOULDER WO IVCON LT HISTORY: Pain and limited range of motion. TECHNIQUE: Routine non-contrast MRI of the shoulder. COMPARISON: None RESULT: TENDONS: Rotator cuff tendons: -Supraspinatus: Intact tendon -Infraspinatus: Intact tendon -Subscapularis: Intact tendon -Teres Minor: Intact tendon Biceps (Long head) Tendon: Intact , with normal course MUSCLES: Rotator cuff muscles: -Supraspinatus: Preserved bulk and no fatty changes. -Infraspinatus: Preserved bulk and no fatty changes. -Subscapularis: Preserved bulk and no fatty changes. -Teres Minor: Preserved bulk and no fatty changes. Other muscles: Preserved signal and bulk in the deltoid. JOINTS: Glenohumeral Joint: -Labrum: There is posterior/inferior glenoid labral tearing with associated paralabral cyst formation. The superior labrum is degenerated. -Cartilage: Normal -Joint Fluid: No effusion . No synovitis. Acromioclavicular Joint: Mild hypertrophic degenerative changes BONES AND MARROW: No evidence of fracture or suspicious bone marrow replacing process OTHER: Subdeltoid/Subacromi al Bursa: Normal Localizer images: No additional findings. IMPRESSION IMPRESSION: Posterior/inferior glenoid labral tearing with associated paralabral cyst formation. Intact rotator cuff tendons. Engine Cowling Installer: RICHARD Transcribe Date/Time: Feb 03 2024 9:32A Dictated by : ZULEIKA MORALES MD This examination was interpreted and the report reviewed and electronically signed by: ZULEIKA MORALES MD on Feb 03 2024 9:37AM EST [facility] MR Shoulder - left WO contra stOrdered By: [facility] Provider on 02-03-2024 [facility] MR Shoulder - left WO contrwoo ston 02-02-2024 Radiology Study observation (narrative) [facility] MRI SHOULDER WO IVCON LTon 0 02-02-2024 MRI SHOULDER WO IVCON LT * * *Final Report* * * DATE OF EXAM: Feb 02 2024 3:38PM WRM [id number] - MRI SHOULDER WO IVCON LT / PROCEDURE REASON: M25.812 * * * * Physician Interpretation * * * * EXAMINATION: MRI SHOULDER WO IVCON LT HISTORY: Pain and limited range of motion. TECHNIQUE: Routine non-contrast MRI of the shoulder. COMPARISON: None RESULT: TENDONS: Rotator cuff tendons: -Supraspinatus: Intact tendon -Infraspinatus: Intact tendon -Subscapularis: Intact tendon -Teres Minor: Intact tendon Biceps (Long head) Tendon: Intact , with normal course MUSCLES: Rotator cuff muscles: -Supraspinatus: Preserved bulk and no fatty changes. -Infraspinatus: Preserved bulk and no fatty changes. -Subscapularis: Preserved bulk and no fatty changes. -Teres Minor: Preserved bulk and no fatty changes. Other muscles: Preserved signal and bulk in the deltoid. JOINTS: Glenohumeral Joint: -Labrum: There is posterior/inferior glenoid labral tearing with associated paralabral cyst formation. The superior labrum is degenerated. -Cartilage: Normal -Joint Fluid: No effusion . No synovitis. Acromioclavicular Joint: Mild hypertrophic degenerative changes BONES AND MARROW: No evidence of fracture or suspicious bone marrow replacing process OTHER: Subdeltoid/Subacromi al Bursa: Normal Localizer images: No additional findings. IMPRESSION: Posterior/inferior glenoid labral tearing with associated paralabral cyst formation. Intact rotator cuff tendons. Engine Cowling Installer: P[employer] Transcribe Date/Time: Feb 03 2024 9:32A Dictated by : ZULEIKA MORALES MD This examination was interpreted and the report reviewed and electronically signed by: ZULEIKA MORALES MD on Feb 03 2024 9:37AM EST [id number] CN Normal [facility] Absolute lymphocyte countOrd ered By: Araceli Mason on 02-20-2023 Lymphocytes Auto (Unsp spec) [#/Vol] 1.40 10*3/uL 0.83-4.51 [facility] Basophil percentageOrdered B y: Araceli Mason on 02-20-2023 Basophils/100 WBC (Bld) 0.6 % 0-1 [facility] Bilirubin [Mass/Vol] 1.30 mg/dL 0.20-1.00 [facility] Comment on above: For patients on eltr ombopag therapy, use of Dimension [place] TBIL is not recommended. Chloride [Moles/Vol] 105 mmol/L 98-107 [facility] Cholesterol [Mass/Vol] 72 mg/dL <200 [facility] Comment on above: <200 mg/dL Desirable 200-240 mg/dL Borderline >240 mg/dL High Risk Eosinophils/100 WBC (Bld) 3.4 % 0-5 [facility] Glucose [Mass/Vol] 164 mg/dL 74-106 [facility] Comment on above: Fasting Glucose resu lt greater than or equal to 126 mg/dL suggests DIABETES MELLITUS per A.D.A. criteria. Neutrophils (Bld) [#/Vol] 2.9 10*3/uL 2.0-7.7 [facility] Neutrophils/100 WBC (Bld) 58.9 % 47-70 [facility] Potassium [Moles/Vol] 3.8 mmol/L 3.5-5.1 [facility] Protein [Mass/Vol] 6.4 g/dL 6.4-8.2 [facility] Sodium [Moles/Vol] 136 mmol/L 136-145 [facility] Triglyceride [Mass/Vol] 247 mg/dL <199 [facility] Comment on above: The drugs N-Acetylcy steine and Metamizole may falsely depress this assay.Serum Triglycerides Reference Interval Normal <150 mg/dL Borderline high 150 - 199 mg/dL High 200 - 499 mg/dL Very High > or = 500 mg/dL WBC (Bld) [#/Vol] 5.0 10*3/uL 4.4-11.0 [facility] Blood erythrocytes count (nu mber/volume)Ordered By: Araceli Mason on 02-20-2023 RBC (Bld) [#/Vol] 5.10 10*6/uL 4.6-6.2 [facility] Blood hemoglobin measurement (mass/volume)Ordered By: Araceli Mason on 02-20-2023 Hemoglobin (Bld) [Mass/Vol] 15.4 g/dL 13.0-16.5 [facility] Blood lymphocytes/100 leukoc ytesOrdered By: Araceli Mason on 02-20-2023 Lymphocytes/100 WBC (Bld) 28.2 % 19-41 [facility] Blood monocytes/100 leukocyt esOrdered By: Araceli Mason on 02-20-2023 Monocytes/100 WBC (Bld) 8.5 % 0-10 [facility] Blood platelet mean volumeOr dered By: Araceli Mason on 02-20-2023 Platelet mean volume (Bld) [Entitic vol] 11.0 fL 6.2-12.0 [facility] Determination of erythrocyte mean corpuscular volume (MCV)Ordered By: Araceli Mason on 02-20-2023 MCV (RBC) [Entitic vol] 91.6 fL 80-94 [facility] Direct bilirubinOrdered By: Araceli Mason on 02-20-2023 Bilirubin.direct [Mass/Vol] 0.38 mg/dL 0.00-0.30 [facility] Hematocrit Auto (Bld) [Volum e fraction]Ordered By: Araceli Mason on 02-20-2023 Hematocrit (Bld) [Volume fraction] 46.7 % 40-54 [facility] Laboratory - Chemistry and C hemistry - challengeOrdered By: rAaceli Mason on 02-20-2023 ALP [Catalytic activity/Vol] 93 U/L 45-117 [facility] ALT [Catalytic activity/Vol] 78 U/L 16-61 [facility] CO2 [Moles/Vol] 25.0 mmol/L 21.0-32.0 [facility] Globulin (S) [Mass/Vol] 2.9 g/dL 2.2-4.2 [facility] Urea nitrogen/Creatinine [Mass ratio] 20.2 mg/mg 10-20 [facility] Laboratory - Hematology and Cell countsOrdered By: Araceli Mason on 02-20-2023 Erythrocyte distribution width (RBC) [Entitic vol] 43.8 fL 35.1-43.9 [facility] Erythrocyte distribution width (RBC) [Ratio] 13.0 % 11.6-14.6 [facility] Immature granulocytes/100 WBC (Bld) 0.400 % 0.0-0.9 [facility] Comment on above: IG% - Immature Granu locytes (promyelocytes, myelocytes and metamyelocytes) > 1% indicates that a LEFT SHIFT is Present. MCH (RBC) [Entitic mass] 30.2 pg 27.0-32.0 [facility] Nucleated RBC/100 WBC (Bld) [Ratio] 0 % 0-5 [facility] MCHC Auto (RBC) [Mass/Vol]Or dered By: Araceli Mason on 02-20-2023 MCHC (RBC) [Mass/Vol] 33.0 g/dL 32-36 [facility] No Panel InformationOrdered By: Araceli Mason on 02-20-2023 Estimated GFR (MDRD) Amer 143 mL/min >60 [facility] Comment on above: GFR Calc Estimated GFR (MDRD) Non-Af Amer 118 mL/min >60 [facility] Comment on above: Non- GFR Calc Thyroid Stimulating Hormone (TSH) 2.47 uIU/mL 0.358-3.74 [facility] Platelets bldOrdered By: Robi Mason on 02-20-2023 Platelets (Bld) [#/Vol] 181 10*3/uL 150-450 [facility] Serum or plasma albumin arpan urement (mass/volume)Ordered By: Araceli Mason on 02-20-2023 Albumin [Mass/Vol] 3.5 g/dL 3.2-5.0 [facility] Serum or plasma albumin/glob ulin mass ratioOrdered By: Araceli Mason on 02-20-2023 Albumin/Globulin [Mass ratio] 1.2 {ratio} 0.9-2.4 [facility] Serum or plasma calcium arpan urement (mass/volume)Ordered By: Araceli Mason on 02-20-2023 Calcium [Mass/Vol] 8.0 mg/dL 8.5-10.1 [facility] Serum or plasma cholesterol in HDL measurement (mass/volume)Ordered By: Araceli Mason on 02-20-2023 Cholesterol in HDL [Mass/Vol] 24 mg/dL >40 [facility] Comment on above: The drugs N-Acetylcy steine and Metamizole may falsely depress this assay. Reference Range HDL <40 mg/dL Low HDL Cholesterol HDL >or= 60 mg/dL High HDL Cholesterol Serum or plasma cholesterol in VLDL measurement (mass/volume)Ordered By: Araceli Mason on 02-20-2023 Cholesterol in VLDL [Mass/Vol] 49 mg/dL 5-40 [facility] Serum or plasma creatinine m easurement (mass/volume)Ordered By: Araceli Mason on 02-20-2023 Creatinine [Mass/Vol] 0.74 mg/dL 0.70-1.30 [facility] Comment on above: The validity of the calculated GFR & GFRAA in patients over 70 years has not been determined. Clinical correlation is essential. Serum or plasma low density lipoprotein (LDL) cholesterol measurement (mass/volume)Ordered By: Araceli Mason on 02-20-2023 Cholesterol in LDL [Mass/Vol] -1 mg/dL 0-130 [facility] Serum or plasma urea nitroge n measurement (mass/volume)Ordered By: Araceli Mason on 02-20-2023 Urea nitrogen [Mass/Vol] 15 mg/dL 7-18 [facility] Thin prep Papanicolaou smear with manual screeningOrdered By: Araceli Mason on 02-20-2023 Thin prep Papanicolaou smear with manual screening 36 U/L 15-37 [facility] Thin prep Papanicolaou smear with manual screening 6 5-15 [facility] Whole blood hemoglobin A1c/t otal hemoglobin ratio (mass fraction)Ordered By: Araceli Mason on 02-20-2023 HbA1c (Bld) [Mass fraction] 6.5 % 3.8-5.6 [facility] Comment on above: Normal < 5.7 % Predi abetic 5.7 - 6.4 % Diabetic >or= 6.5 % Please note range changes. Laboratory - Hematology and Cell countson 12-24-2022 HbA1c (Bld) [Mass fraction] 7.4 % 4.2-6.3 [facility] Basophil percentageOrdered B y: Truman Matthews on 11-28-2022 Bilirubin [Mass/Vol] 1.20 mg/dL 0.20-1.00 [facility] Comment on above: For patients on eltr ombopag therapy, use of Dimension [place] TBIL is not recommended. Cholesterol [Mass/Vol] 85 mg/dL <200 [facility] Comment on above: <200 mg/dL Desirable 200-240 mg/dL Borderline >240 mg/dL High Risk Protein [Mass/Vol] 6.8 g/dL 6.4-8.2 [facility] Triglyceride [Mass/Vol] 238 mg/dL <199 [facility] Comment on above: The drugs N-Acetylcy steine and Metamizole may falsely depress this assay.Serum Triglycerides Reference Interval Normal <150 mg/dL Borderline high 150 - 199 mg/dL High 200 - 499 mg/dL Very High > or = 500 mg/dL Direct bilirubinOrdered By: Truman Matthews on 11-28-2022 Bilirubin.direct [Mass/Vol] 0.32 mg/dL 0.00-0.30 [facility] Laboratory - Chemistry and C hemistry - challengeOrdered By: Truman Matthews on 11-28-2022 ALP [Catalytic activity/Vol] 87 U/L 45-117 [facility] ALT [Catalytic activity/Vol] 58 U/L 16-61 [facility] Globulin (S) [Mass/Vol] 3.2 g/dL 2.2-4.2 [facility] Laboratory - Hematology and Cell countson 11-28-2022 HbA1c (Bld) [Mass fraction] 7.8 % 4.2-6.3 [facility] Serum or plasma albumin arpan urement (mass/volume)Ordered By: Truman Matthews on 11-28-2022 Albumin [Mass/Vol] 3.6 g/dL 3.2-5.0 [facility] Serum or plasma cholesterol in HDL measurement (mass/volume)Ordered By: Truman Matthews on 11-28-2022 Cholesterol in HDL [Mass/Vol] 27 mg/dL >40 [facility] Comment on above: The drugs N-Acetylcy steine and Metamizole may falsely depress this assay. Reference Range HDL <40 mg/dL Low HDL Cholesterol HDL >or= 60 mg/dL High HDL Cholesterol Serum or plasma cholesterol in VLDL measurement (mass/volume)Ordered By: Truman Matthews on 11-28-2022 Cholesterol in VLDL [Mass/Vol] 48 mg/dL 5-40 [facility] Serum or plasma low density lipoprotein (LDL) cholesterol measurement (mass/volume)Ordered By: Truman Matthews on 11-28-2022 Cholesterol in LDL [Mass/Vol] 10 mg/dL 0-130 [facility] Thin prep Papanicolaou smear with manual screeningOrdered By: Truman Matthews on 11-28-2022 Thin prep Papanicolaou smear with manual screening 40 U/L 15-37 [facility] Basophil percentageOrdered B y: Truman Matthews on 10-22-2022 Bilirubin [Mass/Vol] 0.80 mg/dL 0.20-1.00 [facility] Comment on above: For patients on eltr ombopag therapy, use of Dimension [place] TBIL is not recommended. Cholesterol [Mass/Vol] 122 mg/dL <200 [facility] Comment on above: <200 mg/dL Desirable 200-240 mg/dL Borderline >240 mg/dL High Risk Protein [Mass/Vol] 6.6 g/dL 6.4-8.2 [facility] Triglyceride [Mass/Vol] 593 mg/dL <199 [facility] Comment on above: The drugs N-Acetylcy steine and Metamizole may falsely depress this assay. TRIGLYCERIDE IS GREATER THAN 400 mg/dL. LDL RESULT IS INVALID AND WILL NOT BE REPORTED.Serum Triglycerides Reference Interval Normal <150 mg/dL Borderline high 150 - 199 mg/dL High 200 - 499 mg/dL Very High > or = 500 mg/dL Direct bilirubinOrdered By: Truman Matthews on 10-22-2022 Bilirubin.direct [Mass/Vol] 0.16 mg/dL 0.00-0.30 [facility] Laboratory - Chemistry and C hemistry - challengeOrdered By: Truman Matthews on 10-22-2022 ALP [Catalytic activity/Vol] 109 U/L 45-117 [facility] ALT [Catalytic activity/Vol] 77 U/L 16-61 [facility] Globulin (S) [Mass/Vol] 2.9 g/dL 2.2-4.2 [facility] Laboratory - Hematology and Cell countson 10-22-2022 HbA1c (Bld) [Mass fraction] 7.5 % 4.2-6.3 [facility] Serum or plasma albumin arpan urement (mass/volume)Ordered By: Truman Matthews on 10-22-2022 Albumin [Mass/Vol] 3.7 g/dL 3.2-5.0 [facility] Serum or plasma cholesterol in HDL measurement (mass/volume)Ordered By: Truman Matthews on 10-22-2022 Cholesterol in HDL [Mass/Vol] 28 mg/dL >40 [facility] Comment on above: The drugs N-Acetylcy steine and Metamizole may falsely depress this assay. Reference Range HDL <40 mg/dL Low HDL Cholesterol HDL >or= 60 mg/dL High HDL Cholesterol Serum or plasma cholesterol in VLDL measurement (mass/volume)Ordered By: Truman Matthews on 10-22-2022 Cholesterol in VLDL [Mass/Vol] [facility] Comment on above: Test not performed Serum or plasma low density lipoprotein (LDL) cholesterol measurement (mass/volume)Ordered By: Truman Matthews on 10-22-2022 Cholesterol in LDL [Mass/Vol] [facility] Comment on above: Test not performed Thin prep Papanicolaou smear with manual screeningOrdered By: Truman Matthews on 10-22-2022 Thin prep Papanicolaou smear with manual screening 53 U/L 15-37 [facility] Comment on above: Moderate Hemolysis, Result may be falsely increased. Glucose Glucometer (BldC) [M ass/Vol]on 04-19-2022 Glucose [Mass/Vol] 240 mg/dL 74-106 [facility] Work Phone: Comment on above: MANAGEMENT OF PATIEN T CARE PER NURSING PROTOCOL Absolute lymphocyte counton 02-27-2022 Lymphocytes Auto (Unsp spec) [#/Vol] 1.66 10*3/uL 0.83-4.51 [facility] Work Phone: Basophil percentageon 2021 Basophils/100 WBC (Bld) 0.4 % 0-1 [facility] Work Phone: Bilirubin [Mass/Vol] 0.80 mg/dL 0.20-1.00 [facility] Work Phone: Comment on above: For patients on eltr ombopag therapy, use of Dimension [place] TBIL is not recommended. Chloride [Moles/Vol] 105 mmol/L 98-[address] [facility] Work Phone: Cholesterol [Mass/Vol] 102 mg/dL <200 [facility] Work Phone: Comment on above: <200 mg/dL Desirable 200-240 mg/dL Borderline >240 mg/dL High Risk Eosinophils/100 WBC (Bld) 3.2 % 0-5 [facility] Work Phone: Glucose [Mass/Vol] 264 mg/dL 74-106 [facility] Work Phone: Comment on above: Glucose result great er than or equal to 200 mg/dLsuggests DIABETES MELLITUS per A.D.A. criteria. Neutrophils (Bld) [#/Vol] 3.2 10*3/uL 2.0-7.7 [facility] Work Phone: Neutrophils/100 WBC (Bld) 57.5 % 47-70 [facility] Work Phone: Potassium [Moles/Vol] 3.7 mmol/L 3.5-5.1 [facility] Work Phone: Protein [Mass/Vol] 7.1 g/dL 6.4-8.2 [facility] Work Phone: Sodium [Moles/Vol] 137 mmol/L 136-145 [facility] Work Phone: Triglyceride [Mass/Vol] 409 mg/dL <199 [facility] Work Phone: Comment on above: The drugs N-Acetylcy steine and Metamizole may falsely depress this assay. TRIGLYCERIDE IS GREATER THAN 400 mg/dL. LDL RESULT IS INVALID AND WILL NOT BE REPORTED.Serum Triglycerides Reference Interval Normal <150 mg/dL Borderline high 150 - 199 mg/dL High 200 - 499 mg/dL Very High > or = 500 mg/dL WBC (Bld) [#/Vol] 5.6 10*3/uL 4.4-11.0 [facility] Work Phone: Blood erythrocytes count (nu mber/volume)on 02-27-2022 RBC (Bld) [#/Vol] 5.07 10*6/uL 4.6-6.2 [facility] Work Phone: Blood hemoglobin measurement (mass/volume)on 02-27-2022 Hemoglobin (Bld) [Mass/Vol] 15.8 g/dL 13.0-16.5 [facility] Work Phone: Blood lymphocytes/100 leukoc yteson 02-27-2022 Lymphocytes/100 WBC (Bld) 29.9 % 19-41 [facility] Work Phone: Blood monocytes/100 leukocyt eson 02-27-2022 Monocytes/100 WBC (Bld) 8.6 % 0-10 [facility] Work Phone: Blood platelet mean volumeon 02-27-2022 Platelet mean volume (Bld) [Entitic vol] 12.2 fL 6.2-12.0 [facility] Work Phone: Determination of erythrocyte mean corpuscular volume (MCV)on 02-27-2022 MCV (RBC) [Entitic vol] 90.7 fL 80-94 [facility] Work Phone: Hematocrit Auto (Bld) [Volum e fraction]on 02-27-2022 Hematocrit (Bld) [Volume fraction] 46.0 % 40-54 [facility] Work Phone: Laboratory - Chemistry and C hemistry - challengeon 02-27-2022 ALP [Catalytic activity/Vol] 151 U/L 45-117 [facility] Work Phone: ALT [Catalytic activity/Vol] 95 U/L 16-61 [facility] Work Phone: CO2 [Moles/Vol] 24.0 mmol/L 21.0-32.0 [facility] Work Phone: Globulin (S) [Mass/Vol] 3.3 g/dL 2.2-4.2 [facility] Work Phone: Urea nitrogen/Creatinine [Mass ratio] 15.1 mg/mg 10-20 [facility] Work Phone: Laboratory - Hematology and Cell countson 02-27-2022 Erythrocyte distribution width (RBC) [Entitic vol] 43.5 fL 35.1-43.9 [facility] Work Phone: Erythrocyte distribution width (RBC) [Ratio] 13.1 % 11.6-14.6 [facility] Work Phone: Immature granulocytes/100 WBC (Bld) 0.400 % 0.0-0.9 [facility] Work Phone: Comment on above: IG% - Immature Granu locytes (promyelocytes, myelocytes and metamyelocytes) > 1% indicates that a LEFT SHIFT is Present. MCH (RBC) [Entitic mass] 31.2 pg 27.0-32.0 [facility] Work Phone: Nucleated RBC/100 WBC (Bld) [Ratio] 0 % 0-5 [facility] Work Phone: MCHC Auto (RBC) [Mass/Vol]on 02-27-2022 MCHC (RBC) [Mass/Vol] 34.3 g/dL 32-36 [facility] Work Phone: No Panel Informationon 02-27 Estimated GFR (MDRD) Amer 111 mL/min >60 [facility] Work Phone: Comment on above: GFR Calc Estimated GFR (MDRD) Non-Af Amer 92 mL/min >60 [facility] Work Phone: Comment on above: Non- GFR Calc Prostate Specific Antigen Screen 0.25 ng/mL 0.00-4.00 [facility] Work Phone: Comment on above: This test was perfor med using the TPSA assay method for the[employer] chemistry system. Values obtained with differentassay methods cannot be used interchangably.When changing PSA assays in the course of monitoring apatient, additional sequential testing should be carriedout to confirm baseline values. Platelets bldon 02-27-2022 Platelets (Bld) [#/Vol] 139 10*3/uL 150-450 [facility] Work Phone: Serum or plasma albumin arpan urement (mass/volume)on 02-27-2022 Albumin [Mass/Vol] 3.8 g/dL 3.2-5.0 [facility] Work Phone: Serum or plasma albumin/glob ulin mass ratioon 02-27-2022 Albumin/Globulin [Mass ratio] 1.2 {ratio} 0.9-2.4 [facility] Work Phone: Serum or plasma calcium arpan urement (mass/volume)on 02-27-2022 Calcium [Mass/Vol] 9.1 mg/dL 8.5-10.1 [facility] Work Phone: Serum or plasma cholesterol in HDL measurement (mass/volume)on 02-27-2022 Cholesterol in HDL [Mass/Vol] 27 mg/dL >40 [facility] Work Phone: Comment on above: The drugs N-Acetylcy steine and Metamizole may falsely depress this assay. Reference Range HDL <40 mg/dL Low HDL Cholesterol HDL >or= 60 mg/dL High HDL Cholesterol Serum or plasma cholesterol in VLDL measurement (mass/volume)on 02-27-2022 Cholesterol in VLDL [Mass/Vol] [facility] Work Phone: Comment on above: Test not performed Serum or plasma creatinine m easurement (mass/volume)on 02-27-2022 Creatinine [Mass/Vol] 0.93 mg/dL 0.70-1.30 [facility] Work Phone: Comment on above: The validity of the calculated GFR & GFRAA in patients over 70 years has not been determined. Clinical correlation is essential. Serum or plasma low density lipoprotein (LDL) cholesterol measurement (mass/volume)on 02-27-2022 Cholesterol in LDL [Mass/Vol] [facility] Work Phone: Comment on above: Test not performed Serum or plasma urea nitroge n measurement (mass/volume)on 02-27-2022 Urea nitrogen [Mass/Vol] 14 mg/dL 7-18 [facility] Work Phone: Thin prep Papanicolaou smear with manual screeningon 02-27-2022 Thin prep Papanicolaou smear with manual screening 55 U/L 15-37 [facility] Work Phone: Thin prep Papanicolaou smear with manual screening 8 5-15 [facility] Work Phone: Whole blood hemoglobin A1c/t otal hemoglobin ratio (mass fraction)on 02-27-2022 HbA1c (Bld) [Mass fraction] 9.0 % 3.8-5.6 [facility] Work Phone: Comment on above: Normal < 5.7 % Predi abetic 5.7 - 6.4 % Diabetic >or= 6.5 % Please note range changes. Laboratory - Hematology and Cell countson 11-06-2021 HbA1c (Bld) [Mass fraction] 8.6 % 4.2-6.3 [facility] Work Phone: Basophil percentageon 2021 Bilirubin [Mass/Vol] 0.60 mg/dL 0.20-1.00 [facility] Work Phone: Comment on above: For patients on eltr ombopag therapy, use of Dimension [place] TBIL is not recommended. Cholesterol [Mass/Vol] 65 mg/dL <200 [facility] Work Phone: Comment on above: <200 mg/dL Desirable 200-240 mg/dL Borderline >240 mg/dL High Risk Protein [Mass/Vol] 6.1 g/dL 6.4-8.2 [facility] Work Phone: Triglyceride [Mass/Vol] 127 mg/dL [facility] Work Phone: Comment on above: The drugs N-Acetylcy steine and Metamizole may falsely depress this assay.Serum Triglycerides Reference Interval Normal <150 mg/dL Borderline high 150 - 199 mg/dL High 200 - 499 mg/dL Very High > or = 500 mg/dL Direct bilirubinon Bilirubin.direct [Mass/Vol] 0.23 mg/dL 0.00-0.30 [facility] Work Phone: Laboratory - Chemistry and C hemistry - challengeon 10-08-2021 ALP [Catalytic activity/Vol] 92 U/L 45-117 [facility] Work Phone: ALT [Catalytic activity/Vol] 71 U/L 16-61 [facility] Work Phone: Globulin (S) [Mass/Vol] 2.7 g/dL 2.2-4.2 [facility] Work Phone: Serum or plasma albumin arpan urement (mass/volume)on 10-08-2021 Albumin [Mass/Vol] 3.4 g/dL 3.2-5.0 [facility] r [facility] Work Phone: Serum or plasma cholesterol in HDL measurement (mass/volume)on 10-08-2021 Cholesterol in HDL [Mass/Vol] 19 mg/dL [facility] Work Phone: Comment on above: The drugs N-Acetylcy steine and Metamizole may falsely depress this assay. Reference Range HDL <40 mg/dL Low HDL Cholesterol HDL >or= 60 mg/dL High HDL Cholesterol Serum or plasma cholesterol in VLDL measurement (mass/volume)on 10-08-2021 Cholesterol in VLDL [Mass/Vol] 25 mg/dL 5-40 [facility] Work Phone: Serum or plasma low density lipoprotein (LDL) cholesterol measurement (mass/volume)on 10-08-2021 Cholesterol in LDL [Mass/Vol] 21 mg/dL 0-130 [facility] Work Phone: Thin prep Papanicolaou smear with manual screeningon 10-08-2021 Thin prep Papanicolaou smear with manual screening 44 U/L 15-37 [facility] Work Phone: No Panel Informationon 08-02 Influenza Types A,B Rapid (Clinic) Negative [facility] Work Phone: CBCon 07-08-2018 Erythrocyte distribution width Ratio (RBC) 13.3 % Normal 11.5-15.0 [facility] Comment on above: Performed By: #### I YAHIR #### [facility] Routine Lab [address] [place], [place] [address] #### HACUTP #### [facility] [address] [place] [phone] Hematocrit Volume Fraction (Bld) 47.8 % Normal 39.0-51.0 [facility] Comment on above: Performed By: #### I YAHIR #### [facility] [address] [place] [phone] #### HACUTP #### [facility] [address] [place] [phone] Hemoglobin mass conc (Bld) 15.7 g/dL Normal 13.0-17.0 [facility] Comment on above: Performed By: #### I YAHIR #### [facility] [address] [place] [phone] #### HACUTP #### [facility] [address] [place] [phone] MCH Entitic mass (RBC) 30.2 pG Normal 26.0-34.0 [facility] Reference [facility] Comment on above: Performed By: #### I YAHIR #### [facility] [address] [place] [phone] #### HACUTP #### [facility] [address] [place] [phone] MCHC mass conc (RBC) 32.8 g/dL Normal 30.5-36.0 [facility] Reference [facility] Comment on above: Performed By: #### I YAHIR #### [facility] [address] [place] [phone] #### HACUTP #### [facility] [address] [place] [phone] MCV Entitic volume (RBC) 91.9 fL Normal 80.0-100.0 [facility] Comment on above: Performed By: #### I YAHIR #### [facility] [address] [address] #### HACUTP #### [facility] [address] [place], [place] [address] Platelet mean volume Entitic volume (Bld) 11.3 fL Normal 9.0-12.7 [facility] Comment on above: Performed By: #### I YAHIR #### [facility] [address] [address] #### HACUTP #### [facility] [address] [phone] Platelets #/vol (Bld) 132 10*3/uL Low 150-400 Cl [facility] Reference [facility] Comment on above: Performed By: #### I YAHIR #### [facility] [address] [phone] #### HACUTP #### [facility] [address] [address] RBC #/vol (Bld) 5.20 10*6/uL Normal 4.20-6.00 [facility] Reference Lab Comment on above: Performed By: #### I YAHIR #### [facility] [address] [phone] #### HACUTP #### [facility] [address] [phone] WBC #/vol (Bld) 4.80 10*3/uL Normal 3.70-11.00 [facility] Reference [facility] Comment on above: Performed By: #### I YAHIR #### [facility] [address] [phone] #### HACUTP #### [facility] [address] [phone] Hepatitis Acute Panel * OUTS [place] CLIENTS ONLY *on 07-08-2018 HBsAg NEGAT Normal Negative [facility] Comment on above: Performed By: #### I YAHIR #### [facility] [address] [phone] #### HACUTP #### [facility] [address] [phone] Hep B Core Ab, IgM NEGAT Normal Negative [facility] Reference [facility] Comment on above: Performed By: #### I YAHIR #### [facility] [address] [phone] #### HACUTP #### [facility] [address] [phone] Hepatitis A Ab IgM NEGAT Normal Negative [facility] Reference [facility] Comment on above: Performed By: #### I YAHIR #### [facility] [address] [phone] #### HACUTP #### [facility] [address] [phone] Hepatitis C Ab IA NEGAT Normal Negative [facility] Reference Lab Comment on above: Performed By: #### I YAHIR #### [facility] [address] [phone] #### HACUTP #### [facility] [address] [phone] Iron and TIBCon 07-08-2018 Iron mass conc 139 ug/dL Normal 41-186 [facility] Comment on above: Performed By: #### I YAHIR #### [facility] [address] [phone] #### HACUTP #### [facility] [address] [phone] TIBC 360 ug/dL Normal 232-386 [facility] Comment on above: Performed By: #### I YAHIR #### [facility] Routine Lab [address] [address] #### HACUTP #### [facility] [address] [address] Transferrin Saturatn 39 % Normal 15-57 [facility] [place] [facility] Reference Lab Comment on above: Performed By: #### I YAHIR #### [facility] [address] [address] #### HACUTP #### [facility] [address] [address] Office Visiton 11-11-2016 Fall risk assessment No [facility] Work Phone: Hemoglobin A1c/Hemoglobin.total mass fraction (Bld) 6.1 % [facility] Work Phone: Protein mass conc Done [facility] Work Phone: Clinical Lists Update: Prelo digital media planner 11-07-2016 Left ventricular Ejection fraction 65 % [facility] Work Phone: Clinical Lists Update: Prelo digital media planner 10-30-2016 Cholesterol in HDL mass conc 34 mg/dL Low [facility] Work Phone: Cholesterol in LDL mass conc 80 mg/dL [facility] Work Phone: Cholesterol mass conc 162 mg/dL [facility] Work Phone: Lipoprotein.pre-beta mass conc 48 mg/dL High [facility] Work Phone: Triglyceride mass conc 242 mg/dL High [facility] Work Phone: Office Visiton 05-06-2016 Protein mass conc Done [facility] Work Phone: Tobacco smoking status NHIS Former smoker [facility] Work Phone: Lab Report: T4 Total, Thyrox inon 03-17-2015 T4 mass conc 12.2 ug/dL High 4.5-12.1 [facility] Work Phone: Lab Report: Thyroid Stim Ambika maradiaga (TSH)on 03-17-2015 Thyrotropin Qn 0.78 u[iU]/mL 0.358-3.74 [facility] Work Phone: Clinical Lists Update: Prelo digital media planner 03-10-2015 Albumin mass conc 4.4 g/dL [facility] Work Phone: ALP enzyme act/vol (Bld) 92 U/L [facility] Work Phone: ALT enzyme act/vol 56 U/L High [facility] Work Phone: AST enzyme act/vol 34 U/L [facility] Work Phone: Bilirubin mass conc 0.5 mg/dL [facility] Work Phone: Calcium mass conc 8.9 mg/dL [facility] Work Phone: Chloride molar conc 99 mmol/L [facility] Work Phone: Cholesterol in HDL mass conc 33 mg/dL Low [facility] Work Phone: Cholesterol mass conc 195 mg/dL High [facility] Work Phone: CO2 ppres (BldV) 22 mmol/L [facility] Work Phone: Creatinine mass conc 0.90 mg/dL [facility] Work Phone: Erythrocyte distribution width Ratio (RBC) 13.7 % [facility] Work Phone: Globulin mass conc (S) 1.9 g/dL [facility] Work Phone: Glucose mass conc 185 mg/dL High [facility] Work Phone: Hematocrit Volume Fraction (Bld) 40.6 % [facility] Work Phone: Hemoglobin mass conc (Bld) 14.0 g/dL [facility] Work Phone: Magnesium mass conc 1.8 mg/dL [facility] Work Phone: MCH Entitic mass (RBC) 29.4 pg [facility] Work Phone: MCHC mass conc (RBC) 34.5 g/dL [facility] Work Phone: MCV Entitic volume (RBC) 85 fL [facility] Work Phone: Platelets #/vol (Bld) 199 10*3/mm3 [facility] Work Phone: Potassium molar conc 3.8 mmol/L [facility] Work Phone: Protein mass conc 6.3 g/dL [facility] Work Phone: RBC #/vol (Bld) 4.76 10*6/uL [facility] Work Phone: Sodium molar conc 139 mmol/L [facility] Work Phone: T4 free mass conc 1.21 ng/dL [facility] Work Phone: Triglyceride mass conc 167 mg/dL High [facility] Work Phone: Urea nitrogen mass conc 14 mg/dL [facility] Work Phone: Urea nitrogen/Creatinine mass ratio 16 mg/mg [facility] Work Phone: WBC #/vol (Bld) 6.6 10*3/uL [facility] Work Phone: Lab Report: BNP,B-Type NATRI URETIC PEPTIDEon 02-28-2015 Natriuretic peptide B mass conc (Bld) 7.3 pg/mL 0-100 [facility] Work Phone: Lab Report: Basic Metabolic Profile (BMP)on 02-28-2015 Anion gap molar conc 8 mmol/L 5-[address] [facility] Work Phone: EST GFR - AA 112 mL/min >60 [facility] Work Phone: GFR/1.73 sq M predicted among non-blacks MDRD vol rate/area (S/P/Bld) 92 mL/min/{1.73_m2} >60 [facility] Work Phone: Office Visiton 11-14-2014 cardiac risk group C [facility] Work Phone: General cardiovascular disease 10Y risk [#] Supply.D'Agostshahid N/A [facility] Work Phone: Lab Report: Blood Gas Specim en Typeon 10-19-2014 BLD GAS TYPE PAT [facility] Work Phone: Office Visiton 10-18-2014 Protein mass conc yes [facility] Work Phone: Clinical Lists Update: Prelo digital media planner 10-05-2014 Cholesterol in LDL mass conc 118 mg/dL [facility] Work Phone: Office Visiton 09-29-2014 Tobacco smoking status NHIS Never [facility] Work Phone: Vital Signs Date Time Vital Sign Value Performing Clinician Facility 12-06-2024 12:57-0400 Body height 175.26 cm Araceli Mason 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 Work Phone: [facility] 12-06-2024 12:57-0400 Body mass index (BMI) [Ratio] 36.6 kg/m2 Araceli Mason 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 [employer] Work Phone: [facility] 12-06-2024 12:57-0400 Body weight 112.49 kg Araceli Mason 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 [employer] Work Phone: [facility] 12-06-2024 12:57-0400 Diastolic blood pressure 78 mm[Hg] Araceli Mason 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 [employer] Work Phone: [facility] 12-06-2024 12:57-0400 Heart rate 87 /min Araceli Mason 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 [employer] Work Phone: [facility] 12-06-2024 12:57-0400 Respiratory rate 18 /min Araceli Mason 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 Work Phone: [facility] 12-06-2024 12:57-0400 SaO2% (BldA) [Mass fraction] 6 % Araceli Mason 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 [employer] Work Phone: [facility] 12-06-2024 12:57-0400 Systolic blood pressure 124 mm[Hg] Araceli Mason 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 [employer] Work Phone: [facility] 10-26-2024 17:41-0400 Body mass index (BMI) [Ratio] 36.3 kg/m2 Araceli Mason 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 [employer] Work Phone: [facility] 10-26-2024 17:41-0400 Body temperature 97.5 [degF] Araceli Mason 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 [employer] Work Phone: [facility] 10-26-2024 17:41-0400 Body weight 111.58 kg Araceli Mason 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 [employer] Work Phone: [facility] 10-26-2024 17:41-0400 Diastolic blood pressure 70 mm[Hg] Araceli Mason 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 [employer] Work Phone: [facility] 10-26-2024 17:41-0400 Heart rate 99 /min Araceli Mason 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 [employer] Work Phone: [facility] 10-26-2024 17:41-0400 Respiratory rate 18 /min Araceli Mason 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 [employer] Work Phone: [facility] 10-26-2024 17:41-0400 SaO2% (BldA) [Mass fraction] 97 % Araceli Mason 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 [employer] Work Phone: [facility] 10-26-2024 17:41-0400 Systolic blood pressure 100 mm[Hg] Araceli Mason 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 [employer] Work Phone: [facility] 10-26-2024 08:24-0400 Body height 175.26 cm Araceli Mason 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 [employer] Work Phone: [facility] 10-26-2024 08:24-0400 Body mass index (BMI) [Ratio] 36.1 kg/m2 Araceliwoo HansenMason 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 [employer] Work Phone: [facility] 10-26-2024 08:24-0400 Body temperature 97 [degF] Araceli Mason 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 [employer] Work Phone: [facility] 10-26-2024 08:24-0400 Body weight 111.13 kg Araceli Mason 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 [employer] Work Phone: [facility] 10-26-2024 08:24-0400 Diastolic blood pressure 81 mm[Hg] Araceli Mason 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 Work Phone: [facility] 10-26-2024 08:24-0400 Heart rate 88 /min Araceli Mason 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 [employer] Work Phone: [facility] 10-26-2024 08:24-0400 Respiratory rate 20 /min Araceli Mason 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 Work Phone: [facility] 10-26-2024 08:24-0400 SaO2% (BldA) [Mass fraction] 95 % Araceliwoo HansenMason 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 [employer] Work Phone: [facility] 10-26-2024 08:24-0400 Systolic blood pressure 124 mm[Hg] Araceliwoo HansenMason 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 [employer] Work Phone: [facility] 10-14-2024 08:07-0400 Body height 175.26 cm Araceli Mason 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 [employer] Work Phone: [facility] 10-14-2024 08:07-0400 Body weight 115.21 kg Araceliwoo HansenMason 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 [employer] Work Phone: [facility] 10-14-2024 08:07-0400 Heart rate 95 /min Araceli Mason 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 [employer] Work Phone: [facility] 10-14-2024 08:07-0400 SaO2% (BldA) [Mass fraction] 96 % Araceli Mason 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 Work Phone: [facility] 08-24-2024 15:13-0400 Body height 177.8 cm Araceli Mason 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 [employer] Work Phone: [facility] 08-24-2024 15:13-0400 Body mass index (BMI) [Ratio] 38.1 kg/m2 Araceliwoo Mason 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 [employer] Work Phone: [facility] 08-24-2024 15:13-0400 Body temperature 97.7 [degF] Araceli Mason 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 [employer] Work Phone: [facility] 08-24-2024 15:13-0400 Body weight 120.65 kg Araceliwoo Mason 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 [employer] Work Phone: [facility] 08-24-2024 15:13-0400 Diastolic blood pressure 84 mm[Hg] Araceliwoo Mason 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 [employer] Work Phone: [facility] 08-24-2024 15:13-0400 Heart rate 87 /min Araceliwoo Mason 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 [employer] Work Phone: [facility] 08-24-2024 15:13-0400 Respiratory rate 18 /min Araceliwoo HansenMason 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 [employer] Work Phone: [facility] 08-24-2024 15:13-0400 SaO2% (BldA) [Mass fraction] 96 % Araceliwoo Mason 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 [employer] Work Phone: [facility] 08-24-2024 15:13-0400 Systolic blood pressure 132 mm[Hg] Araceliwoo Mason 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 [employer] Work Phone: [facility] 08-04-2024 12:40-0400 Body mass index (BMI) [Ratio] 36.4 kg/m2 Araceliwoo HansenMason 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 [employer] Work Phone: [facility] 08-04-2024 12:40-0400 Body temperature 97.3 [degF] Araceliwoo HansenMason 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 [employer] Work Phone: [facility] 08-04-2024 12:40-0400 Body weight 115.21 kg Araceli Mason 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 [employer] Work Phone: [facility] 08-04-2024 12:40-0400 Diastolic blood pressure 80 mm[Hg] Araceli Mason 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 Work Phone: [facility] 08-04-2024 12:40-0400 Heart rate 96 /min Araceliwoo Mason 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 [employer] Work Phone: [facility] 08-04-2024 12:40-0400 Respiratory rate 20 /min Araceliwoo Mason 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 [employer] Work Phone: [facility] 08-04-2024 12:40-0400 SaO2% (BldA) [Mass fraction] 92 % Araceli Mason 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 Work Phone: [facility] 08-04-2024 12:40-0400 Systolic blood pressure 123 mm[Hg] Araceli Mason 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 [employer] Work Phone: [facility] 07-08-2024 19:15-0500 Body height 177.8 cm Araceli Mason 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 Work Phone: [facility] 07-08-2024 19:15-0500 Body mass index (BMI) [Ratio] 38 kg/m2 Araceli Mason 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 Work Phone: [facility] 07-08-2024 19:15-0500 Body temperature 97.7 [degF] Araceli Mason 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 Work Phone: [facility] 07-08-2024 19:15-0500 Body weight 120.2 kg Araceli Mason 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 Work Phone: [facility] 07-08-2024 19:15-0500 Diastolic blood pressure 80 mm[Hg] Araceli Mason 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 Work Phone: [facility] 07-08-2024 19:15-0500 Heart rate 88 /min Araceli Mason 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 Work Phone: [facility] 07-08-2024 19:15-0500 Respiratory rate 18 /min Araceli Mason 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 Work Phone: [facility] 07-08-2024 19:15-0500 SaO2% (BldA) [Mass fraction] 96 % Araceli Mason 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 Work Phone: [facility] 07-08-2024 19:15-0500 Systolic blood pressure 115 mm[Hg] Araceli Mason 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 Work Phone: [facility] 10-14-2023 16:00-0400 Body temperature 97.2 [degF] Krislyn Aberegg PA Work Phone: [facility] 10-14-2023 16:00-0400 Body weight 117.2 kg Krislyn Aberegg PA Work Phone: [facility] 10-14-2023 16:00-0400 Diastolic blood pressure 82 mm[Hg] Krislyn Aberegg PA Work Phone: [facility] 10-14-2023 16:00-0400 Heart rate 88 /min Krislyn Aberegg PA Work Phone: [facility] 10-14-2023 16:00-0400 Respiratory rate 16 /min Krislyn Aberegg PA Work Phone: [facility] 10-14-2023 16:00-0400 Systolic blood pressure 128 mm[Hg] Krislyn Aberegg PA Work Phone: [facility] 10-10-2023 10:24-0400 Body temperature 97.3 [degF] Akua Resendiz APRN.[employer] Work Phone: [facility] 10-10-2023 10:24-0400 Body weight 117.3 kg Akua Resendiz APRN.[employer] Work Phone: [facility] 10-10-2023 10:24-0400 Diastolic blood pressure 86 mm[Hg] Akua Resendiz APRN.[employer] Work Phone: [facility] 10-10-2023 10:24-0400 Heart rate 89 /min Akua Resendiz APRN.[employer] Work Phone: [facility] 10-10-2023 10:24-0400 Respiratory rate 18 /min Akua Resendiz APRN.[employer] Work Phone: [facility] 10-10-2023 10:24-0400 SaO2% (BldA) [Mass fraction] 96 % Akua Resendiz APRN.[employer] Work Phone: [facility] 10-10-2023 10:24-0400 Systolic blood pressure 141 mm[Hg] Akua Resendiz APRN.[employer] Work Phone: [facility] 09-11-2023 07:53-0400 Body height 177.8 cm 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 Mason 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 Work Phone: [facility] 09-11-2023 07:53-0400 Body mass index (BMI) [Ratio] 37.7 kg/m2 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 Mason 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 Work Phone: [facility] 09-11-2023 07:53-0400 Body temperature 98.6 [degF] 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 Araceli Mason 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 [employer] Work Phone: [facility] 09-11-2023 07:53-0400 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 119.29 kg 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 Mason 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 Work Phone: [facility] 09-11-2023 07:53-0400 Diastolic blood pressure 87 mm[Hg] 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 Araceli Mason 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 [employer] Work Phone: [facility] 09-11-2023 07:53-0400 Heart rate 88 /min 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 Mason 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 [employer] Work Phone: [facility] 09-11-2023 07:53-0400 SaO2% (BldA) [Mass fraction] 98 % 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 Mason 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 Work Phone: [facility] 09-11-2023 07:53-0400 Systolic blood pressure 129 mm[Hg] 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 Araceli Mason 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 Work Phone: [facility] 07-31-2023 19:51-0400 Body mass index (BMI) [Ratio] 38.1 kg/m2 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 Araceli Mason 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 [employer] Work Phone: [facility] 07-31-2023 19:51-0400 Body temperature 97.5 [degF] 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 Araceli Mason 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 [employer] Work Phone: [facility] 07-31-2023 19:51-0400 Body weight 120.65 kg 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 Araceli Mason 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 [employer] Work Phone: [facility] 07-31-2023 19:51-0400 Diastolic blood pressure 70 mm[Hg] 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 Araceli Mason 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 [employer] Work Phone: [facility] 07-31-2023 19:51-0400 Heart rate 103 /min 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 Araceli Mason 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 [employer] Work Phone: [facility] 07-31-2023 19:51-0400 Respiratory rate 18 /min 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 Araceli Mason 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 [employer] Work Phone: [facility] 07-31-2023 19:51-0400 SaO2% (BldA) [Mass fraction] 96 % 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 Araceli Mason 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 [employer] Work Phone: [facility] 07-31-2023 19:51-0400 Systolic blood pressure 120 mm[Hg] 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 Araceli Mason 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 [employer] Work Phone: [facility] 07-10-2023 15:44-0500 Body mass index (BMI) [Ratio] 38.4 kg/m2 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 Araceli Mason 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 [employer] Work Phone: [facility] 07-10-2023 15:44-0500 Body temperature 98.1 [degF] 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 Araceli Mason 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 Work Phone: [facility] 07-10-2023 15:44-0500 Body weight 121.56 kg 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 Araceli Mason 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 Work Phone: [facility] 07-10-2023 15:44-0500 Diastolic blood pressure 70 mm[Hg] 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 Araceli Mason 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 Work Phone: [facility] 07-10-2023 15:44-0500 Heart rate 119 /min 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 Araceli Mason 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 Work Phone: [facility] 07-10-2023 15:44-0500 Respiratory rate 18 /min 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 Araceli Mason 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 Work Phone: [facility] 07-10-2023 15:44-0500 SaO2% (BldA) [Mass fraction] 95 % 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 Araceli Mason 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 Work Phone: [facility] 07-10-2023 15:44-0500 Systolic blood pressure 120 mm[Hg] 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 Araceli Mason 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 Work Phone: [facility] 06-24-2023 18:24-0500 Body mass index (BMI) [Ratio] 38.4 kg/m2 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 Araceli Mason 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 Work Phone: [facility] 06-24-2023 18:24-0500 Body temperature 97.9 [degF] 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 Araceli Mason 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 Work Phone: [facility] 06-24-2023 18:24-0500 Body weight 121.56 kg 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 Araceli Mason 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 Work Phone: [facility] 06-24-2023 18:24-0500 Diastolic blood pressure 80 mm[Hg] 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 Araceli Mason [employer] Work Phone: [facility] 06-24-2023 18:24-0500 Heart rate 94 /min [employer] Araceli Mason [employer] Work Phone: [facility] 06-24-2023 18:24-0500 Respiratory rate 18 /min [employer] Araceli Mason [employer] Work Phone: [facility] 06-24-2023 18:24-0500 SaO2% (BldA) [Mass fraction] 93 % [employer] Araceli Mason [employer] Work Phone: [facility] 06-24-2023 18:24-0500 Systolic blood pressure 115 mm[Hg] [employer] Araceli Mason [employer] Work Phone: 4(040)611-03[address] [place] [address] 04-02-2023 15:35-0500 Heart rate 104 /min [employer] Araceli Mason [employer] Work Phone: 8(806)861-907782 [address] 04-02-2023 15:15-0500 Body height 177.8 cm [employer] Araceli Mason [employer] Work Phone: 7(046)778-885634 [place] [address] 04-02-2023 15:15-0500 Body mass index (BMI) [Ratio] 39.2 kg/m2 [employer] Araceli Mason [employer] Work Phone: 1(281)700-415534 [place] [address] 04-02-2023 15:15-0500 Body weight 123.83 kg [employer] Araceli Mason [employer] Work Phone: 7(932)854-955234 [place] [address] 04-02-2023 15:15-0500 Diastolic blood pressure 66 mm[Hg] [employer] Araceli Mason [employer] Work Phone: 8(623)414-107834 [place] [address] 04-02-2023 15:15-0500 Respiratory rate 18 /min [employer] Araceli Mason [employer] Work Phone: 5(548)751-292620 [place] [address] 04-02-2023 15:15-0500 Systolic blood pressure 116 mm[Hg] [employer] Araceli Mason [employer] Work Phone: 2(931)213-495220 [place] [address] 03-03-2023 06:48-0400 Body height 177.8 cm [employer] Araceli Mason [employer] Work Phone: 3(109)787-854834 [place] [address] 03-03-2023 06:48-0400 Body mass index (BMI) [Ratio] 38.7 kg/m2 [employer] Araceli Hansenson [employer] Work Phone: 9(488)555-840820 [place] [address] 03-03-2023 06:48-0400 Body temperature 96.9 [degF] [employer] Araceli Mason [employer] Work Phone: [facility] 03-03-2023 06:48-0400 Body weight 122.46 kg [employer] Araceli Mason [employer] Work Phone: [facility] 03-03-2023 06:48-0400 Diastolic blood pressure 92 mm[Hg] [employer] Araceli Mason [employer] Work Phone: [facility] 03-03-2023 06:48-0400 Heart rate 88 /min [employer] Araceli Mason [employer] Work Phone: [facility] 03-03-2023 06:48-0400 Respiratory rate 20 /min [employer] Araceli Mason [employer] Work Phone: [facility] 03-03-2023 06:48-0400 SaO2% (BldA) [Mass fraction] 94 % [employer] Araceli Mason [employer] Work Phone: [facility] 03-03-2023 06:48-0400 Systolic blood pressure 138 mm[Hg] [employer] Araceli Mason [employer] Work Phone: [facility] 02-21-2023 16:08-0400 Body mass index (BMI) [Ratio] 38.4 kg/m2 [employer] Araceli Mason [employer] Work Phone: [facility] 02-21-2023 16:08-0400 Body temperature 98.1 [degF] [employer] Araceli Mason [employer] Work Phone: [facility] 02-21-2023 16:08-0400 Body weight 121.56 kg [employer] Araceli Mason [employer] Work Phone: [facility] 02-21-2023 16:08-0400 Diastolic blood pressure 80 mm[Hg] [employer] Araceli Mason [employer] Work Phone: [facility] 02-21-2023 16:08-0400 Heart rate 97 /min [employer] Araceli Mason [employer] Work Phone: [facility] 02-21-2023 16:08-0400 Respiratory rate 18 /min [employer] Araceli Mason [employer] Work Phone: [facility] 02-21-2023 16:08-0400 SaO2% (BldA) [Mass fraction] 95 % [employer] Araceli Mason [employer] Work Phone: [facility] 02-21-2023 16:08-0400 Systolic blood pressure 128 mm[Hg] [employer] Araceli Mason [employer] Work Phone: [facility] 12-24-2022 16:44-0400 Body mass index (BMI) [Ratio] 39.9 kg/m2 [employer] Araceli Mason [employer] Work Phone: [facility] 12-24-2022 16:44-0400 Body temperature 98.2 [degF] [employer] Araceli Mason [employer] Work Phone: [facility] 12-24-2022 16:44-0400 Body weight 126.09 kg [employer] Araceli Mason [employer] Work Phone: [facility] 12-24-2022 16:44-0400 Diastolic blood pressure 70 mm[Hg] [employer] Araceli Mason [employer] Work Phone: [facility] 12-24-2022 16:44-0400 Heart rate 95 /min [employer] Araceli Mason [employer] Work Phone: [facility] 12-24-2022 16:44-0400 Respiratory rate 18 /min [employer] Araceli Mason [employer] Work Phone: [facility] 12-24-2022 16:44-0400 SaO2% (BldA) [Mass fraction] 95 % [employer] Araceli Mason [employer] Work Phone: [facility] 12-24-2022 16:44-0400 Systolic blood pressure 115 mm[Hg] [employer] Araceli Mason [employer] Work Phone: [facility] 11-28-2022 16:53-0400 Body height 177.8 cm [employer] Araceli Mason [employer] Work Phone: [facility] 11-28-2022 16:53-0400 Body mass index (BMI) [Ratio] 40.3 kg/m2 [employer] Araceli Mason [employer] Work Phone: [facility] 11-28-2022 16:53-0400 Body temperature 97.8 [degF] [employer] Araceli Hansenson [employer] Work Phone: [facility] 11-28-2022 16:53-0400 Body weight 127.45 kg [employer] Araceli Hansenson [employer] Work Phone: [facility] 11-28-2022 16:53-0400 Diastolic blood pressure 80 mm[Hg] [employer] Araceli Mason [employer] Work Phone: [facility] 11-28-2022 16:53-0400 Heart rate 84 /min [employer] Araceli Mason [employer] Work Phone: [facility] 11-28-2022 16:53-0400 Respiratory rate 18 /min [employer] Araceli Mason [employer] Work Phone: [facility] 11-28-2022 16:53-0400 SaO2% (BldA) [Mass fraction] 94 % [employer] Araceli Mason [employer] Work Phone: [facility] 11-28-2022 16:53-0400 Systolic blood pressure 120 mm[Hg] [employer] Araceli Hansenson [employer] Work Phone: [facility] 10-22-2022 17:26-0400 Body mass index (BMI) [Ratio] 40.4 kg/m2 [employer] Araceli Mason [employer] Work Phone: [facility] 10-22-2022 17:26-0400 Body temperature 98.6 [degF] [employer] Araceli Hansenson [employer] Work Phone: 7(003)920-530020 [place] [address] 10-22-2022 17:26-0400 Body weight 127.91 kg [employer] Araceli Mason [employer] Work Phone: 7(964)215-807520 [place] [address] 10-22-2022 17:26-0400 Diastolic blood pressure 80 mm[Hg] [employer] Araceli Mason [employer] Work Phone: 0(148)119-766520 [place] [address] 10-22-2022 17:26-0400 Heart rate 84 /min [employer] Araceli Mason [employer] Work Phone: 5(529)359-338282 [address] 10-22-2022 17:26-0400 Respiratory rate 18 /min [employer] Araceli Mason [employer] Work Phone: 8(087)093-944834 [place] [address] 10-22-2022 17:26-0400 SaO2% (BldA) [Mass fraction] 94 % [employer] Araceli Mason [employer] Work Phone: 2(302)393-924420 [place] [address] 10-22-2022 17:26-0400 Systolic blood pressure 120 mm[Hg] [employer] Araceli Mason [employer] Work Phone: 6(817)647-802820 [place] [address] 09-18-2022 15:02-0400 Body mass index (BMI) [Ratio] 40.3 kg/m2 [employer] Araceli Mason [employer] Work Phone: 4([phone])895-872820 [place] [address] 09-18-2022 15:02-0400 Body weight 127.45 kg [employer] Araceli Mason [employer] Work Phone: 3(394)042-588220 [place] [address] 09-04-2022 15:50-0400 Body mass index (BMI) [Ratio] 40.4 kg/m2 [employer] Araceli Mason [employer] Work Phone: 9(623)774-834320 [place] [address] 09-04-2022 15:50-0400 Body weight 127.91 kg [employer] Araceli Hansenson [employer] Work Phone: [facility] 09-04-2022 15:50-0400 Diastolic blood pressure 86 mm[Hg] [employer] Araceli Mason [employer] Work Phone: 8(313)516-925420 [place] [address] 09-04-2022 15:50-0400 Heart rate 95 /min [employer] Araceli Mason [employer] Work Phone: [facility] 09-04-2022 15:50-0400 Respiratory rate 18 /min [employer] Araceli Mason [employer] Work Phone: [facility] 09-04-2022 15:50-0400 Systolic blood pressure 124 mm[Hg] [employer] Araceli Mason [employer] Work Phone: [facility] 04-19-2022 13:16-0500 Body temperature 98 [degF] [employer] Araceli Mason [employer] Work Phone: [facility] Work Phone: 04-19-2022 13:16-0500 Diastolic blood pressure 78 mm[Hg] [employer] Araceli Mason [employer] Work Phone: [facility] Work Phone: 04-19-2022 13:16-0500 Heart rate 85 /min [employer] Araceli Mason [employer] Work Phone: [facility] Work Phone: 04-19-2022 13:16-0500 Respiratory rate 18 /min [employer] Araceli Mason [employer] Work Phone: [facility] Work Phone: 04-19-2022 13:16-0500 SaO2% (BldA) [Mass fraction] 94 % [employer] Araceli Mason [employer] Work Phone: [facility] Work Phone: 04-19-2022 13:16-0500 Systolic blood pressure 119 mm[Hg] [employer] Araceli Mason [employer] Work Phone: [facility] Work Phone: 04-19-2022 09:46-0500 Body height 176.78 cm [employer] Araceli Hansenson [employer] Work Phone: [facility] Work Phone: 04-19-2022 09:46-0500 Body mass index (BMI) [Ratio] 40.9 kg/m2 [employer] Araceliwoo HansenMason [employer] Work Phone: [facility] Work Phone: 04-19-2022 09:46-0500 Body weight 128 kg [employer] Araceli Hansenson [employer] Work Phone: [facility] Work Phone: 03-19-2022 14:34-0400 Body mass index (BMI) [Ratio] 41.8 kg/m2 [employer] Araceli Mason [employer] Work Phone: [facility] Work Phone: 03-19-2022 14:34-0400 Body temperature 97.4 [degF] [employer] Araceli Mason [employer] Work Phone: [facility] Work Phone: 03-19-2022 14:34-0400 Body weight 130.69 kg [employer] Araceli Mason [employer] Work Phone: [facility] Work Phone: 03-19-2022 14:34-0400 Diastolic blood pressure 92 mm[Hg] [employer] Araceliwoo HansenMason [employer] Work Phone: [facility] Work Phone: 03-19-2022 14:34-0400 Heart rate 53 /min [employer] Araceli Mason [employer] Work Phone: [facility] Work Phone: 03-19-2022 14:34-0400 Respiratory rate 18 /min [employer] Araceli Mason [employer] Work Phone: [facility] Work Phone: 03-19-2022 14:34-0400 SaO2% (BldA) [Mass fraction] 93 % [employer] Araceli Mason [employer] Work Phone: [facility] Work Phone: 03-19-2022 14:34-0400 Systolic blood pressure 136 mm[Hg] [employer] Araceli Mason [employer] Work Phone: [facility] Work Phone: 02-27-2022 18:30-0400 Body height 177.8 cm [employer] Araceli Mason [employer] Work Phone: [facility] Work Phone: 02-27-2022 18:30-0400 Body mass index (BMI) [Ratio] 41 kg/m2 [employer] Araceli Mason [employer] Work Phone: [facility] Work Phone: 02-27-2022 18:30-0400 Body temperature 97.9 [degF] [employer] Araceli Mason [employer] Work Phone: [facility] Work Phone: 02-27-2022 18:30-0400 Body weight 129.72 kg [employer] Araceli Mason [employer] Work Phone: [facility] Work Phone: 02-27-2022 18:30-0400 Diastolic blood pressure 80 mm[Hg] [employer] Araceli Mason [employer] Work Phone: [facility] Work Phone: 02-27-2022 18:30-0400 Heart rate 87 /min [employer] Araceli Mason [employer] Work Phone: [facility] Work Phone: 02-27-2022 18:30-0400 Respiratory rate 18 /min [employer] Araceli Mason [employer] Work Phone: [facility] Work Phone: 02-27-2022 18:30-0400 SaO2% (BldA) [Mass fraction] 96 % [employer] Araceli Mason [employer] Work Phone: [facility] Work Phone: 02-27-2022 18:30-0400 Systolic blood pressure 149 mm[Hg] [employer] Araceli Mason [employer] Work Phone: [facility] Work Phone: 02-20-2022 15:31-0400 Body mass index (BMI) [Ratio] 40.7 kg/m2 [employer] Araceli Mason [employer] Work Phone: [facility] Work Phone: 02-20-2022 15:31-0400 Body weight 128.84 kg [employer] Araceli Mason [employer] Work Phone: [facility] Work Phone: 02-20-2022 15:31-0400 Diastolic blood pressure 88 mm[Hg] [employer] Araceli Mason [employer] Work Phone: [facility] Work Phone: 02-20-2022 15:31-0400 Heart rate 80 /min [employer] Araceli Mason [employer] Work Phone: [facility] Work Phone: 02-20-2022 15:31-0400 Respiratory rate 16 /min [employer] Araceli Mason [employer] Work Phone: [facility] Work Phone: 02-20-2022 15:31-0400 Systolic blood pressure 140 mm[Hg] [employer] Araceli Mason [employer] Work Phone: [facility] Work Phone: 11-06-2021 17:38-0400 Body mass index (BMI) [Ratio] 40.8 kg/m2 [employer] Araceli Mason [employer] Work Phone: [facility] Work Phone: 11-06-2021 17:38-0400 Body temperature 97.9 [degF] [employer] Araceli Mason [employer] Work Phone: [facility] Work Phone: 11-06-2021 17:38-0400 Body weight 129.27 kg [employer] Araceli Mason [employer] Work Phone: [facility] Work Phone: 11-06-2021 17:38-0400 Diastolic blood pressure 60 mm[Hg] [employer] Araceli Mason [employer] Work Phone: [facility] Work Phone: 11-06-2021 17:38-0400 Heart rate 98 /min [employer] Araceli Mason [employer] Work Phone: [facility] Work Phone: 11-06-2021 17:38-0400 Respiratory rate 18 /min [employer] Araceli Mason [employer] Work Phone: [facility] Work Phone: 11-06-2021 17:38-0400 SaO2% (BldA) [Mass fraction] 97 % [employer] Araceli Mason [employer] Work Phone: [facility] Work Phone: 11-06-2021 17:38-0400 Systolic blood pressure 148 mm[Hg] [employer] Araceli Mason [employer] Work Phone: [facility] Work Phone: 08-02-2021 15:48-0400 Body height 177.8 cm [facility] Work Phone: 08-02-2021 15:48-0400 Body mass index (BMI) [Ratio] 41.4 kg/m2 [facility] Work Phone: 08-02-2021 15:48-0400 Body temperature 102.9 [degF] [facility] Work Phone: 08-02-2021 15:48-0400 Body weight 131.08 kg [facility] Work Phone: 08-02-2021 15:48-0400 Diastolic blood pressure 70 mm[Hg] [facility] Work Phone: 08-02-2021 15:48-0400 Heart rate 125 /min [facility] Work Phone: 08-02-2021 15:48-0400 Respiratory rate 18 /min [facility] Work Phone: 08-02-2021 15:48-0400 SaO2% (BldA) [Mass fraction] 96 % [facility] Work Phone: 08-02-2021 15:48-0400 Systolic blood pressure 130 mm[Hg] [facility] Work Phone: 11-11-2016 15:20-0400 BMI (Body Mass Index) 38.45 kg/m2 Alexandra Fierro RN [facility] Work Phone: 11-11-2016 15:20-0400 BP Diastolic 68 mm[Hg] Alexandra Fierro RN [facility] Work Phone: 11-11-2016 15:20-0400 BP Systolic 108 mm[Hg] Alexandra Fierro RN [facility] Work Phone: 11-11-2016 15:20-0400 Height 177.8 cm Alexandra Fierro RN [facility] Work Phone: 11-11-2016 15:20-0400 Pulse (Heart Rate) 84 /min Alexandra Fierro RN [facility] Work Phone: 11-11-2016 15:20-0400 Respiratory Rate 18 /min Alexandra Fierro RN [facility] Work Phone: 11-11-2016 15:20-0400 Weight 121.56 kg Alexandra Fierro RN [facility] Work Phone: 05-06-2016 12:58-0500 BMI (Body Mass Index) 37.88 kg/m2 Alexandra [facility] Work Phone: 05-06-2016 12:58-0500 BP Diastolic 76 mm[Hg] Alexandra Fierro RN [facility] Work Phone: 05-06-2016 12:58-0500 BP Systolic 118 mm[Hg] Alexandra Fierro RN [facility] Work Phone: 05-06-2016 12:58-0500 BSA (Body Surface Area) 2.35 m2 Alexandra Fierro RN [facility] Work Phone: 05-06-2016 12:58-0500 Height 177.8 cm Alexandra Fierro RN [facility] Work Phone: 05-06-2016 12:58-0500 Pulse (Heart Rate) 90 /min Alexandra Fierro RN [facility] Work Phone: 05-06-2016 12:58-0500 Respiratory Rate 18 /min Alexandra Fierro RN [facility] Work Phone: 05-06-2016 12:58-0500 Weight 119.75 kg Alexandra Fierro RN [facility] Work Phone: 10-18-2014 13:48-0400 Pulse Oximetry 95 % Alexandra Fierro RN [facility] Work Phone: 09-29-2014 10:05-0400 Body Temperature 97.6 [degF] Alexandra Fierro RN [facility] Work Phone: 09-29-2014 10:05-0400 Pulse Oximetry 97 % Alexandra Fierro RN [facility] Work Phone: Encounters Encounter Date Encounter Type Care Provider Facility Start: 03-09-2025 ambulatory Araceli Mason [employer] Faci lity:[facility] Start: 03-05-2025 ambulatory Araceli Mason [employer]ING MACHINE [employer] Faci lity:[facility] Start: 12-16-2024 ambulatory ZITA BOWERS Facility :[facility] Start: 12-16-2024 End: 12-16-2024 Subsequent hospital visit by physician John [facility] (I-Stat/1.5t) Work Phone: Radiology Start: 12-06-2024 End: 12-06-2024 Patient encounter procedure Truman Matthews PACKING MACHINE [employer]ILOT CAN ROUTER-C [facility] Work Phone: Start: 12-06-2024 End: 12-06-2024 Patient encounter status Truman Matthews PACKING MACHINE [employer]OT [employer] ROUTER-C [facility] Start: 12-06-2024 End: 12-06-2024 ambulatory Araceli Mason P[employer]ING MACHINE [employer] R[employer]TER-C Work Phone: -[facility] Start: 11-15-2024 ambulatory COSTA Pedro ty:[facility] Start: 11-15-2024 End: 11-15-2024 Subsequent hospital visit by physician [facility] Mob 1 Work Phone: Radiology Comment on above: Arrived Start: 10-26-2024 End: 10-26-2024 Patient encounter procedure DELFINO Samayoa -[facility] Work Phone: Start: 10-26-2024 End: 10-26-2024 ambulatory Araceli Mason PACKING MACHINE [employer] R[employer]TER-C Work Phone: [facility] Work Phone: Start: 10-18-2024 ambulatory Daniele Blount Facility:[facility] Start: 10-18-2024 Non-patient / Non-visit Dr. Daniele garcia DO -[facility] Start: 10-14-2024 End: 10-14-2024 ambulatory Araceli Mason [employer]ACKING MACHINE [employer]TER-C Work Phone: [facility] Work Phone: Start: 10-14-2024 End: 10-14-2024 Patient encounter procedure DELFINO Samayoa -Pulmonary Services/Neurology Work Phone: Start: 10-14-2024 End: 10-14-2024 ambulatory Sindy Samayoa Facility:[facility] Start: 09-09-2024 End: 09-09-2024 ambulatory ARACELI MASON Facility:[facility] Start: 09-07-2024 End: 09-07-2024 ambulatory ARACELI MASON Facility:[facility] Start: 09-01-2024 End: 09-01-2024 E-mail encounter from caregiver Corazon Marsh RN [facility] Radiology Start: 09-01-2024 End: 09-01-2024 ambulatory Corazon Marsh RN [facility] Radiology Comment on above: Upcoming liver biops y on 09/09; needing updated bloodwork prior and to hold Mounjaro - see directions below Gastroesophageal ref lux disease with esophagitis, unspecified whether hemorrhage (Primary Dx); Abnormal LFTs; Fatty liver Start: 09-01-2024 Non-patient / Non-visit Dr. Leticia felipe MD -[facility] Start: 09-01-2024 End: 09-01-2024 Patient encounter procedure Truman Matthews PACKING MACHINE [employer]ILOT [employer] ROUTER-C -Cardiovascular Services Work Phone: Start: 09-01-2024 End: 09-01-2024 ambulatory Truman Matthews [employer]ING MACHINE [employer]TER Facility:[facility] Start: 08-30-2024 End: 08-30-2024 Telephone encounter Audrey [facility] Comment on above: Liver biopsy Start: 08-16-2024 Non-patient / Non-visit Dr. Daniele garcia DO -[facility] Start: 08-16-2024 End: 08-16-2024 ambulatory Araceli Mason PACKING MACHINE [employer] R[employer]TER-C Work Phone: [facility] Work Phone: Start: 08-16-2024 End: 08-16-2024 Patient encounter procedure P[employer]ING MACHINE [employer]TER Sindy Samayoa -Pulmonary Services/Neurology Work Phone: Start: 08-16-2024 End: 08-16-2024 ambulatory Sindy Samayoa Facility:[facility] Start: 08-04-2024 End: 08-04-2024 Patient encounter procedure P[employer]ING MACHINE [employer]TER Sindy Samayoa -[facility] Work Phone: Start: 08-04-2024 End: 08-04-2024 ambulatory Araceli Mason NP Facility:[facility] Start: 07-26-2024 End: 07-26-2024 ambulatory [facility] Start: 06-28-2024 End: 06-28-[address] Umang Braxton MD -[facility] Work Phone: Start: 06-28-2024 End: 06-28-2024 ambulatory Umang Braxton Facility:[facility] Start: 06-24-2024 End: 06-24-2024 ambulatory Araceli Mason [employer]ING MACHINE [employer]-C Work Phone: [facility] Work Phone: Start: 06-24-2024 End: 06-24-[address] Umang Braxton MD -Physical Therapy Work Phone: Start: 06-24-[address] Umang Braxton MD -Physical Therapy Work Phone: Start: 06-24-2024 End: 06-24-2024 Patient encounter procedure Araceli Mason PACKING MACHINE [employer] ROUTER-C Work Phone: -Laboratory Work Phone: Start: 06-24-2024 End: 06-24-2024 ambulatory Araceli Mason [employer]ING MACHINE [employer] Facility:[facility] Start: 06-09-2024 End: 06-09-2024 [facility] Start: 06-09-2024 End: 06-09-2024 Subsequent hospital visit by physician Mri [facility] (I-Stat/1.5t) Work Phone: Radiology Start: 05-17-2024 End: 05-17-[address] Umang Braxton MD -[facility] Work Phone: Start: 05-17-2024 End: 05-17-2024 ambulatory Umang Braxton Facility:[facility] Start: 05-03-2024 Encounter for other preprocedural examination Umang Braxton [facility] Start: 04-26-2024 End: 04-26-[address] Umang Braxton MD -[facility] Work Phone: Start: 04-26-2024 End: 04-26-2024 ambulatory Umang Braxton Facility:[facility] Start: 04-09-2024 End: 04-09-2024 ambulatory Umang Braxton Facility:[facility] Start: 04-07-2024 ambulatory Umang Braxton Facility :[facility] Start: 04-07-2024 End: 04-07-2024 ambulatory Umang [facility] Facility:[facility] Start: 03-31-2024 End: 03-31-2024 ambulatory Umang Braxton Facility:[facility] Start: 03-30-2024 End: 03-30-2024 ambulatory Araceli Mason [employer]ING [employer]ACH[employer] [facility] Start: 02-26-2024 End: 03-02-2024 ambulatory ABY JARAMILLO Facility:[facility] Start: 02-02-2024 End: 02-02-2024 ambulatory UMANG Gutiérrez [facility] Facility:[facility] Start: 02-02-2024 End: 02-02-2024 Subsequent hospital visit by physician Mri [facility] (I-Stat/1.5t) Work Phone: Radiology Start: 10-14-2023 End: 10-14-2023 Patient encounter procedure Denver Latham PA Work Phone: [facility] Comment on above: Allergic contact christel matitis due to plants, except food (Primary Dx) Start: 10-10-2023 End: 10-10-2023 Patient encounter procedure Akua Resendiz APRN.LAC[employer]ER M[employer]ER Work Phone: [facility] Comment on above: Contact dermatitis d ue to food in contact with skin, unspecified contact dermatitis type (Primary Dx) Start: 09-23-2023 End: 09-23-2023 Patient encounter procedure [employer]ING [employer]ACHINE [employer]TER-C Araceli Mason P[employer]ING MACHINE [employer]TER Work Phone: [facility] Work Phone: Start: 09-15-2023 End: 09-15-2023 ambulatory P[employer]ACH[employer]-C Araceli Mason P[employer]ING MACHINE [employer] Work Phone: [facility] Work Phone: Start: 09-15-2023 End: 09-15-2023 Patient encounter procedure 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 Mason PACKING MACHINE [employer] R[employer]TER Work Phone: [facility]-Sleep Lab Work Phone: Start: 09-11-2023 End: 09-11-2023 Patient encounter procedure 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 Mason PACKING MACHINE [employer]OUTER Work Phone: [facility] Pulmonary Medicine Work Phone: Start: 05-05-2023 Non-patient / Non-visit [employer]-C Elliot Mason PACKING MACHINE [employer] R[employer]TER Work Phone: [facility] Start: 05-02-2023 Non-patient / Non-visit [employer]ACHINE [employer]-C Elliot Mason PACKING MACHINE [employer] ROUTER Work Phone: [facility] Start: 05-02-2023 End: 05-02-2023 ambulatory P[employer]ING MACHINE [employer] R[employer]-C Araceli Mason PACKING MACHINE [employer] ROUTER Work Phone: [facility] Work Phone: Start: 05-02-2023 End: 05-02-2023 Patient encounter procedure PACKING MACHINE [employer] ROUTER-C Araceli Mason PACKING MACHINE [employer] ROUTER Work Phone: [facility]-Cardiovascular Services Work Phone: Start: 04-02-2023 End: 04-02-2023 Patient encounter procedure PACKING MACHINE [employer]OT [employer] ROUTER-C Araceli Mason PACKING MACHINE [employer] ROUTER Work Phone: [facility] Work Phone: Start: 03-12-2023 End: 03-12-2023 ambulatory PACKING MACHINE [employer] ROUTER-C Araceli Mason PACKING MACHINE [employer]OT [employer] ROUTER Work Phone: [facility] Work Phone: Start: 03-12-2023 End: 03-12-2023 Patient encounter procedure PACKING MACHINE P[employer]OT [employer] ROUTER-C Araceli Mason PACKING MACHINE [employer]OT [employer] ROUTER Work Phone: [facility]-Sleep Lab Work Phone: Start: 03-03-2023 End: 03-03-2023 Patient encounter procedure PACKING MACHINE [employer] ROUTER-C Araceli Mason PACKING MACHINE [employer]OT CAN ROUTER Work Phone: 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 [employer] ROUTER-C Araceli Mason PACKING MACHINE [employer]OT CAN ROUTER Work Phone: [facility]-Cat Scan, [facility] Work Phone: Start: 02-20-2023 End: 02-20-2023 Patient encounter procedure PACKING MACHINE [employer]IL[employer] ROUTER-C Araceli Mason PACKING MACHINE [employer] ROUTER Work Phone: [facility]-Laboratory Work Phone: Start: 11-28-2022 End: 11-28-2022 ambulatory PACKING MACHINE [employer] R[employer]TER-C Araceli Mason PACKING MACHINE [employer]OT CAN ROUTER Work Phone: [facility] Work Phone: Start: 11-28-2022 End: 11-28-2022 Patient encounter procedure PACKING MACHINE PILOT CAN ROUTER-C Araceli Mason PACKING MACHINE P[employer]OT CAN ROUTER Work Phone: [facility]-Laboratory Work Phone: Start: 10-22-2022 End: 10-22-2022 Patient encounter procedure PACKING MACHINE PILOT CAN ROUTER-C Araceli Mason PACKING MACHINE P[employer]OT CAN ROUTER Work Phone: [facility]-Laboratory Work Phone: Start: 10-09-2022 End: 10-09-2022 Patient encounter procedure PACKING MACHINE PILOT CAN ROUTER-C Araceli Mason PACKING MACHINE P[employer]OT CAN ROUTER Work Phone: [facility] Work Phone: Start: 09-28-2022 End: 09-28-2022 Patient encounter procedure PACKING MACHINE PILOT CAN ROUTER-C Araceli Mason PACKING MACHINE P[employer]OT CAN ROUTER Work Phone: [facility]-MRI - [facility] Work Phone: Start: 09-18-2022 End: 09-18-2022 Patient encounter procedure PACKING MACHINE PILOT CAN ROUTER-C Araceli Mason PACKING MACHINE P[employer]OT CAN ROUTER Work Phone: [facility] Work Phone: Start: 09-16-2022 Registered Recurring PACKING MACHINE P[employer]OT [employer] ROUTER-C Araceli Mason PACKING MACHINE [employer]OT [employer] ROUTER Work Phone: [facility]-Physical Therapy Work Phone: Start: 09-13-2022 End: 09-13-2022 Patient encounter procedure 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 Mason PACKING MACHINE P[employer]OT CAN ROUTER Work Phone: [facility] Work Phone: Start: 09-04-2022 End: 09-04-2022 Patient encounter procedure 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 Mason PACKING MACHINE PILOT CAN ROUTER Work Phone: [facility] Work Phone: Start: 04-19-2022 Non-patient / Non-visit P[employer]ING MACHINE [employer]OUTER-C Elliot Mason PACKING MACHINE PILOT CAN ROUTER Work Phone: [facility] Start: 04-19-2022 End: 04-19-2022 Admission to same day surgery center 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 Mason PACKING MACHINE P[employer]OT CAN ROUTER [facility] Start: 04-19-2022 End: 04-19-2022 ambulatory 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 Mason PACKING MACHINE P[employer]OT CAN ROUTER Work Phone: [facility] Work Phone: Start: 03-19-2022 End: 03-19-2022 Patient encounter procedure 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 Mason PACKING MACHINE PILOT CAN ROUTER Work Phone: [facility] Start: 02-27-2022 End: 02-27-2022 ambulatory 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 Mason PACKING MACHINE PILOT CAN ROUTER Work Phone: [facility] Work Phone: Start: 02-27-2022 End: 02-27-2022 Patient encounter procedure 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 Mason PACKING MACHINE PILOT CAN ROUTER Work Phone: [facility]-Laboratory, Specimen Start: 02-20-2022 End: 02-20-2022 Patient encounter procedure 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 Mason PACKING MACHINE PILOT CAN ROUTER Work Phone: [facility] Start: 10-08-2021 End: 10-08-2021 Patient encounter procedure [facility]-Laboratory Procedures Date Procedure Procedure Detail Performing Clinician Start: 09-01-2024 Radionuclide imaging of perfusion of myocardium under exercise stress Araceli Mason PACKING MACHINE [employer] ROUTER-C Work Phone: Start: 06-24-2024 Measurement of renal function Araceli Mason PACKING MACHINE P[employer]OT CAN ROUTER-C Work Phone: Comment on above: GFR Calc Start: 02-02-2024 Mri any jt upper extremity w/o contrast matrl [facility] Provider Start: 05-02-2023 Radionuclide imaging of perfusion of myocardium under exercise stress PACKING MACHINE [employer] ROUTER-C Araceli Mason PACKING MACHINE P[employer]OT CAN ROUTER Work Phone: Start: 02-26-2023 CT of chest PACKING MACHINE PILOT CAN ROUTER-C Araceli Mason PACKING MACHINE P[employer]OT CAN ROUTER Work Phone: Start: 09-28-2022 MRI of lumbar spine PACKING MACHINE P[employer]OT CAN ROUTER- C Araceli Mason PACKING MACHINE PILOT CAN ROUTER Work Phone: Start: 09-18-2022 X-ray of lumbar spin e, two or three views PACKING MACHINE P[employer] ROUTER-C Araceli Mason PACKING MACHINE P[employer]OT CAN ROUTER Work Phone: Start: 09-13-2022 Plain X-ray of shoulder PACKING MACHINE P[employer]OT [employer] ROUTER-C Araceli Mason PACKING MACHINE P[employer]OT CAN ROUTER Work Phone: Start: 09-13-2022 X-ray of cervical spine PACKING MACHINE PILOT CAN ROUTER-C Araceli Mason PACKING MACHINE P[employer]OT CAN ROUTER Work Phone: Start: 04-19-2022 Excision PACKING MACHINE PILOT CAN ROUTER-C Araceli Mason PACKING MACHINE [employer]OT [employer] ROUTER Work Phone: Start: 07-24-2021 Lipid 1996 panel - S adi or Plasma Akua Resendiz APRN.[employer]AC[employer]ER M[employer]ER Work Phone: Start: 11-11-2016 End: 11-11-2016 Dietary management education, guidance, and counseling Alexandra Fierro RN Start: 11-11-2016 End: 11-11-2016 LEWIS Dubois MD Work Phone: Start: 11-11-2016 End: 11-11-2016 Follow Up Appt 6 months Nolberto Dubois MD Work Phone: Start: 05-06-2016 End: 05-06-2016 Dietary management education, guidance, and counseling Alexandra Fierro RN Start: 05-06-2016 End: 05-06-2016 LEWIS Dubois MD Work Phone: Start: 05-06-2016 End: 05-06-2016 Follow Up Appt 6 months oNlberto Dubois MD Work Phone: Start: 05-08-2015 End: 05-08-2015 LEWIS Dubois MD Work Phone: Start: 05-08-2015 End: 05-08-2015 Follow Up Appt 1 year Soy Nye Work Phone: Start: 03-17-2015 End: 04-21-2015 Chest x-ray Chelly Elena PA-C Work Phone: Start: 03-17-2015 End: 03-17-2015 Follow Up Appt Other Chelly grimes PA-C Work Phone: Start: 03-17-2015 End: 03-17-2015 Thyrotropin [Units/volume] in Serum or Plasma Chelly Elena PA-C Work Phone: Start: 03-17-2015 End: 03-17-2015 Thyroxine (T4) [Mass/volume] in Serum or Plasma Chelly Elena PA-C Work Phone: Start: 02-28-2015 End: 02-28-2015 *BMP Chelly Elena PA-C Work Phone: Start: 02-28-2015 End: 02-28-2015 Follow Up Appt Other Chelly grimes PA-C Work Phone: Start: 02-28-2015 End: 02-28-2015 Natriuretic peptide B [Mass/volume] in Blood Chelly Elena PA-C Work Phone: Start: 11-14-2014 End: 11-14-2014 LEWIS Dubois MD Work Phone: Start: 11-14-2014 End: 11-14-2014 Documentation of current medications Nolberto Dubois MD Work Phone: Start: 11-14-2014 End: 11-14-2014 Follow Up Appt 6 months Nolberto Dubois MD Work Phone: Start: 11-01-2014 End: 11-04-2014 Cardiac Rehab Nolberto Dubois MD Work Phone: Start: 11-01-2014 Placement of stent i n coronary artery Status post cardiac stent placement Alexandra Fierro RN Start: 10-27-2014 History of placement of stent for coronary artery disease History of coronary artery stent placement Truman Matthews PACKING MACHINE P[employer]OT CAN ROUTER-C Comment on above: 10/27/2014: PCI-YEIMY-D istal RCA; Start: 10-18-2014 End: 10-18-2014 DJN Nolberto Dubois MD Work Phone: Start: 10-18-2014 End: 10-19-2014 Documentation of current medications Nolberto Dubois MD Work Phone: Start: 10-18-2014 End: 10-18-2014 Follow Up Appt 1 month Nolberto Dubois MD Work Phone: Start: 10-18-2014 End: 11-04-2014 Left & Right Heart Cath Nolberto Dubois MD Work Phone: Start: 10-18-2014 End: 10-19-2014 Smoking cessation education Nolberto Dubois MD Work Phone: Start: 09-29-2014 End: 11-10-2014 Echo tthrc r-t 2d w/wom-mode compl spec&colr d Abdias Madrid Work Phone: Start: 09-29-2014 End: 05-06-2016 Follow Up Appt 3 months Abdias Madrid Work Phone: Start: 09-29-2014 End: 05-06-2016 Pulmonary Function Test - complete Abdias [place] Work Phone: Start: 09-29-2014 End: 05-06-2016 Pulmonary stress test/simple Abdias [place] Work Phone: Plan of Treatment Date Care Activity Detail Author Start: 09-08-2027 Diabetes Screening Diabetes Screening [facility] Start: 07-24-2026 Lipid panel Lipid Screening [facility] Start: 01-17-2025 Influenza vaccination [facility] Start: 10-14-2024 Walking distance 6 minutes [facility] Start: 09-09-2024 End: 09-09-2024 Admission to same day surgery center 09/09/2024 9:30 AM EDT - 09/09/2024 11:00 AM EDT Surgery [facility] Radiology [address] [place] [address] [place] [id number], [address] [address] PERCUTANEOUS NEEDLE BIOPSY OF LIVER [facility] Comment on above: PERCUTANEOUS NEEDLE BIOPSY OF LIVER Start: 09-09-2024 End: 09-09-2024 Biopsy liver needle percutaneous PERCUTANEOUS NEEDLE BIOPSY OF LIVER Fatty liver Abnormal liver enzymes Gastroesophageal reflux disease, unspecified whether esophagitis present 09/09/2024 9:30 AM EDT [facility] IR Start: 09-09-2024 Subsequent hospital visit by physician 09/09/2024 9:30 AM EDT Hospital Encounter [facility] Radiology [address] [place] [address] [place] [id number], [address] [address] Fatty liver [K76.0], Abnormal liver enzymes [R74.8], Gastroesophageal reflux disease, unspecified whether esophagitis present [K21.9] [facility] Radiology Comment on above: Fatty liver [K76.0], Abnormal liver enzy mes [R74.8], Gastroesophageal reflux disease, unspecified whether esophagitis present [K21.9] Start: 09-09-2024 Walking distance 6 minutes [facility] Start: 09-01-2024 End: 12-01-2024 CBC W Auto Differential panel - Blood COMPLETE BLOOD COUNT AND DIFFERENTIAL Lab Routine Gastroesophageal reflux disease with esophagitis, unspecified whether hemorrhage Abnormal LFTs Fatty liver Expected: 09/01/2024, Expires: 12/01/2024 [facility] Work Phone: Comment on above: Expected: 09/01/2024, Expires: Start: 09-01-2024 End: 12-01-2024 PT panel - Platelet poor plasma by Coagulation assay PROTHROMBIN TIME Lab STAT Gastroesophageal reflux disease with esophagitis, unspecified whether hemorrhage Abnormal LFTs Fatty liver Expected: 09/01/2024, Expires: 12/01/2024 [facility] Comment on above: Expected: 09/01/2024, Expires: Start: 07-24-2024 Diabetes Screening Diabetes Screening [facility] Start: 01-18-2024 Covid-19 Vaccine () Covid-19 Vaccine () [facility] Start: 01-18-2024 Covid-19 Vaccine () Covid-19 Vaccine () [facility] Start: 01-18-2024 Influenza vaccination [facility] Start: 05-19-2023 Behavioral Health Screening Behavioral Health Screening [facility] Start: 2023 Pneumococcal Vaccine: 50+ (1 of 1 - PCV) Pneumococcal Vaccine: 50+ (1 of 1 - PCV) [facility] Start: 2023 Shingrix Vaccine (1 of 2) Shingrix Vaccine (1 of 2) [facility] Start: 01-17-2023 Covid-19 Vaccine ( season) Covid-19 Vaccine () [facility] Start: 10-09-2022 Patient referral [facility] Work Phone: Start: 04-19-2022 Patient discharge [facility] Work Phone: Start: 2018 Screening for malignant neoplasm of colon [facility] Start: 05-29-2017 End: 05-29-2017 Appointment Appointment [facility] Work Phone: Start: 11-11-2016 End: 11-11-2016 Appointment Appointment [facility] Work Phone: Start: 11-11-2016 End: 11-11-2016 LEWIS SAUCEDO [facility] Work Phone: Start: 11-11-2016 End: 11-11-2016 Follow Up Appt 6 months Follow Up Appt 6 months [facility] Work Phone: Start: 05-06-2016 End: 05-06-2016 LEWIS FIFIN [facility] Work Phone: Start: 05-06-2016 End: 05-06-2016 Follow Up Appt 6 months Follow Up Appt 6 months [facility] Work Phone: Start: 05-08-2015 End: 05-08-2015 DJBinu DJN [facility] Work Phone: Start: 05-08-2015 End: 05-08-2015 Follow Up Appt 1 year Follow Up Appt 1 year [facility] Work Phone: Start: 03-17-2015 End: 04-21-2015 Chest x-ray X-Ray, Chest, PA & Lateral [facility] Work Phone: Start: 03-17-2015 End: 03-17-2015 Follow Up Appt Other Follow Up Appt Other [facility] Work Phone: Start: 03-17-2015 End: 03-17-2015 T4 mass conc *T4 (Total) [facility] Work Phone: Start: 03-17-2015 End: 03-17-2015 Thyrotropin Qn *TSH [facility] Work Phone: Start: 02-28-2015 End: 02-28-2015 *BMP *BMP [facility] Work Phone: Start: 02-28-2015 End: 02-28-2015 Follow Up Appt Other Follow Up Appt Other [facility] Work Phone: Start: 02-28-2015 End: 02-28-2015 Natriuretic peptide B mass conc (Bld) *Brain Natriuretic Peptide BNP [facility] Work Phone: Start: 11-14-2014 End: 11-14-2014 LEWIS CALIXN [facility] Work Phone: Start: 11-14-2014 End: 11-14-2014 Follow Up Appt 6 months Follow Up Appt 6 months [facility] Work Phone: Start: 11-01-2014 End: 11-01-2014 Cardiac Rehab Cardiac Rehab [address] [place], [address] [facility] Work Phone: Start: 10-18-2014 End: 10-18-2014 DJN DJN [facility] Work Phone: Start: 10-18-2014 End: 10-18-2014 Follow Up Appt 1 month Follow Up Appt 1 month [facility] Work Phone: Start: 10-18-2014 End: 10-18-2014 Left & Right Heart Cath Left & Right Heart Cath [facility] Work Phone: Start: 09-29-2014 End: 11-10-2014 Echo tthrc r-t 2d w/wom-mode compl spec&colr d Echo Complete with Color Flow [facility] Work Phone: Start: 09-29-2014 End: 05-06-2016 Follow Up Appt 3 months Follow Up Appt 3 months [facility] Work Phone: Start: 09-29-2014 End: 05-06-2016 Pulmonary Function Test - complete Pulmonary Function Test - complete [facility] Work Phone: Start: 09-29-2014 End: 05-06-2016 Pulmonary stress test/simple Pulmonary stress testing; simple (eg, 6-minute walk) [facility] Work Phone: Start: 02-14-1992 Hepatitis B Vaccine (1 of 3 - 19+ 3-dose series) Hepatitis B Vaccine (1 of 3 - 19+ 3-dose series) [facility] Start: 02-14-1992 Urine microalbumin profile DTaP,Tdap,Td Vaccine (1 - Tdap) [facility] Start: 1991 Annual PCP Team Chronic Disease Visit Annual PCP Team Chronic Disease Visit [facility] Start: 1991 Anxiety Screening Anxiety Screening [facility] Start: 1991 BP Controlled (<130/80) BP Controlled (<130/80) [facility] Start: 1991 Depression Screening Depression Screening [facility] Start: 1991 HIV screening HIV Screening [facility] CT Chest [facility] Hemoglobin A1c/Hemoglobin.total in Blood [facility] MR Lower Extremity Joint [facility] Patient referral [facility] Work Phone: Payers Date Payer Category Payer Blue Cross Blue [facility] BLUE ACCE SS PPO [id number] 2024 Unknown [facility] [id number] 2024-Present [phone] [place] [id number] [place] [address] PPO [id number] 2024 Unknown [id number] 2024 Self-pay [id number] 2023 Private Health Insurance ROSALIE CATHERINE OAP [id number] 2023-Present [phone] [address] [place] [address] Open Access [id number] 2023 Private Health Insurance [id number] 1975 Unknown [id number] 2.16.840.1.115704.3.579. 2.732 Private Health Insurance [facility] [id number] Unknown [id number] 2.16.840.1.324647.3.579. 2.462 Unknown [id number] 2.16.840.1.078644.3.579. 2.462 Unknown [id number] 2.840.1.922088.3.579. 2.462 Unknown [id number] 2..840.1.140563.3.579. 2.462 Unknown [id number] 2.840.1.672255.3.579. 2.462 Unknown [id number] 2..840.1.965521.3.579. 2.462 Unknown [id number] 2.840.1.106929.3.579. 2.462 Unknown [id number] 2.840.1.791372.3.579. 2.462 Unknown [id number] 2.840.1.779828.3.579. 2.462 Unknown [id number] .840.1.952663.3.579. 2.462 Unknown [id number] 2.840.1.224845.3.579. 2.462 Unknown [id number] 2.840.1.644393.3.579. 2.462 Unknown [id number] 2.840.1.922298.3.579. 2.462 Unknown 2021 2.840.1.538546.3.579. 2.462 Unknown [id number] 2..840.1.368858.3.579. 2.462 Unknown [id number] 2..840.1.420331.3.579. 2.462 Unknown [id number] 2..840.1.748522.3.579. 2.462 Unknown [id number] 2.16840.1.710474.3.579. 2.462 Unknown [id number] 2.16.840.1.952272.3.579. 2.462 Unknown [id number] 2.16.840.1.691990.3.579. 2.462 Unknown [id number] 2..840.1.240898.3.579. 2.462 Social History Date Type Detail Facility Start: 02-20-2021 End: 09-11-2023 Tobacco smoking status NDIS Unknown if ever smoked [facility] Start: 10-05-2014 Rare [facility] Start: 10-05-2014 None [facility] Start: 10-05-2014 Spouse/ Signif icant Other [facility] Start: 1975 Sex Assigned At Male [facility] Start: 10-10-2023 End: 03-24-2024 Tobacco smoking status NDIS Ex-smoker [facility] History of tobacco use Current smoker [facility] History of tobacco use Cigarette Smoker [facility] Start: 10-10-2023 End: 11-15-2024 Cigarettes smoked current (pack per day) - Reported 1 [facility] Start: 10-10-2023 Tobacco use and exposure Smokeless tobacco non-user [facility] Start: 10-10-2023 End: 10-14-2023 Alcohol intake Current drinker of alcohol (finding) [facility] Start: 10-10-2023 End: 11-15-2024 Tobacco use panel [facility] Start: 10-10-2023 Tobacco Comment quit 2007 [facility] Start: 07-05-2009 Alcohol Comment ocas [facility] Start: 1975 Sex Assigned At Not on file [facility] Start: 08-19-2024 Sex Male (finding) [facility] National Score (1-10 0), lower number is lower risk 52 [facility] Medical Equipment Procedure Code Equipment Code Equipment Origin al Text Equipment Identifier Dates Arthroscopy, shoulder PUSHLOCK, 2.9MM BIOCOM FDA Start: 04-07-2024 Arthroscopy, shoulder PUSHLOCK, 2.9MM BIOCOM FDA Start: 04-07-2024 Arthroscopy, shoulder PUSHLOCK, 2.9MM BIOCOM FDA Start: 04-07-2024 Arthroscopy, shoulder TAPE, LABRAL 1.5MM FDA Start: 04-07-2024 Arthroscopy, shoulder TAPE, LABRAL 1.5MM FDA Start: 04-07-2024 Arthroscopy, shoulder TAPE, LABRAL 1.5MM FDA Start: 04-07-2024 Arthroscopy, shoulder PUSHLOCK, 2.9MM BIOCOM FDA Start: 04-07-2024 Arthroscopy, shoulder PUSHLOCK, 2.9MM BIOCOM FDA Start: 04-07-2024 Arthroscopy, shoulder PUSHLOCK, 2.9MM BIOCOM FDA Start: 04-07-2024 Arthroscopy, shoulder TAPE, LABRAL 1.5MM FDA Start: 04-07-2024 Arthroscopy, shoulder TAPE, LABRAL 1.5MM FDA Start: 04-07-2024 Arthroscopy, shoulder TAPE, LABRAL 1.5MM FDA Start: 04-07-2024 Arthroscopy, shoulder PUSHLOCK, 2.9MM BIOCOM FDA Start: 04-07-2024 Arthroscopy, shoulder PUSHLOCK, 2.9MM BIOCOM FDA Start: 04-07-2024 Arthroscopy, shoulder PUSHLOCK, 2.9MM BIOCOM FDA Start: 04-07-2024 Arthroscopy, shoulder TAPE, LABRAL 1.5MM FDA Start: 04-07-2024 Arthroscopy, shoulder TAPE, LABRAL 1.5MM FDA Start: 04-07-2024 Arthroscopy, shoulder TAPE, LABRAL 1.5MM FDA Start: 04-07-2024 Arthroscopy, shoulder PUSHLOCK, 2.9MM BIOCOM FDA Start: 04-07-2024 Arthroscopy, shoulder PUSHLOCK, 2.9MM BIOCOM FDA Start: 04-07-2024 Arthroscopy, shoulder PUSHLOCK, 2.9MM BIOCOM FDA Start: 04-07-2024 Arthroscopy, shoulder TAPE, LABRAL 1.5MM FDA Start: 04-07-2024 Arthroscopy, shoulder TAPE, LABRAL 1.5MM FDA Start: 04-07-2024 Arthroscopy, shoulder TAPE, LABRAL 1.5MM FDA Start: 04-07-2024 Arthroscopy, shoulder PUSHLOCK, 2.9MM BIOCOM FDA Start: 04-07-2024 Arthroscopy, shoulder PUSHLOCK, 2.9MM BIOCOM FDA Start: 11-20-2024 Arthroscopy, shoulder PUSHLOCK, 2.9MM BIOCOM FDA Start: 04-07-2024 Arthroscopy, shoulder TAPE, LABRAL 1.5MM FDA Start: 04-07-2024 Arthroscopy, shoulder TAPE, LABRAL 1.5MM FDA Start: 04-07-2024 Arthroscopy, shoulder TAPE, LABRAL 1.5MM FDA Start: 04-07-2024 Goals Date Patient Goal Desired Activity /State Mental Status Date Assessment Result Facility 04-19-2022 Cognitive function Voice/Name [facility] Work Phone: Clinical Notes 10-27-2014 to 12-16-2024 Flavia Vernon, RT(R) - 12/16/2024 3:00 PM EDT Note Date & Type Note Facility 12-16-2024 History of Present illness Narrative Radiology Service Progress Note DATE OF SERVICE: December 16, 2024 TIME: 3:29 PM PATIENT IDENTITY VERIFICATION COMPLETED USING TWO (2) STANDARD IDENTIFIERS: Name and Date of confirmed by patient verbally. FALL SCREENING: Has the patient had 2 falls in the last year or 1 fall with injury or currently using an Ambulatory Assistive Device (Walker, Cane, Wheelchair, Crutches, etc.)? No PATIENT GENDER DATA: Assigned male at PATIENT RELEVANT IMPLANT DATA REVIEWED: Yes PATIENT PRESENTS WITH AN IMPLANTABLE OR ATTACHED PERFORMANCE IMPROVEMENT SPECIALIST: No ALLERGIES: Reviewed and unchanged CONTRAST ALLERGY: NO. EXAM: MRI - CONTRAST TYPE: GROUP II PERIPHERAL IV DATA: Ambulatory: A peripheral IV was started in the Right antecubital site with a Angio cath: 22 gauge. RADIOLOGY DEPARTMENT: MR; Exam(s) Completed: Body: Liver (routine). Aromatherapy Administered: No SIGNATURE: RT Riky(R) PATIENT NAME: Harriet Riddle DATE: December 16, 2024 TIME: 3:29 PM documented in this encounter [facility] 12-16-2024 Note HNO ID: [id number] Author: FLAVIA VERNON RT(R) Service: ? Author Type: Technologist Type: Progress Notes Filed: 12/16/2024 15:41 Note Text: Radiology Service Progress Note DATE OF SERVICE: December 16, 2024 TIME: 3:29 PM PATIENT IDENTITY VERIFICATION COMPLETED USING TWO (2) STANDARD IDENTIFIERS: Name and Date of confirmed by patient verbally. FALL SCREENING: Has the patient had 2 falls in the last year or 1 fall with injury or currently using an Ambulatory Assistive Device (Walker, Cane, Wheelchair, Crutches, etc.)? No PATIENT GENDER DATA: Assigned male at PATIENT RELEVANT IMPLANT DATA REVIEWED: Yes PATIENT PRESENTS WITH AN IMPLANTABLE OR ATTACHED PERFORMANCE IMPROVEMENT SPECIALIST: No ALLERGIES: Reviewed and unchanged CONTRAST ALLERGY: NO. EXAM: MRI - CONTRAST TYPE: GROUP II PERIPHERAL IV DATA: Ambulatory: A peripheral IV was started in the Right antecubital site with a Angio cath: 22 gauge. RADIOLOGY DEPARTMENT: MR; Exam(s) Completed: Body: Liver (routine). Aromatherapy Administered: No SIGNATURE: Zelda RT Toño(R) PATIENT NAME: Harriet Riddle DATE: December 16, 2024 TIME: 3:29 PM [facility] 10-18-2024 Procedure note [facility] 09-08-2024 Discharge summary Note Date/Time September 08, 2024 10:06am [facility] Physical Therapy [facility] [address] [place] [address]. [address] [place] [id number] / REHABILITATION SERVICES DISCHARGE SUMMARY MR#: [id number] Acct: [id number] Name: HARRIET RIDDLE Rep #: [id number] : 1975 49 From: Lulu Diehl Referring Dr.: Dr. Umang Braxton MD Status: REG R Insurance: [facility] SELF PAY INSURANCE Patient Information Patient Information: HARRIET RIDDLE was seen in my office for initial evaluation on 04/20/24. The following Plan of Care was established for this patient: POC Established Initial Frequency: 2x /Week Initial Duration: 3 Months Anticipated Interventions Patient/Client Instruction: Educate patient on: Condition and Plan of Care For the Purpose of:: To decrease pain, To decrease swelling/inflammation, To increase ROM, To improve nutrient delivery to tissue, To increase oxygenation perfusion, To improve muscle performance and motor function, To improve ability to perform ADL's, To increase tolerance to activity/condition/position, To improve performance and independence with ADL's, To decrease level of supervision to perform tasks, To improve ability of physical actions for home/community/work/leisure, To improve health of tissue, To decrease soft tissue restriction and To increase flexibility/ROM Therapeutic Exercise to Include: Strength training, Endurance training, Posturaltraining, Flexibilty training, Passive ROM, Active ROM and Scapular Strength/Stabilization For the Purpose of:: To decrease pain, To decrease swelling/inflammation, To increase ROM, To improve nutrient delivery to tissue, To improve muscle performance and motor function, To improve ability to perform ADL's, To increasetolerance to activity/condition/position, To improve performance and independence with ADL's, To decrease level of supervision to perform tasks, To improve ability of physical actions for home/community/work/leisure, To improve gait and locomotor functions, To improve health of tissue, To decrease soft tissue restriction and To increase flexibility/ROM Manual Therapy Techniques to Include: Passive ROM For the Purpose of:: To increase ROM, To improve health of tissue and To increase flexibility/ROM Cryotherapy (ice pack, ice massage): Yes Thermo therapy (hot pack): Yes For the Purpose of:: To decrease pain, To decrease swelling/inflammation, To increase ROM and To improve nutrient delivery to tissue Last Seen Last Seen: This patient was last seen in our office 06/24/24. Pertinent comments regardingtheir Physical therapy will appear below: EMILIA PT as pt did not schedule any additional visits At this point I will be discontinuing this patient from physical therapy. I would be happy to see this patient again in the future if found appropriate by the physician. Thank you! HERMANN Chahal Balance/Gait/Functional tests Balance/Special Test Scores Quick DASH Score: 52.2725 <Electronically signed by Lulu MCCRARY> 09/08/24 1006 CC: BRAYAN Mason; Dr. Umang Braxton MD ~ Signed [facility] Work Phone: 1(361) 801-341604-23-2025 Discharge summary [facility] Physical Therapy [facility] [address] [place] [address] / REHABILITATION SERVICES DISCHARGE SUMMARY MR#: [id number] Acct: [id number] Name: HARRIET RIDDLE Rep #: [id number] : 1975 49 From: Lulu Diehl Referring Dr.: Dr. Umang Braxton MD Status: REG RCR Insurance: [facility] SELF PAY INSURANCE Patient Information Patient Information: HARRIET RIDDLE was seen in my office for initial evaluation on 04/20/24. The following Plan of Care was established for this patient: POC Established Initial Frequency: 2x /Week Initial Duration: 3 Months Anticipated Interventions Patient/Client Instruction: Educate patient on: Condition and Plan of Care For the Purpose of:: To decrease pain, To decrease swelling/inflammation, To increase ROM, To improve nutrient delivery to tissue, To increase oxygenation perfusion, To improve muscle performance andmotor function, To improve ability to perform ADL's, To increase tolerance to activity/condition/position, To improve performance and independence with ADL's, To decrease level of supervision to perform tasks, To improve ability of physical actions for home/community/work/leisure, To improve healthof tissue, To decrease soft tissue restriction and To increase flexibility/ROM Therapeutic Exercise to Include: Strength training, Endurance training, Posturaltraining, Flexibilty training, Passive ROM, Active ROM and Scapular Strength/Stabilization For the Purpose of:: To decrease pain, To decrease swelling/inflammation, To increase ROM, To improve nutrient delivery to tissue, To improve muscle performance and motor function, To improve abilityto perform ADL's, To increasetolerance to activity/condition/position, To improve performance and in dependence with ADL's, To decrease level of supervision to perform tasks, To improve ability of physical actions for home/community/work/leisure, To improve gait and locomotor functions, To improve health of tissue, To decrease soft tissue restriction and To increase flexibility/ROM Manual Therapy Techniques to Include: Passive ROM For the Purpose of:: To increase ROM, To improve health of tissue and To increase flexibility/ROM Cryotherapy (ice pack, ice massage): Yes Thermo therapy (hot pack): Yes For the Purpose of:: To decrease pain, To decrease swelling/inflammation, To increase ROM and To improve nutrient delivery to tissue Last Seen Last Seen: This patient was last seen in our office 06/24/24. Pertinent comments regardingtheir Physical therapy will appear below: DC PT as pt did not schedule any additional visits At this point I will be discontinuing this patient from physical therapy. I would be happy to see this patient again in the future if found appropriate by the physician. Thank you! Lulu Sarah, MPT Balance/Gait/Functional tests Balance/Special Test Scores Quick DASH Score: 52.2725 09/08/24 1006 CC: BRAYAN Mason; Dr. Umang Braxton MD ~ Signed [facility]04-14-2025 Telephone encounter Note* Telephone Encounter - Audrey Dickens - 08/30/2024 1:02 PM EDTSummary: Liver biopsy Need order from Dr. Goodson's office [phone] Waiting for fax [facility]04-14-2025 Miscellaneous Notes* Telephone Encounter - Audrey Dickens - 08/30/2024 1:02 PM EDTSummary: Liver biopsy Need order from Dr. Goodson's office [phone] Waiting for fax [facility] Evaluation note* Diagnosis Onset Date Resolution Status Admit Date Diabetes type 2, uncontrolled acute August 24, 2024 2:56pm Liver disease acute August 24, 2024 2:56pm Asthma chronic October 26 2:41pm Complex sleep apnea syndrome chronic October 26, 2024 2:41pm Smoking greater than 20 pack years chronic October 26, 2024 2:41pm Bilateral acute otitis media acute October 26, 2024 5:41pm Hypertriglyceridemia acute October 26, 2024 5:41pm Preoperative cardiovascular examination acute December 06, 2024 3:13pm History of coronary artery s tent placement October 27, 2014 chronic December 06, 2024 3:13pm HTN (hypertension) chronic November 172024 3:13pm Hyperlipidemia chronic December 06, 2024 3:13pm [facility] Work Phone: 1(376) 809-152902-10-2025 Evaluation note* Diagnosis Onset Date Resolution Status Admit Date Impingement syndrome, shoulder, left acute June 28, 2 025 3:13pm Cough acute July 08, 2024 5:57pm Otitis media, right acute 2024 5:57pm HTN (hypertension) chronic 2024 5:57pm Chest tightness acute July 2:53pm Shortness of breath acute August 04, 2024 2:53pm Complex sleep apnea syndrome chronic August 04, 2024 2:53pm Smoking greater than 20 pack years chronic August 04, 2024 2:53pm Diabetes type 2, uncontrolled acute August 24, 2024 2:56pm Liver disease acute August 24, 2024 2:56pm [facility] Work Phone: 1(531) 170-733302-10-2025 Evaluation note* Diagnosis Onset Date Resolution Status Admit Date Impingement syndrome, shoulder, left acute June 28, 2 025 3:13pm Cough acute July 08, 2024 5:57pm Otitis media, right acute 2024 5:57pm HTN (hypertension) chronic 2024 5:57pm Chest tightness acute July 2:53pm Shortness of breath acute August 04, 2024 2:53pm Complex sleep apnea syndrome chronic August 04, 2024 2:53pm Smoking greater than 20 pack years chronic August 04, 2024 2:53pm Diabetes type 2, uncontrolled acute August 24, 2024 2:56pm Liver disease acute August 24, 2024 2:56pm Chest tightness acute October 2:41pm Shortness of breath acute October 26, 2024 2:41pm Complex sleep apnea syndrome chronic October 26, 2024 2:41pm Smoking greater than 20 pack years chronic October 26, 2024 2:41pm [facility] Work Phone: 1(436) 414-479001-22-2025 History of Present illness Narrative* Flavia Vernon, RT(R) - 06/09/2024 2:30 PM EST Radiology Service Progress Note PATIENT NAME: Harriet Riddle DATE OF SERVICE: June 09, 2024 TIME: 3:05 PM PATIENT IDENTITY VERIFICATION COMPLETED USING TWO (2) IDENTIFIERS: Name and Date of confirmedby patient verbally. FALL SCREENING: Has the patient had 2 falls in the last year or 1 fall with injury or currently using an Ambulatory Assistive Device (Walker, Cane, Wheelchair, Crutches, etc.)? No PATIENT GENDER DATA: Assigned male at PATIENT RELEVANT IMPLANT DATA REVIEWED: Yes PATIENT PRESENTS WITH AN IMPLANTABLE OR ATTACHED PERFORMANCE IMPROVEMENT SPECIALIST: No RADIOLOGY DEPARTMENT: MR; Exam(s) Completed: Spine: Lumbar spine PERIPHERAL IV DATA: Not applicable SIGNED BY: RT Riky(R) June 09, 2024 3:05 PM [facility]2025 NoteHNO ID: [id number] Author: FLAVIA VERNON RT(R) Service: ? Author Type: Technologist Type: Progress Notes Filed: 06/09/2024 15:05 Note Text: Radiology Service Progress Note PATIENT NAME: Harriet Riddle DATE OF SERVICE: June 09, 2024 TIME: 3:05 PM PATIENT IDENTITY VERIFICATION COMPLETED USING TWO (2) IDENTIFIERS: Name and Date of confirmed by patient verbally. FALL SCREENING: Has the patient had 2 falls in the last year or 1 fall with injury or currently using an Ambulatory Assistive Device (Walker, Cane, Wheelchair, Crutches, etc.)? No PATIENT GENDER DATA: Assigned male at PATIENT RELEVANT IMPLANT DATA REVIEWED: Yes PATIENT PRESENTS WITH AN IMPLANTABLE OR ATTACHED PERFORMANCE IMPROVEMENT SPECIALIST: No RADIOLOGY DEPARTMENT: MR; Exam(s) Completed: Spine: Lumbar spine PERIPHERAL IV DATA: Not applicable SIGNED BY: RT Riky(R) June 09, 2024 3:05 [facility]12-09-2024 Evaluation note* Diagnosis Onset Date Resolution Status Admit Date Impingement syndrome, shoulder, left acute April 26 9:49am Impingement syndrome, shoulder, left acute May 17, 2 024 10:27am Impingement syndrome, shoulder, left acute June 28, 2 025 3:13pm Cough acute July 08, 2024 5:57pm Otitis media, right acute Febru bora2024 5:57pm HTN (hypertension) chronic 2024 5:57pm Chest tightness acute July 2:53pm Shortness of breath acute August 04, 2024 2:53pm Complex sleep apnea syndrome chronic August 04, 2024 2:53pm Smoking greater than 20 pack years chronic August 04, 2024 2:53pm [facility] Work Phone: 1(456) 598-735111-20-2024 [facility] Medical Records Department [address] [place] [address] History Physical Exam 04/07/24 1158 MR#: [id number] Acct: [id number] Name: HARRIET RIDDLE Rep #: [id number] : 1975 49 From: Umang Braxton MD PCP: BRAYAN Mccauley Status:[facility] Location: [place] [address] HPI - General HPI Narrative HARRIET RIDDLE, is a 49 M who presents for left shoulder arthroscopy, subacromial decompression, debridement, decompression paralabral cyst and labral repair. no changes to h and p. shoulder marked. post op instructions, rab and narcotic counselling. no further questions, ok to proceed. MR#: [id number] Acct: [id number] Name: HARRIET RIDDLE Rep #: [id number] : 1975 Provider: Dr. Umang Braxton MD Age/Sex: 49/M Location[place] [facility] [place] Status: Signed Intake Vital Signs 02/08/2415:55 02/19/2409:35 Height 5 ft 10 in 5 ft 10 in Intake Visit Reasons: LEFT SHOULDER Chief Complaint: Left shoulder Accompanied by: Self Is patient in pain?: No Allergies triamcinolone (From Kenalog) Allergy (Intermediate, Verified 02/23/24 15:17) Rashamoxicillin (From Augmentin) Adverse Reaction (Intermediate, Verified 02/23/24 15:17) Diarrheaclavulanic acid (From Augmentin) Adverse Reaction (Intermediate, Verified 02/23/24 15:17) Diarrhea Medications ???Medication ???Instructions ???Recorded ???Confirmed ???Type milk thistle 150 mg capsule 150 mg PO BID 01/12/19 02/23/24 History promethazine 12.5 mg tablet 12.5 mg PO TID PRN nausea and 08/02/21 02/23/24 Rx vomiting #45 tabs ascorbic acid (vitamin C) 1,000 mg 1 g PO BID 02/20/22 02/23/24 History tablet vitamin E mixed 200 unit tablet 200 unit PO DAILY 02/20/22 02/23/24 History albuterol sulfate 90 mcg/actuation 2 puff inhalation Q4H PRN asthma 3 10/22/22 02/23/24 Rx aerosol inhaler (Ventolin HFA) months #18 grams albuterol sulfate 2.5 mg/3 mL 2.5 mg (3 mL) inhalation Q6H #75 mL 02/21/23 02/23/24 Rx (0.083 %) solution for nebulization pantoprazole 40 mg tablet,delayed 40 mg PO DAILY #90 tabs 02/21/23 02/23/24 Rx release tamsulosin 0.4 mg capsule 0.4 mg PO DAILY #90 caps 02/21/23 02/23/24 Rx celecoxib 200 mg capsule (Celebrex) 200 mg PO BID PRN 04/02/23 02/23/24 History benzonatate 200 mg capsule 200 mg PO TID PRN cough #45 caps 05/14/23 02/23/24 Rx aspirin 81 mg tablet,delayed 81 mg PO DAILY #30 tabs 07/21/23 02/23/24 Rx release (Adult Aspirin Regimen) isosorbide mononitrate 30 mg 30 mg PO DAILY #90 tabs 07/31/23 02/23/24 Rx tablet,extended release 24 hr atorvastatin 10 mg tablet (Lipitor) 10 mg PO DAILY #90 tabs 08/12/23 02/23/24 Rx ezetimibe 10 mg tablet (Zetia) 10 mg PO QDAY #90 tabs 08/12/23 02/23/24 Rx losartan 50 mg tablet 50 mg PO DAILY #90 tabs 08/12/23 02/23/24 Rx dapagliflozin propaned 10 1 tab PO DAILY 10/20/23 02/23/24 History mg-metformin ER 1,000 mg tablet,ext rel 24hr (Xigduo XR) famotidine 40 mg tablet 40 mg PO DAILY #30 tabs 10/20/23 02/23/24 Rx icosapent ethyl 1 gram capsule 2 g (2 x 1 gram) PO BID 90 days 10/20/23 02/23/24 Rx #360 caps hydroxyzine HCl 10 mg tablet 10 mg PO TID-QID PRN itching #360 10/29/23 02/23/24 Rx tabs metoprolol succinate 25 mg 25 mg PO DAILY #90 tabs 11/26/23 02/23/24 Rx tablet,extended release 24 hr cefdinir 300 mg capsule 300 mg PO BID #20 caps 02/09/24 02/23/24 Rx tirzepatide 12.5 mg/0.5 mL 12.5 mg (0.5 mL) subcut QWEEK 90 02/09/24 02/23/24 Rx subcutaneous pen injector days #6.5 mL (Christel) [facility] Medical History Paralabral cyst of left shoulder Injury of superior glenoid labrum of left shoulder joint Impingement of left shoulder Hypertriglyceridemia Wears glasses Alcohol use Diabetes High cholesterol Back pain Former smoker CPAP (continuous positive airway pressure) dependence Asthma Shortness of breath on exertion Leg cramps History of edema History of echocardiogram History of stress test Cardiology follow-up encounter Essential hypertension Diverticulitis Fusion of lumbar spine Fatty liver Hyperlipidemia associated with type 2 diabetes mellitus Atherosclerosis of coronary artery of [place] without angina pectoris Abnormal liver enzymes Obesity (BMI 30.0-34.9) Type 2 diabetes mellitus without complications COPD (chronic obstructive pulmonary disease) Obstructive sleep apnea Hyperlipidemia Surgical History H/O radiofrequency ablation (RFA) of nerve of lumbar spine Hx of excision of mass Hx of hand surgery History of tonsillectomy History of coronary artery stent placeme (more content not included)...[facility]09-16-2024 History of Present illness Narrative* Sola Carrasco, RT(R) - 02/02/2024 3:00 PM EDT Radiology Service Progress Note PATIENT NAME: Harriet Riddle DATE OF SERVICE: February 02, 2024 TIME: 3:24 PM PATIENT IDENTITY VERIFICATION COMPLETED USING TWO (2) IDENTIFIERS: Name and Date of confirmedby patient verbally. FALL SCREENING: Has the patient had 2 falls in the last year or 1 fall with injury or currently using an Ambulatory Assistive Device (Walker, Cane, Wheelchair, Crutches, etc.)? No PATIENT GENDER DATA: Male PATIENT RELEVANT IMPLANT DATA REVIEWED: Yes PATIENT PRESENTS WITH AN IMPLANTABLE OR ATTACHED PERFORMANCE IMPROVEMENT SPECIALIST: No RADIOLOGY DEPARTMENT: MR; Exam(s) Completed: Upper MSK: Shoulder, left PERIPHERAL IV DATA: Not applicable SIGNED BY: RT Carley(Charlette) February 02, 2024 3:24 PM documented in [facility] encounterC[facility] NoteHNO ID: [id number] Author: SOLA CARRASCO RT(R) Service: ? Author Type: Technologist Type: Progress Notes Filed: 02/02/2024 15:25 Note Text: Radiology Service Progress Note PATIENT NAME: Harriet Riddle DATE OF SERVICE: February 02, 2024 TIME: 3:24 PM PATIENT IDENTITY VERIFICATION COMPLETED USING TWO (2) IDENTIFIERS: Name and Date of confirmed by patient verbally. FALL SCREENING: Has the patient had 2 falls in the last year or 1 fall with injury or currently using an Ambulatory Assistive Device (Walker, Cane, Wheelchair, Crutches, etc.)? No PATIENT GENDER DATA: Male PATIENT RELEVANT IMPLANT DATA REVIEWED: Yes PATIENT PRESENTS WITH AN IMPLANTABLE OR ATTACHED PERFORMANCE IMPROVEMENT SPECIALIST: No RADIOLOGY DEPARTMENT: MR; Exam(s) Completed: Upper MSK: Shoulder, left PERIPHERAL IV DATA: Not applicable SIGNED BY: RT Carley(Charlette) February 02, 2024 3:24 [facility]05-28-2024 History of Present illness Narrative* Denver Latham PA - 10/14/2023 4:06 PM EDT Images from the original note were not included. This note was created using [employer]. Subjective Harriet Riddle is a 48 year old male. HPI 48-year-old male presents for rash. Patient states he has had a rash for the past 2 weeks. He was outside weeding poison gayle prior to the rash appearing. He was seen here about 4 days ago and startedon Medrol Dosepak. He states that tomorrow is his last day. Rash is improving slightly, but not completely gone. He states he has still has a lot of itching. He has had a little bit of spread of the rash as well He has not tried any other srvm-eqq-orqaayr medications, or lotions. He has not had anynew medications, foods, detergents, body washes, lotions. Patient is a type II diabetic, on Mounjaro. He states that sugars have been good at home. He took it today and it was good this AM per patient. PAST MEDICAL HISTORY Diagnosis Date Nonspecific elevation of levels of transaminase or lactic acid dehydrogenase (LDH) PAST SURGICAL HISTORY Procedure Laterality Date PAST SURGICAL HISTORY OF cyst removed from head, benign TONSILLECTOMY PRIMARY/SECONDARY <AGE 10 Tonsillectomy UNSPECIFIED ORAL SURGERY PROCEDURE, BY REPORT ALLERGIES Patient has no known allergies. MEDICATIONS metoprolol succinate ER (TOPROL XL) 50 mg 24 hr tablet Take 1 tablet by mouth every afternoon. tamsulosin (FLOMAX) 0.4 mg Take 1 capsule by mouth every afternoon. MOUNJARO 10 mg/0.5 mL pen injector INJECT 10 MG SUBCUTANEOUSLY EVERY WEEK FOR 30 DAYS icosapent ethyl (VASCEPA) 1 gram capsule Take 2 capsules by mouth every 12 hours. famotidine (PEPCID) 20 mg tablet Take 1 tablet by mouth two times a day for 7 days. atorvastatin (LIPITOR) 10 mg tablet XIGDUO XR 10-1,000 mg XR tab ezetimibe (ZETIA) 10 mg tablet isosorbide mononitrate ER (IMDUR) 30 mg 24 hr tablet losartan (COZAAR) 25 mg tablet meloxicam (MOBIC) 15 mg tablet Milk Thistle 150 mg cap Take 150 mg by mouth. omega 8-pih-hwk-fish oil (FISH OIL) 300-1,000 mg cpDR Take by mouth. pantoprazole DR (PROTONIX) 40 mg tablet traMADol (ULTRAM) 50 mg tablet traZODone (DESYREL) 50 mg tablet psyllium husk (METAMUCIL ORAL) Take by mouth. furosemide (LASIX) 40 mg tablet Take 40 mg by mouth twice daily. predniSONE (DELTASONE) 10 mg tablet Take 4 tabs daily for 3 days, then 2 tabs daily for 3 days, then 1 tab daily for 3 days with food. Pramoxine-Hydrocortisone (ANALPRAM-HC) 1-1 % rectal cream apply anally THREE TIMES DAILY fort 7 (SEVEN) days (Patient not taking: Reported on 10/10/2023) mupirocin (BACTROBAN) 2 % ointment APPLY THREE TIMES DAILY NEEDED for ingrown toenail. (Patient not taking: Reported on 10/10/2023) hydrocodone bit/acetaminophen(VICODIN 5 MG-500 MG TAB) Take 1-2 tablet's) every six(6) hours as needed for pain. (Patient not taking: No sig reported) ALBUTEROL SULFATE HFA 90 MCG/ACTUATION AEROSOL INHALER Inhale one(1) - two(2) puffs four(4) times aday as needed for wheezing and shortness of breath. (Patient not taking: SHAKE WELL BEFORE USING) polymyxin b sulfate/tmp(POLYTRIM 0.1 %-10,000 UNIT/ML EYE DROPS) Instill 2 drops to affected every 4 hours until symptoms clear +2 days. (Patient not taking: No sig reported) FAMILY HISTORY Problem Relation Age of Onset Diabetes Sister other (leukemia [Other]) Father diabetes Social History Tobacco Use Smoking status: Former Packs/day: 1.00 Years: 10.00 Additional pack years: 0.00 Total pack years: 10.00 Types: Cigarettes Smokeless tobacco: Never Tobacco comments: quit 2006 Substance Use Topics Alcohol use: Yes Comment: ocas Drug use: No Review of Systems Constitutional: Negative for chills and fever. HENT: Negative for congestion and sore throat. Respiratory: Negative for cough and shortness of breath. Gastrointestinal: Negative for diarrhea and vomiting. Skin: Positive for rash. Objective BP 128/82 Pulse 88 Temp 36.2 C (97.2 F) (Tympanic) Resp 16 Wt 117.2 kg (258 lb 6.1 oz) Physical Exam Vitals and nursing note reviewed. Constitutional: General: He is not in acute distress. Appearance: Normal appearance. He is not toxic-appearing. Cardiovascular: Rate and Rhythm: Normal rate and regular rhythm. Pulmonary: Effort: Pulmonary effort is normal. Breath sounds: Normal breath sounds. Skin: General: Skin is warm and dry. Findings: Rash present. Comments: Rash noted on bilateral thighs/knees, bilateral arms. No facial involvement. Some linear and scab lesions appearing consistent with a contact dermatitis. He does have some hive-like rash aswell. No lymphatic streaking. No fluctuance. No abscess. Neurological: Mental Status: He is alert. Assessment and Plan ASSESSMENT/PLAN: 1. Allergic contact dermatitis due to plants, except food - ICD9: 692.6, ICD10: L23.7 -On Medrol Dosepak, does not seem to be controlling the rash. Will change to prednisone taper. StopMedrol Dosepak today. Start prednisone taper. - Oral Steriod tx -Prednisone taper - Anti itch therapy of Calomine lotion, Oral Benydryl, and Zyrtec recommended prn - discussed skin care of rash - follow up if symptoms persist or worsen. Diagnosis and treatment plan were discussed and questions were answered to the patient's satisfaction. Pt acknowledged understanding of concepts and follow up plan. Specific signs and symptoms that would indicate the need for higher level of care were discussed in detail warranting prompt ER evaluation. NEIL Rushing documented in this encounterC[facility]05-24-[facility] History of Present illness Narrative* Akua Resendiz APRN.[facility] - 10/10/2023 10:30 AM EDT Images from the original note were not included. Subjective Says he got into poison gayle several days ago. Patient says it seems to be spreading. Patient says usually happens every year. Patient denies any other signs or symptoms. The history is provided by the patient. No housekeeper nanny was used. Rash Review of Systems Constitutional: Negative. Skin: Positive for itching and rash. Objective Physical Exam Constitutional: Appearance: Normal appearance. Pulmonary: Effort: Pulmonary effort is normal. Skin: Comments: Rash located in the area marked above. Consistent with poison gayle. No signs of infection. Neurological: Mental Status: He is alert. PAST MEDICAL HISTORY Diagnosis Date Nonspecific elevation of levels of transaminase or lactic acid dehydrogenase (LDH) PAST SURGICAL HISTORY Procedure Laterality Date PAST SURGICAL HISTORY OF cyst removed from head, benign TONSILLECTOMY PRIMARY/SECONDARY <AGE 10 Tonsillectomy UNSPECIFIED ORAL SURGERY PROCEDURE, BY REPORT ALLERGIES Patient has no known allergies. MEDICATIONS metoprolol succinate ER (TOPROL XL) 50 mg 24 hr tablet Take 1 tablet by mouth every afternoon. tamsulosin (FLOMAX) 0.4 mg Take 1 capsule by mouth every afternoon. MOUNJARO 10 mg/0.5 mL pen injector INJECT 10 MG SUBCUTANEOUSLY EVERY WEEK FOR 30 DAYS icosapent ethyl (VASCEPA) 1 gram capsule Take 2 capsules by mouth every 12 hours. atorvastatin (LIPITOR) 10 mg tablet XIGDUO XR 10-1,000 mg XR tab ezetimibe (ZETIA) 10 mg tablet isosorbide mononitrate ER (IMDUR) 30 mg 24 hr tablet losartan (COZAAR) 25 mg tablet meloxicam (MOBIC) 15 mg tablet Milk Thistle 150 mg cap Take 150 mg by mouth. omega 5-qhk-phr-fish oil (FISH OIL) 300-1,000 mg cpDR Take by mouth. pantoprazole DR (PROTONIX) 40 mg tablet traMADol (ULTRAM) 50 mg tablet traZODone (DESYREL) 50 mg tablet psyllium husk (METAMUCIL ORAL) Take by mouth. furosemide (LASIX) 40 mg tablet Take 40 mg by mouth twice daily. methylPREDNISolone (MEDROL, BASB,) 4 mg Dose-Pack Follow dosing instructions, take with food. famotidine (PEPCID) 20 mg tablet Take 1 tablet by mouth two times a day for 7 days. Pramoxine-Hydrocortisone (ANALPRAM-HC) 1-1 % rectal cream apply anally THREE TIMES DAILY fort 7 (SEVEN) days (Patient not taking: Reported on 10/10/2023) mupirocin (BACTROBAN) 2 % ointment APPLY THREE TIMES DAILY NEEDED for ingrown toenail. (Patient not taking: Reported on 10/10/2023) hydrocodone bit/acetaminophen(VICODIN 5 MG-500 MG TAB) Take 1-2 tablet's) every six(6) hours as needed for pain. (Patient not taking: No sig reported) ALBUTEROL SULFATE HFA 90 MCG/ACTUATION AEROSOL INHALER Inhale one(1) - two(2) puffs four(4) times aday as needed for wheezing and shortness of breath. (Patient not taking: SHAKE WELL BEFORE USING) polymyxin b sulfate/tmp(POLYTRIM 0.1 %-10,000 UNIT/ML EYE DROPS) Instill 2 drops to affected every 4 hours until symptoms clear +2 days. (Patient not taking: No sig reported) FAMILY HISTORY Problem Relation Age of Onset Diabetes Sister other (leukemia [Other]) Father diabetes Social History Tobacco Use Smoking status: Former Packs/day: 1.00 Years: 10.00 Additional pack years: 0.00 Total pack years: 10.00 Types: Cigarettes Smokeless tobacco: Never Tobacco comments: quit 2006 Substance Use Topics Alcohol use: Yes Comment: ocas Drug use: No ASSESSMENT/PLAN: 1. Contact dermatitis due to food in contact with skin, unspecified contact dermatitis type - ICD9:692.5, ICD10: L25.4 - METHYLPREDNISOLONE 4 MG TABLETS IN A DOSE PACK - FAMOTIDINE 20 MG TABLET Educated about proper use of medication supportive therapies. Patient follow-up with signs and symptoms seem to getting worse not better. Patient was okay with this care plan. Akua Resendiz APRN.SUSAN documented in this encounterC[facility]06-11-2015 Evaluation note* Diagnosis Onset Date Resolution Status Acute paronychia of finger of left hand acute Diabetes type 2, uncontrolled acute Atherosclerosis of coronary artery of [place] without angina pectoris chronic History of coronary artery stent placement October 27, 2014 chronic HTN (hypertension) chronic Hyperlipidemia chronic Essential hypertension chron ic Hyperlipidemia chronic Type 2 diabetes mellitus without complications chronic [facility] Work Phone: [phone] Evaluation note* Diagnosis Onset Date Resolution Status Atherosclerosis of coronary artery of [place] heart without angina pectoris chronic History of coronary artery stent placement October 27, 2014 chronic HTN (hypertension) chronic Hyperlipidemia chronic Essential hypertension chron ic Hyperlipidemia chronic Type 2 diabetes mellitus without complications chronic Subcutaneous mass acute [facility] Work Phone: Evaluation note* Diagnosis Onset Date Resolution Status Bilateral otitis media acute Fever acute Vomiting acute [facility] Work Phone: evaluation note* Diagnosis Onset Date Resolution Status Atherosclerosis of coronary artery of [place] heart without angina pectoris chronic HTN (hypertension) chronic Hyperlipidemia chronic Impingement syndrome, shoulder, left acute Neck pain acute Trapezius muscle spasm acute Herniated nucleus pulposus, L5-S1, right acute Lumbar facet joint pain acut e Diabetes type 2, uncontrolled acute Obesity (BMI 30-39.9) acute Essential hypertension chron ic Hyperlipidemia chronic 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 Diabetes type 2, uncontrolled acute Hypertriglyceridemia acute Obesity (BMI 30-39.9) acute [facility] Work Phone: evaluation note* Diagnosis Onset Date Resolution Status Diabetes type 2, uncontrolled acute Hypertriglyceridemia acute Obesity (BMI 30-39.9) acute Diabetes type 2, uncontrolled acute Hypertriglyceridemia acute Obesity (BMI 30-39.9) acute Diabetes type 2, uncontrolled acute Hypertriglyceridemia acute Obesity (BMI 30-39.9) acute Complex sleep apnea syndrome acute Smoking greater than 20 pack years chronic [facility] Work Phone: evaluation note* Diagnosis Onset Date Resolution Status Diabetes type 2, uncontrolled acute Hypertriglyceridemia acute Obesity (BMI 30-39.9) acute Complex sleep apnea syndrome acute Smoking greater than 20 pack years chronic Tachycardia acute History of coronary artery stent placement October 27, 2014 chronic HTN (hypertension) chronic Hyperlipidemia chronic [facility] Work Phone: evaluation note* Diagnosis Onset Date Resolution Status Bilateral otitis media acute Maxillary sinusitis acute Bilateral acute otitis media acute Bronchitis acute Diabetes type 2, uncontrolled acute Atherosclerosis of coronary artery of [place] without angina pectoris chronic Essential hypertension chron ic Complex sleep apnea syndrome chronic Smoking greater than 20 pack years chronic Impingement of left shoulder acute [facility] Work Phone: evaluation note* Diagnosis Contact dermatitis due to food in contact with skin, unspecified contact dermatitis type- Primary [facility] encounter [facility]* Diagnosis Allergic contact dermatitis due to plants, except food- Primary Contact dermatitis and other eczema due to plants (except food) documented in this encounter [facility]* Diagnosis Gastroesophageal reflux disease with esophagitis, unspecified whether hemorrhage- Primary Abnormal LFTs Other abnormal blood chemistry Fatty liver Other chronic nonalcoholic liver disease Fatty liver Other chronic nonalcoholic liver disease Abnormal liver enzymes Other nonspecific abnormal serum enzyme levels Gastroesophageal reflux disease, unspecified whether esophagitis present documented in this encounter [facility] (narrative)No reason for referral information availableWMartin Memorial Hospital Work Phone: [facility] Narrative* Diagnostic Procedure Only (Routine) - Closed Specialty Diagnoses / Procedures Referred By Yany diehl Referred To Contact Radiology / [facility] Diagnoses Other specified joint disorders, left shoulder Pain past hx of cuff tear, left shoulder Procedures MRI ANY JT UPPER EXTREMITY W/O CONTRAST MATRL MRI WO MSK2 B [address] Umang Braxton MD [address] [facility] [address] [place] [address] Radio M[facility] [address] [place] [address] Referral ID Status Reason Start Date Expiration Date Visits Re quested Visits Authorized [id number] Closed 12/25/2023 06/22/2024 1 1 [facility] for visit Narrative* Diagnostic Procedure Only (Routine) - Closed Specialty Diagnoses / Procedures Referred By Yany diehl Referred To Contact [facility] Diagnoses Abnormal findings on diagnostic imaging of other parts of digestive tract Procedures MRI ABDOMEN W/O & W/CONTRAST MATERIAL MRA WWO ABD [address] Zita Bowers MD [address] [facility] [address] [place] [address] Phone: tel: fax: [facility] [address] [place] [address] Phone: tel: fax: Referral ID Status Reason Start Date Expiration Date Visits Re quested Visits Authorized [id number] Closed 11/24/2024 05/18/2025 1 1 [facility] Summary Purpose Family History No Family History Records Found Relationship Condition Age at Onset Recorded Date/T watson Not Specified Osteoporosis Unknown Cardiac disease Unknown Leukemia Unknown Chronic inflammatory demyelinating polyneuropathy Unknown Family history of hypercholesterolemia Un known Malignant neoplasm Unknown Hypertension Unknown Disorder of thyroid Unknown Cerebrovascular accident (CVA) Unknown Asthma Unknown sister Diabetes mellitus Unknown grandfather Coronary artery disease Unknown Advance Directives No Advanced Directives Records Found Advance Directive Response Recorded Date/ Time Advance Directives No August 10, 021 2:53pm Living Will No August 10, 2020 2:53pm Power of Concrete Pourer No August 10 2:53pm Advance Directive Response Recorded Date/ Time Advance Directives No August 10 1:53pm Living Will No April 15 1:59pm Power of Concrete Pourer No April 15, 2022 1:59pm Advance Directive Response Recorded Date/ Time Advance Directives No September 12 023 12:20pm Living Will No September 12, 2022 12:20pm Power of Concrete Pourer No September 12 12:20pm Advance Directive Response Recorded Date/ Time Advance Directives No September 12 11:20am Living Will No September 12, 2022 11:20am Power of Concrete Pourer No September 12 11:20am Advance Directive Response Recorded Date/ Time Living Will No February 19 9:35am Do you have a Healthcare Power of Concrete Pourer? No February 20, 2024 9:35am Advance Directives No February 20, 2024 9:35am Advance Directive Response Recorded Date/ Time Advance Directives No February 20, 2024 9:35am Chief Complaint and Reason for Visit Chief Complaint Chills & not feeling good Reason for Visit Bilateral otitis med ia Fever Vomiting Chief Complaint I&D L middle finger ingrown nail 1 Y FU medication refills Reason for Visit Acute paronychia of finger of left hand Diabetes type 2, uncontrolled Atherosclerosis of coronary artery of [place] without angina pectoris History of coronary artery stent placement HTN (hypertension) Hyperlipidemia Essential hypertension Hyperlipidemia Type 2 diabetes mellitus without complications Chief Complaint 1 Y FU medication refills R HEAD BENIGN LIPOMATOUS NEOPLASM rt temporal excision rt temporal excision Reason for Visit Atherosclerosis of c oronary artery of [place] heart without angina pectoris History of coronary artery stent placement HTN (hypertension) Hyperlipidemia Essential hypertension Hyperlipidemia Type 2 diabetes mellitus without complications Subcutaneous mass Chief Complaint 6 M FU LEFT SHOULDER RM 4 LBP,L SHLD PN/RX HERE LUMBER SPINE Xray room 4 Pain lumbar spine INT LABS medication refills E ORDERS Diabetes Mellitus Type 2 F/up w/new meds Reason for Visit Atherosclerosis of c oronary artery of [place] heart without angina pectoris HTN (hypertension) Hyperlipidemia Impingement syndrome, shoulder, left Neck pain Trapezius muscle spasm Herniated nucleus pulposus, L5-S1, right Lumbar facet joint pain Diabetes type 2, uncontrolled Obesity (BMI 30-39.9) Essential hypertension Hyperlipidemia Obstructive sleep apnea Diabetes type 2, uncontrolled Hypertriglyceridemia Obesity (BMI 30-39.9) Chief Complaint E ORDERS Diabetes Mellitus Type 2 F/up w/new meds medication refills A1c INT LABS Diabetes Mellitus Type 2 A1c medrefills NICOTINE DEP 3 M FU Reason for Visit Diabetes type 2, unc ontrolled Hypertriglyceridemia Obesity (BMI 30-39.9) Diabetes type 2, uncontrolled Hypertriglyceridemia Obesity (BMI 30-39.9) Diabetes type 2, uncontrolled Hypertriglyceridemia Obesity (BMI 30-39.9) Complex sleep apnea syndrome Smoking greater than 20 pack years Chief Complaint E ORDERS Diabetes Mellitus Type 2 F/up w/new meds medication refills A1c INT LABS Diabetes Mellitus Type 2 A1c medrefills NICOTINE DEP 3 M FU CSA; ASV REPAP *DEVICE TAGGED Reason for Visit Diabetes type 2, unc ontrolled Hypertriglyceridemia Obesity (BMI 30-39.9) Diabetes type 2, uncontrolled Hypertriglyceridemia Obesity (BMI 30-39.9) Diabetes type 2, uncontrolled Hypertriglyceridemia Obesity (BMI 30-39.9) Complex sleep apnea syndrome Smoking greater than 20 pack years Chief Complaint INT LABS Diabetes Mellitus Type 2 A1c medrefills NICOTINE DEP 3 M FU CSA; ASV REPAP *DEVICE TAGGED 6 m fu Presence of coronary angioplasty implant and graft Presence of coronary angioplasty implant and graft Reason for Visit Diabetes type 2, unc ontrolled Hypertriglyceridemia Obesity (BMI 30-39.9) Complex sleep apnea syndrome Smoking greater than 20 pack years Tachycardia History of coronary artery stent placement HTN (hypertension) Hyperlipidemia Chief Complaint Cough/ST Cough X3 weeks medication refills ALEXIA F/U CSA, ASV REPAP LEFT SHOULDER Reason for Visit Bilateral otitis med ia Maxillary sinusitis Bilateral acute otitis media Bronchitis Diabetes type 2, uncontrolled Atherosclerosis of coronary artery of [place] heart without angina pectoris Essential hypertension Complex sleep apnea syndrome Smoking greater than 20 pack years Impingement of left shoulder Chief Complaint Admit Date left shoulder April 26, 2024 9 :49am LEFT SHOULDER May 17, 2024 10:27am L SHOULDER RX HERE June 24, 2024 4 :30pm LEFT SHOULDER June 28, 2024 3:13pm Ear complaints July 08, 2024 5:57pm 2 M FU August 04, 2024 2:5 3pm R06.02 - Shortness of breath August 16, 2024 6:28am Reason for Visit Admit Date Impingement syndrome, shoulder, left Dec ember 2023 9:49am Impingement syndrome, shoulder, left Dec ember 2023 10:27am Impingement syndrome, shoulder, left Feb ruary 2024 3:13pm Cough July 08, 2024 5:57pm Otitis media, right July 08, 2024 5:57pm HTN (hypertension) July 08, 2024 5:57pm Chest tightness August 04, 2024 2:5 3pm Shortness of breath August 04, 2024 2:5 3pm Complex sleep apnea syndrome August 04, 2024 2:53pm Smoking greater than 20 pack years August 04, 2024 2:53pm Chief Complaint Admit Date L SHOULDER RX HERE June 24, 2024 4 :30pm LEFT SHOULDER June 28, 2024 3:13pm Ear complaints July 08, 2024 5:57pm 2 M FU August 04, 2024 2:5 3pm R06.02 - Shortness of breath August 16, 2024 6:28am Diabetes Mellitus Type 2 f/up medication s August 24, 2024 2:56pm SOB, CAD HX September 01, 2024 6:1 0am Reason for Visit Admit Date Impingement syndrome, shoulder, left Feb ruary 2024 3:13pm Cough July 08, 2024 5:57pm Otitis media, right July 08, 2024 5:57pm HTN (hypertension) July 08, 2024 5:57pm Chest tightness August 04, 2024 2:5 3pm Shortness of breath August 04, 2024 2:5 3pm Complex sleep apnea syndrome August 04, 2024 2:53pm Smoking greater than 20 pack years August 04, 2024 2:53pm Diabetes type 2, uncontrolled August 24, 2024 2:56pm Liver disease August 24, 2024 2:56 pm Chief Complaint Admit Date LEFT SHOULDER June 28, 2024 3:13pm Ear complaints July 08, 2024 5:57pm 2 M FU August 04, 2024 2:5 3pm R06.02 - Shortness of breath August 16, 2024 6:28am Diabetes Mellitus Type 2 f/up medication s August 24, 2024 2:56pm SOB, CAD HX September 01, 2024 6:1 0am F17.210 - Nicotine dependence, cigarette s, uncompl October 14, 2024 7:38am F17.210 - Nicotine dependence, cigarette s, uncompl October 18, 2024 1:18pm 7 WK FU October 26, 2024 2:41 pm Reason for Visit Admit Date Impingement syndrome, shoulder, left Feb ruary 2024 3:13pm Cough July 08, 2024 5:57pm Otitis media, right July 08, 2024 5:57pm HTN (hypertension) July 08, 2024 5:57pm Chest tightness August 04, 2024 2:5 3pm Shortness of breath August 04, 2024 2:5 3pm Complex sleep apnea syndrome August 04, 2024 2:53pm Smoking greater than 20 pack years August 04, 2024 2:53pm Diabetes type 2, uncontrolled August 24, 2024 2:56pm Liver disease August 24, 2024 2:56 pm Chest tightness October 26, 2024 2:41 pm Shortness of breath October 26, 2024 2:41 pm Complex sleep apnea syndrome October 26, 2024 2:41pm Smoking greater than 20 pack years October 26, 2024 2:41pm Chief Complaint Admit Date L SHOULDER RX HERE June 24, 2024 4 :30pm LEFT SHOULDER June 28, 2024 3:13pm Ear complaints July 08, 2024 5:57pm 2 M FU August 04, 2024 2:5 3pm R06.02 - Shortness of breath August 16, 2024 6:28am Diabetes Mellitus Type 2 f/up medication s August 24, 2024 2:56pm SOB, CAD HX September 01, 2024 6:1 0am F17.210 - Nicotine dependence, cigarette s, uncompl October 14, 2024 7:38am F17.210 - Nicotine dependence, cigarette s, uncompl October 18, 2024 1:18pm Chief Complaint Admit Date R06.02 - Shortness of breath August 16, 2024 6:28am R06.02 - Shortness of breath August 16, 2024 7:05am Diabetes Mellitus Type 2 f/up medication s August 24, 2024 2:56pm SOB, CAD HX September 01, 2024 6:1 0am F17.210 - Nicotine dependence, cigarette s, uncompl October 14, 2024 7:38am F17.210 - Nicotine dependence, cigarette s, uncompl October 18, 2024 1:18pm 7 WK FU October 26, 2024 2:41 pm medication refills/ear complaints October 172024 5:41pm 1 Y FU December 06, 2024 3:13 pm Reason for Visit Admit Date Diabetes type 2, uncontrolled August 24, 2024 2:56pm Liver disease August 24, 2024 2:56 pm Asthma October 26, 2024 2:41 pm Complex sleep apnea syndrome October 26, 2024 2:41pm Smoking greater than 20 pack years October 26, 2024 2:41pm Bilateral acute otitis media October 26, 2024 5:41pm Hypertriglyceridemia October 26, 2024 5:4 1pm Preoperative cardiovascular examination December 06, 2024 3:13pm History of coronary artery stent placeme nt December 06, 2024 3:13pm HTN (hypertension) December 06, 2024 3:13 pm Hyperlipidemia December 06, 2024 3:13 pm Additional Source Comments (unrecognized sect ion and content) No Status Records FoundNo Status Records FoundNo Status Records FoundNo Status Records FoundNo Status Records FoundNo Status Records FoundNo Status Records Found INFORMATION SOURCE (unrecogn ized section and content) DATE CREATED AUTHOR 07/09/2018 [facility] DATE CREATED AUTHOR AUTHOR'S ORGANIZ ATION 03/10/2024 [facility] DATE CREATED AUTHOR AUTHOR'S ORGANIZ ATION 07/28/2024 [facility] DATE CREATED AUTHOR AUTHOR'S ORGANIZ ATION 08/31/2024 [facility] DATE CREATED AUTHOR AUTHOR'S ORGANIZ ATION 09/20/2024 [facility] DATE CREATED AUTHOR AUTHOR'S ORGANIZ ATION 12/26/2024 [facility] DATE CREATED AUTHOR AUTHOR'S ORGANIZ ATION 03/06/2025 [facility] Goals (unrecognized section and content) Goals may be documented in a n alternate sectionGoals may be documented in an alternate sectionGoals may be documented in an alternate sectionGoals may be documented in an alternate sectionGoals may be documented in an alternate sectionGoals may be documented in an alternate sectionGoals may be documented in an alternate sectionGoals may be documented in an alternate sectionGoals may be documented in an alternate sectionGoals may be documented in an alternate sectionGoals may be documented in an alternate sectionGoals may be documented in an alternate section Care Teams (unrecognized sec tion and content) Team Status: Active Member Role Status Dates Araceli Mason PACKING MACHINE PILOT CAN ROUTER, PACKING MACHINE PILOT CAN ROUTER-C Family Provider Active Araceli Mason PACKING MACHINE PILOT CAN ROUTER, PACKING MACHINE PILOT CAN ROUTER-C Primary Care Provider Active Team Status: Inactive Member Role Status Dates Araceli Mason PACKING MACHINE PILOT CAN ROUTER, PACKING MACHINE PILOT CAN ROUTER-C Primary Care Provider, Referr ing Provider Active Truman Matthews PACKING MACHINE PILOT CAN ROUTER, PACKING MACHINE PILOT CAN ROUTER-C Attending Provider Active Team Status: Inactive Member Role Status Dates Araceli Mason PACKING MACHINE PILOT CAN ROUTER, PACKING MACHINE PILOT CAN ROUTER-C Primary Care Provider, Referr ing Provider Active Neto Hoffman PA, PA Attending Provider Active Team Status: Inactive Member Role Status Dates Araceli Mason PACKING MACHINE PILOT CAN ROUTER, PACKING MACHINE PILOT CAN ROUTER-C Primary Care Provider Active Dr. Roly Arizmendi MD Attending Provider Active Team Status: Inactive Member Role Status Dates Araceli Mason PACKING MACHINE PILOT CAN ROUTER, PACKING MACHINE PILOT CAN ROUTER-C Primary Care Provider, Referr ing Provider Active Dr. Gael Dubois DO Attending Provider Active Team Status: Inactive Member Role Status Dates Araceli Mason PACKING MACHINE PILOT CAN ROUTER, PACKING MACHINE PILOT CAN ROUTER-C Primary Care Pr ovider, Attending Provider, Referring Provider Active Team Status: Active Member Role Status Dates Araceli Mason PACKING MACHINE PILOT CAN ROUTER, PACKING MACHINE PILOT CAN ROUTER-C Primary Care Pr ovider, Attending Provider, Referring Provider Active Team Status: Inactive Member Role Status Dates Araceli Mason PACKING MACHINE PILOT CAN ROUTER, PACKING MACHINE PILOT CAN ROUTER-C Primary Care Provider Active Dr. Gael Dubois DO Attending Provider, Referring P rovider Active Team Status: Inactive Member Role Status Dates Araceli Mason PACKING MACHINE PILOT CAN ROUTER, PACKING MACHINE PILOT CAN ROUTER-C Primary Care Provider Active Truman Matthews PACKING MACHINE PILOT CAN ROUTER, PACKING MACHINE PILOT CAN ROUTER-C Attending Provider, Referring Pro vider Active Team Status: Inactive Member Role Status Dates Araceli Mason PACKING MACHINE PILOT CAN ROUTER, PACKING MACHINE PILOT CAN ROUTER-C Primary Care Provider, Referr ing Provider Active Dr. Abdias Madrid MD Attending Provider Active Team Status: Inactive Member Role Status Dates Araceli Mason PACKING MACHINE PILOT CAN ROUTER, PACKING MACHINE PILOT CAN ROUTER-C Primary Care Provider Active Aby Jaramillo NP, PACKING MACHINE PILOT CAN ROUTER-C Attending Provider Active Team Status: Inactive Member Role Status Dates Araceli Mason PACKING MACHINE PILOT CAN ROUTER, PACKING MACHINE PILOT CAN ROUTER-C Primary Care Pr ovider, Attending Provider, Referring Provider Active Dr. Leticia Butterfield MD Other Provider Active Team Status: Inactive Member Role Status Dates Araceli Mason PACKING MACHINE PILOT CAN ROUTER, PACKING MACHINE PILOT CAN ROUTER-C Primary Care Provider Active Dr. Abdias Madrid MD Attending Provider Active Team Status: Active Member Role Status Dates Araceli Mason PACKING MACHINE PILOT CAN ROUTER, PACKING MACHINE PILOT CAN ROUTER-C Primary Care Provider Active Dr. Roly Arizmendi MD Attending Provider Active Team Status: Active Member Role Status Dates Araceli Mason PACKING MACHINE PILOT CAN ROUTER, PACKING MACHINE PILOT CAN ROUTER-C Primary Care Provider Active Truman Matthews PACKING MACHINE PILOT CAN ROUTER, PACKING MACHINE PILOT CAN ROUTER-C Referring Provider, Other Provide r Active Dr. Roly Arizmendi MD Attending Provider Active Team Status: Inactive Member Role Status Dates Araceli Mason PACKING MACHINE PILOT CAN ROUTER, PACKING MACHINE PILOT CAN ROUTER-C Primary Care Provider, Referr ing Provider Active Aby Jaramillo PACKING MACHINE PILOT CAN ROUTER, PACKING MACHINE PILOT CAN ROUTER-C Attending Provider Active Team Status: Inactive Member Role Status Dates Araceli Mason PACKING MACHINE PILOT CAN ROUTER, PACKING MACHINE PILOT CAN ROUTER-C Primary Care Provider, Referr ing Provider Active Umang Braxton MD Attending Provider Active Carpenter Maintenance Relationship Specialty Start Date End Date Araceli Mason, INCIDENT ANALYST.L[employer]ER M[employer] [address] [place] [address] PCP - General Family Medicine 06/25/18 Carpenter Maintenance Relationship Specialty Start Date End Date Araceli Mason, INCIDENT ANALYST.[employer]ER [employer] [address] [place] [address] PCP - General Family Medicine 06/25/18 Carpenter Maintenance Relationship Specialty Start Date End Date Araceli Mason, INCIDENT ANALYST.[employer]ER [employer] [address] [place] [address] PCP - General Family Medicine 06/25/18 Carpenter Maintenance Relationship Specialty Start Date End Date Araceli Mason, INCIDENT ANALYST.[employer]ER [employer] [address] [place], [place] [phone] PCP - General Family Medicine 06/25/18 Team Status: Active Member Role Status Dates Araceli Mason PACKING MACHINE PILOT CAN ROUTER, PACKING MACHINE PILOT CAN ROUTER-C Primary Care Provider Active Team Status: Inactive Member Role Status Dates Araceli Mason PACKING MACHINE PILOT CAN ROUTER, PACKING MACHINE PILOT CAN ROUTER-C Primary Care Provider Active Start: April 26, 2024 End: April 26, 2024 Araceli Mason PACKING MACHINE PILOT CAN ROUTER, PACKING MACHINE PILOT CAN ROUTER-C Referring Provider Active Start: April 26, 2024 End: April 26, 2024 Umang Braxton MD Attending Provider Active St art: April 26, 2024 End: April 26, 2024 Team Status: Inactive Member Role Status Dates Araceli Mason PACKING MACHINE PILOT CAN ROUTER, PACKING MACHINE PILOT CAN ROUTER-C Primary Care Provider Active Start: May 17, 2024 End: May 17, 2024 Araceli Mason PACKING MACHINE PILOT CAN ROUTER, PACKING MACHINE PILOT CAN ROUTER-C Referring Provider Active Start: May 17, 2024 End: May 17, 2024 Umang Braxton MD Attending Provider Active St art: May 17, 2024 End: May 17, 2024 Team Status: Inactive Member Role Status Dates Araceli Mason PACKING MACHINE PILOT CAN ROUTER, PACKING MACHINE PILOT CAN ROUTER-C Primary Care Provider Active Start: June 24, 2024 End: June 24, 2024 PORFIRIO SKELTON Attending Provider Active Star t: June 24, 2024 End: June 24, 2024 PORFIRIO SKELTON Referring Provider Active Star t: June 24, 2024 End: June 24, 2024 Team Status: Active Member Role Status Dates Araceli Mason PACKING MACHINE PILOT CAN ROUTER, PACKING MACHINE PILOT CAN ROUTER-C Primary Care Provider Active Start: June 24, 2024 Umang Braxton MD Attending Provider Active St art: June 24, 2024 Umang Braxton MD Referring Provider Active St art: June 24, 2024 Team Status: Inactive Member Role Status Dates Araceli Mason PACKING MACHINE PILOT CAN ROUTER, PACKING MACHINE PILOT CAN ROUTER-C Primary Care Provider Active Start: June 28, 2024 End: June 28, 2024 Araceli Mason PACKING MACHINE PILOT CAN ROUTER, PACKING MACHINE PILOT CAN ROUTER-C Referring Provider Active Start: June 28, 2024 End: June 28, 2024 Umang Braxton MD Attending Provider Active St art: June 28, 2024 End: June 28, 2024 Team Status: Inactive Member Role Status Dates Araceli Mason PACKING MACHINE PILOT CAN ROUTER, PACKING MACHINE PILOT CAN ROUTER-C Primary Care Provider Active Start: July 08, 2024 End: July 08, 2024 Araceli Mason PACKING MACHINE PILOT CAN ROUTER, PACKING MACHINE PILOT CAN ROUTER-C Attending Provider Active Start: July 08, 2024 End: July 08, 2024 Araceli Mason PACKING MACHINE PILOT CAN ROUTER, PACKING MACHINE PILOT CAN ROUTER-C Referring Provider Active Start: July 08, 2024 End: July 08, 2024 Team Status: Inactive Member Role Status Dates Araceli Mason PACKING MACHINE PILOT CAN ROUTER, PACKING MACHINE PILOT CAN ROUTER-C Primary Care Provider Active Start: August 04, 2024 End: August 04, 2024 Araceli Mason PACKING MACHINE PILOT CAN ROUTER, PACKING MACHINE PILOT CAN ROUTER-C Referring Provider Active Start: August 04, 2024 End: August 04, 2024 BRAYAN Wilson Attending Provider Active Start: August 04, 2024 End: August 04, 2024 Team Status: Inactive Member Role Status Dates Araceli Mason NP, NP-C Primary Care Provider Active Start: August 16, 2024 End: August 16, 2024 BRAYAN Wilson Attending Provider Active Start: August 16, 2024 End: August 16, 2024 BRAYAN Wilson Referring Provider Active Start: August 16, 2024 End: August 16, 2024 Carpenter Maintenance Relationship Specialty Start Date End Date Araceli Mason INCIDENT ANALYST.[employer] [address] [place], [place] [phone] PCP - General Family Medicine 06/25/18 Carpenter Maintenance Relationship Specialty Start Date End Date Araceli Mason INCIDENT ANALYST.[employer]ER M[employer] [address] [place], [place] [phone] PCP - General Family Medicine 06/25/18 Carpenter Maintenance Relationship Specialty Start Date End Date Araceli Mason, INCIDENT ANALYST.[employer] [address] [place], [place] [phone] PCP - General Family Medicine 06/25/18 Team Status: Inactive Member Role Status Dates Araceli Mason NP, NP-C Primary Care Provider Active Start: June 24, 2024 End: June 24, 2024 Umang Braxton MD Attending Provider Active St art: June 24, 2024 End: June 24, 2024 Umang Braxton MD Referring Provider Active St art: June 24, 2024 End: June 24, 2024 Team Status: Inactive Member Role Status Dates Araceli Mason NP PACKING MACHINE PILOT CAN ROUTER-C Primary Care Provider Active Start: August 24, 2024 End: August 24, 2024 Araceli Mason NP, NP-C Attending Provider Active Start: August 24, 2024 End: August 24, 2024 Araceli Mason PACKING MACHINE PILOT CAN ROUTER, PACKING MACHINE PILOT CAN ROUTER-C Referring Provider Active Start: August 24, 2024 End: August 24, 2024 Team Status: Inactive Member Role Status Dates Araceli Mason NP, PACKING MACHINE PILOT CAN ROUTER-C Primary Care Provider Active Start: September 01, 2024 End: September 01, 2024 Truman Matthews PACKING MACHINE PILOT CAN ROUTER, PACKING MACHINE PILOT CAN ROUTER-C Attending Provider Active S tart: September 01, 2024 End: September 01, 2024 Truman Matthews PACKING MACHINE PILOT CAN ROUTER, PACKING MACHINE PILOT CAN ROUTER-C Referring Provider Active S tart: September 01, 2024 End: September 01, 2024 Team Status: Active Member Role Status Dates Araceli Mason PACKING MACHINE PILOT CAN ROUTER, PACKING MACHINE PILOT CAN ROUTER-C Primary Care Provider Active Start: September 01, 2024 Dr. Leticia Butterfield MD Attending Provider Active Start: September 01, 2024 Team Status: Inactive Member Role Status Dates Araceli Mason PACKING MACHINE PILOT CAN ROUTER, PACKING MACHINE PILOT CAN ROUTER-C Primary Care Provider Active Start: October 14, 2024 End: October 14, 2024 Sindy Samayoa PACKING MACHINE PILOT CAN ROUTER-C Attending Provider Active Start: October 14, 2024 End: October 14, 2024 Sindy Samayoa NP-C Referring Provider Active Start: October 14, 2024 End: October 14, 2024 Team Status: Active Member Role Status Dates Araceli Mason NP, PACKING MACHINE PILOT CAN ROUTER-C Primary Care Provider Active Start: October 18, 2024 Sindy Samayoa NP-C Referring Provider Active Start: October 18, 2024 Sindy Samayoa NP-C Other Provider Active St art: October 18, 2024 Dr. Daniele Blount DO Attending Provider Active S tart: October 18, 2024 Team Status: Inactive Member Role Status Dates Araceli Mason NP, PACKING MACHINE PILOT CAN ROUTER-C Primary Care Provider Active Start: October 26, 2024 End: October 26, 2024 Araceli Mason NP, PACKING MACHINE PILOT CAN ROUTER-C Referring Provider Active Start: October 26, 2024 End: October 26, 2024 Sindy Samayoa NP-C Attending Provider Active Start: October 26, 2024 End: October 26, 2024 Carpenter Maintenance Relationship Specialty Start Date End Date Araceli Mason APRN.CNP [address] [id number] PCP - General Family Medicine 06/25/18 Team Status: Active Member Role/Relationship Status Dates Araceli Mason PACKING MACHINE PILOT CAN ROUTER, PACKING MACHINE PILOT CAN ROUTER-C Primary Care Provider Active Team Status: Inactive Member Role/Relationship Status Dates Araceli Mason PACKING MACHINE PILOT CAN ROUTER, PACKING MACHINE PILOT CAN ROUTER-C Primary Care Provider Active Start: August 16, 2024 End: August 16, 2024 Sindy Samayoa , PACKING MACHINE PILOT CAN ROUTER-C Attending Provider Active Start: August 16, 2024 End: August 16, 2024 Sindy Samayoa PACKING MACHINE PILOT CAN ROUTER-C Referring Provider Active Start: August 16, 2024 End: August 16, 2024 Team Status: Active Member Role/Relationship Status Dates Araceli Mason PACKING MACHINE PILOT CAN ROUTER, PACKING MACHINE PILOT CAN ROUTER-C Primary Care Provider Active Start: August 16, 2024 Dr. Daniele Blount DO Attending Provider Active S tart: August 16, 2024 Sindy Samayoa PACKING MACHINE PILOT CAN ROUTER-C Referring Provider Active Start: August 16, 2024 Team Status: Inactive Member Role/Relationship Status Dates Araceli Mason PACKING MACHINE PILOT CAN ROUTER, PACKING MACHINE PILOT CAN ROUTER-C Primary Care Provider Active Start: August 24, 2024 End: August 24, 2024 Araceli Mason PACKING MACHINE PILOT CAN ROUTER, PACKING MACHINE PILOT CAN ROUTER-C Attending Provider Active Start: August 24, 2024 End: August 24, 2024 Araceli Mason PACKING MACHINE PILOT CAN ROUTER, PACKING MACHINE PILOT CAN ROUTER-C Referring Provider Active Start: August 24, 2024 End: August 24, 2024 Team Status: Inactive Member Role/Relationship Status Dates Araceli Mason PACKING MACHINE PILOT CAN ROUTER, PACKING MACHINE PILOT CAN ROUTER-C Primary Care Provider Active Start: September 01, 2024 End: September 01, 2024 Truman Matthews PACKING MACHINE PILOT CAN ROUTER, PACKING MACHINE PILOT CAN ROUTER-C Attending Provider Active S tart: September 01, 2024 End: September 01, 2024 Truman Matthews PACKING MACHINE PILOT CAN ROUTER, PACKING MACHINE PILOT CAN ROUTER-C Referring Provider Active S tart: September 01, 2024 End: September 01, 2024 Team Status: Active Member Role/Relationship Status Dates Araceli Mason PACKING MACHINE PILOT CAN ROUTER, PACKING MACHINE PILOT CAN ROUTER-C Primary Care Provider Active Start: September 01, 2024 Dr. Leticia Butterfield MD Attending Provider Active Start: September 01, 2024 Team Status: Inactive Member Role/Relationship Status Dates Araceli Mason PACKING MACHINE PILOT CAN ROUTER, PACKING MACHINE PILOT CAN ROUTER-C Primary Care Provider Active Start: October 14, 2024 End: October 14, 2024 Sindy Samayoa PACKING MACHINE PILOT CAN ROUTER-C Attending Provider Active Start: October 14, 2024 End: October 14, 2024 Sindy Samayoa , PACKING MACHINE PILOT CAN ROUTER-C Referring Provider Active Start: October 14, 2024 End: October 14, 2024 Team Status: Active Member Role/Relationship Status Dates Araceli Mason NP, PACKING MACHINE PILOT CAN ROUTER-C Primary Care Provider Active Start: October 18, 2024 Sindy Samayoa , PACKING MACHINE PILOT CAN ROUTER-C Referring Provider Active Start: October 18, 2024 Sindy Samayoa PACKING MACHINE PILOT CAN ROUTER-C Other Provider Active St art: October 18, 2024 Dr. Daniele Blount , Attending Provider Active S tart: October 18, 2024 Team Status: Inactive Member Role/Relationship Status Dates Araceli Mason PACKING MACHINE PILOT CAN ROUTER, PACKING MACHINE PILOT CAN ROUTER-C Primary Care Provider Active Start: October 26, 2024 End: October 26, 2024 Araceli Mason NP, PACKING MACHINE PILOT CAN ROUTER-C Referring Provider Active Start: October 26, 2024 End: October 26, 2024 Sindy Samayoa PACKING MACHINE PILOT CAN ROUTER-C Attending Provider Active Start: October 26, 2024 End: October 26, 2024 Team Status: Inactive Member Role/Relationship Status Dates Araceli Mason NP, PACKING MACHINE PILOT CAN ROUTER-C Primary Care Provider Active Start: October 26, 2024 End: October 26, 2024 Araceli Mason NP, PACKING MACHINE PILOT CAN ROUTER-C Attending Provider Active Start: October 26, 2024 End: October 26, 2024 Araceli Mason NP, PACKING MACHINE PILOT CAN ROUTER-C Referring Provider Active Start: October 26, 2024 End: October 26, 2024 Team Status: Inactive Member Role/Relationship Status Dates Araceli Mason PACKING MACHINE PILOT CAN ROUTER, PACKING MACHINE PILOT CAN ROUTER-C Primary Care Provider Active Start: December 06, 2024 End: December 06, 2024 Araceli Mason NP, PACKING MACHINE PILOT CAN ROUTER-C Referring Provider Active Start: December 06, 2024 End: December 06, 2024 Truman Matthews NP, PACKING MACHINE PILOT CAN ROUTER-C Attending Provider Active S tart: December 06, 2024 End: December 06, 2024 Source Comments (unrecognize d section and content) In the event this informatio n is protected by the Federal Confidentiality of Alcohol and Drug Abuse Patient Records regulations: The Federal rules restrict any use of the information to criminally investigate or prosecute any alcohol or drug abuse patient.[facility] the event this information is protected by the Federal Confidentiality of Alcohol and Drug Abuse Patient Records regulations: The Federal rules restrict any use of the information to criminally investigate or prosecute any alcohol or drug abuse patient.[facility] the event this information is protected by the Federal Confidentiality of Alcohol and Drug Abuse Patient Records regulations: The Federal rules restrict any use of the information to criminally investigate or prosecute any alcohol or drug abuse patient.[facility] the event this information is protected by the Federal Confidentiality of Alcohol and Drug Abuse Patient Records regulations: The Federal rules restrict any use of the information to criminally investigate or prosecute any alcohol or drug abuse patient.[facility] the event this information is protected by the Federal Confidentiality of Alcohol and Drug Abuse Patient Records regulations: The Federal rules restrict any use of the information to criminally investigate or prosecute any alcohol or drug abuse patient.[facility] the event this information is protected by the Federal Confidentiality of Alcohol and Drug Abuse Patient Records regulations: The Federal rules restrict any use of the information to criminally investigate or prosecute any alcohol or drug abuse patient.[facility] the event this information is protected by the Federal Confidentiality of Alcohol and Drug Abuse Patient Records regulations: The Federal rules restrict any use of the information to criminally investigate or prosecute any alcohol or drug abuse patient.[facility] the event this information is protected by the Federal Confidentiality of Alcohol and Drug Abuse Patient Records regulations: The Federal rules restrict any use of the information to criminally investigate or prosecute any alcohol or drug abuse patient.[facility] the event this information is protected by the Federal Confidentiality of Alcohol and Drug Abuse Patient Records regulations: The Federal rules restrict any use of the information to criminally investigate or prosecute any alcohol or drug abuse patient.[facility] Reason for Visit (unrecogniz ed section and content) Reason Comments Rash Poison gayle x2 days, widespread Reason Comments poison gayle X 2 weeks all over Specialty Diagnoses / Procedures Referred By Contac t Referred To Contact Radiology / RADIO MRI [facility] Diagnoses Illness, unspecified MRI LUMBAR SPINE WO IVCON Illness, unspecified R69.0 Dr. Nathalie Jerez [phone] Will fax over the order and hand copy Procedures MRI SPINAL CANAL LUMBAR W/O CONTRAST MATERIAL MRI WO RILEY B 300 ALL Nathalie Jerez MD [address] [place] [address] Radio M[facility] [address] [place] [address] Referral ID Status Reason Start Date Expiration Date Visits Re quested Visits Authorized [id number] Closed 06/08/2024 08/13/2024 1 1 Reason Comments Liver biopsy FOR RECORDS PERTAINING TO PATIENTS WHO ARE OR HAVE BEEN ENROLLED IN A CHEMICAL DEPENDENCY/SUBSTANCEABUSE PROGRAM, SOME INFORMATION MAY BE OMITTED. This clinical summary was aggregated from multiple sources. Caution should be exercised in using it in the provision of clinical care. This summary normalizes information from multiple sources, and as a consequence, information in this document may materially change the coding, format and clinical context of patient data. In addition, data may be omitted in some cases. CLINICAL DECISIONS SHOULD BE BASED ON THE PRIMARY CLINICAL RECORDS. [employer] provides no warranty or guarantee of the accuracy or completeness of information in this document.
[2025-03-08 07:28] LABS: Hematocrit 45.7 % (40-54); Hemoglobin 15.7 g/dL (13.0-16.5); Immature Granulocytes Count 0.000 X10^3/uL (0.0-0.0); Mean Corp Hgb Conc 34.4 g/dL (32-36); Mean Corpuscular Volume 88.1 fL (80-94); Mean Platelet Vol. 11.7 fl (6.2-12.0); NRBC Flagged by Analyzer 0 % (0-5); Platelet Count 165 K/mm3 (150-450); RBC Distribution Width CV 12.6 % (11.6-14.6); RBC Distribution Width SD 41.0 fl (35.1-43.9); Red Blood Count 5.19 M/mm3 (4.6-6.2); White Blood Count 4.9 K/mm3 (4.4-11.0)
[2025-03-08 08:29] LABS: AST(SGOT) 23 U/L (<=37); Alanine Aminotransfer ALT/SGPT 31 U/L (<=46); Albumin, Serum 4.3 g/dL (3.5-5.0); Alkaline Phosphatase 66 U/L (40-129); Anion Gap 10 (5-15); BUN 11 mg/dL (4-19); BUN/Creat Ratio 14.5 RATIO (10-20); Calcium,Total 8.9 mg/dL (7.6-11.0); Carbon Dioxide 26.1 mmol/L (21.0-32.0); Chloride 101 mmol/L (98-108); Globulin 2.0 g/dL (2.2-4.2); Glucose 118 mg/dL (70-99); Potassium 3.9 mmol/L (3.3-5.1)
== END | disposition home or self-care (01) ==
LOC: LAB 06:04
PROVIDERS: PCP Nurse Practitioner
DX: K75.81 Nonalcoholic steatohepatitis (NASH) (principal); K21.9 Gastro-esophageal reflux disease without esophagitis; K57.30 Diverticulosis of large intestine without perforation or abscess without bleeding
CPT/HCPCS: 36415; 80053; 82105; 85025

== ENCOUNTER 2025-03-09 15:41 | Outpatient (CLI) | payer BC, SELFPAY ==
--- NOTE | 2025-03-09 15:49 | CT_ITS ---
PROCEDURE: CT/Low Dose CT Lung Screening
== END 2025-03-09 23:59 | disposition home or self-care (01) ==
LOC: CT 15:42
PROVIDERS: PCP Nurse Practitioner; Referring Provider Nurse Practitioner Acute Care; Visit Provider Nurse Practitioner Acute Care
DX: Z87.891 Personal history of nicotine dependence (principal)
CPT/HCPCS: 71271